=== PATIENT | male | born 1975 | race Caucasian/White ===

== ENCOUNTER 2018-07-23 12:31 | Emergency (ER) | payer BC ==
[2018-07-23] MEDS ORDERED: TRAMADOL HCL 50 MG TAB ONE (14:08)
[2018-07-23] MEDS ORDERED: ACETAMINOPHEN 500 MG TAB ONE (14:08)
[2018-07-23] MEDS ORDERED: HYDROCODONE/APAP 10/325 TAB ONE (15:00)
--- NOTE | 2018-07-23 15:05 | RAD REPORT ---
EXAM DESCRIPTION: RAD - Knee Left 3 View - 07/23/2018 2:48 pm CLINICAL HISTORY: Knee pain COMPARISON: Left knee October 2015 FINDINGS: No fracture, dislocation or periosteal reaction.Joint effusion cannot be accurately assess ed. Slight narrowing of the medial compartment noted. No marginal spurring. Patient has very pronounc ed soft tissue. This limits bone and joint assessment. No air or foreign body seen. IMPRESSION: Narrowing of the medial compartment. No acute bone finding. Joint effusion cannot be assessed due to the very pronounced surrounding soft tissue prominence. No a ir or foreign body in the soft tissues.
--- NOTE | 2018-07-23 15:15 | ER ---
Nurse's Notes [facility] Name: Serge Rich Age: 42 yrs Sex: Male : 1975 Arrival Date: 07/23/2018 Time: 12:34 Bed Treatment Private MD: Noe Tobin Diagnosis: Pain in left knee Presentation: 07/23 12:43 Presenting complaint: Patient states: Left knee pain that started 3 weeks ago and is aj constant. Transition of care: patient was not received from another setting of care. Onset of symptoms was June 30, 2018. Risk Assessment: Do you want to hurt yourself or someone else? Patient reports no desire to harm self or others. Initial Sepsis Screen: Does the patient meet any 2 criteria? No. Patient's initial sepsis screen is negative. Does the patient have a suspected source of infection? No. Patient's initial sepsis screen is negative. Care prior to arrival: None. 12:43 Method Of Arrival: Ambulatory aj 12:43 Acuity: MODESTA 4 aj Triage Assessment: 12:44 General: Appears in no apparent distress. comfortable, obese, Behavior is calm, aj cooperative, appropriate for age. Pain: Complains of pain in lateral aspect of left knee and left knee Pain currently is 10 out of 10 on a pain scale. Neuro: Level of Consciousness is awake, alert, obeys commands, Oriented to person, place, time, situation, Appropriate for age. Respiratory: Airway is patent Respiratory effort is even, unlabored, Respiratory pattern is regular, symmetrical. Derm: Skin is intact, is healthy with good turgor, Skin is pink, warm \T\ dry. normal. Musculoskeletal: Reports pain in lateral aspect of left knee and left knee. Historical: - Allergies: 12:44 Aspirin; aj 12:44 Keflex; aj 12:44 Morphine; aj 12:44 Sulfa (Sulfonamide Antibiotics); aj - Home Meds: 12:44 losartan 100 mg Oral tab 1 tab once daily [Active]; metoprolol tartrate 50 mg Oral tab aj 1 tab once daily [Active]; - PMHx: 12:44 enlarged aorta; Bundle Branch Block; Hypertension; aj - PSHx: 12:44 Left Ankle 2007; aj - Immunization history:: Adult Immunizations up to date. - Social history:: Smoking status: Patient/guardian denies using tobacco. - Ebola Screening: : Patient negative for fever greater than or equal to 101.5 degrees Fahrenheit, and additional compatible Ebola Virus Disease symptoms Patient denies exposure to infectious person Patient denies travel to an Ebola-affected area in the 21 days before illness onset No symptoms or risks identified at this time. Screenin:11 Abuse screen: Denies threats or abuse. Denies injuries from another. Nutritional iw screening: No deficits noted. Tuberculosis screening: No symptoms or risk factors identified. 14:00 Fall Risk None identified. iw Assessment: 13:09 General: Appears in no apparent distress. Behavior is calm, cooperative. Pain: iw Complains of pain in left knee and lateral aspect of left knee. Neuro: Level of Consciousness is awake, alert, obeys commands, Oriented to person, place, time, situation, Cardiovascular: Patient's skin is warm and dry. Respiratory: Airway is patent Respiratory effort is even, unlabored. Derm: Skin is intact, is healthy with good turgor. Musculoskeletal: Range of motion: limited in left knee. Vital Signs: 12:44 BP 168 / 85; Pulse 92; Resp 22; Temp 97.4; Pulse Ox 96% on R/A; Weight 262.18 kg; aj Height 5 ft. 8 in. (172.72 cm); 12:44 Body Mass Index 87.88 (262.18 kg, 172.72 cm) aj ED Course: 12:34 Patient arrived in ED. mr 12:34 Noe Tobin DO is Private Physician. mr 12:44 Triage completed. aj 12:44 Arm band placed on left wrist. Patient placed in waiting room, Patient notified of wait aj time. 12:45 Patient has correct armband on for positive identification. iw 12:50 Watson Lopez PA is PHCP. cp 12:50 Watson Bethea MD is Attending Physician. cp 13:09 Daphne Lal, GARRETT is Primary Nurse. iw 14:20 US Extremity Venous Unilateral Ltd In Process Unspecified. EDMS 14:48 XRAY Knee LEFT 3 view In Process Unspecified. EDMS 14:48 Ultrasound completed. Patient tolerated well. Note: done bedside. lc3 15:13 Dustin Blake MD is Referral Physician. cp 15:40 No provider procedures requiring assistance completed. Patient did not have IV access iw during this emergency room visit. Administered Medications: 14:06 Not Given (Patient Refused): Tylenol 1000 mg PO once iw 14:06 Drug: UltRAM 50 mg Route: PO; iw 15:00 Drug: HYDROcodone-acetaminophen 10 mg-325 mg 1 tabs Route: PO; iw Outcome: 15:15 Discharge ordered by . safia 15:40 Discharged to home via wheelchair, with family. iw 15:40 Condition: good 15:40 Condition: good 15:40 Discharge instructions given to patient, family. 15:40 Instructed on discharge instructions, follow up and referral plans. medication usage, Demonstrated understanding of instructions, follow-up care, medications, Prescriptions given X 1. 15:41 Patient left the ED. iw Signatures: Dispatcher [employer] EDMS Lizbeth Crum RN RN aj Rivera, Maria mr Williams, Irene, RN RN iw Watson Lopez PA PA cp Cunningham, Laulita lc3
--- NOTE | 2018-07-23 15:15 | EDPHYS ---
Physician Documentation [facility] Name: Serge Rich Age: 42 yrs Sex: Male : 1975 Arrival Date: 07/23/2018 Time: 12:34 Bed Treatment Private MD: Noe Tobin ED Physician Watson Bethea HPI: 07/23 13:05 This 42 yrs old Male presents to ER via Ambulatory with complaints of Knee cp Pain. 13:05 The patient presents with pain, tenderness. The complaints affect the medial aspect of cp left knee. Context: resulted from a mis-step, causing patient to almost fall. believes he may have twisted knee. Onset: The symptoms/episode began/occurred 3 week(s) ago. Associated signs and symptoms: Pertinent negatives fever, numbness, rash, warmth. Historical: - Allergies: 12:44 Aspirin; aj 12:44 Keflex; aj 12:44 Morphine; aj 12:44 Sulfa (Sulfonamide Antibiotics); aj - Home Meds: 12:44 losartan 100 mg Oral tab 1 tab once daily [Active]; metoprolol tartrate 50 mg Oral tab aj 1 tab once daily [Active]; - PMHx: 12:44 enlarged aorta; Bundle Branch Block; Hypertension; aj - PSHx: 12:44 Left Ankle 2007; aj - Immunization history:: Adult Immunizations up to date. - Social history:: Smoking status: Patient/guardian denies using tobacco. - Ebola Screening: : Patient negative for fever greater than or equal to 101.5 degrees Fahrenheit, and additional compatible Ebola Virus Disease symptoms Patient denies exposure to infectious person Patient denies travel to an Ebola-affected area in the 21 days before illness onset No symptoms or risks identified at this time. ROS: 13:10 Constitutional: Negative for body aches, chills, fever, poor PO intake. cp 13:10 Eyes: Negative for injury, pain, redness, and discharge. cp 13:10 ENT: Negative for drainage from ear(s), ear pain, sore throat, difficulty swallowing, difficulty handling secretions. 13:10 Cardiovascular: Negative for chest pain, palpitations. 13:10 Respiratory: Negative for cough, shortness of breath, wheezing. 13:10 Abdomen/GI: Negative for abdominal pain, nausea, vomiting, and diarrhea, constipation. 13:10 MS/extremity: Positive for pain, tenderness, of the medial aspect of left knee, Negative for decreased range of motion, deformity, paresthesias. 13:10 Skin: Negative for cellulitis, rash. 13:10 Neuro: Negative for altered mental status, dizziness, headache, weakness. 13:10 All other systems are negative. Exam: 13:12 Constitutional: The patient appears in no acute distress, alert, awake, cp non-diaphoretic, non-toxic, well developed, well nourished, morbidly obese 13:12 Head/Face: Normocephalic, atraumatic. cp 13:12 Eyes: Periorbital structures: appear normal, Conjunctiva: normal, no exudate, no injection, Lids and lashes: appear normal, bilaterally. 13:12 ENT: External ear(s): are unremarkable, Nose: is normal, Mouth: is normal, Posterior pharynx: Airway: no evidence of obstruction, patent. 13:12 Chest/axilla: Inspection: normal. 13:12 Cardiovascular: Rate: normal. 13:12 Respiratory: the patient does not display signs of respiratory distress, Respirations: normal, no use of accessory muscles, no retractions, no splinting, no tachypnea. 13:12 Abdomen/GI: Inspection: obese 13:12 Musculoskeletal/extremity: ROM: limited passive range of motion due to pain, in the left knee, Perfusion: the extremity is normally perfused throughout, Sensation intact. Joints: All joints are normal except the medial aspect of left knee displays painful range of motion, tenderness. 13:12 Skin: cellulitis, is not appreciated, no rash present. Vital Signs: 12:44 BP 168 / 85; Pulse 92; Resp 22; Temp 97.4; Pulse Ox 96% on R/A; Weight 262.18 kg; aj Height 5 ft. 8 in. (172.72 cm); 12:44 Body Mass Index 87.88 (262.18 kg, 172.72 cm) aj MDM: 12:51 Patient medically screened. cp 14:00 Differential diagnosis: dislocation, closed fracture, contusion, tendonitis, ligament cp injury. 15:13 Data reviewed: vital signs, nurses notes, radiologic studies, plain films, ultrasound. cp 15:13 Test interpretation: by ED physician or midlevel provider: plain radiologic studies. cp Counseling: I had a detailed discussion with the patient and/or guardian regarding: the historical points, exam findings, and any diagnostic results supporting the discharge/admit diagnosis, radiology results, the need for outpatient follow up, a orthopedic surgeon, to return to the emergency department if symptoms worsen or persist or if there are any questions or concerns that arise at home. Response to treatment: the patient's symptoms have mildly improved after treatment, and as a result, I will discharge patient. 07/23 13:02 Order name: XRAY Knee LEFT 3 view; Complete Time: 15:23 cp 07/23 13:02 Order name: US Extremity Venous Unilateral Ltd; Complete Time: 15:23 cp 07/23 15:24 Interpretation: Report reviewed. cp Administered Medications: 14:06 Not Given (Patient Refused): Tylenol 1000 mg PO once iw 14:06 Drug: UltRAM 50 mg Route: PO; iw 15:00 Drug: HYDROcodone-acetaminophen 10 mg-325 mg 1 tabs Route: PO; iw Disposition: 07/23/18 15:15 Discharged to Home. Impression: Pain in left knee. - Condition is Stable. - Discharge Instructions: Elastic Bandage and RICE, Knee Pain. - Prescriptions for Tylenol- Codeine #3 300-30 mg Oral Tablet - take 2 tablets by ORAL route every 6 hours As needed; 20 tablet. - Medication Reconciliation Form, Thank You Letter, Antibiotic Education, Prescription Opioid Use form. - Follow up: Dustin Blake MD; When: 2 - 3 days; Reason: left knee pain. - Problem is new. - Symptoms have improved. Addendum: 07/26/2018 07:29 Co-signature as Attending Physician, Watson Bethea MD I agree with the assessment and c lara plan of care. Signatures: Dispatcher [employer] Lizbeth King, Watson Saldivar RN, MD MD cha Williams, Irene, RN RN iw Page, Corey, PA PA cp Corrections: (The following items were deleted from the chart) 07/23 15:41 15:15 07/23/2018 15:15 Discharged to Home. Impression: Pain in left knee. Condition is iw Stable. Forms are Medication Reconciliation Form, Thank You Letter, Antibiotic Education, Prescription Opioid Use. Follow up: Dustin Blake; When: 2 - 3 days; Reason: left knee pain. Problem is new. Symptoms have improved. cp
--- NOTE | 2018-07-23 15:17 | RAD REPORT ---
EXAM DESCRIPTION: US - Extremity Venous Uni Ltd - 07/23/2018 3:03 pm CLINICAL HISTORY: Left leg pain COMPARISON: None. TECHNIQUE: Real-time sonographic evaluation of the left lower extremity deep venous system was perfo rmed. Grayscale and Doppler interrogation performed. FINDINGS: Normal compressibility, flow augmentation, phasic flow and spontaneous flow are identified in the left lower extremity common femoral, greater saphenous, popliteal and posterior tibial veins. No intraluminal filling defects seen. The mid and distal superficial femoral vein was not identifiab le. This is believed to be artifact of very large body habitus. IMPRESSION: The mid and distal femoral vein was not identifiable due to the large amount of soft tis yvan. Thrombus cannot be excluded from this region but is doubtful based on the findings proximal and distal to this region. The remainder the deep venous system is clear.
== END 2018-07-23 15:41 | disposition home or self-care (01) ==
LOC: ER 12:31
DX: M25.562 Pain in left knee (principal); I10 Essential (primary) hypertension; Z88.2 Allergy status to sulfonamides; Z88.5 Allergy status to narcotic agent; Z88.6 Allergy status to analgesic agent; Z88.8 Allergy status to other drugs, medicaments and biological substances
CPT/HCPCS: 93971; 99283

== ENCOUNTER 2019-10-20 09:42 | Emergency (ER) | payer SELFPAY ==
[2019-10-20] MEDS ORDERED: HYDROCODONE/APAP 10/325 TAB ONE (12:39)
[2019-10-20 13:15] LABS: Absolute Lymphocytes (CBC) 1.3 K/uL (0.7-4.9); Basophils % 0.5 % (0-1.3); Hematocrit 42.7 % (39.6-49.0); Lymphocytes % 16.5 % (15.3-44.8); MPV 7.3 fL (7.6-11.3)
[2019-10-20 13:29] LABS: Albumin 3.6 g/dL (3.4-5.0); Protein, Total 7.2 g/dL (6.4-8.2)
--- NOTE | 2019-10-20 14:44 | RAD REPORT ---
EXAM DESCRIPTION: US - Extremity Venous Uni Ltd - 10/20/2019 2:01 pm CLINICAL HISTORY: pain, swelling Leg swelling and edema. COMPARISON: Extremity Venous Uni Ltd dated 07/23/2018 FINDINGS: Left lower extremity venous system was interrogated with Doppler technique. Normal flow, c ompressibility and augmentation was noted. There is no DVT present. IMPRESSION: No evidence of left lower extremity deep venous thrombosis.
--- NOTE | 2019-10-20 15:23 | EDPHYS ---
Physician Documentation [facility] Name: Serge Rich Age: 43 yrs Sex: Male : 1975 Arrival Date: 10/20/2019 Time: 09:46 Bed 26 Private MD: ED Physician Keith Han HPI: 10/20 12:38 This 43 yrs old Male presents to ER via Ambulatory with complaints of Leg jmm Pain, Leg Swelling. 12:38 The patient presents with pain, that is acute. Onset: The symptoms/episode jmm began/occurred today. Modifying factors: The symptoms are alleviated by nothing. the symptoms are aggravated by nothing. Associated signs and symptoms: Pertinent positives: rash, swelling, Pertinent negatives fever. This is a 43 year old male with a history of obesity, htn that presents to the ED with complaints of left leg pain. Patient denies fever or chills. Denies previous symptoms in the past. . Historical: - Allergies: 09:49 Aspirin; tw2 09:49 Keflex; tw2 09:49 Morphine; tw2 09:49 Sulfa (Sulfonamide Antibiotics); tw2 - Home Meds: 09:49 losartan 100 mg Oral tab 1 tab once daily [Active]; tw2 - PMHx: 09:49 Bundle Branch Block; Right; enlarged aorta; Hypertension; Obesity; tw2 - PSHx: 09:49 Left Ankle 2007; tw2 - Immunization history:: Adult Immunizations. - Social history:: Smoking status: . - Ebola Screening: : Patient denies travel to an Ebola-affected area in the 21 days before illness onset. ROS: 12:38 Constitutional: Negative for fever, chills, and weight loss, Cardiovascular: Negative jmm for chest pain, palpitations, and edema, Respiratory: Negative for shortness of breath, cough, wheezing, and pleuritic chest pain. 12:38 MS/extremity: Positive for pain, swelling. 12:38 All other systems are negative. Exam: 12:38 Constitutional: This is a well developed, well nourished patient who is awake, alert, jmm and in no acute distress. Head/Face: atraumatic. Eyes: EOMI, no conjunctival erythema appreciated ENT: Moist Mucus Membranes Neck: Trachea midline, Supple Chest/axilla: Normal chest wall appearance and motion. Cardiovascular: Regular rate and rhythm. No edema appreciated Respiratory: Normal respirations, no respiratory distress appreciated Abdomen/GI: Non distended, soft Back: Normal ROM 12:38 Skin: vesicular/erythematous rash noted to the left medial thigh, TTP, skin is mildly indurated. 12:38 Neuro: Orientation: is normal, Mentation: is normal, Memory: is normal. 12:38 Psych: Behavior/mood is pleasant, cooperative. Vital Signs: 09:49 BP 136 / 106; Pulse 111; Resp 18; Temp 98.2(TE); Pulse Ox 96% on R/A; Weight 272.16 kg tw2 (R); Height 5 ft. 8 in. (172.72 cm); Pain 6/10; 11:56 Weight 288.48 kg (M); tw2 13:59 BP 136 / 79; Pulse 67; Resp 18; Pulse Ox 100% on R/A; mg2 16:01 BP 133 / 78; Pulse 68; Resp 18; Temp 98.5; Pulse Ox 96% on R/A; mg2 11:56 Body Mass Index 96.70 (288.48 kg, 172.72 cm) tw2 09:49 if im walking it is 9, i weight 600 plus pounds last time i weighed tw2 MDM: 12:27 Patient medically screened. [facility] 15:20 Data reviewed: vital signs, nurses notes. Counseling: I had a detailed discussion with lali the patient and/or guardian regarding: the historical points, exam findings, and any diagnostic results supporting the discharge/admit diagnosis, radiology results, the need for outpatient follow up, to return to the emergency department if symptoms worsen or persist or if there are any questions or concerns that arise at home. ED course: Patient is alert and non toxic in appearance in the ED. PE findings appear consistent with Herpes Zoster. Patient is advised to follow up with pcp and otherwise given strict return precautions. patient understood and agrees with the plan of care. . 10/20 12:33 Order name: CBC with Diff; Complete Time: 13:20 [facility] 10/20 12:33 Order name: CMP; Complete Time: 13:44 [facility] 10/20 12:33 Order name: Saline Lock; Complete Time: 13:02 [facility] 10/20 12:34 Order name: US Extremity Venous Unilateral Ltd; Complete Time: 15:05 [facility] Administered Medications: 13:02 Drug: [place] 10 mg-325 mg 1 tabs Route: PO; mg2 13:54 Follow up: Response: No adverse reaction mg2 Disposition: 16:53 Co-signature as Attending Physician, Keith Han MD I agree with the assessment and kdr plan of care. Disposition: 10/20/19 15:22 Discharged to Home. Impression: Zoster [herpes zoster]. - Condition is Stable. - Discharge Instructions: Shingles. - Prescriptions for Tylenol- Codeine #3 300-30 mg Oral Tablet - take 2 tablet by ORAL route every 6 hours As needed; 30 tablet. Valtrex 1 g Oral Tablet - take 1 tablet by ORAL route every 8 hours for 7 days; 21 tablet. Clindamycin HCl 300 mg Oral Capsule - take 1 capsule by ORAL route every 6 hours for 10 days; 40 capsule. - Medication Reconciliation Form, Thank You Letter, Antibiotic Education, Prescription Opioid Use form. - Follow up: Private Physician; When: 2 - 3 days; Reason: Recheck today's complaints, Continuance of care, Re-evaluation by your physician. Signatures: Dispatcher [employer] EDMS Keith Han MD MD [facility] Luis Rose PA PA m Sonia Baum RN RN tw2 Rome Ortiz RN RN mg2 Corrections: (The following items were deleted from the chart) 16:02 15:22 10/20/2019 15:22 Discharged to Home. Impression: Zoster [herpes zoster]. mg2 Condition is Stable. Forms are Medication Reconciliation Form, Thank You Letter, Antibiotic Education, Prescription Opioid Use. Follow up: Private Physician; When: 2 - 3 days; Reason: Recheck today's complaints, Continuance of care, Re-evaluation by your physician. feli
--- NOTE | 2019-10-20 15:23 | ER ---
Nurse's Notes [facility] Name: Serge Rich Age: 43 yrs Sex: Male : 1975 Arrival Date: 10/20/2019 Time: 09:46 Bed 26 Private MD: Diagnosis: Zoster [herpes zoster] Presentation: 10/20 09:47 Presenting complaint: Patient states: i woke up yesterday with my LEFT thigh, inner tw2 thigh, red and swelling now the pain is excruciating. to me it looks like cellulitis. Presenting complaint: Patient states: i also felt like i was running fever and got the chills. Transition of care: patient was not received from another setting of care. Onset of symptoms was October 20, 2019. Risk Assessment: Do you want to hurt yourself or someone else? Patient reports no desire to harm self or others. Initial Sepsis Screen: Does the patient meet any 2 criteria? No. Patient's initial sepsis screen is negative. Does the patient have a suspected source of infection? No. Patient's initial sepsis screen is negative. Care prior to arrival: None. 09:47 Method Of Arrival: Ambulatory tw2 09:47 Acuity: MODESTA 3 tw2 Triage Assessment: 09:50 General: Appears in no apparent distress. obese, Behavior is calm, cooperative, tw2 appropriate for age. Pain: Complains of pain in medial aspect of left thigh. Historical: - Allergies: 09:49 Aspirin; tw2 09:49 Keflex; tw2 09:49 Morphine; tw2 09:49 Sulfa (Sulfonamide Antibiotics); tw2 - Home Meds: 09:49 losartan 100 mg Oral tab 1 tab once daily [Active]; tw2 - PMHx: 09:49 Bundle Branch Block; Right; enlarged aorta; Hypertension; Obesity; tw2 - PSHx: 09:49 Left Ankle 2008; tw2 - Immunization history:: Adult Immunizations. - Social history:: Smoking status: . - Ebola Screening: : Patient denies travel to an Ebola-affected area in the 21 days before illness onset. Screenin:11 Abuse screen: Denies threats or abuse. Nutritional screening: No deficits noted. tw2 Tuberculosis screening: No symptoms or risk factors identified. Fall Risk Secondary diagnosis (15 points) impaired mobility. Assessment: 13:26 General: Appears in no apparent distress. comfortable, Behavior is calm, cooperative. mg2 Pain: Complains of pain in left leg and medial aspect of left thigh Pain does not radiate. Pain currently is 2 out of 10 on a pain scale. Quality of pain is described as aching. Neuro: Level of Consciousness is awake, alert, obeys commands, Oriented to person, place, time, situation. Cardiovascular: Capillary refill < 3 seconds Patient's skin is warm and dry. Respiratory: Airway is patent Respiratory effort is even, unlabored, Respiratory pattern is regular, symmetrical. GI: No signs and/or symptoms were reported involving the gastrointestinal system. : No signs and/or symptoms were reported regarding the genitourinary system. EENT: No signs and/or symptoms were reported regarding the EENT system. Derm: Rash noted that is red, on left leg and medial aspect of left thigh. Musculoskeletal: Circulation, motion, and sensation intact. Capillary refill < 3 seconds. 13:59 Reassessment: Patient appears in no apparent distress at this time. Patient and/or mg2 family updated on plan of care and expected duration. Pain level reassessed. Patient is alert, oriented x 3, equal unlabored respirations, skin warm/dry/pink. 16:01 Reassessment: Patient appears in no apparent distress at this time. Patient states mg2 feeling better. Vital Signs: 09:49 BP 136 / 106; Pulse 111; Resp 18; Temp 98.2(TE); Pulse Ox 96% on R/A; Weight 272.16 kg tw2 (R); Height 5 ft. 8 in. (172.72 cm); Pain 6/10; 11:56 Weight 288.48 kg (M); tw2 13:59 BP 136 / 79; Pulse 67; Resp 18; Pulse Ox 100% on R/A; mg2 16:01 BP 133 / 78; Pulse 68; Resp 18; Temp 98.5; Pulse Ox 96% on R/A; mg2 11:56 Body Mass Index 96.70 (288.48 kg, 172.72 cm) tw2 09:49 if im walking it is 9, i weight 600 plus pounds last time i weighed tw2 ED Course: 09:46 Patient arrived in ED. rg4 09:48 Triage completed. tw2 09:50 Arm band placed on. tw2 11:53 Bed in low position. Adult w/ patient. tw2 12:04 Luis Rose PA is PHCP. [facility] 12:04 Keith Han MD is Attending Physician. [facility] 12:12 Anushka Aaron, GARRETT is Primary Nurse. ss 13:15 Inserted saline lock: 22 gauge in left upper arm, using aseptic technique. Blood mg2 collected. 13:27 No provider procedures requiring assistance completed. mg2 13:33 Rome Ortiz, RN is Primary Nurse. mg2 13:38 US Extremity Venous Unilateral Ltd In Process Unspecified. EDMS 16:02 IV discontinued, intact, bleeding controlled, No redness/swelling at site. Pressure mg2 dressing applied. Administered Medications: 13:02 Drug: [place] 10 mg-325 mg 1 tabs Route: PO; mg2 13:54 Follow up: Response: No adverse reaction mg2 Outcome: 15:22 Discharge ordered by MD. jmm 16:01 Discharged to home ambulatory. mg2 16:01 Condition: stable 16:01 Discharge instructions given to patient, family, Instructed on discharge instructions. 16:02 Discharged to home via wheelchair, with family. mg2 16:02 Condition: stable 16:02 Discharge instructions given to patient, family, Instructed on discharge instructions, follow up and referral plans. medication usage, Demonstrated understanding of instructions, follow-up care, medications, Prescriptions given X 3. 16:02 Patient left the ED. mg2 Signatures: Dispatcher [employer] EDMS Luis Rose PA PA [facility] Anushka Aaron, GARRETT TUCKER ss Sonia Baum RN RN tw2 Su Michelle rg4 Rome Ortiz, RN RN mg2 Corrections: (The following items were deleted from the chart) 11:11 09:49 BP 136 / 106; Pulse 111bpm; Resp 18bpm; Pulse Ox 96% RA; Temp 98.2F Temporal; tw2 272.16 kg Reported; Height 5 ft. 8 in.; BMI: 91.2; Pain 6/10; if im walking it is 9; tw2
[2019-10-20 16:48] VITALS: BP 133/78; TEMP 98.5; O2SAT 96
== END 2019-10-20 16:02 | disposition home or self-care (01) ==
LOC: ER 09:42
DX: B02.9 Zoster without complications (principal); I10 Essential (primary) hypertension; E66.9 Obesity, unspecified; Z88.1 Allergy status to other antibiotic agents; Z88.2 Allergy status to sulfonamides; Z88.5 Allergy status to narcotic agent; Z88.6 Allergy status to analgesic agent
CPT/HCPCS: 36415; 80053; 85025; 93971; 99284

== ENCOUNTER 2019-12-27 18:31 | Emergency (ER) | payer OTHER, SELFPAY ==
--- NOTE | 2019-12-27 19:18 | EDPHYS ---
Physician Documentation [facility] Name: Serge Rich Age: 44 yrs Sex: Male : 1975 Arrival Date: 12/27/2019 Time: 18:34 Bed 19 Private MD: ED Physician Vipin Bright HPI: 12/27 19:15 This 44 yrs old Male presents to ER via Wheelchair with complaints of Knee snw Injury. 19:15 The patient presents with pain, that is acute. The complaints affect the lateral aspect snw of left knee. Context: The problem was sustained outdoors, resulted from the patient tripping. Onset: The symptoms/episode began/occurred suddenly, 2 hour(s) ago, and became persistent. Associated signs and symptoms: Pertinent positives: left lateral knee pain. Severity of symptoms: At their worst the symptoms were moderate. It is unknown whether or not the patient has had similar symptoms in the past. It is unknown whether or not the patient has recently seen a physician. Historical: - Allergies: 18:53 Aspirin; ca1 18:53 Keflex; ca1 18:53 Morphine; ca1 18:53 Sulfa (Sulfonamide Antibiotics); ca1 - Home Meds: 18:53 losartan 100 mg Oral tab 1 tab once daily [Active]; ca1 - PMHx: 18:53 Bundle Branch Block; Right; enlarged aorta; Hypertension; Obesity; ca1 - Immunization history:: Adult Immunizations up to date, Flu vaccine is not up to date. - Coronavirus screen:: The patient has NOT traveled to [place] in the past 14 days. The patient has NOT had contact with known/suspected case of Coronavirus?. - Social history:: Smoking status: Patient denies any tobacco usage or history of. - Ebola Screening: : Patient negative for fever greater than or equal to 101.5 degrees Fahrenheit, and additional compatible Ebola Virus Disease symptoms Patient denies exposure to infectious person Patient denies travel to an Ebola-affected area in the 21 days before illness onset No symptoms or risks identified at this time. ROS: 19:14 Constitutional: Negative for fever, chills, and weight loss, Eyes: Negative for injury, snw pain, redness, and discharge, ENT: Negative for injury, pain, and discharge, Neck: Negative for injury, pain, and swelling, Cardiovascular: Negative for chest pain, palpitations, and edema, Respiratory: Negative for shortness of breath, cough, wheezing, and pleuritic chest pain, Abdomen/GI: Negative for abdominal pain, nausea, vomiting, diarrhea, and constipation, Back: Negative for injury and pain, : Negative for injury, bleeding, discharge, and swelling, Skin: Negative for injury, rash, and discoloration, Neuro: Negative for headache, weakness, numbness, tingling, and seizure, Psych: Negative for depression, anxiety, suicide ideation, homicidal ideation, and hallucinations. 19:14 MS/extremity: Positive for injury or acute deformity, pain, of the lateral aspect of left knee. Exam: 19:13 Head/Face: Normocephalic, atraumatic. Eyes: Pupils equal round and reactive to light, snw extra-ocular motions intact. Lids and lashes normal. Conjunctiva and sclera are non-icteric and not injected. Cornea within normal limits. Periorbital areas with no swelling, redness, or edema. ENT: Nares patent. No nasal discharge, no septal abnormalities noted. Tympanic membranes are normal and external auditory canals are clear. Oropharynx with no redness, swelling, or masses, exudates, or evidence of obstruction, uvula midline. Mucous membranes moist. Neck: Trachea midline, no thyromegaly or masses palpated, and no cervical lymphadenopathy. Supple, full range of motion without nuchal rigidity, or vertebral point tenderness. No Meningismus. Chest/axilla: Normal chest wall appearance and motion. Nontender with no deformity. No lesions are appreciated. Cardiovascular: Regular rate and rhythm with a normal S1 and S2. No gallops, murmurs, or rubs. Normal PMI, no JVD. No pulse deficits. Respiratory: Lungs have equal breath sounds bilaterally, clear to auscultation and percussion. No rales, rhonchi or wheezes noted. No increased work of breathing, no retractions or nasal flaring. Abdomen/GI: Soft, non-tender, with normal bowel sounds. No distension or tympany. No guarding or rebound. No evidence of tenderness throughout. Back: No spinal tenderness. No costovertebral tenderness. Full range of motion. Skin: Warm, dry with normal turgor. Normal color with no rashes, no lesions, and no evidence of cellulitis. Neuro: Awake and alert, GCS 15, oriented to person, place, time, and situation. Cranial nerves II-XII grossly intact. Motor strength 5/5 in all extremities. Sensory grossly intact. Cerebellar exam normal. Normal gait. Psych: Awake, alert, with orientation to person, place and time. Behavior, mood, and affect are within normal limits. 19:13 Constitutional: The patient appears obese, unkempt. 19:13 Musculoskeletal/extremity: Extremities: grossly normal except: the tenderness to left lateral knee Sensation intact. Vital Signs: 18:53 BP 148 / 86; Pulse 77; Resp 17 S; Pulse Ox 96% on R/A; Weight 283.95 kg (R); Height 5 ca1 ft. 8 in. (172.72 cm) (R); Pain 10/10; 19:59 BP 155 / 84; Pulse 65; Resp 18; Pulse Ox 97% on R/A; wh 21:15 BP 160 / 85; Pulse 63; Resp 18; Pulse Ox 98% on R/A; wh 18:53 Body Mass Index 95.18 (283.95 kg, 172.72 cm) ca1 MDM: 18:56 Patient medically screened. snw 19:18 Data reviewed: vital signs, nurses notes. Data interpreted: Pulse oximetry: on room air snw is 96 %. Interpretation: acceptable. Counseling: I had a detailed discussion with the patient and/or guardian regarding: the historical points, exam findings, and any diagnostic results supporting the discharge/admit diagnosis, the presence of at least one elevated blood pressure reading (>120/80) during this emergency department visit, radiology results, the need for outpatient follow up, to return to the emergency department if symptoms worsen or persist or if there are any questions or concerns that arise at home. Special discussion: I have referred the patient to see his PCP for further evaluation of high blood pressure. Based on the history and exam findings, there is no indication for further emergent testing or inpatient evaluation. I discussed with the patient/guardian the need to see the orthopedic surgeon for further evaluation of the symptoms. I discussed with the patient/guardian the need to see the primary care provider for further evaluation of the symptoms. 12/27 20:36 Order name: XRAY Knee LEFT 3 view wh 12/27 19:12 Order name: Mukund wrap-joint; Complete Time: 19:40 snw 02/18 21:41 Order name: Crutches; Complete Time: 22:12 Administered Medications: 19:40 Drug: fentaNYL (PF) 50 mcg Route: IM; Site: right deltoid; 19:59 Follow up: Response: No adverse reaction; Pain is decreased; RASS: Alert and Calm (0) 21:52 Drug: [place] 10 mg-325 mg 1 tabs Route: PO; 22:12 Follow up: Response: No adverse reaction; Pain is decreased; RASS: Alert and Calm (0) 21:52 Drug: [place] 10 mg-325 mg 1 tabs Route: PO; 22:12 Follow up: Response: No adverse reaction; Pain is decreased; RASS: Alert and Calm (0) Disposition: 12/28 07:05 Co-signature as Attending Physician, Vipin Bright MD. rn Disposition: 12/27/19 19:17 Discharged to Home. Impression: Fall on same level from slipping, tripping and stumbling, Pain in left knee, Internal derangement of knee. - Condition is Stable. - Discharge Instructions: Elastic Bandage and RICE, Joint Pain, Knee Sprain, Musculoskeletal Pain, Knee Pain, Cryotherapy. - Prescriptions for Tylenol- Codeine #3 300-30 mg Oral Tablet - take 2 tablets by ORAL route every 6 hours As needed; 16 tablet. - Work release form, Medication Reconciliation Form, Thank You Letter, Antibiotic Education, Prescription Opioid Use form. - Follow up: Private Physician; When: 1 week; Reason: Recheck today's complaints, Continuance of care, Re-evaluation by your physician. Follow up: Emergency Department; When: As needed; Reason: Worsening of condition. Follow up: Marc Abreu MD; When: 5 - 6 days; Reason: Recheck today's complaints, Continuance of care. Signatures: Dispatcher [employer] EDMS Zoya Ring, DOUGH RAISER-C DOUGH RAISER-Csnw Vipin Bright MD MD rn [place], Winsy Mary Beth Ordaz RN RN ca1 Corrections: (The following items were deleted from the chart) 12/27 21:47 19:17 12/27/2019 19:17 Discharged to Home. Impression: Fall on same level from snw slipping, tripping and stumbling; Pain in left knee; Internal derangement of knee. Condition is Stable. Forms are Medication Reconciliation Form, Thank You Letter, Antibiotic Education, Prescription Opioid Use. Follow up: Private Physician; When: 1 week; Reason: Recheck today's complaints, Continuance of care, Re-evaluation by your physician. Follow up: Emergency Department; When: As needed; Reason: Worsening of condition. snw 22:14 21:47 12/27/2019 19:17 Discharged to Home. Impression: Fall on same level from wh slipping, tripping and stumbling; Pain in left knee; Internal derangement of knee. Condition is Stable. Discharge Instructions: Elastic Bandage and RICE, Joint Pain, Knee Sprain, Musculoskeletal Pain, Knee Pain, Cryotherapy. Prescriptions for Tylenol-Codeine #3 300-30 mg Oral Tablet - take 2 tablets by ORAL route every 6 hours As needed; 16 tablet. and Forms are Medication Reconciliation Form, Thank You Letter, Antibiotic Education, Prescription Opioid Use, Work release form. Follow up: Private Physician; When: 1 week; Reason: Recheck today's complaints, Continuance of care, Re-evaluation by your physician. Follow up: Emergency Department; When: As needed; Reason: Worsening of condition. Follow up: Marc Abreu; When: 5 - 6 days; Reason: Recheck today's complaints, Continuance of care. snw
--- NOTE | 2019-12-27 19:18 | ER ---
Nurse's Notes [facility] Name: Serge Rich Age: 44 yrs Sex: Male : 1975 Arrival Date: 12/27/2019 Time: 18:34 Bed 19 Private MD: Diagnosis: Fall on same level from slipping, tripping and stumbling;Pain in left knee;Internal derangement of knee Presentation: 12/27 18:41 Presenting complaint: Presenting complaint: Patient states: I slipped and kind of did a ca1 split hyper extending my L knee. C/o L knee pain. 18:41 Transition of care: patient was not received from another setting of care. ca1 18:41 Method Of Arrival: Wheelchair ca1 18:41 Onset of symptoms was December 27, 2019. Risk Assessment: Do you want to hurt yourself ca1 or someone else? Patient reports no desire to harm self or others. Initial Sepsis Screen: Does the patient meet any 2 criteria? No. Patient's initial sepsis screen is negative. Does the patient have a suspected source of infection? No. Patient's initial sepsis screen is negative. Care prior to arrival: None. 18:41 Acuity: MODESTA 4 ca1 Triage Assessment: 19:05 Injury Description: fall. wh Historical: - Allergies: 18:53 Aspirin; ca1 18:53 Keflex; ca1 18:53 Morphine; ca1 18:53 Sulfa (Sulfonamide Antibiotics); ca1 - Home Meds: 18:53 losartan 100 mg Oral tab 1 tab once daily [Active]; ca1 - PMHx: 18:53 Bundle Branch Block; Right; enlarged aorta; Hypertension; Obesity; ca1 - Immunization history:: Adult Immunizations up to date, Flu vaccine is not up to date. - Coronavirus screen:: The patient has NOT traveled to [place] in the past 14 days. The patient has NOT had contact with known/suspected case of Coronavirus?. - Social history:: Smoking status: Patient denies any tobacco usage or history of. - Ebola Screening: : Patient negative for fever greater than or equal to 101.5 degrees Fahrenheit, and additional compatible Ebola Virus Disease symptoms Patient denies exposure to infectious person Patient denies travel to an Ebola-affected area in the 21 days before illness onset No symptoms or risks identified at this time. Screenin:05 Abuse screen: Denies threats or abuse. Denies injuries from another. Nutritional screening: No deficits noted. Tuberculosis screening: No symptoms or risk factors identified. Fall Risk None identified. Assessment: 19:05 General: Appears in no apparent distress. obese, Behavior is calm, cooperative, wh appropriate for age. Pain: Complains of pain in left knee Pain does not radiate. Pain currently is 9 out of 10 on a pain scale. Quality of pain is described as aching. Neuro: Level of Consciousness is awake, alert, obeys commands, Oriented to person, place, time, situation, Appropriate for age. Cardiovascular: Capillary refill < 3 seconds. Respiratory: Airway is patent Respiratory effort is even, unlabored, Respiratory pattern is regular, symmetrical. GI: Abdomen is round non-distended. : No signs and/or symptoms were reported regarding the genitourinary system. EENT: No signs and/or symptoms were reported regarding the EENT system. Derm: Skin is intact, is healthy with good turgor. Musculoskeletal: Circulation, motion, and sensation intact. 19:50 Reassessment: Patient appears in no apparent distress at this time. No changes from previously documented assessment. Patient and/or family updated on plan of care and expected duration. Pain level reassessed. Patient is alert, oriented x 3, equal unlabored respirations, skin warm/dry/pink. Patient states feeling better. 20:00 Reassessment: Upon discussing discharge instructions, Pt became agitated and asked for prescription pain medicine, Notified Provider and asked Pt if he has taken Tramadol before, then Pt became more agitated states Tramadol doesn't work for him, then asked to speak with Attending MD, notified Provider, MD and Charge Nurse. 20:33 Reassessment: MD at bedside speaking with PT. 21:45 Reassessment: Patient appears in no apparent distress at this time. No changes from previously documented assessment. Patient and/or family updated on plan of care and expected duration. Pain level reassessed. Patient is alert, oriented x 3, equal unlabored respirations, skin warm/dry/pink. Patient states feeling better. Patient states symptoms have improved. Vital Signs: 18:53 BP 148 / 86; Pulse 77; Resp 17 S; Pulse Ox 96% on R/A; Weight 283.95 kg (R); Height 5 ca1 ft. 8 in. (172.72 cm) (R); Pain 10/10; 19:59 BP 155 / 84; Pulse 65; Resp 18; Pulse Ox 97% on R/A; wh 21:15 BP 160 / 85; Pulse 63; Resp 18; Pulse Ox 98% on R/A; wh 18:53 Body Mass Index 95.18 (283.95 kg, 172.72 cm) ca1 ED Course: 18:34 Patient arrived in ED. rg4 18:36 Zoya Ring FNP-C is PHCP. snw 18:36 Vipin Bright MD is Attending Physician. snw 18:52 Triage completed. ca1 18:53 Arm band placed on right wrist. EKG completed in triage. Results shown to MD. EKG ca1 completed in triage. Results shown to MD. 19:05 Patient has correct armband on for positive identification. Bed in low position. Call light in reach. Side rails up X 1. Pulse ox on. NIBP on. 19:14 Mavis Carpenter is Primary Nurse. 19:58 No provider procedures requiring assistance completed. Patient did not have IV access during this emergency room visit. 21:03 XRAY Knee LEFT 3 view In Process Unspecified. EDMS 21:47 Marc Abreu MD is Referral Physician. snw Administered Medications: 19:40 Drug: fentaNYL (PF) 50 mcg Route: IM; Site: right deltoid; 19:59 Follow up: Response: No adverse reaction; Pain is decreased; RASS: Alert and Calm (0) 21:52 Drug: [place] 10 mg-325 mg 1 tabs Route: PO; 22:12 Follow up: Response: No adverse reaction; Pain is decreased; RASS: Alert and Calm (0) 21:52 Drug: [place] 10 mg-325 mg 1 tabs Route: PO; 22:12 Follow up: Response: No adverse reaction; Pain is decreased; RASS: Alert and Calm (0) Outcome: 19:17 Discharge ordered by . snw 22:13 Discharged to home via wheelchair, with family. 22:13 Discharge instructions given to patient, Instructed on discharge instructions, follow up and referral plans. POC Demonstrated understanding of instructions, follow-up care, POC 22:14 Condition: stable 22:14 Patient left the ED. Signatures: Dispatcher [employer] EDMS Zoya Ring, MIS SPECIALIST-C MIS SPECIALIST-Csnw Su Michelle rg4 Mavis Carpenter Mary Beth Ordaz RN RN ca1 Corrections: (The following items were deleted from the chart) 18:52 18:41 Presenting complaint: ca1 ca1 18:54 18:53 Pulse 77bpm; Resp 17bpm; Spontaneous; Pulse Ox 96% RA; 283.95 kg Reported; Height ca1 5 ft. 8 in. Reported; BMI: 95.1; Pain 08/18; ca1 22:14 19:58 Discharged to home via wheelchair, with family, [facility] : 19:58 Condition: stable [facility] : 19:58 Discharge instructions given to patient, Instructed on discharge instructions, follow up and referral plans. POC Demonstrated understanding of instructions, follow-up care, POC
[2019-12-27] MEDS ORDERED: FENTANYL CITR 100 MCG/2 ML ONE (19:40)
[2019-12-27] MEDS ORDERED: HYDROCODONE/APAP 10/325 TAB ONE (21:53)
[2019-12-27 22:23] VITALS: BP 160/85; O2SAT 98
--- NOTE | 2019-12-27 22:26 | RAD REPORT ---
EXAM DESCRIPTION: RAD - Knee Left 3 View - 12/27/2019 9:02 pm CLINICAL HISTORY: PAIN COMPARISON: Knee Left 3 View dated 07/23/2018; Knee Left 3 view dated 10/14/2015 FINDINGS: Examination is limited by a soft tissue attenuation artifact. No acute fracture, dislocati on or joint effusion.
== END 2019-12-27 22:14 | disposition home or self-care (01) ==
LOC: ER 18:31
DX: M23.92 Unspecified internal derangement of left knee (principal); W01.0XXA Fall on same level from slipping, tripping and stumbling without subsequent striking against object, initial encounter; Y93.01 Activity, walking, marching and hiking; Y92.9 Unspecified place or not applicable; I10 Essential (primary) hypertension; E66.9 Obesity, unspecified; Z88.1 Allergy status to other antibiotic agents; Z88.2 Allergy status to sulfonamides; Z88.5 Allergy status to narcotic agent; Z88.6 Allergy status to analgesic agent
CPT/HCPCS: 73562; 96372; 99283; J3010

== ENCOUNTER 2022-10-15 09:57 | Emergency (ER) | payer OTHER ==
--- OUTSIDE RECORDS SUMMARY | 2022-10-15 10:05 | XMS REPORT | Continuity of Care Document ---
:1975 Author Organization [facility] t Address [address] [place] [address] [address]. [address] [place] [address] Care Team Providers Name Role Phone HendricksonCyrus Primary Care Physician CARLOS ZAYAS Attending Clinician Unavailable SANDY MARIN Attending Clinician Unavailable Mehran Dela Cruz Attending Clinician Lab, [facility] Attending Clinician Unavailable MEHRAN MAURICIO Attending Clinician Unavailable Doctor Unassigned, [place] Attending Clinician Unavailable [facility]ag[facility] Attending Clinician Unavailable Amrit Grace Attending Clinician AMRIT SCHULTZ Attending Clinician Unavailable SANDY MARIN Attending Clinician Unavailable Watson Estrada RN Attending Clinician Unavailable Only, Gagandeep Padron Test Attending Clinician Unavailable Krissy Barnes Attending Clinician KRISSY KING Attending Clinician Unavailable Marlene Rashid RN Attending Clinician Unavailable Samy Garcia Attending Clinician SAMY RAMSAY Attending Clinician Unavailable Abraham Veloz MD Attending Clinician Inez Saucedo MA Attending Clinician Unavailable ABRAHAM VELOZ Attending Clinician Unavailable Lizbeth Martines MD Attending Clinician LIZBETH MARTINES Attending Clinician Unavailable JEYSON MIGUEL Attending Clinician Unavailable Vijaya Bethea MA Attending Clinician Unavailable Zaina Robertson MA Attending Clinician Unavailable SANDY MARIN D.O. Attending Clinician Unavailable JEYSON RDZ Attending Clinician Unavailable Only, Adc Test Attending Clinician Unavailable Jeyson Lilly MD Attending Clinician JEYSON LILLY Attending Clinician Unavailable CARLOS ZAYAS APRN Attending Clinician Unavailable OLIVIA MONTESINOS D.O. Attending Clinician Unavailable BRADEN PUCKETT M.D. Attending Clinician Unavailable SURG, NURSE Attending Clinician Unavailable SANDY MARIN Admitting Clinician Unavailable Payers Payer Name Policy Type Policy Number Effective Date Expiration Date Nigel estrada [facility] [id number] 2020 STAR 00:00:00 Problems Condition Condition Condition Status Onset Resolution Last Treating Co mments Source Name Details Category Date Date Treatment Clinician Date Night Night Disease Active 2021-11 Univers sweats sweats 1-15 ity of 00:00: [place] 00 Medical Branch Dizziness Dizziness Disease Active 2021-11 Uni vers 1-15 ity of 00:00: [place] 00 Medical Branch Encounter Encounter Disease Active 2021-11 Uni vers to to 1-15 ity of establish establish 00:00: [facility] care 00 Medical Branch RBBB RBBB Disease Active 2021-11 Univers 1-15 ity of 00:00: [place] 00 Medical Branch Class 3 Class 3 Disease Active 2021-11 Univers severe severe 1-15 ity of obesity obesity 00:00: [place] without without 00 Medical serious serious Branch comorbidit comorbidit y with y with body mass body mass index index (BMI) of (BMI) of 40.0 to 40.0 to 44.9 in 44.9 in adult, adult, unspecifie unspecifie d obesity d obesity type type Painful Painful Disease Active UT orthopaedi orthopaedi 3-07 He alth c hardware c hardware 00:00: 00 Chronic Chronic Disease Active UT pain of pain of 3-07 Health left ankle left ankle 00:00: 00 Bilateral Bilateral Disease Active Last UT primary primary 7-21 Assessmen Healt h osteoarthr osteoarthr 00:00: t & Plan: itis of itis of 00 Formattin knee knee g of this note might be different from the original. Patient has completed the last HILL injection of the series. Patient instructe d that the injection s can be repeated in 6 months for re-evalua tion. Patient verbalize d law denson and will follow up. Left leg Left leg Disease Active UT swelling swelling 6 Health 00:00: 00 Fat Fat Disease Active UT malabsorpt malabsorpt 3-16 He alth ion ion 00:00: 00 Nausea and Nausea and Disease Active U T vomiting vomiting 16 Health 00:00: 00 S/P S/P Disease Active UT gastric gastric 2- Health bypass bypass 00:00: 00 Morbid Morbid Disease Active 2019-11 UT obesity obesity 0-22 Health with BMI with BMI 00:00: of of 00 60.0-69.9, 60.0-69.9, adult adult Morbid Morbid Disease Active 2019-11 UT obesity obesity 0-22 Health 00:00: 00 Malnutriti Malnutriti Disease Active 2019-11 U T on on 0-13 Health 00:00: 00 Vitamin D Vitamin D Disease Active 2019-11 UT deficiency deficiency 0-13 He alth 00:00: 00 Hypertensi Hypertensi Disease Active U T on on 3-13 Health 00:00: 00 History of History of Problem Resolve UT hypertensi hypertensi d Ph ysici on on ans MCL sprain MCL sprain Problem Active U T of left of left Physici knee knee ans Essential Essential Problem Active UT hypertensi hypertensi Ph ysici on on ans Low Low Problem Active UT vitamin D vitamin D Phys ici level level ans Chronic Chronic Problem Active UT pain of pain of Physici left knee left knee ans Obesity, Obesity, Problem Active UT morbid morbid Physici (more than (more than an s 100 lbs 100 lbs over ideal over ideal weight or weight or BMI > 40) BMI > 40) Encounter Encounter Problem Active UT for for Physici medication medication an s counseling counseling Exercise Exercise Problem Active UT counseling counseling Ph ysici ans Nutritiona Nutritiona Problem Active U T l l Physici counseling counseling an s Acute pain Acute pain Problem Active U T of right of right Physic i knee knee ans Chondromal Chondromal Problem Active U T acia of acia of Physici knee, left knee, left an s Chondromal Chondromal Problem Active U T acia of acia of Physici knee, knee, ans right right Vitamin D Vitamin D Problem Active UT deficiency deficiency Ph ysici ans Malnutriti Malnutriti Problem Active U T on on Physici ans Epigastric Epigastric Problem Active U T pain pain Physici ans S/P S/P Problem Active UT gastric gastric Physici bypass bypass ans Nausea Nausea Problem Active UT Physici ans Nausea and Nausea and Problem Active U T vomiting, vomiting, Phys ici intractabi intractabi an s lity of lity of vomiting vomiting not not specified, specified, unspecifie unspecifie d vomiting d vomiting type type Fat Fat Problem Active UT malabsorpt malabsorpt Ph ysici ion ion ans Marginal Marginal Problem Active UT ulcer ulcer Physici ans Allergies, Adverse Reactions, Alerts Allergy Allergy Status Severity Reaction(s) Onset Inactive Treating Comm ents Source Name Type Date Date Clinician MORPHINE DRUG Active Unknown-Cmnt 2021-11 Un gabriel INGREDI 0-05 ity of 00:00: [place] 00 Medical Branch Morphine Propensi Active Unknown - 2021-11 Uni vers ty to See comments 0-05 ity of adverse 00:00: [place] reaction 00 Medical s Branch Aspirin Allergy Active UT to 04-15 Health substanc 00:00: e 00 ASPIRIN DRUG Active Low Unknown-Cmnt Uni vers INGREDI 04-15 ity of 00:00: [place] 00 Medical Branch CEPHALEX DRUG Active Low Unknown-Cmnt Un gabriel IN INGREDI - ity of 00:00: [place] 00 Medical Branch SULFA Drug Active Low Unknown-Cmnt Univ ers (SULFONA Class 04-15 ity of MIDE 00:00: [place] ANTIBIOT 00 Medical ICS) Branch Cephalex Allergy Active UT in to 04-15 Health substanc 00:00: e 00 Aspirin Drug Active Unknown - 2020- Univer s Allergy See comments 04-15 ity of 00:00: [place] 00 Medical Branch Cephalex Drug Active Unknown - 2021-0 Unive rs in Allergy See comments 6-07 ity of 00:00: [place] 00 Medical Branch Sulfa Drug Active Unknown - Univers (Sulfona Allergy See comments 04-15 i ty of mide 00:00: [place] Antibiot 00 Medical ics) Branch Sulfa Allergy Active UT Antibiot to 04-15 Health ics substanc 00:00: e 00 sulfa Allergy Active UT to drug Physici (finding ans ) NO KNOWN Drug Active Univers ALLERGIE Class ity of [facility] Family History Family Member Diagnosis Comments Start Date Stop Date Source Unknown Family Family history of Family History [facility] Physicians Member Heart trouble Unknown Family Family history of Family History [facility] Physicians Member diabetes mellitus Unknown Family Family history of Family History [facility] Physicians Member hypertension Unknown Family Family history of Family History [facility] Physicians Member arthritis Unknown Family Family history of Family History [facility] Physicians Member malignant neoplasm Unknown Family Family history of Family History [facility] Physicians Member cerebrovascular accident (CVA) natural Family history of [facility] Phys icians daughter obesity Mother Family history of [facility] Phys icians obesity Sister Family history of [facility] Phys icians obesity Social History Social Habit Start Date Stop Date Quantity Comments Source History [facility] Health Alcohol Std Drinks History [facility] Health Alcohol Binge History of Current smoker [facility] tobacco use History [facility] Health Alcohol Comment Exposure to 2022-09-13 2022-09-23 Not sure University [facility]-CoV-2 00:00:00 14:53:00 [facility] (event) [place] Alcohol intake 2022-09-09 2022-09-09 Lifetime [facility] 00:00:00 00:00:00 non-drinker (finding) Tobacco use and 2022-06-24 2022-06-24 Smokeless tobacco [facility] exposure 00:00:00 00:00:00 non-user History SDOH 2021-05-07 2021-05-07 1 [facility] Alcohol Frequency 00:00:00 00:00:00 Cigarette 2021-04-21 2021-04-21 [facility] pack-years 00:00:00 00:00:00 Sex [birth year] At [birth year] [facility] 00:00:00 00:00:00 Smoking Status Start Date Stop Date Source Tobacco smoking consumption unknown [facility] Ex-smoker 2022-06-24 00:00:00 2022-06-24 00:00:00 [facility] Medications Ordered Filled Start Stop Current Ordering Indication Dosage Frequency Signature Comments Components Source Medication Medication Date Date Medication? Clinician (SIG) Name Name calcium 2021-11 Yes Take by Univers carbonate 1-15 mouth. ity of (CALCIUM 15:10: [place] 500 ORAL) 37 Medical [place] multivitami 2021-11 Yes 1{tbl} Take 1 Un gabriel n tablet 1-15 tablet by ity of 15:10: mouth in [place] [address] the Medical morning. Branch VITAMIN A 2021-11 Yes Take by Unive rs ORAL 1-15 mouth ity of 15:10: daily. [place] [address] Medical [place] calcium 2021-11 Yes Take by Univers carbonate 1-15 mouth. ity of (CALCIUM 15:10: [place] 500 ORAL) Medical Branch multivitami 2021-11 Yes 1{tbl} Take 1 Un gabriel n tablet 1-15 tablet by ity of 15:10: mouth in [place] [address] the Medical morning. Branch VITAMIN A 2021-11 Yes Take by Unive rs ORAL 1-15 mouth ity of 15:10: daily. [place] [address] Medical [place] calcium 2021-11 Yes Take by Univers carbonate 1-15 mouth. ity of (CALCIUM 15:10: [place] 500 ORAL) Medical [place] multivitami 2021-11 Yes 1{tbl} Take 1 Un gabriel n tablet 1-15 tablet by ity of 15:10: mouth in [place] [address] the Medical morning. Branch VITAMIN A 2021-11 Yes Take by Unive rs ORAL 1-15 mouth ity of 15:10: daily. [address] calcium 2021-11 Yes Take by Univers carbonate 1-15 mouth. ity of (CALCIUM 15:10: [place] 500 ORAL) Medical [place] multivitami 2021-11 Yes 1{tbl} Take 1 Un gabriel n tablet 1-15 tablet by ity of 15:10: mouth in [place] [address] the Medical morning. Branch VITAMIN A 2021-11 Yes Take by Unive rs ORAL 1-15 mouth ity of 15:10: daily. [address] calcium 2021-11 Yes Take by Univers carbonate 1-15 mouth. ity of (CALCIUM 15:10: [place] 500 ORAL) Medical [place] multivitami 2021-11 Yes 1{tbl} Take 1 Un gabriel n tablet 1-15 tablet by ity of 15:10: mouth in [place] [address] the Medical morning. Branch VITAMIN A 2021-11 Yes Take by Unive rs ORAL 1-15 mouth ity of 15:10: daily. [place] [address] Medical Branch calcium 2021-11 Yes Take by Univers carbonate 1-15 mouth. ity of (CALCIUM 15:10: [place] 500 ORAL) Medical Branch multivitami 2021-11 Yes 1{tbl} Take 1 Un gabriel n tablet 1-15 tablet by ity of 15:10: mouth in [place] [address] the Medical morning. Branch VITAMIN A 2021-11 Yes Take by Unive rs ORAL 1-15 mouth ity of 15:10: daily. [place] [address] Medical Branch calcium 2021-11 Yes Take by Univers carbonate 1-15 mouth. ity of (CALCIUM 15:10: [place] 500 ORAL) Medical Branch multivitami 2021-11 Yes 1{tbl} Take 1 Un gabriel n tablet 1-15 tablet by ity of 15:10: mouth in [place] [address] the Medical morning. Branch VITAMIN A 2021-11 Yes Take by Unive rs ORAL 1-15 mouth ity of 15:10: daily. [address] Branch baclofen 20 2021-11 Yes TAKE 1 Univ ers mg tablet 1-06 TABLET ity of 00:00: ADMINISTER [place] 00 WITHOUT Medical REGARDS TO Branch MEALS NEEDED ORALLY THREE TIMES A DAY 30 DAY(S) KCL 20 mEq 2021-11 Yes TAKE 1 Unive rs tablet 1-06 TABLET (20 ity of 00:00: MEQ TOTAL) [place] 00 BY MOUTH 1 Medical (ONE) TIME Branch EACH DAY. DO NOT CRUSH OR CHEW. ORAL 30 pantoprazol 2021-11 Yes TAKE 1 Univ ers e 40 mg EC 1-06 TABLET BY ity of tablet 00:00: MOUTH [place] 00 EVERY DAY Medical BEFORE Branch BREAKFAST DO NOT CRUSH CHEW OR SPLIT baclofen 20 2021-11 Yes TAKE 1 Univ ers mg tablet 1-06 TABLET ity of 00:00: ADMINISTER [place] 00 WITHOUT Medical REGARDS TO Branch MEALS NEEDED ORALLY THREE TIMES A DAY 30 DAY(S) KCL 20 mEq 2021-11 Yes TAKE 1 Unive rs tablet 1-06 TABLET (20 ity of 00:00: MEQ TOTAL) [place] 00 BY MOUTH 1 Medical (ONE) TIME Branch EACH DAY. DO NOT CRUSH OR CHEW. ORAL 30 pantoprazol 2021-11 Yes TAKE 1 Univ ers e 40 mg EC 1-06 TABLET BY ity of tablet 00:00: MOUTH [place] 00 EVERY DAY Medical BEFORE Branch BREAKFAST DO NOT CRUSH CHEW OR SPLIT baclofen 2021-11 Yes TAKE 1 Univ ers mg tablet 1-06 TABLET ity of 00:00: ADMINISTER [place] 00 WITHOUT Medical REGARDS TO Branch MEALS NEEDED ORALLY THREE TIMES A DAY 30 DAY(S) KCL 20 mEq 2021-11 Yes TAKE 1 Unive rs tablet 1-06 TABLET (20 ity of 00:00: MEQ TOTAL) [place] 00 BY MOUTH 1 Medical (ONE) TIME Branch EACH DAY. DO NOT CRUSH OR CHEW. ORAL 30 pantoprazol 2021-11 Yes TAKE 1 Univ ers e 40 mg EC 1-06 TABLET BY ity of tablet 00:00: MOUTH [place] 00 EVERY DAY Medical BEFORE Branch BREAKFAST DO NOT CRUSH CHEW OR SPLIT baclofen 2021-11 Yes TAKE 1 Univ ers mg tablet 1-06 TABLET ity of 00:00: ADMINISTER [place] 00 WITHOUT Medical REGARDS TO Branch MEALS NEEDED ORALLY THREE TIMES A DAY 30 DAY(S) KCL 20 mEq 2021-11 Yes TAKE 1 Unive rs tablet 1-06 TABLET (20 ity of 00:00: MEQ TOTAL) [place] 00 BY MOUTH 1 Medical (ONE) TIME Branch EACH DAY. DO NOT CRUSH OR CHEW. ORAL 30 pantoprazol 2021-11 Yes TAKE 1 Univ ers e 40 mg EC 1-06 TABLET BY ity of tablet 00:00: MOUTH [place] 00 EVERY DAY Medical BEFORE Branch BREAKFAST DO NOT CRUSH CHEW OR SPLIT baclofen 2021-11 Yes TAKE 1 Univ ers mg tablet 1-06 TABLET ity of 00:00: ADMINISTER [place] 00 WITHOUT Medical REGARDS TO Branch MEALS NEEDED ORALLY THREE TIMES A DAY 30 DAY(S) KCL 20 mEq 2021-11 Yes TAKE 1 Unive rs tablet 1-06 TABLET (20 ity of 00:00: MEQ TOTAL) [place] 00 BY MOUTH 1 Medical (ONE) TIME Branch EACH DAY. DO NOT CRUSH OR CHEW. ORAL 30 pantoprazol 2021-11 Yes TAKE 1 Univ ers e 40 mg EC 1-06 TABLET BY ity of tablet 00:00: MOUTH [place] 00 EVERY DAY Medical BEFORE Branch BREAKFAST DO NOT CRUSH CHEW OR SPLIT baclofen 2021-11 Yes TAKE 1 Univ ers mg tablet 1-06 TABLET ity of 00:00: ADMINISTER [place] 00 WITHOUT Medical REGARDS TO Branch MEALS NEEDED ORALLY THREE TIMES A DAY 30 DAY(S) KCL 20 mEq 2021-11 Yes TAKE 1 Unive rs tablet 1-06 TABLET (20 ity of 00:00: MEQ TOTAL) BY MOUTH 1 Medical (ONE) TIME Branch EACH DAY. DO NOT CRUSH OR CHEW. ORAL 30 pantoprazol 2021-11 Yes TAKE 1 Univ ers e 40 mg EC 1-06 TABLET BY ity of tablet 00:00: MOUTH 00 EVERY DAY Medical BEFORE Branch BREAKFAST DO NOT CRUSH CHEW OR SPLIT baclofen 20 2021-11 Yes TAKE 1 Univ ers mg tablet 1-06 TABLET ity of 00:00: ADMINISTER 00 WITHOUT Medical REGARDS TO Branch MEALS NEEDED ORALLY THREE TIMES A DAY 30 DAY(S) KCL 20 mEq 2021-11 Yes TAKE 1 Unive rs tablet 1-06 TABLET (20 ity of 00:00: MEQ TOTAL) 00 BY MOUTH 1 Medical (ONE) TIME Branch EACH DAY. DO NOT CRUSH OR CHEW. ORAL 30 pantoprazol 2021-11 Yes TAKE 1 Univ ers e 40 mg EC 1-06 TABLET BY ity of tablet 00:00: MOUTH [place] 00 EVERY DAY Medical BEFORE Branch BREAKFAST DO NOT CRUSH CHEW OR SPLIT bupivacaine 2021-11 No [id number] 4mL UT (Marcaine) 11-09 Health 0.25 % 21:00: 21:00 injection 4 00 :00 mL bupivacaine 2021-11 No 4mL UT (Marcaine) 11-09 Health 0.25 % 21:00: 21:00 injection 4 00 :00 mL triamcinolo 2021-11- No [id number] 80mg UT ne 11-09 Health acetonide 21:00: 21:00 (Kenalog-40 00 :00 ) injection 80 mg triamcinolo 2021-11- No [id number] 80mg UT ne 11-09 Health acetonide 21:00: 21:00 (Kenalog-40 00 :00 ) injection 80 mg triamcinolo 2021-11- No [id number] 80mg 80 mg, UT ne 11-09 Intra[facility] Health acetonide 21:00: 21:00 cular, (Kenalog-40 00 :00 Once PRN ) injection Procedure, 80 mg Starting on Thu09/09/22 at 1600, For 1 dose triamcinolo 2021-11- No [id number] 80mg 80 mg, UT ne 11-09 [facility] Health acetonide 21:00: 21:00 cular, (Kenalog-40 00 :00 Once PRN ) injection Procedure, 80 mg Starting on Thu09/09/22 at 1600, For 1 dose bupivacaine 2021-11- No 4mL 4 mL, UT (Marcaine) 11-09 Injection, He alth 0.25 % 21:00: 21:00 Once PRN injection 4 00 :00 Procedure, mL Starting on Thu09/09/22 at 1600, For 1 dose bupivacaine 2021-11 No 4mL 4 mL, UT (Marcaine) 11-09 Injection, He alth 0.25 % 21:00: 21:00 Once PRN injection 4 00 :00 Procedure, mL Starting on Thu09/09/22 at 1600, For 1 dose losartan 2021-11 Yes Q.5D 2 (two) UT (Cozaar) - times a Health 100 MG 16:09: day. tablet 07 Multiple 2021-11 Yes Take by ID Vitamins-Mi 1-01 mouth. Health nerals 16:09: (BARIATRIC 07 MULTIVITAMI NS/IRON PO) calcium 2021-11 Yes 950mg QD Take 950 UT citrate 1-01 mg by Health (Calcitrate 16:09: mouth 1 ) 950 (200 07 (one) time Ca) MG each day. tablet ferrous 2021-11 Yes 325mg QD Take 325 UT sulfate 325 1-01 mg by [facility] (65 Fe) MG 16:09: mouth 1 tablet 07 (one) time each day with breakfast. cyanocobala 2021-11 Yes 100ug QD Take 100 U T min 1-01 mcg by Health (Vitamin 16:09: mouth 1 B-12) 100 07 (one) time MCG tablet each day. furosemide 2021-11 Yes 20mg Take 20 mg U nivers 20 mg 0-17 by mouth ity of tablet 00:00: in the [place] morning. Medical Branch furosemide 2021-11 Yes 20mg Take 20 mg U nivers 20 mg 0-17 by mouth ity of tablet 00:00: in the [place] morning. Medical Branch furosemide 2021- Yes 20mg Take 20 mg U nivers 20 mg 0-17 by mouth ity of tablet 00:00: in the [place] morning. Medical Branch furosemide 2021- Yes 20mg Take 20 mg U nivers 20 mg 0-17 by mouth ity of tablet 00:00: in the [place] morning. Medical Branch furosemide 2021- Yes 20mg Take 20 mg U nivers 20 mg 0-17 by mouth ity of tablet 00:00: in the [place] morning. Medical Branch furosemide 2021- Yes 20mg Take 20 mg U nivers 20 mg 0-17 by mouth ity of tablet 00:00: in the [place] morning. Medical Branch furosemide 2021- Yes 20mg Take 20 mg U nivers 20 mg 0-17 by mouth ity of tablet 00:00: in the [place] morning. Medical Branch No known 2021-11 No No known Unive rs medications 0-05 medication it y of 17:10: s [place] [address] Medical Branch No known 2021-11 No No known Unive rs medications 0-05 medication it y of 17:10: s [place] [address] Medical Branch No known 2021-11 No No known Unive rs medications 0-05 medication it y of 17:10: s [place] [address] Medical Branch losartan Yes Q.5D 2 (two) UT (Cozaar) 8-16 times a Health 100 MG 09:07: day. tablet 57 Multiple Yes Take by UT Vitamins-Mi 8-16 mouth. Health nerals 09:07: (BARIATRIC 57 MULTIVITAMI NS/IRON PO) calcium Yes 950mg QD Take 950 UT citrate 8-16 mg by Health (Calcitrate 09:07: mouth 1 ) 950 (200 57 (one) time Ca) MG each day. tablet ferrous Yes 325mg QD Take 325 UT sulfate 325 8-16 mg by Health (65 Fe) MG 09:07: mouth 1 tablet 57 (one) time each day with breakfast. cyanocobala Yes 100ug QD Take 100 U T min 8-16 mcg by Health (Vitamin 09:07: mouth 1 B-12) 100 57 (one) time MCG tablet each day. losartan Yes Q.5D 2 (two) UT (Cozaar) 8-16 times a Health 100 MG 09:07: day. tablet 57 Multiple Yes Take by UT Vitamins-Mi 8-16 mouth. Health nerals 09:07: (BARIATRIC 57 MULTIVITAMI NS/IRON PO) calcium Yes 950mg QD Take 950 UT citrate 8-16 mg by [facility] (Calcitrate 09:07: mouth 1 ) 950 (200 57 (one) time Ca) MG each day. tablet ferrous Yes 325mg QD Take 325 UT sulfate 325 8-16 mg by [facility] (65 Fe) MG 09:07: mouth 1 tablet 57 (one) time each day with breakfast. cyanocobala Yes 100ug QD Take 100 U T min 8-16 mcg by [facility] (Vitamin 09:07: mouth 1 B-12) 100 57 (one) time MCG tablet each day. pantoprazol 2021- No [id number] 40mg Take 1 UT e 8-16 11-15 tablet (40 Health (Protonix) 00:00: 05:59 mg total) 40 MG EC 00 :00 by mouth 1 tablet (one) time each day before breakfast. Do not crush, chew, or split. pantoprazol 2021- No [id number] 40mg Take 1 UT e 8-16 11-15 tablet (40 Health (Protonix) 00:00: 05:59 mg total) 40 MG EC 00 :00 by mouth 1 tablet (one) time each day before breakfast. Do not crush, chew, or split. pantoprazol 2021- No [id number] 40mg Take 1 UT e 8-16 11-15 tablet (40 Health (Protonix) 00:00: 05:59 mg total) 40 MG EC 00 :00 by mouth 1 tablet (one) time each day before breakfast. Do not crush, chew, or split. pantoprazol 2- No [id number] 40mg Q.5D Take 1 UT e 7-25 08-16 tablet (40 Health (ProtoNix) 00:00: 00:00 mg total) 40 MG EC 00 :00 by mouth tablet in the morning and 1 tablet (40 mg total) before bedtime. Do not crush, chew, or split. . Sodium 2022-0 2022- No 2mL UT Hyaluronate -03-10 Health (Viscosup) 20:31: 20:31 solution 36 :00 prefilled syringe 2 mL Sodium 2022-0 2022- No 2mL UT Hyaluronate -03-10 Health (Viscosup) 20:31: 20:31 solution 36 :00 prefilled syringe 2 mL Sodium 2022-0 2022- No 2mL 2 mL, UT Hyaluronate 03-10 Injection, H ealth (Viscosup) 20:31: 20:31 Once PRN solution 36 :00 Procedure, prefilled Starting syringe 2 on Mon mL 03/10/22 at 1531, For 1 dose Sodium 2022-0 2022- No 2mL 2 mL, UT Hyaluronate -12 14- Injection, H ealth (Viscosup) 20:31: 20:31 Once PRN solution 36 :00 Procedure, prefilled Starting syringe 2 on Mon mL 03/10/22 at 1531, For 1 dose ondansetron 2021-0 Yes [id number] 8mg Take 1 UT (Zofran) 8 3-23 tablet (8 Heal th MG tablet 00:00: mg total) 00 by mouth every 8 (eight) hours if needed for nausea. traMADol 2-0 Yes [id number] 100mg Q6H Take 2 UT (Ultram) 50 3-23 tablets Healt h MG tablet 00:00: (100 mg 00 total) by mouth every 6 (six) hours if needed for severe pain. ondansetron 2-0 Yes [id number] 8mg Take 1 UT (Zofran) 8 3-23 tablet (8 Heal th MG tablet 00:00: mg total) 00 by mouth every 8 (eight) hours if needed for nausea. traMADol 2022-0 Yes [id number] 100mg Q6H Take 2 UT (Ultram) 50 3-23 tablets Healt h MG tablet 00:00: (100 mg 00 total) by mouth every 6 (six) hours if needed for severe pain. ondansetron 2022-0 Yes [id number] 8mg Take 1 UT (Zofran) 8 3-23 tablet (8 Heal th MG tablet 00:00: mg total) 00 by mouth every 8 (eight) hours if needed for nausea. traMADol 2022-0 Yes [id number] 100mg Q6H Take 2 UT (Ultram) 50 3-23 tablets Healt h MG tablet 00:00: (100 mg 00 total) by mouth every 6 (six) hours if needed for severe pain. ondansetron Yes [id number] 8mg Take 1 UT (Zofran) 8 3-23 tablet (8 Heal th MG tablet 00:00: mg total) 00 by mouth every 8 (eight) hours if needed for nausea. traMADol Yes [id number] 100mg Q6H Take 2 UT (Ultram) 50 3-23 tablets Healt h MG tablet 00:00: (100 mg 00 total) by mouth every 6 (six) hours if needed for severe pain. ondansetron Yes [id number] 8mg Take 1 UT (Zofran) 8 3-23 tablet (8 Heal th MG tablet 00:00: mg total) 00 by mouth every 8 (eight) hours if needed for nausea. traMADol Yes [id number] 100mg Q6H Take 2 UT (Ultram) 50 3-23 tablets Healt h MG tablet 00:00: (100 mg 00 total) by mouth every 6 (six) hours if needed for severe pain. Multiple 2020-11 Yes Take by UT Vitamins-Mi 0-26 mouth. Health nerals 09:44: (BARIATRIC 36 MULTIVITAMI NS/IRON PO) calcium 2020-11 Yes 950mg QD Take 950 UT citrate 0-26 mg by Health (Calcitrate 09:44: mouth 1 ) 950 (200 36 (one) time Ca) MG each day. tablet ferrous 2020-11 Yes 325mg QD Take 325 UT sulfate 325 0-26 mg by Health (65 Fe) MG 09:44: mouth 1 tablet 36 (one) time each day with breakfast. cyanocobala 2020-11 Yes 100ug QD Take 100 U T min 0-26 mcg by Health (Vitamin 09:44: mouth 1 B-12) 100 36 (one) time MCG tablet each day. Multiple 2020-11 Yes Take by UT Vitamins-Mi 0-26 mouth. Health nerals 09:44: (BARIATRIC 36 MULTIVITAMI NS/IRON PO) calcium 2020-11 Yes 950mg QD Take 950 UT citrate 0-26 mg by Health (Calcitrate 09:44: mouth 1 ) 950 (200 36 (one) time Ca) MG each day. tablet ferrous 2020-11 Yes 325mg QD Take 325 UT sulfate 325 0-26 mg by Health (65 Fe) MG 09:44: mouth 1 tablet 36 (one) time each day with breakfast. cyanocobala 2020-11 Yes 100ug QD Take 100 U T min 0-26 mcg by Health (Vitamin 09:44: mouth 1 B-12) 100 36 (one) time MCG tablet each day. losartan 2020-11 Yes Q.5D 2 (two) UT (Cozaar) 0-26 times a Health 100 MG 09:42: day. tablet 45 losartan 2020-11 Yes Q.5D 2 (two) UT (Cozaar) 0-26 times a Health 100 MG 09:42: day. tablet 45 pantoprazol Yes [id number] TAKE 1 U T e 9-30 TABLET BY Health (ProtoNix) 00:00: MOUTH 40 MG EC 00 TWICE A tablet DAY pantoprazol Yes [id number] TAKE 1 U T e 9-30 TABLET BY Health (ProtoNix) 00:00: MOUTH 40 MG EC 00 TWICE A tablet DAY furosemide Yes [id number] 20mg QD Take 1 UT (Lasix) 20 9-22 tablet (20 Hea lth MG tablet 00:00: mg total) 00 by mouth 1 (one) time each day. furosemide Yes [id number] 20mg QD Take 1 UT (Lasix) 20 9-22 tablet (20 Hea lth MG tablet 00:00: mg total) 00 by mouth 1 (one) time each day. furosemide Yes [id number] 20mg QD Take 1 UT (Lasix) 20 9-22 tablet (20 Hea lth MG tablet 00:00: mg total) 00 by mouth 1 (one) time each day. furosemide Yes [id number] 20mg QD Take 1 UT (Lasix) 20 9-22 tablet (20 Hea lth MG tablet 00:00: mg total) 00 by mouth 1 (one) time each day. No known No No known UT medications 8-31 medication He alth 10:45: s 13 losartan Yes Q.5D 2 (two) UT (Cozaar) 6-29 times a Health 100 MG 11:54: day. tablet 58 potassium 2020-0 Yes 20meq QD Take 20 UT chloride CR 6-29 mEq by Health (K-Tab) 20 00:00: mouth 1 MEQ ER 00 (one) time tablet each day. Do not crush or chew. potassium 2020-0 Yes 20meq QD Take 20 UT chloride CR 6-29 mEq by Health (K-Tab) 20 00:00: mouth 1 MEQ ER 00 (one) time tablet each day. Do not crush or chew. potassium 2020-0 Yes 20meq QD Take 20 UT chloride CR 6-29 mEq by Health (K-Tab) 20 00:00: mouth 1 MEQ ER 00 (one) time tablet each day. Do not crush or chew. potassium 2020-0 Yes 20meq QD Take 20 UT chloride CR 6-29 mEq by Health (K-Tab) 20 00:00: mouth 1 MEQ ER 00 (one) time tablet each day. Do not crush or chew. potassium 2020-0 Yes 20meq QD Take 20 UT chloride CR 6-29 mEq by Health (K-Tab) 20 00:00: mouth 1 MEQ ER 00 (one) time tablet each day. Do not crush or chew. ergocalcife 2020-0 Yes UT rol 6-26 Health (Vitamin 00:00: D2) 1.25 MG 00 (72343 UT) capsule ergocalcife 2020-0 Yes UT rol 6-26 Health (Vitamin 00:00: D2) 1.25 MG 00 (30309 UT) capsule ergocalcife 2020-0 Yes UT rol 6-26 Health (Vitamin 00:00: D2) 1.25 MG 00 (81124 UT) capsule ergocalcife 202-0 Yes UT rol 6-26 Health (Vitamin 00:00: D2) 1.25 MG 00 (94767 UT) capsule ergocalcife 2021-0 Yes UT rol 6-26 Health (Vitamin 00:00: D2) 1.25 MG 00 (68401 UT) capsule Ondansetron Ondansetron 2020-0 Yes SANDY 1 QD TAKE 1 UT HCl - 8 MG HCl - 8 MG 4-27 FELINSKI TABLET Physici Oral Tablet Oral Tablet 00:00: D.O. DAILY ans 00 Pantoprazol Pantoprazol 0 Yes SANDY 1 Q0.5D TAKE 1 UT e Sodium 40 e Sodium 40 4-09 FELINSKI TABLET Physici MG Oral MG Oral 00:00: D.O. TWICE ans Tablet Tablet 00 DAILY Delayed Delayed Release Release Levsin Levsin Yes SANDY TAKE 1 UT 0.125 MG 0.125 MG 4-08 FELINSKI TABLET P hysici Oral Tablet Oral Tablet 00:00: D.O. 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 TIMES ans Tablet Tablet 00 DAILY Promethazin Promethazin Yes SANDY Q6H TAKE 1 UT e HCl - 25 e HCl - 25 2-23 FELINSKI TABLET Physici MG Oral MG Oral 00:00: D.O. EVERY 6 ans Tablet Tablet 00 HOURS NEEDED. 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 ans Tablet Tablet Immunizations Ordered Filled Immunization Date Status Comments [facility] e Immunization Name Name SARS-COV-2 COVID-2021-11-22 Completed Unive rsity of MODERNA 12+ YRS 00:00:00 [facility] VACCINE Branch SARS-COV-2 COVID-19 2021-11-22 Completed Unive rsity of MODERNA 12+ YRS 00:00:00 [facility] VACCINE Branch SARS-COV-2 COVID-19 2021-11-22 Completed Unive rsity of MODERNA 12+ YRS 00:00:00 [place] [facility] SARS-COV-2 COVID-19 2021-11-22 Completed Unive rsity of MODERNA 12+ YRS 00:00:00 [place] [facility] VACC[facility] SARS-COV-2 COVID-19 2021-11-22 Completed Unive rsity of MODERNA 12+ YRS 00:00:00 [place] [facility] VACCINE [facility] SARS-COV-2 COVID-19 2021-11-22 Completed Unive rsity of MODERNA 12+ YRS 00:00:00 [place] [facility] VACCINE [facility] SARS-COV-2 COVID-19 2021-04-23 Completed Unive rsity of MODERNA 12+ YRS 00:00:00 [place] [facility] VACCINE [facility] SARS-COV-2 COVID-19 2021-04-23 Completed Unive rsity of MODERNA 12+ YRS 00:00:00 [place] [facility] VACCINE [facility] SARS-COV-2 COVID-19 2021-04-23 Completed Unive rsity of MODERNA 12+ YRS 00:00:00 [place] [facility] VACCINE [facility] SARS-COV-2 COVID-19 2021-04-23 Completed Unive rsity of MODERNA 12+ YRS 00:00:00 [place] [facility] VACCINE [facility] SARS-COV-2 COVID-19 2021-04-23 Completed Unive rsity of MODERNA 12+ YRS 00:00:00 [place] [facility] VACCINE [facility] SARS-COV-2 COVID-19 2021-04-23 Completed Unive rsity of MODERNA 12+ YRS 00:00:00 [place] [facility] VACCINE [facility] SARS-COV-2 COVID-19 2021-03-28 Completed Unive rsity of MODERNA 12+ YRS 00:00:00 [place] [facility] VACCINE [facility] SARS-COV-2 COVID-19 2021-03-28 Completed Unive rsity of MODERNA 12+ YRS 00:00:00 [place] [facility] VACCINE Branch SARS-COV-2 COVID-19 2021-03-28 Completed Unive rsity of MODERNA 12+ YRS 00:00:00 [place] [facility] VACCINE Branch SARS-COV-2 COVID-19 2021-03-28 Completed Unive rsity of MODERNA 12+ YRS 00:00:00 [place] [facility] VACCINE Branch SARS-COV-2 COVID-19 2021-03-28 Completed Unive rsity of MODERNA 12+ YRS 00:00:00 [facility] ical VACCINE Branch SARS-COV-2 COVID-19 2021-03-28 Completed Unive rsity of MODERNA 12+ YRS 00:00:00 [facility] Vital Signs Vital Name Observation Time Observation Value Comments Source Systolic blood 2022-09-23 132 mm[Hg] University of pressure 20:57:00 [facility] Diastolic blood 2022-09-23 81 mm[Hg] University o f pressure 20:57:00 [facility] Heart rate 2022-09-23 63 /min University of 20:57:00 [facility] Body temperature 2022-09-23 36.83 Mary University of 20:57:00 [facility] Body height 2022-09-23 172.7 cm University of 20:57:00 [facility] Body weight 2022-09-23 126.145 kg University of 20:57:00 [facility] BMI 2022-09-23 42.28 kg/m2 University of 20:57:00 [facility] Oxygen saturation 2022-09-23 100 /min [place] of in Arterial blood 20:57:00 [facility] lavern by Pulse oximetry Branch Systolic blood 2022-08-13 126 mm[Hg] University of pressure 22:06:00 [facility] Diastolic blood 2022-08-13 78 mm[Hg] University o f pressure 22:06:00 [facility] Heart rate 2022-08-13 73 /min University of 22:06:00 [facility] Body temperature 2022-08-13 36.56 Mary University of 22:06:00 [facility] Respiratory rate 2022-08-13 18 /min University of 22:06:00 [facility] Body height 2022-08-13 174 cm University of 22:06:00 [facility] Body weight 2022-08-13 132.989 kg University of 22:06:00 [facility] BMI 2022-08-13 43.93 kg/m2 University of 22:06:00 [facility] Oxygen saturation 2022-08-13 98 /min [place] of in Arterial blood 22:06:00 [place] [facility] by Pulse oximetry Branch Systolic blood 2022-08-01 115 mm[Hg] [facility] pressure 14:21:00 Diastolic blood 2022-08-01 77 mm[Hg] [facility] pressure 14:21:00 Heart rate 2022-08-01 80 /min [facility] 14:21:00 Body temperature 2022-08-01 36.72 Mary [facility] 14:21:00 Body height 2022-08-01 172.7 cm [facility] 14:21:00 Body weight 2022-08-01 130.999 kg [facility] 14:21:00 BMI 2022-08-01 43.91 kg/m2 [facility] 14:21:00 Systolic blood 2022-06-24 134 mm[Hg] [facility] pressure 14:07:00 Diastolic blood 2022-06-24 84 mm[Hg] [facility] pressure 14:07:00 Heart rate 2022-06-24 83 /min [facility] 14:07:00 Body temperature 2022-06-24 36.67 [facility] 14:07:00 Respiratory rate 2022-06-24 18 /min [facility] 14:07:00 Body height 2022-06-24 172.7 cm [facility] 14:07:00 Body weight 2022-06-24 133.63 kg [facility] 14:07:00 BMI 2022-06-24 44.79 kg/m2 [facility] 14:07:00 Body height 2021-03-26 172.7 cm [facility] 17:23:29 Body weight 2021-03-26 204.545 kg [facility] 17:23:29 BMI 2021-03-26 68.57 kg/m2 [facility] 17:23:29 Body height 2021-03-26 172.7 cm [facility] 17:23:29 Body weight 2021-03-26 204.545 kg [facility] 17:23:29 BMI 2021-03-26 68.57 kg/m2 [facility] 17:23:29 Systolic blood 2021-03-05 126 mm[Hg] Location: RLE; [facility] ns pressure 10:40:00 Position: Sitting Diastolic blood 2021-03-05 95 mm[Hg] Location: RLE; [facility] ans pressure 10:40:00 Position: Sitting Body height 2021-03-05 68 [in_us] [facility] 10:40:00 Weight 2021-03-05 472 [lb_av] [facility] 10:40:00 Body mass index 2021-03-05 71.77 kg/m2 [facility] (BMI) [Ratio] 10:40:00 Body temperature 2021-03-05 97.6 [degF] Method: [facility] 10:40:00 Temporal Heart Rate 2021-03-05 103 /min Location: R [facility] 10:40:00 Radial; Body mass index 2021-01-22 76.67 kg/m2 [facility] (BMI) [Ratio] 10:47:00 Body temperature 2021-01-22 97.2 [degF] Method: [facility] 10:47:00 Temporal Heart Rate 2021-01-22 122 /min Location: L [facility] 10:47:00 Carotid; Systolic blood 2021-01-22 153 mm[Hg] Location: LUE; ID Physicia ns pressure 10:47:00 Position: Sitting Diastolic blood 2021-01-22 96 mm[Hg] Location: LUE; ID Physici ans pressure 10:47:00 Position: Sitting Body height 2021-01-22 68 [in_us] [facility] 10:47:00 Weight 2021-01-22 504.25 [lb_av] [facility] 10:47:00 Systolic blood 2020-12-11 139 mm[Hg] [facility] pressure 10:15:00 Diastolic blood 2020-12-11 84 mm[Hg] [facility] pressure 10:15:00 Body height 2020-12-11 68 [in_us] [facility] 10:15:00 Weight 2020-12-11 541.125 [lb_av] [facility] 10:15:00 Body mass index 2020-12-11 82.28 kg/m2 [facility] (BMI) [Ratio] 10:15:00 Body temperature 2020-12-11 97.5 [degF] [facility] 10:15:00 Heart Rate 2020-12-11 109 /min [facility] 10:15:00 Systolic blood 2020-11-20 145 mm[Hg] Location: LUE; [facility] pressure 11:46:00 Position: Sitting Diastolic blood 2020-11-20 90 mm[Hg] Location: LUE; ID Physici ans pressure 11:46:00 Position: Sitting Body height 2020-11-20 68 [in_us] [facility] 11:46:00 Weight 2020-11-20 568.5 [lb_av] [facility] 11:46:00 Body mass index 2020-11-20 86.44 kg/m2 [facility] (BMI) [Ratio] 11:46:00 Body temperature 2020-11-20 96.5 [degF] Method: [facility] Phys[facility] ns 11:46:00 Temporal Heart Rate 2020-11-20 96 /min Location: L [facility] 11:46:00 Brachial Artery; Body height 2020-08-21 68 [in_us] [facility] 09:46:00 Weight 2020-08-21 569.6 [lb_av] [facility] 09:46:00 Body mass index 2020-08-21 86.61 kg/m2 [facility] (BMI) [Ratio] 09:46:00 Systolic blood 2020-01-19 141 mm[Hg] Location: LUE; ID Physicia ns pressure 16:33:00 Position: Sitting Diastolic blood 2020-01-19 92 mm[Hg] Location: LUE; ID Physici ans pressure 16:33:00 Position: Sitting Weight 2020-01-19 604 [lb_av] [facility] 16:33:00 Heart Rate 2020-01-19 85 /min [facility] 16:33:00 Body height 2020-01-19 68 [in_us] [facility] 16:33:00 Body mass index 2020-01-19 91.84 kg/m2 [facility] (BMI) [Ratio] 16:33:00 Procedures Procedure Date / Time Performing Clinician Source Performed BETA HYDROXY-BUTYRATE 2022-09-24 15:08:00 Mehran Mauricio [facility] INSULIN, LEVEL 2022-09-24 15:08:00 Mehran Mauricio [facility] THYROID STIMULATING 2022-09-24 15:08:00 Mehran Mauricio [facility] HORMONE [facility] Branch COMP. METABOLIC PANEL 2022-09-24 15:08:00 Mehran Mauricio [facility] ([id number]) [facility] TESTOSTERONE 2022-09-24 15:08:00 Mehran Mauricio [facility] GLYCOSYLATED HEMOGLOBIN 2022-09-24 15:08:00 Mehran Mauricio [facility] (A1C) Medical Branch ARTHROCENTESIS ASPIR&/INJ 2022-09-09 21:00:00 Carlos Zayas [facility] MAJOR JT/BURSA W/O US BILATERAL EXTERNAL PROVIDER RECORDS 2022-09-01 05:01:00 Doctor Sumi, [facility] CONSENT/REFUSAL FOR 2022-03-28 16:06:37 Doctor Unassigned, [facility] DIAGNOSIS AND TREATMENT [facility] ARTHROCENTESIS ASPIR&/INJ 2022-03-10 20:31:36 Chana Carlos [facility] MAJOR JT/BURSA W/O US BILATERAL REFERRAL- 2021-10-15 06:01:00 Doctor Unassigned, [facility] REQUEST/RESPONSE [facility] EXT LOWER VENOUS DOPPLER 2021-04-19 13:48:22 Sandy Marin [facility] [place] [id number] 2021-02-15 00:00:00 [facility] [Q] QUESTASSURED 25-OH 2021-01-22 00:00:00 [facility] VIT D, (D2,D3), LC/MS/MS [QL] CBC (INCLUDES 2021-01-22 00:00:00 [facility] DIFF/PLT) [QL] CMP W/EGFR 2021-01-22 00:00:00 [facility] [QL] FOLATE, SERUM 2021-01-22 00:00:00 [facility] [QL] HEMOGLOBIN A1c 2021-01-22 00:00:00 [facility] [QL] IRON AND TOTAL IRON 2021-01-22 00:00:00 [facility] BINDING CAPACITY [QL] LIPID PANEL 2021-01-22 00:00:00 [facility] [QL] PTH, INTACT (WITHOUT 2021-01-22 00:00:00 [facility] CALCIUM) [QL] TSH, 3RD GENERATION 2021-01-22 00:00:00 [facility] W/REFLEX TO FT4 [QL] VITAMIN A (RETINOL) 2021-01-22 00:00:00 [facility] [QL] VITAMIN B1, WHOLE 2021-01-22 00:00:00 [facility] BLOOD [QL] VITAMIN B12 2021-01-22 00:00:00 [facility] [QL] VITAMIN E 2021-01-22 00:00:00 [facility] (TOCOPHEROL) CONSENT/REFUSAL FOR 2020-09-03 16:00:53 Doctor Unassigned, [facility] DI[facility] ASSIGNMENT OF BENEFITS 2020-09-03 16:00:39 [facility] [Q] QUESTASSURED 25-OH 2020-08-21 00:00:00 [facility] VIT D, (D2,D3), LC/MS/MS [QL] CBC (INCLUDES 2020-08-21 00:00:00 [facility] DIFF/PLT) [QL] CMP W/EGFR 2020-08-21 00:00:00 [facility] [QL] FOLATE, SERUM 2020-08-21 00:00:00 [facility] [QL] HEMOGLOBIN A1c 2020-08-21 00:00:00 [facility] [QL] IRON AND TOTAL IRON 2020-08-21 00:00:00 [facility] BINDING CAPACITY [QL] LIPID PANEL 2020-08-21 00:00:00 [facility] [QL] PTH, INTACT (WITHOUT 2020-08-21 00:00:00 [facility] CALCIUM) [QL] TSH, 3RD GENERATION 2020-08-21 00:00:00 [facility] [QL] VITAMIN A (RETINOL) 2020-08-21 00:00:00 [facility] [QL] VITAMIN B1, WHOLE 2020-08-21 00:00:00 [facility] BLOOD [QL] VITAMIN B12 2020-08-21 00:00:00 [facility] [QL] VITAMIN E 2020-08-21 00:00:00 [facility] (TOCOPHEROL) [U] XRAY KNEE 3 VWS RIGHT 2020-03-30 00:00:00 [facility] [id number] MR Knee wo contrast [id number] 2020-03-30 00:00:00 [facility] [U] XRAY KNEE 3 VWS LEFT 2020-03-29 00:00:00 [facility] [id number] [U] XRAY KNEE 4 OR MORE 2020-01-20 00:00:00 [facility] VWS LEFT [id number] [U] XRAY KNEE 3 VWS LEFT 2020-01-17 00:00:00 [facility] [id number] MR Knee wo contrast [id number] 2020-01-03 00:00:00 [facility]le [facility]ia Repair [facility] Encounters Start End Encounter Admission Attending Care Care Encounter Source Date/Time Date/Time Type Type Clinicians Facility Department ID 2022-01-13 Outpatient [facility] [id number] UT 14:46:10 Health 2022-01-06 Outpatient [facility] [id number] UT 16:50:55 [facility] 2021-05-27 Outpatient [facility] [id number] UT 09:14:12 [facility] 2021-05-21 Outpatient SABPATA, [facility] [id number] UT 10:58:31 [facility] 2021-05-07 Outpatient TOMAS, [facility] [id number] UT 12:48:28 [facility] 2021-03-25 Outpatient TOMAS, [facility] [id number] UT 08:06:21 [facility] 2022-11-04 2022-11-04 Outpatient JEANNETTETHALIA, [facility] [id number] UT 08:45:00 08:45:00 [facility] 2022-09-29 2022-09-29 Telephone Hang [facility] [id number] Univers 00:00:00 00:00:00 Digg [id number] it y of [place] [id number] [place] as KARIN?BLEA [phone] [address] OFFICE [facility] 2022-09-24 2022-09-24 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 Lab, Ang [facility] [id number] [facility] 09:00:00 09:27:57 Visit Mehran Mauricio [facility] [id number] ity of [place] [id number] [place] as KARIN?BLEA [id number] [address] OFFICE BUILDING 2022-09-24 2022-09-24 Outpatient R HANG [facility] [id number] Univers 09:00:00 09:00:00 MEHRAN cornejo [facility] 2022-09-23 2022-09-23 Office Hang [facility] [id number] Univers 15:00:00 15:37:55 Visit Mehran [facility] [id number] it y of [place] [id number] [place] as KARIN?BLEA [phone] [address] MEDICAL OFFICE [facility] 2022-09-23 2022-09-23 Outpatient R HANG [facility] [id number] Univers 15:00:00 15:37:55 MEHRAN ity of [facility] 2022-09-23 2022-09-23 Abstract Hang [facility] 1.2.840.114 [id number] Univers 00:00:00 00:00:00 Mehran HEALTH [id number] it y of [place] [id number] [place] as KARIN?BLEA [id number] [address] OFFICE [facility] 2022-09-23 2022-09-23 Letter Hang [facility] [id number] Univers 00:00:00 00:00:00 (Out) Mehran [facility] [id number] it y of [place] [id number] [place] as KARIN?BLEA [id number] [address] OFFICE [facility] 2022-09-09 2022-09-09 Outpatient [facility] [id number] ID 16:00:00 17:13:36 Health 2022-09-09 2022-09-09 Office Chana RICHARD [facility] [id number] ID 16:00:00 16:37:38 Visit Carlos SOTELO [id number] H [facility] [id number] [address] [id number] 2022-09-01 2022-09-01 Orders Doctor TEGAN [id number] Univers 00:00:00 00:00:00 Only Unassigned, DULCE MARIA [id number] ity of [place] [facility] [id number] [place] as [phone] [address] 2022-08-13 2022-08-13 Nurse Nurse, [facility] [id number] Univers 17:15:00 17:35:00 Visit Amrit Schultz [facility] [id number] ity of [place] [id number] [place] as KARIN?BLEA [phone] [facility] [address] MEDICAL OFFICE BUILDING 2022-08-13 2022-08-13 Outpatient R ANTOINE [facility] [id number] [facility] 17:20:00 17:20:00 AMRIT torresy o f [facility] 2022-08-13 2022-08-13 Outpatient R ANTOINE [facility] [id number] [facility] 17:15:00 17:15:00 AMRIT ity o f [facility] 2022-08-01 2022-08-01 Office RICHARD Marin [facility] [id number] ID 09:15:00 10:24:25 Visit Sandy SUGAR [id number] Erick wadsworth [facility] [id number] [address] [phone] AND 4 WOMENS 2022-07-23 2022-07-23 Outpatient TOMAS, [facility] LAMAR [id number] [facility] 06:36:00 13:15:00 SANDY 2022-06-24 2022-06-24 Office RICHARD Marin [facility] [id number] ID 09:15:00 09:55:43 Visit Sandy SUGAR [id number] Erick wadsworth [facility] [id number] [address] 2 [phone] AND 4 WOMENS 2022-04-29 2022-04-29 Telephone RICHARD Marin [facility] [id number] ID 00:00:00 00:00:00 Sandy SUGAR [id number] Erick alth [facility] [id number] [address] 7 [id number] AND 4 WOMENS 2022-04-27 2022-04-27 Telephone TEGAN Estrada 1.2.840.114 [id number] [facility] 00:00:00 00:00:00 Watson DULCE MARIA [id number] it y of [facility] [id number] [place] as [phone] [address] 2022-04-26 2022-04-26 Laboratory Only, Ang Db Test [facility] 1.2.8 40.114 [id number] Univers 15:30:00 15:45:00 Only Krissy King [facility] [id number] ity of [place] [id number] [place] as KARIN?BLEA [phone] [address] MEDICAL OFFICE BUILDING 2022-04-26 2022-04-26 Outpatient R CHRISTY [facility] [id number] Univers 15:30:00 15:30:00 KRISSY ity o f [facility] 2022-03-29 2022-03-29 Letter TEGAN Rashid [id number] Univers 00:00:00 00:00:00 (Out) Marlene العراقي [id number] it y of HOSPITAL [id number] [place] as [phone] [facility] [address] [place] 2022-03-28 2022-03-28 Laboratory Only, Ang Db Test [facility] 1.2.8 40.114 [id number] Univers 11:15:00 11:30:00 Only [employer] 350.1.13.10 ity of [place] 4.2.7.2.686 [place] as KARIN?BLEA [id number] [address] MEDICAL OFFICE [facility] 2022-03-28 2022-03-28 Outpatient R DEVENDRA [facility] [id number] Univers 11:15:00 11:15:00 OSKARIA ity of [facility] 2022-03-28 2022-03-28 Orders Doctor JAVED 1.2.840.114 [id number] Univers 00:00:00 00:00:00 Only Unassigned, DULCE MARIA [id number] ity of [place] [facility] [id number] [place] as [id number] [facility] [address] 2022-03-07 2022-03-07 Procedure RICHARD Zayas [facility] 1.2.840.114 [id number] ID 11:15:00 11:38:53 Visit Carlos SOTELO [id number] H [facility] [id number] [address] 4 [id number] 7 2022-02-28 2022-02-28 Procedure Chana [facility] 1.2.840.114 [id number] [place] 11:15:00 11:44:01 Visit Carlos SOTELO 350.1.13.58 [facility] 9.2.7.2.686 PLAZA 6 [id number] 7 2022-02-14 2022-02-14 Procedure RICHARD Zayas [facility] 1.2.840.114 [id number] [place] 11:00:00 12:07:16 Visit Carlos SOTELO 350.1.13.58 [facility]ICAL 9.2.7.2.686 PLAZA 7 [id number] 7 2022-02-12 2022-02-12 Office RICHARD Zyaas [facility] 1.2.840.114 [id number] UT 10:30:00 12:03:04 Visit Carlos SOTELO 350.1.13.58 [facility]ICAL 9.2.7.2.686 PLAZA 0 [id number] 7 2022-02-12 2022-02-12 Office Roselia RICHARD H 1.2.840.114 [id number] [place] 09:15:00 11:05:01 Visit Abraham SOTELO 350.1.13.58 [facility] 9.2.7.2.686 PLAZA 4 [id number] 5 2022-02-12 2022-02-12 Telephone Inez Saucedo [facility] 1.2.840.11 [id number] [place] 00:00:00 00:00:00 Inez Saucedo DEEPAK 350.1.13.58 [facility] MEDICAL 9.2.7.2.686 PLAZA 5 [id number] 7 2022-01-30 2022-01-30 Outpatient WINDY VELOZ [facility] [address] 05:35:00 11:16:00 ABRAHAM 2022-01-13 2022-01-13 Office JovanisosamelecioRICHARD [facility] 1.2.840.114 [id number] [place] 14:30:00 15:38:19 Visit Abraham SOTELO 350.1.13.58 [facility] MEDICAL 9.2.7.2.686 PLAZA 4 [id number] 5 2022-01-09 2022-01-09 Telephone RICHARD Marin [facility] 1.2.840.114 [id number] ID 00:00:00 00:00:00 Sandy SUGAR 350.1.13.58 He [facility] 9.2.7.2.686 PLAZA 3 [id number] AND 4 WOMENS 2022-01-07 2022-01-07 Office RICHARD Zayas [facility] 1.2.840.114 [id number] ID 08:45:00 09:28:10 Visit Carlos SOTELO 350.1.13.58 H [facility] 9.2.7.2.686 PLAZA 8 [id number] 7 2022-01-01 2022-01-01 Outpatient TOMAS [facility] LAMAR [address] [facility] 06:20:00 09:25:00 SANDY 2021-12-29 2021-12-29 Letter TEGAN Rashid 1.2.840.114 [id number] [facility] 00:00:00 00:00:00 (Out) Marlene Montoya DULCE MARIA 350.1.13.10 it y of [facility] 4.2.7.2.686 Amador as [phone] [address] 2021-12-28 2021-12-28 Laboratory Only, Ang Db Test [facility] 1.2.8 40.114 [id number] Univers 14:45:00 15:00:00 [facility] [id number] ity [facility] 4.2.7.2.686 [place] as KARIN?BLEA [phone] [address] MEDICAL OFFICE BUILDING 2021-12-28 2021-12-28 Outpatient R CONRAD [facility] [id number] Univers 14:45:00 14:45:00 LIZBETH cornejo [facility] 2021-12-04 2021-12-04 Outpatient Tacos MIGUEL [facility] [id number] Univers 10:00:00 10:00:00 JEYSON cornejo [facility] 2021-12-03 2021-12-03 Office RICHARD Marin [facility] 1.2.748.050 [id number] [place] 10:15:00 10:30:00 Visit Sandy SUGAR 350.1.13.58 He alth [place] 9.2.7.2.686 [address] 6 [phone] AND 4 WOMENS 2021-10-15 2021-10-15 Orders Doctor TEGAN 1.2.840.114 [id number] Univers 00:00:00 00:00:00 Only Unassigned, DULCE MARIA 350.1.13.10 ity of [place] [facility] 4.2.7.2.686 [place] as [phone] [place] [address] [place] 2021-09-03 2021-09-03 Office Tomas [facility] 1.2.274.635 [id number] ID 09:35:52 10:24:30 Visit Sandy SUGAR 350.1.13.58 alth [place] 9.2.7.2.686 [address] 2 [id number] AND 4 WOMENS 2021-08-08 2021-08-08 Refdevon Marin [facility] 1.2.357.319 [id number] [place] 00:00:00 00:00:00 Sandy SUGAR 350.1.13.58 He alth [place] 9.2.7.2.686 PLA[place] 3 [id number] AND 4 WOMENS 2021-07-31 2021-07-31 Orders Vijaya Bethea [facility] 1.2.840.11 4 [id number] [place] 00:00:00 00:00:00 Only Vijaya Bethea 350.1.13.58 [facility] [place] 9.2.7.2.686 [address] 5 [phone] AND 4 WOMENS 2021-07-10 2021-07-10 Refdevon Marin [facility] 1.2.055.931 [id number] [place] 00:00:00 00:00:00 Sandy SUGAR 350.1.13.58 He alth [place] 9.2.7.2.686 PLAZA 7 [phone] AND 4 WOMENS 2021-07-09 2021-07-09 Procedure Chana [facility] 1.2.840.114 [id number] [place] 10:14:27 10:55:14 Visit Carlos SOTELO 350.1.13.58 H ealth MEDICAL 9.2.7.2.686 PLAZA 7 [id number] 7 2021-07-04 2021-07-04 Refill Tomas [facility] 1.2.345.131 [id number] [place] 00:00:00 00:00:00 Sandy SUGAR 350.1.13.58 He alth [place] 9.2.7.2.686 PLA[place] 2 [phone] AND 4 WOMENS 2021-07-02 2021-07-02 Procedure Chana [facility] 1.2.840.114 [id number] [place] 10:22:08 10:37:08 Visit Carlos [facility]EL[facility] 350.1.13.58 [facility] 9.2.7.2.686 PLA[place] 0 [id number] 7 2021-06-25 2021-06-25 Procedure Chana [facility] 1.2.840.114 [id number] [place] 11:45:31 12:06:30 Visit Carlos SOTELO 350.1.13.58 [facility] MED[facility] 9.2.7.2.686 PLAZA 9 [id number] 7 2021-06-14 2021-06-14 Refill Tomas [facility] 1.2.144.427 [id number] [place] 00:00:00 00:00:00 Sandy SUGAR 350.1.13.58 He alth [place] 9.2.7.2.686 [address] 8 [id number] AND 4 WOMENS 2021-06-12 2021-06-12 Telephone Zaina Robertson [facility] 1.2.840.1 14 [id number] [place] 00:00:00 00:00:00 Zaina Robertson 350.1.13.58 Health MEDICAL 9.2.7.2.686 PLAZA 5 [id number] 7 2021-06-10 2021-06-10 Telephone Zaina Robertson [facility] 1.2.840.1 14 [id number] ID 00:00:00 00:00:00 Zaina Robertson 350.1.13.58 Health MEDICAL 9.2.7.2.686 PLAZA 3 [id number] 7 2021-06-10 2021-06-10 Orders Tomas [facility] 1.2.465.287 [id number] [place] 00:00:00 00:00:00 Only Sandy SUGAR 350.1.13.58 He alth [place] 9.2.7.2.686 PLA[place] 4 [phone] AND 4 WOMENS 2021-06-03 2021-06-03 Telephone Inez Saucedo [facility] 1.2.840.11 4 [id number] [place] 00:00:00 00:00:00 Inez Saucedo BANNISTER 350.1.13.58 Health MEDICAL 9.2.7.2.686 PLAZA 8 [id number] 7 2021-05-07 2021-05-07 Office RICHARD Marin [facility] 1.2.190.781 [id number] ID 11:50:13 13:03:27 Visit Sandy SUGAR 350.1.13.58 He alth [place] 9.2.7.2.686 [place] 4 [phone] AND 4 WOMENS 2021-05-01 2021-05-01 Telephone [place] Vijaya [facility] 1.2.840. 114 [id number] [place] 00:00:00 00:00:00 Vijaya Bethea SUGAR 350.1.13.58 Health [place] 9.2.7.2.686 [place] 2 [phone] AND 4 WOMENS 2021-04-23 2021-04-23 Telephone RICHARD Marin [facility] 1.2.840.114 12 [id number] [place] 00:00:00 00:00:00 Sandy SUGAR 350.1.13.58 He alth [place] 9.2.7.2.686 PLA[place] 1 [id number] AND 4 WOMENS 2021-04-17 2021-04-17 EXT [facility] OP Tomas EXT MSP 1.2.840.114 [id number] [place] 00:00:00 00:00:00 Sandy LOCATION 350.1.13.58 H ealth 9.2.7.2.686 [id number] 0 2021-04-17 2021-04-17 EXT [facility] OP Tomas EXT MSRDP 1.2.840.114 [id number] UT 00:00:00 00:00:00 Sandy LOCATION 350.1.13.58 H ealth 9.2.7.2.686 [id number] 0 2021-04-16 2021-04-16 Office RICHARD Marin [facility] 1.2.378.398 [id number] ID 11:00:00 11:15:00 Visit Sandy SUGAR 350.1.13.58 [facility] [place] 9.2.7.2.686 [address] 1 [id number] AND 4 WOMENS 2021-04-16 2021-04-16 Orders [place] [facility] 1.2.840.11 4 [id number] [place] 00:00:00 00:00:00 Only [place] SUGAR 350.1.13.58 Health [place] 9.2.7.2.686 PLAZA 6 [id number] AND 4 WOMENS 2021-03-27 2021-03-27 Outpatient TOMAS [facility] 7506 [facility] 09:25:00 12:05:00 SANDY 2021-03-25 2021-03-25 EXT [facility] OP Tomas, EXT MSRDP 1.2.840.114 [id number] UT 00:00:00 00:00:00 Sandy LOCATION 350.1.13.58 H ealth 9.2.7.2.686 [id number] 0 2021-03-25 2021-03-25 EXT [facility] OP Tomas, EXT MSRDP 1.2.840.114 [id number] UT 00:00:00 00:00:00 Sandy LOCATION 350.1.13.58 H ealth 9.2.7.2.686 [id number] 2021-03-23 2021-03-23 Orders Vijaya Bethea [facility] 1.2.840.11 4 [id number] [place] 00:00:00 00:00:00 Only [place] SUGAR 350.1.13.58 Health [place] 9.2.7.2.686 [address] 4 [id number] AND 4 WOMENS 2021-03-05 2021-03-05 Appointmen RICHARD MARIN [facility] [id number] [place] 10:15:00 10:15:00 t; SANDY, Surgery - Phy rekha MARIN D.O. [facility] SANDY, Medical D.O. [place] 2021-02-12 2021-02-12 Skylar MARIN, [facility] General [id number] [place] 08:45:00 08:45:00 t; SANDY, Surgery - Phy Livia HopeO. [facility] SANDY, Medical D.O. [place] 2021-02-05 2021-02-05 Outpatient TOMAS [facility] [place] [id number] FB 11:13:00 16:00:00 SANDY 2021-01-29 2021-01-29 Appointradha MARIN, [facility] [id number] [place] 11:30:00 11:30:00 t; SANDY, Physi Livia TothO. [facility] SANDY D.O. 2021-01-22 2021-01-22 Skylar MARIN, [facility] General [id number] ID 10:45:00 10:45:00 t; SANDY, Surgery - Phy Livia HopeO. [facility] SANDY, Medical D.O. [place] 2020-12-31 2021-01-01 Emergency [facility] FB 22:53:00 03:55:00 2020-12-11 2020-12-11 Skylar MARIN, [facility] General [id number] [place] 10:15:00 10:15:00 t; SANDY, Surgery - Phy Livia HopeO. [facility] SANDY, Medical D.O. [place] 2020-12-05 2020-12-05 Inpatient U TOMAS, [facility] 7503 [facility] 09:29:00 14:03:00 SANDY 2020-11-20 2020-11-20 Appointradha MARIN, [facility] [id number] [place] 12:00:00 12:00:00 t; SANDY, Physi Livia TothO. ans SANDY, D.O. 2020-09-17 2020-10-16 Outpatient JARED MARIN [place] [id number] MH 15:00:00 23:59:00 SANDY [facility] 2020-09-05 2020-09-05 Outpatient JARED MARINFB [place] 7502 [facility] 09:31:00 12:30:00 SANDY 2020-09-03 2020-09-03 Laboratory Only, [facility] 1.2.840.114 [id number] 11:05:29 11:20:29 Only Test [place] 350.1.13.10 [place] 4.2.7.2.686 [place] [id number] [id number] 2020-09-03 2020-09-03 Laboratory Only, Adc Test [facility] 1.2.840. 114 [id number] Univers 11:05:29 11:20:29 Only Jeyson Lilly Bernadette 350.1.13.10 ity of [place].7.2.[place] [id number] [address] 2020-09-03 2020-09-03 Outpatient [place] VIJAYA, [facility] [id number] Univers 11:15:00 11:15:00 JEYSON cornejo [facility] 2020-09-03 2020-09-03 Orders Doctor JAVED 1.2.840.114 [id number] 00:00:00 00:00:00 Only Unassigned, DULCE MARIA 350.1.13.10 [place] [facility] 4.2.7.2.686 [id number] [id number] 2020-09-03 2020-09-03 Orders Doctor JAVED 1.2.840.114 [id number] Univers 00:00:00 00:00:00 Only Unassigned, DULCE MARIA 350.1.13.10 ity of [place] [facility] 4.2.7.2.686 Amador as [id number] [address] 2020-08-28 2020-08-28 [facility]yl[facility] 69 [id number] ID 15:45:00 15:45:00 t; [facility] ZAYAS APRN II ans RONDA GONZALEZ 2020-08-21 2020-08-21 Skylar MARIN [facility] General [id number] [place] 09:45:00 09:45:00 t; SANDY, Surgery - Bobby MARIN D.O. [place] ans Lina WHITLEY 2020-05-09 2020-05-09 Skylar ZAYAS [facility] Orthopedics 66 [id number] [place] 08:15:00 08:15:00 t; CARLOS, - [place] Phy sici CHANA, MACHINE SHOP SPECIALIST II ans CARLOS MACHINE SHOP SPECIALIST 2020-03-30 2020-03-30 Appointmen HUNGRoverto [facility] Orthopedics 66 [id number] [place] 08:30:00 08:30:00 t; CARLOS, - [place] Phy sici CHANA, MACHINE SHOP SPECIALIST II ans CARLOSRONDA 2020-01-19 2020-01-19 Appointmen JAGUAR [facility] [id number] [place] 14:00:00 14:00:00 t; OLIVIA MONTESINOS, Invasive Phy rekha BAKER D.O. [facility].OClaudia [place] ([facility]) 2020-01-03 2020-01-03 Appointmen NICOLE [facility] Orthopedics [id number] UT 11:30:00 11:30:00 t; NICOLE ARIZA, - [facility] BRADEN ARIZA, II wendy FELICIANO M.D. M.D. 2019-12-24 2019-12-24 [facility] [id number] [place] 14:00:00 14:00:00 t; OLIVIA MONTESINOS, Phys ici Lina BAKEROClaudia 2019-12-24 2019-12-24 Appointradha MARIN [facility] [id number] [place] 13:15:00 13:15:00 t; SANDY, Physi Lina Toth D.O. 2019-12-24 2019-12-24 Appointmen SURG, NURSE [facility] [id number] UT 09:30:00 09:30:00 t; SURG, Physi ci NURSE [facility] Results Test Description Test Time Test Comments Results Result Comments Source TESTOSTERONE 2022-09-24 23:56:40 Test Item Value Reference Range Interpretation Comme nts TESTOST (test code = 0007740875) 574.0 ng/dL 132.0-813.0 FLORENTIN (test code = FLORENTIN) Normal Ranges Adult Female: ?6-77 ng/dLAdult Male <50 years: ? ?132-813 ng/dLAdult Male >50 years: ? ?72-623 ng/dL Females on Control Pills may have higher results. Obese patients may have lower results. Biotin has been reported to cause a negative bias, interpret results relative to patient's use of biotin. Lab Interpretation (test code = Normal 99015-6) [facility], [id number] 23:48:37 Test Item Value Reference Range Interpretation Comments Insulin (test code = See_Comment [Autom ated message] [id number]) The system [employer] generated this result transmitted ref erence range: 1.9 - 23 .0 uIU/mL. The ref erence range was not u sed to interpret this result as normal/abnor mal. Lab Interpretation (test Normal code = 15840-9) [facility]YCOS[facility] HEMOGLOBIN (A1C)2022-09-24 22:49:36 Test Item Value Reference Range Interpretation Comments HGB A1C (test code = 4.7 % 4.0-5.7 4548-4) FLORENTIN (test code = FLORENTIN) Reference RangesNormal: <5.7%Prediabetes: 5.7 - 6.4%Diabetes: > 6.5% Lab Interpretation (test Normal code = 54076-2) [facility]ano[facility]ETA [id number] 21:17:35 Test Item Value Reference Range Interpretation Comments BOH (test code = 0.1 mmol/L 8574206317) FLORENTIN (test code = Normal Ranges: ? ? FLORENTIN) Nonfasting ? Less than 0.1 mmol/L ? ? Overnight Fast ? ? ? Less than 0.4 mmol/L ? ? Fasting (1-2 weeks) ?6-8 mmol/L Test developed and characteristics determined by [facility] Laboratory Services. [facility]ano[facility]YROID STIMULATING [id number] 20:30:06 Test Item Value Reference Range Interpretation Comments TSH (test code = See_Comment [Automated message] [id number]) The system [employer] generated this result transmitted ref erence range: 0.45 - 4 .70 mIU/L. The refe rence range was not u sed to interpret this result as normal/abnor mal. Lab Interpretation (test Normal code = 31654-4) [facility]. METABOLIC PANEL ([id number])2022-09-24 20:05:58 Test Item Value Reference Range Interpretation Comments NA (test code = 138 mmol/L 135-145 1119698007) K (test code = 3.9 mmol/L 3.5-5.0 5488280662) CL (test code = 105 mmol/L 98-108 1250368488) CO2 TOTAL (test code = 26 mmol/L 23-31 2376921945) AGAP (test code = 2-16 6963591090) BUN (test code = 16 mg/dL 7-23 2314975903) GLUCOSE (test code = 79 mg/dL 70-110 1604011971) CREATININE (test code = 0.84 mg/dL 0.60-1.25 9073259333) TOTAL BILI (test code = 1.3 mg/dL 0.1-1.1 H 7046377643) CALCIUM (test code = 8.7 mg/dL 8.6-10.6 5537509839) T PROTEIN (test code = 6.5 g/dL 6.3-8.2 0493437637) ALBUMIN (test code = 3.9 g/dL 3.5-5.0 1482276593) ALK PHOS (test code = 78 U/L 34-122 5032756487) ALTv (test code = 29 U/L 5-50 1742-6) AST(SGOT) (test code = 27 U/L 13-40 4020918243) eGFR (test code = mL/min/1.73m2 5206709889) FLORENTIN (test code = FLORENTIN) Association of Glomerular Filtration Rate (GFR) and Staging of Kidney Disease* + --+ --+ ------+| GFR (mL/min/1.73 m2) ?| With Kidney Damage ?| ?Without Kidney Damage+ --------+ --------+ +| ?>90 ?| ?Stage one ?| ? Normal ?+ ---+ ---+ -------+| ?60-89 ?| ?Stage two ?| ? Decreased GFR ? + --+ --+ ------+| ?30-59 ?| ?Stage three ?| ? Stage three ? + --+ --+ ------+| ?15-29 ?| ?Stage four ? | ? Stage four ?+ ---+ ---+ -------+| ?<15 (or dialysis) ? ?| ?Stage five ? | ? Stage five ?+ ---+ ---+ -------+ *Each stage assumes the associated GFR level has been in effect for at least three months. ?Stages 1 to 5, with or without kidney disease, indicate chronic kidney disease. Notes: Determination of stages one and two (with eGFR >59mL/min/1.73 m2) requires estimation of kidney damage for at least three months as defined by structural or functional abnormalities of the kidney, manifested by either:Pathological abnormalities or Markers of kidney damage (including abnormalities in the composition of the blood or urine or abnormalities in imaging tests). Lab Interpretation Abnormal (test code = 77099-6) [facility][] LIPID [id number] 12:09:00 Test Item Value Reference Range Interpretation Comments CHOLESTEROL, TOTAL; 142 mg/dl <200 N Normal (test code = 2093-3) HDL CHOLESTEROL; 27 mg/dl See_Comment [Automated message] Below Low Threshold The syst em which (test code = 5-9) generat ed this result transmit larissa reference range : > OR = 40. The reference range was not used to interpret this result as normal/abnormal . TRIGLYCERIDES; 143 mg/dl <150 N Normal (test code = 2571-8) LDL-CHOLESTEROL; 91 {MG/DL LAVERN} N Reference range: Normal (test code = <100 Bunny irable range 61749-4) <100 mg/dL for primary prevent ion; <70 mg/dL for patients with C HD or diabetic patien ts with > or = 2 C HD risk factors. L DL-C is now calculat ed using the Jessica calculation, wh ich is a validated novel method providin g better accuracy than the Friedewald equation in the estimation of L DL-C. Andreas ANGELES et al . DARIO. 2013;310( 19): 9917-2834 (http://educati on.[employer]. com/f aq/QWT837) CHOL/HDLC RATIO 5.3 {CALC} <5.0 (test code = CHOL/HDLC RATIO) NON HDL CHOLESTEROL 115 {MG/DL <130 N For sierra ents with (test code = NON HDL LAVERN} diabete s plus 1 CHOLESTEROL) major ASCVD ris k factor, treatin g to a non-HDL-C goa l of <100 mg/dL (LDL -C of <70 mg/dL) is considered a therapeutic opt ion. [facility][QL] IRON AND TOTAL IRON BINDING [id number] 12:09:00 Test Item Value Reference Range Interpretation Comments IRON, TOTAL (test code = 92 {mcg/dl} 50-180 N IRON, TOTAL) IRON BINDING CAPACITY (test 307 {mcg/dL ca} 250-425 N code = IRON BINDING CAPACITY) % SATURATION (test code = % 30 {% CALC} 20-48 N SATURATION) [facility][QL] CMP [id number] 12:09:00 Test Item Value Reference Range Interpretation Comments GLUCOSE; Above 120 mg/dl 65-99 Fasting refer ence High Threshold interval For someone (test code = without known 1547-9) diabetes, a glu cose valuebetween 10 0 and 125 mg/dL is consistent withprediabetes and should be confi rmed with afollow-up test. UREA NITROGEN 7 mg/dl 7-25 N (BUN) (test code = UREA NITROGEN (BUN)) CREATININE (test 0.94 mg/dl 0.60-1.35 N code = CREATININE) eGFR NON-AFR. 98 {ML/MIN/1.7} See_Comment N [Automated message] MALAYSIAN (test The system ich code = eGFR generated this result NON-AFR. MALAYSIAN) transmitt ed reference range: > OR = 6 0. The reference range was not used to int erpret this result as normal/abnormal . eGFR 113 {ML/MIN/1.7} See_Comment N [Automated message] MALAYSIAN (test The system ich code = eGFR generated this result ) transmitte d reference range: > OR = 6 0. The reference range was not used to int erpret this result as normal/abnormal . BUN/CREATININE NOT APPLICABLE 6-22 RATIO (test code = BUN/CREATININE RATIO) SODIUM (test code 142 mmol/L 135-146 N = SODIUM) POTASSIUM (test 3.0 mmol/L 3.5-5.3 code = POTASSIUM) CHLORIDE (test 106 mmol/L 98-110 N code = CHLORIDE) CARBON DIOXIDE 22 mmol/L 20-32 N (test code = CARBON DIOXIDE) CALCIUM (test code 8.9 mg/dl 8.6-10.3 N = CALCIUM) PROTEIN, TOTAL 6.4 g/dl 6.1-8.1 N (test code = PROTEIN, TOTAL) ALBUMIN (test code 3.7 g/dl 3.6-5.1 N = ALBUMIN) GLOBULIN (test 2.7 {G/DL CALC} 1.9-3.7 N code = GLOBULIN) ALBUMIN/GLOBULIN 1.4 {CALC} 1.0-2.5 N RATIO (test code = ALBUMIN/GLOBULIN RATIO) BILIRUBIN, TOTAL; 1.7 mg/dl 0.2-1.2 Above High Threshold (test code = 06160-1) ALKALINE 63 u/l 36-130 N PHOSPHATASE (test code = ALKALINE PHOSPHATASE) AST; Above High 43 u/l 10-40 Threshold (test code = 1916-6) ALT; Normal (test 45 u/l 9-46 N code = 1742-6) [facility][QL] CBC (INCLUDES DIFF/PLT)2021-01-22 12:09:00 Test Item Value Reference Range Interpretation Comments WHITE BLOOD CELL COUNT 6.7 {Thousand/u} 3.8-10.8 N (test code = WHITE BLOOD CELL COUNT) RED BLOOD CELL COUNT (test 5.24 {Million/uL} 4.20-5.80 N code = RED BLOOD CELL COUNT) HEMOGLOBIN; Normal (test 15.7 g/dl 13.2-17.1 N code = 97960-8) HEMATOCRIT; Normal (test 45.8 % 38.5-50.0 N code = 4544-3) MCV; Normal (test code = 87.4 fL 80.0-100.0 N 787-2) MCHC; Normal (test code = 34.3 g/dl 32.0-36.0 N 03216-9) RDW; Normal (test code = 13.8 % 11.0-15.0 N 788-0) PLATELET COUNT; Normal 178 {Thousand/u} 140-400 N (test code = 777-3) MPV; Normal (test code = 10.3 fL 7.5-12.5 N 99892-9) ABSOLUTE NEUTROPHILS (test 4288 {cells/uL} 7515-1298 N code = ABSOLUTE NEUTROPHILS) ABSOLUTE LYMPHOCYTES (test 1481 {cells/uL} 850-3900 N code = ABSOLUTE LYMPHOCYTES) ABSOLUTE MONOCYTES (test 797 {cells/uL} 200-950 N code = ABSOLUTE MONOCYTES) ABSOLUTE EOSINOPHILS (test 87 {cells/uL} 15-500 N code = ABSOLUTE EOSINOPHILS) ABSOLUTE BASOPHILS (test 47 {cells/uL} 0-200 N code = ABSOLUTE BASOPHILS) NEUTROPHILS (test code = 64 % N NEUTROPHILS) LYMPHOCYTES (test code = 22.1 % N LYMPHOCYTES) MONOCYTES; Normal (test 11.9 % N code = 90993-1) EOSINOPHILS; Normal (test 1.3 % N code = 21449-5) BASOPHILS; Normal (test 0.7 % N code = 19929-1) [facility][QL] PTH, INTACT (WITHOUT CALCIUM)2021-01-22 12:09:00 Test Item Value Reference Range Interpretation Comments PARATHYROID 52 pg/ml 14-64 N Interpretive Gu sara Intact PTH HORMONE, INTACT Calcium----- (test code = ---- ---Normal PARATHYROID Parathyroid Nor mal HORMONE, INTACT) NormalHypop arathyroidism Low or Low Normal LowHyperparathy roidism Primary Normal or High High Secondary High Normal or Low Tertiary High HighNon-Parathy roid Hypercalcemia L ow or Low Normal High [facility][QL] FOLATE, [id number] 12:09:00 Test Item Value Reference Range Interpretation Comments FOLATE, SERUM (test 7.7 ng/ml N Referenc e Range Low: code = FOLATE, <3.4 Borderli ne: 3.4-5.4 SERUM) Normal: >5.4 [facility][QL] VITAMIN [id number] 12:09:00 Test Item Value Reference Range Interpretation Comments VITAMIN B12 (test code = VITAMIN 609 pg/ml 200-1100 N B12) [facility][QL] TSH, 3RD GENERATION W/REFLEX TO [id number] 12:09:00 Test Item Value Reference Range Interpretation Comments TSH, 3RD GENERATION W/REFLEX TO 1.55 {MIU/L} 0.40-4.50 N FT4 (test code = TSH, 3RD GENERATION W/REFLEX TO FT4) [facility][QL] HEMOGLOBIN [id number] 12:09:00 Test Item Value Reference Range Interpretation Comments HEMOGLOBIN A1c; 4.9 {% of <5.7 N For the purp ose of Normal (test code total} screening for the = 4548-4) presence ofdiab etes: <5.7% Consisten t with the absence of diabetes5.7-6.4 % Consistent with increased risk for diabetes (predi abetes)> or =6.5% Consis tent with diabetes T his assay result is consistent with a decreased risko f diabetes. Curre ntly, no consensus exist s regarding use ofhemoglobin A1 c for diagnosis of di abetes in children. Ac cording to [place] bet[employer] Association (ADA)guidelines , hemoglobin A1c <7.0% represents optimalcontrol in non- di abetic patients. Differentmetric s may apply to specif ic patient populat ions. Standards of Me dical Care in Diabete s(ADA). [facility][QL] VITAMIN E (TOCOPHEROL)2021-01-22 12:09:00 Test Item Value Reference Range Interpretation Comments ALPHA-TOCOPHEROL 7.9 mg/L Reference R cornelio 5.7-19.9 (test code = mg/L Levels of ALPHA-TOCOPHEROL) alpha-toco pherol <5 mg/L are consistent with Vitamin E deficiency in a dults.Vitamin supplementation within 24 hours prior to blood draw may affect the accuracy of results. This t est was developed and i ts analytical performance tl racteristics have been deter mined by [employer]. It has not been cleare d or approved by theFDA. This assay has been validated pursuant to the CLIA regula tions and is used for clinic al purposes. WICN-TAMOH-BOAFWM 1.2 mg/L <4.4 This test was developed and SERGIO (test code = its analyt ical performance [id number] characteri stics have been SERGIO) determined by [employer]. It has not been cleared or appr maciel by theFDA. This as say has been validated pursu ant to the CLIA regulation s and is used for clinical pu rposes. Reference Range 5.7-19.9 mg/L Levels of alpha-tocopherol <5 mg/L are consistent with Vitamin E deficiency in adults.Vitamin supplementation within 24 hours prior to blood draw may affect the accuracy of results. This test was developed and its analytical performance characteristics have been determined by [employer]. It has not been cleared or approved by theFDA. This assay has been validated pursuant to the CLIA regulations and is used for clinical purposes.[facility][QL] VITAMIN B1, WHOLE [id number] 12:09:00 Test Item Value Reference Range Interpretation Comments VITAMIN B1, WHOLE 108 nmol/L 78-185 Vitamin lundberg pplementation BLOOD (test code = within 24 hours prior VITAMIN B1, WHOLE toblood dr palm may affect BLOOD) the accuracy of results. This test was d eveloped and its analyti lavern performance characteristics have been determined by [employer]. It has not been cleared or approved by theFDA. This assay has been validated pursuant to the CLIA reg ulations and is used for clinical purposes. [facility][QL] VITAMIN A (RETINOL)2021-01-22 12:09:00 Test Item Value Reference Range Interpretation Comments VITAMIN A (test 33 {mcg/dl} 38-98 Clin Chem Vol. 34.No.8. code = VITAMIN A) [id number] 8. 1998Vitamin supplementation within 24 hours prior to blood draw may affect the accuracy of results. Thi s test was developed and i ts analytical perf ormance characteristics have been determined by [employer]. It has not been cleared or approved by theFDA. This assay has been validated pursuant to the CLIA reg ulations and is used for clinical purposes. [facility][Q] QUESTASSURED 25-OH VIT D, (D2,D3), LC/MS/[id number] 12:09:00 Test Item Value Reference Range Interpretation Comments VITAMIN D, 15 ng/ml 30-100 (Note)Reference range: Not 25-OH, D2 established Thi s test was (test code = developed and i ts analytical VITAMIN D, performancechar acteristics have 25-OH, D2) been determined by [employer]. It has not beencle ared or approved by the [place] Food and Drug Administration. Thisassay has been validated pursuant to the CLIA regulation and is usedfor Clinical purpos es.MDFmed [id number] [place] [address],[address] [facility] [phone] 00MicSachin Hoffman Note 1 No te 1 For additional info rmation, please refer to http://educatio n.Sr.PagoDiagnHiLo Tickets/faq/FAQ19 9 (This link is being provided for informational/e ducational purposes only.) VITAMIN D, 5 ng/ml Reference range : Not established 25-OH, D3 (test code = VITAMIN D, 25-OH, D3) Reference range: Not established[facility][QL] LIPID [id number] 11:00:00 Test Item Value Reference Range Interpretation Comments CHOLESTEROL, TOTAL; 178 mg/dl <200 N Normal (test code = 2093-3) HDL CHOLESTEROL; 42 mg/dl > OR = 40 N Normal (test code = 2085-9) TRIGLYCERIDES; 113 mg/dl <150 N Normal (test code = 2571-8) LDL-CHOLESTEROL; 114 {MG/DL Reference r cornelio: Above High Threshold LAVERN} <100 De sirable range (test code = <100 mg/[place] [address]-7) primary prevent ion; <70 mg/dL for patients with C HD or diabetic patien ts with > or = 2 C HD risk factors. L DL-C is now calculat ed using the Andreas-Kortney calculation, wh ich is a validated novel method providin g better accuracy than the Friedewald equation in the estimation of L DL-C. Andreas SS et al . DARIO. 2013;310( 19): 5439-6527 (http://educati on.[employer]. com/f aq/LPJ186) CHOL/HDLC RATIO 4.2 {CALC} <5.0 N (test code = CHOL/HDLC RATIO) NON HDL CHOLESTEROL 136 {MG/DL <130 For sierra ents with (test code = NON HDL LAVERN} diabete s plus 1 CHOLESTEROL) major ASCVD ris k factor, treatin g to a non-HDL-C goa l of <100 mg/dL (LDL -C of <70 mg/dL) is considered a therapeutic opt ion. [facility][QL] IRON AND TOTAL IRON BINDING [id number] 11:00:00 Test Item Value Reference Range Interpretation Comments IRON, TOTAL (test code = 81 {mcg/dl} 50-180 N IRON, TOTAL) IRON BINDING CAPACITY (test 422 {mcg/dL ca} 250-425 N code = IRON BINDING CAPACITY) % SATURATION (test code = % 19 {% CALC} 20-48 SATURATION) [facility][QL] CMP [id number] 11:00:00 Test Item Value Reference Range Interpretation Comments GLUCOSE; Above 109 mg/dl 65-99 Fasting refer ence High Threshold interval For someone (test code = without known 1547-9) diabetes, a glu cose valuebetween 10 0 and 125 mg/dL is consistent withprediabetes and should be confi rmed with afollow-up test. UREA NITROGEN 15 mg/dl 7-25 N (BUN) (test code = UREA NITROGEN (BUN)) CREATININE (test 1.01 mg/dl 0.60-1.35 N code = CREATININE) eGFR NON-AFR. 90 {ML/MIN/1.7} > OR = 60 N MALAYSIAN (test code = eGFR NON-AFR. MALAYSIAN) eGFR 104 {ML/MIN/1.7} > OR = 60 N MALAYSIAN (test code = eGFR ) BUN/CREATININE NOT APPLICABLE 6-22 RATIO (test code = BUN/CREATININE RATIO) SODIUM (test code 138 mmol/L 135-146 N = SODIUM) POTASSIUM (test 4.1 mmol/L 3.5-5.3 N code = POTASSIUM) CHLORIDE (test 103 mmol/L 98-110 N code = CHLORIDE) CARBON DIOXIDE 24 mmol/L 20-32 N (test code = CARBON DIOXIDE) CALCIUM (test code 9.4 mg/dl 8.6-10.3 N = CALCIUM) PROTEIN, TOTAL 7.4 g/dl 6.1-8.1 N (test code = PROTEIN, TOTAL) ALBUMIN (test code 4.4 g/dl 3.6-5.1 N = ALBUMIN) GLOBULIN (test 3.0 {G/DL CALC} 1.9-3.7 N code = GLOBULIN) ALBUMIN/GLOBULIN 1.5 {CALC} 1.0-2.5 N RATIO (test code = ALBUMIN/GLOBULIN RATIO) BILIRUBIN, TOTAL; 1.1 mg/dl 0.2-1.2 N Normal (test code = 67099-8) ALKALINE 54 u/l 36-130 N PHOSPHATASE (test code = ALKALINE PHOSPHATASE) AST; Normal (test 21 u/l 10-40 N code = 1916-6) ALT; Normal (test 23 u/l 9-46 N code = 1742-6) [facility][QL] CBC (INCLUDES DIFF/PLT)2020-08-21 11:00:00 Test Item Value Reference Range Interpretation Comments WHITE BLOOD CELL COUNT 8.0 {Thousand/u} 3.8-10.8 N (test code = WHITE BLOOD CELL COUNT) RED BLOOD CELL COUNT (test 5.42 {Million/uL} 4.20-5.80 N code = RED BLOOD CELL COUNT) HEMOGLOBIN; Normal (test 16.8 g/dl 13.2-17.1 N code = 16050-6) HEMATOCRIT; Normal (test 49.3 % 38.5-50.0 N code = 4544-3) MCV; Normal (test code = 91.0 fL 80.0-100.0 N 787-2) MCHC; Normal (test code = 34.1 g/dl 32.0-36.0 N 74885-2) RDW; Normal (test code = 12.9 % 11.0-15.0 N 788-0) PLATELET COUNT; Normal 195 {Thousand/u} 140-400 N (test code = 777-3) MPV; Normal (test code = 9.1 fL 7.5-12.5 N 51423-9) ABSOLUTE NEUTROPHILS (test 5304 {cells/uL} 2054-3588 N code = ABSOLUTE NEUTROPHILS) ABSOLUTE LYMPHOCYTES (test 1800 {cells/uL} 850-3900 N code = ABSOLUTE LYMPHOCYTES) ABSOLUTE MONOCYTES (test 792 {cells/uL} 200-950 N code = ABSOLUTE MONOCYTES) ABSOLUTE EOSINOPHILS (test 64 {cells/uL} 15-500 N code = ABSOLUTE EOSINOPHILS) ABSOLUTE BASOPHILS (test 40 {cells/uL} 0-200 N code = ABSOLUTE BASOPHILS) NEUTROPHILS (test code = 66.3 % N NEUTROPHILS) LYMPHOCYTES (test code = 22.5 % N LYMPHOCYTES) MONOCYTES; Normal (test 9.9 % N code = 84435-8) EOSINOPHILS; Normal (test 0.8 % N code = 31576-1) BASOPHILS; Normal (test 0.5 % N code = 54287-5) [facility][QL] PTH, INTACT (WITHOUT CALCIUM)2020-08-21 11:00:00 Test Item Value Reference Range Interpretation Comments PARATHYROID 42 pg/ml 14-64 N Interpretive Gu sara Intact PTH HORMONE, INTACT Calcium----- (test code = ---- ---Normal PARATHYROID Parathyroid Nor mal HORMONE, INTACT) NormalHypop arathyroidism Low or Low Normal LowHyperparathy roidism Primary Normal or High High Secondary High Normal or Low Tertiary High HighNon-Parathy roid Hypercalcemia L ow or Low Normal High [facility][QL] FOLATE, [id number] 11:00:00 Test Item Value Reference Range Interpretation Comments FOLATE, SERUM (test 11.2 ng/ml N Referenc e Range Low: code = FOLATE, <3.4 Borderli ne: SERUM) 3.4-5.4 Normal: >5.4 [facility][QL] TSH, 3RD [id number] 11:00:00 Test Item Value Reference Range Interpretation Comments TSH; Normal (test code = 1.73 {MIU/L} 0.40-4.50 N 34727-6) [facility][QL] VITAMIN [id number] 11:00:00 Test Item Value Reference Range Interpretation Comments VITAMIN B12 366 pg/ml 200-1100 N Please Note: Al though the (test code = reference range for [id number] VITAMIN B12) is 200-1100 pg/ mL, it has been reported that b etween5 and 10% of patients wit h values between 200 and 400pg/mL may experience neur opsychiatric and hematologic abnormalities due to occult B 12 deficiency; less than 1%of patients with values above 40 0 pg/mL will have symptoms. [facility][QL] HEMOGLOBIN [id number] 11:00:00 Test Item Value Reference Range Interpretation Comments HEMOGLOBIN A1c; 5.0 {% of <5.7 N For the purp ose of Normal (test code total} screening for the = 4548-4) presence ofdiab etes: <5.7% Consisten t with the absence of diabetes5.7-6.4 % Consistent with increased risk for diabetes (predi abetes)> or =6.5% Consis tent with diabetes T his assay result is consistent with a decreased risko f diabetes. Curre ntly, no consensus exist s regarding use ofhemoglobin A1 c for diagnosis of di abetes in children. Ac cording to [place] Fab[place] betes Association (ADA)guidelines , hemoglobin A1c <7.0% represents optimalcontrol in non- di abetic patients. Differentmetric s may apply to specif ic patient populat ions. Standards of Me dical Care in Diabete s(ADA). [facility][Q] QUESTASSURED 25-OH VIT D, (D2,D3), [id number]/MS/[id number] 11:00:00 Test Item Value Reference Range Interpretation Comments VITAMIN D, 15 ng/ml 30-100 (Note) Vitamin D, 25-Hydroxy 25-OH, TOTAL reports concent rations of two (test code = common forms, 2 5-OHD2 and VITAMIN D, 25-OHD3. 25-OHD 3 indicates both 25-OH, TOTAL) endogenous pro duction and supplementation . 25-OHD2 is an indicator of ex ogenous sources such as diet or supplementation. Therapy is base d on measurement of Total 25-OHD , with levels <20 ng/mL indicativ e of Vitamin D deficiency, whi le levels between 20 ng/m L and 30 ng/mL suggest insuffi ciency. Optimal levels are > or = 30 ng/mL. Vitamin D is fa t-soluble and therefore inadv ertent or intentional ing estion of excessively hig h amounts could be toxic. Studi es in children and adults sugg est blood levels would need to e xceed 150 ng/mL before there is any concern. Adiel MF, Janeth trinh NC, Aniyah i HILL, et al. Evaluation, lily atment and prevention of v itamin D deficiency: an Endocrine Society clinical practi ce guideline. J Clin Endocrinol Metab. 2011;96(7):1911 -30. For additional info rmation, please refer to http://educatio n.Sr.PagoDiagnostic Lob.com/faq/FAQ15 9 VITAMIN D, 7 ng/ml Reference range : Not established 25-OH, D3 (test code = VITAMIN D, 25-OH, D3) VITAMIN D, 8 ng/ml (Note)Reference range: Not 25-OH, D2 established Thi s test was (test code = developed and i ts analytical VITAMIN D, performancechar acteristics have 25-OH, D2) been determined by [facility]. It has not beencle ared or approved by the US Food and Drug Administration. Thisassay has been validated pursuant to the CLIA regulation and is usedfor Clinical purpos es.[facility] [id number] [place] [address],[address] [facility] [phone] 00BeDalia Iverson e Note 1 Note 1 For additional information, please refer to http://educatio n.SoundSenasation/faq/FAQ10 9 (This link is being provided for informational/e ducational purposes only.) [facility][QL] VITAMIN E (TOCOPHEROL)2020-08-21 11:00:00 Test Item Value Reference Range Interpretation Comments ALPHA-TOCOPHEROL 8.4 mg/L Reference R cornelio 5.7-19.9 (test code = mg/L Levels of ALPHA-TOCOPHEROL) alpha-toco pherol <5 mg/L are consistent with Vitamin E deficiency in a dultreva.Vitamin supplementation within 24 hours prior to blood draw may affect the accuracy of results. This t est was developed and i ts analytical performance tl racteristics have been deter mined by [employer]. It has not been cleare d or approved by theFDA. This assay has been validated pursuant to the CLIA regula tions and is used for clinic al purposes. [id number]-[id number] 2.2 mg/L <4.4 This test was developed and SERGIO (test code = its analyt ical performance [id number] characteri stics have been SERGIO) determined by [employer]. It has not been cleared or appr maciel by theFDA. This as say has been validated pursu ant to the CLIA regulation s and is used for clinical pu rposes. [facility][QL] VITAMIN A (RETINOL)2020-08-21 11:00:00 Test Item Value Reference Range Interpretation Comments VITAMIN A (test 46 {mcg/dl} 38-98 Clin Chem Vol. 34.No.8. code = VITAMIN A) [id number] 8. 1997Vitamin supplementation within 24 hours prior to blood draw may affect the accuracy of results. Thi s test was developed and i ts analytical perf ormance characteristics have been determined by [employer]. It has not been cleared or approved by theFDA. This assay has been validated pursuant to the CLIA reg ulations and is used for clinical purposes. [facility][QL] VITAMIN B1, WHOLE [id number] 11:00:00 Test Item Value Reference Range Interpretation Comments VITAMIN B1, WHOLE 142 nmol/L 78-185 Vitamin lundberg pplementation BLOOD (test code = within 24 hours prior VITAMIN B1, WHOLE toblood dr palm may affect BLOOD) the accuracy of results. This test was d minid and its analyti lavern performance characteristics have been determined by [employer]. It has not been cleared or approved by theA. This assay has been validated pursuant to the CLIA reg ulations and is used for clinical purposes. [facility][U] XRAY KNEE 3 VWS RIGHT [id number] 08:42:00Images acquired, not reported on this accession number.[facility][U] XRAY KNEE 3 VWS LEFT [id number] 08:24:00Images acquired, not reported on this accession number. ID PhysiciansMR Knee wo contrast [id number] 14:00:00 Test Item Value Reference Range Interpretation Comments Knee wo contrast MR Cancel Reason: Other (test code = Knee wo (see comments) contrast MR) [facility][QL] CBC (INCLUDES DIFF/PLT)2019-12-24 10:00:01 Test Item Value Reference Range Interpretation Comments WBC (test code = 6690-2) 6.4 {K/CMM} 3.7-10.4 RBC (test code = 789-8) 5.33 {M/CMM} 4.70-6.10 Hgb (test code = 718-7) 15.7 g/dl 14.0-18.0 Hct (test code = 46499-5) 48.2 % 42.0-54.0 MCV (test code = 787-2) 90.4 fL 80.0-94.0 MCH (test code = 785-6) 29.5 pg 27.0-31.0 MCHC (test code = 786-4) 32.7 g/dl 32.0-36.0 RDW (test code = 788-0) 13.3 % 11.5-14.5 Platelet (test code = 53346-6) 176 {K/CMM} 133-450 Mean Platelet Volume (test code 7.6 fL 7.4-10.4 = 96303-9) [facility][QL] [id number] 10:00:01 Test Item Value Reference Range Interpretation Comments Segmented Neutrophils (test code 61.1 % 45.0-75.0 = 67166-1) Monocytes (test code = 61939-4) 7.9 % 2.0-12.0 Lymphocytes (test code = 67611-7) 28.3 % 20.0-40.0 Eosinophils (test code = 61467-1) 2.0 % 0.0-4.0 Basophils (test code = 706-2) 0.7 % 0.0-1.0 Segs-Bands # (test code = 3.9 {K/CMM} 1.5-8.1 31568-0) Lymphocytes # (test code = 1.8 {K/CMM} 1.0-5.5 64760-5) Monocytes # (test code = 96429-8) 0.5 {K/CMM} 0.0-0.8 Eosinophils # (test code = 0.1 {K/CMM} 0.0-0.5 67083-7) [facility]] CMP [id number] 10:00:01 Test Item Value Reference Range Interpretation Comments Sodium Level 138 {mEq/l} 135-145 (test code = 2951-2) Potassium Level 4.1 {mEq/l} 3.5-5.1 (test code = 2823-3) Chloride Level 104 {mEq/l} 95-109 (test code = 5-0) Carbon Dioxide 28 {mEq/l} 24-32 (test code = 8-9) AGAP (test code = 10.1 {mEq/l} 10.0-20.0 52904-0) Glucose Lvl (test 96 mg/dl 70-99 Adult refe rence range code = 2345-7) values reflec t the clinical guidel inesof the [place] Diabet es Association. Creatinine Lvl 1.00 mg/dl 0.50-1.40 (test code = 2160-0) Blood Urea 10 mg/dl 7-22 Nitrogen (test code = 3094-0) BUN/Creatinine 10 6-25 Ratio (test code = 3097-3) Total Protein 7.7 g/dl 6.4-8.4 (test code = 2885-2) Albumin Lvl (test 3.9 g/dl 3.5-5.0 code = 1751-7) Globulin (test 3.8 g/dl 2.7-4.2 code = 61372-9) A/G Ratio (test 1.0 0.7-1.6 code = 1759-0) Calcium Level 8.7 mg/dl 8.5-10.5 Total (test code = 45967-1) ALT (test code = 45 u/l 0-65 1743-4) AST (test code = 35 u/l 0-37 54312-3) Bili Total (test 0.9 mg/dl 0.2-1.3 code = 1975-2) Alk Phos (test 66 u/l 39-136 The pediatric reference code = 1783-0) ranges for th is test represent a CLSI-basedtrans ference of the CALIPER jovani abase of pediatric refer ence intervals to eSiemens Nogal analyzer (Clinical Biochemistry 46 (2013): 1682-8682). [facility] [employer] [facility] has not internally validated these reference ranges and therefore they should be used only in th e context of a thoroughcl inical assessment. eGFR (test code = 91 The eGFR i s calculated 62766-3) {ML/MIN/1.7} using the CKD-E PI formula. In mos t young, healthyindividu als the eGFR will be >9 0 mL/min/1.73m2. The eGFR declines with a ge. AneGFR of 60-89 may be normal in some population s, particularly th e elderly, forwhom the CKD -EPI formula has not been extensively dewey idated. Use of the eGFR isnot recommended in the following populations:Ind ividuals with unstable c reatinine concentrations, including patient s and those with seri ous co-morbid conditions.Sierra ents with extremes in mus elena mass or diet.The jovani a above are obtained fr om the National Kidney Disease Education Progr am(NKDEP) which jocelyn valdovinos recommends that when the eGFR is used in patientswith ex tremes of body mass index for purposes of shantel g dosing, the eGFR should be multiplied by t he estimated BMI. [facility][QL] FOLATE, [id number] 10:00:01 Test Item Value Reference Range Interpretation Comments Folate Level (test code = 2284-8) 7.0 ng/ml >=3.0 [facility][QLH] IRON AND TOTAL IRON BINDING [id number] 10:00:01 Test Item Value Reference Range Interpretation Comments Iron (test code = 2498-4) 89 ug/dL 45-160 % Satur Fe (test code = 2502-3) 22 % 12-57 TIBC (test code = 2500-7) 412 ug/dL 228-428 UIBC (test code = UIBC) 323 ug/dL 110-370 [facility]] LIPID [id number] 10:00:01 Test Item Value Reference Range Interpretation Comments Chol (test code = 2093-3) 176 mg/dl <=199 Trig (test code = 2571-8) 104 mg/dl <=149 HDL Cholesterol; Below Low 43 mg/dl >=61 Threshold (test code = 2085-9) CHD Risk (test code = 29496-5) 4.09 4.00-7.30 LDL; Above High Threshold (test 112 mg/dl <=99 code = 36874-4) VLDL (test code = VLDL) 21 [facility]] VITAMIN [id number] 10:00:01 Test Item Value Reference Range Interpretation Comments Vitamin B12 Level (test code = 320 pg/ml 254-1320 2132-9) [facility]] TSH, 3RD GENERATION W/REFLEX TO [id number] 10:00:01 Test Item Value Reference Range Interpretation Comments TSH (test code = 92057-0) 1.850 {uIU/ml} 0.360-3.740 [facility]] HEMOGLOBIN [id number] 10:00:01 Test Item Value Reference Range Interpretation Comments Hemoglobin A1c (test code = 4548-4) 5.5 % <=5.6 [facility]] PTH, INTACT (WITHOUT CALCIUM)2019-12-24 10:00:01 Test Item Value Reference Range Interpretation Comments Parathyroid Hormone Intact (test 75.3 pg/ml 18.4-80.1 code = 2731-8) [facility]] VITAMIN D, 25-HYDROXY, [id number] 10:00:01 Test Item Value Reference Range Interpretation Comments Vitamin D, 25-OH, 8.1 ng/ml 30.0-100.0 Reference range is based Total (test code = on recomm endations in the Vitamin D, 25-OH, EndocrineS ociety Clinical Total) Practice Guidel ine (J Clin Endocrinol Zsxux1735;96:19 11-1930) [facility][H] Vit [id number] 10:00:01 Test Item Value Reference Range Interpretation Comments Vitamin A 24.3 ug/dL 20.1-62.0 Reference inter vals for vitamin Level (test A determined fr om code = LabCorpinternal studies. Vitamin A Individuals wit h vitamin A less Level) than 20ug/dL ar e considered vitamin A defic ient and those withserum anatoly ntrations less than 10 ug/dL a re consideredsever joe deficient.This test was developed and i ts performance characteristics determined by [facility]. It has not been cleared orappro angie by the Food and Drug Administration. Performed At: [facility] [id number] ra Lindsey PACK Ph:[phone] [facility][H] Vitamin E [id number] 10:00:01 Test Item Value Reference Range Interpretation Comments Alpha-Tocoph 6.4 mg/L 7.0-25.1 This test was d eveloped and its sergio (test performance code = characteristics determined by [facility]oc[facility]. It has not been cleared sergio) orapproved by [facility] Food and Drug Administration. Gamma-Tocoph 2.7 mg/L 0.5-5.5 This test was d eveloped and its sergio (test performance code = characteristics determined by Gamma-Tocoph [facility]. It has not been cleared sergio) orapproved by t Food and Drug Administration. Reference intervals for a lpha and gamma-tocophero ldetermined from National Health and Nutrition ExaminationSurv , 1494-2383. Individuals wit h alpha-tocopherol levelsless than 5.0 mg/L are considered elliott min E deficient.Perfo rmed At: [facility] [id number] Portillo MD Ph:[phone] [facility]] VITAMIN B1, WHOLE [id number] 10:00:01 Test Item Value Reference Range Interpretation Comments Vitamin B1 117.0 66.5-200.0 This test was d eveloped and its Level (test nmol/L performance code = characteristics determined by Vitamin B1 [facility]. It has not been Level) cleared orappro angie by the Food and Drug Administration. Performed At: [facility] [address] [place], [place] [id number] ra Lidnsey PACK Ph:[phone] [facility]"
[2022-10-15 10:40] LABS: Absolute Lymphocytes (CBC) 1.4 K/uL (0.7-4.9); Hematocrit 42.9 % (39.6-49.0); Lymphocytes % 26.6 % (15.3-44.8); MCV 90.5 fL (80-100); MPV 6.8 fL (7.6-11.3); RBC Red Blood Cell Count 4.74 M/uL (4.33-5.43)
[2022-10-15 11:03] LABS: Albumin 3.3 g/dL (3.4-5.0); Bilirubin Direct 0.4 mg/dL (0-0.2); Bilirubin Total 1.2 mg/dL (0.2-1.0); Magnesium 2.2 mg/dL (1.8-2.4); Potassium 3.8 mmol/L (3.5-5.1); Protein, Total 6.5 g/dL (6.4-8.2); Troponin High Sensitivity 6.4 pg/mL (<58.9)
--- NOTE | 2022-10-15 11:12 | RAD REPORT ---
EXAM DESCRIPTION: Sisi Single View10/15/2022 10:52 am CLINICAL HISTORY: Palpitations COMPARISON: 2013 FINDINGS: The lungs appear clear of acute infiltrate. The heart is normal size IMPRESSION: No acute abnormalities displayed
--- NOTE | 2022-10-15 12:31 | ER ---
Nurse's Notes [facility] Name: Serge Rich Age: 46 yrs Sex: Male : 1975 Arrival Date: 10/15/2022 Time: 10:01 Bed 20 Private MD: Diagnosis: Dizziness and giddiness;Palpitations Presentation: 10/15 10:02 Chief complaint: Patient states: was standing getting ready for work and had a sudden vg1 onset of dizziness and palpitations, sat down for a minute or two and symptoms subsided, went to work and while driving became dizzy again and pulled over until it subsided. Coronavirus screen: Vaccine status: Patient reports receiving the 2nd dose of the covid vaccine. Client denies travel out of the [place] in the last 14 days. Ebola Screen: Patient negative for fever greater than or equal to 101.5 degrees Fahrenheit, and additional compatible Ebola Virus Disease symptoms. Initial Sepsis Screen: Does the patient meet any 2 criteria? No. Patient's initial sepsis screen is negative. Does the patient have a suspected source of infection? No. Patient's initial sepsis screen is negative. Risk Assessment: Do you want to hurt yourself or someone else? Patient reports no desire to harm self or others. Onset of symptoms was October 15, 2022. 10:02 Method Of Arrival: Ambulatory vg1 10:02 Acuity: MODESTA 3 vg1 Triage Assessment: 10:07 General: Appears uncomfortable, Behavior is calm, cooperative. Pain: Complains of pain vg1 in head Pain currently is 4 out of 10 on a pain scale. Pain began 1 hour ago. 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 Gait is steady, Speech is normal, Facial symmetry appears normal, Reports dizziness, headache Denies weakness blurred vision photophobia. Respiratory: Airway is patent Respiratory effort is even, unlabored. Historical: - Allergies: 10:07 Aspirin; vg1 10:07 Keflex; vg1 10:07 Morphine; vg1 10:07 Sulfa (Sulfonamide Antibiotics); vg1 10:07 Ketamine; vg1 - Home Meds: 10:07 Daily Vitamin [Active]; vg1 - PMHx: 10:07 Bundle Branch Block; Right; enlarged aorta; Hypertension; Obesity; vg1 - PSHx: 10:07 Cholecystectomy; vg1 - Immunization history:: Client reports receiving the 2nd dose of the Covid vaccine. - Social history:: Smoking status: Patient denies any tobacco usage or history of. - Family history:: not pertinent. - Hospitalizations: : No recent hospitalization is reported. Screenin:04 Abuse screen: Denies threats or abuse. Nutritional screening: No deficits noted. ll1 Tuberculosis screening: No symptoms or risk factors identified. Fall Risk IV access (20 points). Total Goodman Fall Scale indicates No Risk (0-24 pts). Assessment: 10:25 Reassessment: No changes from previously documented assessment. Patient and/or family ll1 updated on plan of care and expected duration. Pain level reassessed. Patient is alert, oriented x 3, equal unlabored respirations, skin warm/dry/pink. 12:04 Reassessment: No changes from previously documented assessment. Dr. Bright at bedside. ll1 12:48 Reassessment: No changes from previously documented assessment. Patient and/or family ll1 updated on plan of care and expected duration. Pain level reassessed. Patient is alert, oriented x 3, equal unlabored respirations, skin warm/dry/pink. Vital Signs: 10:02 BP 140 / 90; Pulse 79; Resp 16; Temp 97.5(O); Pulse Ox 100% on R/A; Weight 120.2 kg; vg1 Height 5 ft. 8 in. (172.72 cm); Pain 4/10; 11:56 Pulse 62; Resp 15; Pulse Ox 100% on R/A; ll1 12:47 BP 114 / 67; Pulse 54; Resp 16; Pulse Ox 100% ; Pain 0/10; ll1 10:02 Body Mass Index 40.29 (120.20 kg, 172.72 cm) vg1 ED Course: 10:01 Patient arrived in ED. rg4 10:02 Vipin Bright MD is Attending Physician. rn 10:07 Triage completed. vg1 10:07 Arm band placed on. vg1 10:19 Marbella Roberts RN is Primary Nurse. ll1 10:19 EKG done, by ED staff, reviewed by Vipin Bright MD. ll1 10:20 Inserted saline lock: 22 gauge in right antecubital area, using aseptic technique. ll1 Blood collected. 10:54 XRAY Chest (1 view) In Process Unspecified. EDMS 12:04 Patient has correct armband on for positive identification. Bed in low position. Call ll1 light in reach. Side rails up X2. Client placed on continuous cardiac and pulse oximetry monitoring. NIBP monitoring applied. legal librarian on. 12:30 Federico Shah MD is Referral Physician. rn 12:48 No provider procedures requiring assistance completed. IV discontinued, intact, ll1 bleeding controlled, No redness/swelling at site. Pressure dressing applied. Administered Medications: No medications were administered Medication: 12:04 VIS not applicable for this client. ll1 Outcome: 12:30 Discharge ordered by . rn 12:48 Discharged to home ambulatory. ll1 12:48 Condition: stable 12:48 Discharge instructions given to patient, family, Instructed on discharge instructions, follow up and referral plans. Demonstrated understanding of instructions, follow-up care. 12:48 Patient left the ED. ll1 Signatures: Dispatcher [employer] EDDE Vipin Bright MD MD rn Garcia, Rubi rg4 Nelida Michelle RN RN vg1 Marbella Roberts RN RN ll1 Corrections: (The following items were deleted from the chart) 10:09 10:07 Home Meds: losartan 100 mg Oral tab 1 tab once daily; vg1 vg1
--- NOTE | 2022-10-15 12:32 | EDPHYS ---
Physician Documentation [facility] Name: Serge Rich Age: 46 yrs Sex: Male : 1975 Arrival Date: 10/15/2022 Time: 10:01 Bed 20 Private MD: ED Physician Vipin Bright HPI: 10/15 12:08 This 46 yrs old Male presents to ER via Ambulatory with complaints of Dizziness. rn 12:08 The patient presents with dizziness, feeling faint, lightheadedness. Onset: The rn symptoms/episode began/occurred this morning. Modifying factors: The symptoms are alleviated by resting and sitting, the symptoms are aggravated by nothing. Associated signs and symptoms: Pertinent positives: heart racing, Pertinent negatives: abdominal pain, ataxia, chest pain, confusion, focal weakness, seizure, shortness of breath, syncope, vomiting. Severity of symptoms: At their worst the symptoms were moderate in the emergency department the symptoms have improved. The patient has experienced similar episodes in the past. The patient has not recently seen a physician. Pt reports getting ready to go to work, felt lightheaded/dizzy, lasted a few minutes, no syncope, no focal weakness, felt heart racing but denies feeling irregular rhythm. Has happened before and has had 2 neg heart monitors. 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 No famhx of arrhythmia. No illness. No chest pain/sob/abd pain. Feels much better now. . Historical: - Allergies: 10:07 Aspirin; vg1 10:07 Keflex; vg1 10:07 Morphine; vg1 10:07 Sulfa (Sulfonamide Antibiotics); vg1 10:07 Ketamine; vg1 - Home Meds: 10:07 Daily Vitamin [Active]; vg1 - PMHx: 10:07 Bundle Branch Block; Right; enlarged aorta; Hypertension; Obesity; vg1 - PSHx: 10:07 Cholecystectomy; vg1 - Immunization history:: Client reports receiving the 2nd dose of the Covid vaccine. - Social history:: Smoking status: Patient denies any tobacco usage or history of. - Family history:: not pertinent. - Hospitalizations: : No recent hospitalization is reported. ROS: 12:08 Constitutional: Negative for fever, chills, and weight loss, Eyes: Negative for injury, rn pain, redness, and discharge, Neck: Negative for injury, pain, and swelling, Cardiovascular: Negative for chest pain, and edema, Respiratory: Negative for shortness of breath, cough, wheezing, and pleuritic chest pain, Abdomen/GI: Negative for abdominal pain, nausea, vomiting, diarrhea, and constipation, Back: Negative for injury and pain, MS/Extremity: Negative for injury and deformity, Skin: Negative for injury, rash, and discoloration, Neuro: Negative for headache, weakness, numbness, tingling, and seizure. Exam: 12:08 Constitutional: This is a well developed, well nourished patient who is awake, alert, rn and in no acute distress. Head/Face: Normocephalic, atraumatic. Cardiovascular: Regular rate and rhythm . No pulse deficits. Respiratory: No increased work of breathing, no retractions or nasal flaring. Abdomen/GI: Soft, non-tender Skin: Warm, dry MS/ Extremity: Pulses equal, no cyanosis. Neuro: Awake and alert, GCS 15 12:08 ECG was reviewed by the Attending Physician. rn Vital Signs: 10:02 BP 140 / 90; Pulse 79; Resp 16; Temp 97.5(O); Pulse Ox 100% on R/A; Weight 120.2 kg; vg1 Height 5 ft. 8 in. (172.72 cm); Pain 4/10; 11:56 Pulse 62; Resp 15; Pulse Ox 100% on R/A; ll1 12:47 BP 114 / 67; Pulse 54; Resp 16; Pulse Ox 100% ; Pain 0/10; ll1 10:02 Body Mass Index 40.29 (120.20 kg, 172.72 cm) vg1 MDM: 10:02 Patient medically screened. rn 12:29 Differential diagnosis: cardiac arrhythmia, generalized weakness, hypovolemia, rn idiopathic dizziness, vertigo. Data reviewed: vital signs, nurses notes, lab test result(s), EKG, radiologic studies, plain films, and as a result, I will discharge patient. Counseling: I had a detailed discussion with the patient and/or guardian regarding: the historical points, exam findings, and any diagnostic results supporting the discharge/admit diagnosis, lab results, radiology results, the need for outpatient follow up, to return to the emergency department if symptoms worsen or persist or if there are any questions or concerns that arise at home. Special discussion: I discussed with the patient/guardian in detail that at this point there is no indication for admission to the hospital. It is understood, however, that if the symptoms persist or worsen the patient needs to return immediately for re-evaluation. Further emergent ED testing is not indicated at this point in time. I discussed with the patient/guardian in detail the need to arrange with the PCP or specialist further outpatient testing, heart monitor. Based on the history and exam findings, there is no indication for further emergent testing or inpatient evaluation. I discussed with the patient/guardian the need to see the automotive drivability technician for further evaluation of the symptoms. I discussed with the patient/guardian the need to see the primary care provider for further evaluation of the symptoms. ED course: No further episodes, no acute findings on blood or ecg. CXR normal. Will dc home with pcp and cardiology f/u. Return precautions given and understood.. 10/15 10:27 Order name: Basic Metabolic Panel; Complete Time: 11: rn 10/15 10:27 Order name: CBC with Diff; Complete Time: : rn 10/15 10:27 Order name: LFT's; Complete Time: : rn 10/15 10:27 Order name: Magnesium; Complete Time: : rn 10/15 10:27 Order name: NT PRO-BNP; Complete Time: : rn 10/15 10:27 Order name: Troponin HS; Complete Time: 11: rn 10/15 10:27 Order name: XRAY Chest (1 view); Complete Time: 11: rn 10/15 10:27 Order name: EKG; Complete Time: 10: rn 10/15 10:27 Order name: Cardiac monitoring; Complete Time: : rn 10/15 10:27 Order name: EKG - Nurse/Tech; Complete Time: : rn 10/15 10:27 Order name: IV Saline Lock; Complete Time: : rn 10/15 10:27 Order name: Labs collected and sent; Complete Time: : rn 10/15 10:27 Order name: O2 Per Protocol; Complete Time: : rn 10/15 10:27 Order name: O2 Sat Monitoring; Complete Time: 10:43 rn EC:08 Rate is 73 beats/min. Rhythm is regular. Left axis deviation noted. QRS is positive in rn lead I and negative in lead aVF. [place] interval is normal. QRS interval is prolonged at 144 msec. QT interval is normal. No Q waves. T waves are Normal. No ST changes noted. Clinical impression: NSR w/ Non-specific ST/T Changes and RBBB, no change from previous. Interpreted by me. Reviewed by me. 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 - Work release form ll1 - Prescription Opioid Use rn 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: 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 [employer] EDVipin Scott MD MD rn Garcia, Victoria, RN RN vg1 Corrections: (The following items were deleted from the chart) 10:09 10:07 Home Meds: losartan 100 mg Oral tab 1 tab once daily; vg1 vg1 12:12 12:08 Constitutional: Negative for fever, chills, and weight loss, Eyes: Negative for rn injury, pain, redness, and discharge, Neck: Negative for injury, pain, and swelling, Cardiovascular: Negative for chest pain, palpitations, and edema, Respiratory: Negative for shortness of breath, cough, wheezing, and pleuritic chest pain, Abdomen/GI: Negative for abdominal pain, nausea, vomiting, diarrhea, and constipation, Back: Negative for injury and pain, MS/Extremity: Negative for injury and deformity, Skin: Negative for injury, rash, and discoloration, Neuro: Negative for headache, weakness, numbness, tingling, and seizure, rn
[2022-10-15 16:18] VITALS: TEMP 97.5; O2SAT 100
[2022-10-15 16:23] VITALS: BP 114/67
--- NOTE | 2022-10-16 16:03 | EKG ---
Test Date: 2022-10-15 Test Time: 10:17:27 [employer] Vegetable: REENA MEASUREMENT RESULTS: Intervals: Rate: 73 [place]: 192 QRSD: 144 QT: 410 QTc: 451 [place]: P: 56 [place]: 192 QRS: -74 T: 42 INTERPRETIVE STATEMENTS: Normal sinus rhythm Right bundle branch block Left anterior fascicular block Bifascicular block Abnormal ECG Compared to ECG 03/21/2016 19:28:16 No significant changes Electronically Signed On 10-16-22 16:00:34 CASE MANAGEMENT SPECIALIST by Adrián Rowan
== END 2022-10-15 12:48 | disposition home or self-care (01) ==
LOC: ER 09:57
DX: R42 Dizziness and giddiness (principal); R00.2 Palpitations; I10 Essential (primary) hypertension; Z88.1 Allergy status to other antibiotic agents; Z88.2 Allergy status to sulfonamides; Z88.5 Allergy status to narcotic agent; Z88.6 Allergy status to analgesic agent; Z88.8 Allergy status to other drugs, medicaments and biological substances
CPT/HCPCS: 36415; 71045; 80048; 80076; 83735; 83880; 84484; 85025; 93005; 99284

== ENCOUNTER 2022-12-18 16:08 | Emergency (ER) | payer OTHER ==
--- OUTSIDE RECORDS SUMMARY | 2022-12-18 16:14 | XMS REPORT | Continuity of Care Document ---
:1975 Author Organization [facility] t Address [address] [place] [address] Care Team Providers Name Role Phone Cyrus Hendrickson Dannie Primary Care Physician CARLOS ZAYAS Attending Clinician Unavailable SANDY MARIN Attending Clinician Unavailable Doctor Unassigned, Lares Attending Clinician Unavailable Mehran Dela Cruz Attending Clinician Lab, Gagandeep Padron Attending Clinician Unavailable MEHRAN MAURICIO Attending Clinician Unavailable Gagandeep [facility] Attending Clinician Unavailable Amrit Grace [...] Number Effective Date Expiration Date Nigel estrada [facility] [id number] 2020 STAR 00:00:00 Problems Condition Condition Condition Status Onset Resolution Last Treating Co mments Source Name Details Category Date Date Treatment Clinician Date Night Night Disease Active 2021-11 Univers sweats sweats 1-15 ity of 00:00: [place] 00 Medical Branch Dizziness Dizziness Disease Active 2021-11 Uni vers 1-15 ity of 00:00: [place] 00 Medical Branch Encounter Encounter Disease Active 2021-11 Uni vers to to 1-15 ity of establish establish 00:00: [facility] care 00 Medical Branch RBBB RBBB Disease [...] Left leg Disease Active UT swelling swelling 6-13 Health 00:00: 00 Fat Fat Disease Active [...] 00:00: [place] reaction 00 Medical s Branch ASPIRIN DRUG Active Low Unknown-Cmnt 2020-0 Uni vers INGREDI 04-15 ity of 00:00: [place] 00 Medical Branch CEPHALEX DRUG Active Low Unknown-Cmnt 2020-0 Un gabriel IN INGREDI - ity of 00:00: [place] 00 Medical Branch SULFA Drug Active Low Unknown-Cmnt 2020-0 Univ ers (SULFONA Class 04-15 ity of MIDE 00:00: [place] ANTIBIOT 00 Medical ICS) Branch Aspirin Drug Active Unknown - 2020-0 Univer s Allergy See comments 04-15 ity of 00:00: [place] 00 Medical Branch Cephalex Drug Active Unknown - 2020-0 Unive rs in Allergy See comments 04-15 ity of 00:00: [place] 00 Medical Branch Sulfa Drug Active Unknown - 2020-0 Univers (Sulfona Allergy See comments 04-15 i ty of mide 00:00: [place] Antibiot 00 Medical ics) Branch Aspirin Allergy Active UT to 04-15 Health substanc 00:00: e 00 Cephalex Allergy Active UT in to 04-15 Health substanc 00:00: e 00 Sulfa Allergy Active UT Antibiot to 04-15 Health ics substanc 00:00: e 00 NO KNOWN Drug Active Univers ALLERGIE Class ity of [facility] sulfa Allergy Active [facility] to drug Physici (finding ans ) Family History Family Member Diagnosis Comments Start [...] Date Stop Date Quantity Comments Source History SDAZ [facility] Alcohol Std Drinks History [facility] Health Alcohol Binge History of tobacco Current smoker [facility] use History [facility] Health Alcohol Comment Exposure to 2022-12-02 2022-12-12 Not sure [facility] SARS-CoV-2 (event) 00:00:00 07:52:00 Alcohol intake 2022-12-07 2022-12-07 Lifetime [facility] 00:00:00 00:00:00 non-drinker (finding) Tobacco use and 2022-06-24 2022-06-24 Smokeless tobacco [facility] exposure 00:00:00 00:00:00 non-user History SDOH 2021-05-07 2021-05-07 1 [facility] Alcohol Frequency 00:00:00 00:00:00 Cigarette 2021-04-21 2021-04-21 [facility] pack-years 00:00:00 00:00:00 Sex Ass[birth year] At [birth year] [facility] 00:00:00 00:00:00 Smoking Status Start Date Stop Date Source Tobacco smoking consumption unknown [facility] Ex-smoker 2022-06-24 00:00:00 2022-06-24 00:00:00 [facility] Medications Ordered Filled Start Stop Current Ordering Indication Dosage Frequency Signature Comments Components Source Medication Medication Date Date Medication? Clinician (SIG) Name Name Sodium 2022-0 2022- No [id number] 20mg UT Hyaluronate 12-12 Health solution 14:00: 14:00 prefilled 00 :00 syringe 20 mg Sodium 2022-0 2022- No [id number] 20mg [facility] Hyaluronate 12-12 Health solution 14:00: 14:00 prefilled 00 :00 syringe 20 mg Sodium 2022-0 2022- No [id number] 20mg 20 mg, [facility] Hyaluronate 12-12 [facility] solution 14:00: 14:00 cular, prefilled 00 :00 Once PRN syringe 20 Procedure, mg Starting on Thu12/12/22 at 0800, For 1 dose Sodium 2022-0 2022- No [id number] 20mg 20 mg, [facility] Hyaluronate 12-12 [facility] solution 14:00: 14:00 cular, prefilled 00 :00 Once PRN syringe 20 Procedure, mg Starting on Thu12/12/22 at 0800, For 1 dose ferrous 2022-2022- No 325mg QD Take 325 UT sulfate 325 12-07 mg by Health (65 Fe) MG 13:54: 00:00 mouth 1 tablet 21 :00 (one) time each day with breakfast. losartan 2022-2022- No Q.5D 2 (two) UT (Cozaar) 12-07-29 times a Health 100 MG 13:54: 00:00 day. tablet 12 :00 Sodium 2022-0 2022- No [id number] 20mg UT Hyaluronate 12-05 Health solution 14:00: 14:00 prefilled 00 :00 syringe 20 mg Sodium 2022-0 2022- No [id number] 20mg UT Hyaluronate 12-05 Health solution 14:00: 14:00 prefilled 00 :00 syringe 20 mg Sodium 2022-0 2022- No [id number] 20mg 20 mg, [facility] Hyaluronate 12-05 [facility] e[facility] solution 14:00: 14:00 cular, prefilled 00 :00 Once PRN syringe 20 Procedure, mg Starting on Thu12/05/22 at 0800, For 1 dose Sodium 0 2022- No [id number] 20mg 20 mg, UT Hyaluronate 1-27 12-05 [facility] ealth solution 14:00: 14:00 cular, prefilled 00 :00 Once PRN syringe 20 Procedure, mg Starting on Thu12/05/22 at 0800, For 1 dose Multiple 2022-0 Yes Take by UT Vitamins-Mi 1-27 mouth. Health nerals 09:12: (BARIATRIC 17 MULTIVITAMI NS/IRON PO) calcium 0 Yes 950mg QD Take 950 UT citrate 1-27 mg by [facility] (Calcitrate 09:12: mouth 1 ) 950 (200 17 (one) time Ca) MG each day. tablet cyanocobala Yes 100ug QD Take 100 U T min 1-27 mcg by [facility] (Vitamin 09:12: mouth 1 B-12) 100 17 (one) time MCG tablet each day. Multiple Yes Take by UT Vitamins-Mi -27 mouth. Health nerals 09:12: (BARIATRIC 17 MULTIVITAMI NS/IRON PO) calcium Yes 950mg QD Take 950 UT citrate 1-27 mg by [facility] (Calcitrate 09:12: mouth 1 ) 950 (200 17 (one) time Ca) MG each day. tablet cyanocobala 0 Yes 100ug QD Take 100 U T min 1-27 mcg by [facility] (Vitamin 09:12: mouth 1 B-12) 100 17 (one) time MCG tablet each day. Multiple Yes Take by UT Vitamins-Mi -27 mouth. Health nerals 09:12: (BARIATRIC 17 MULTIVITAMI NS/IRON PO) calcium 0 Yes 950mg QD Take 950 UT citrate 1-27 mg by [facility] (Calcitrate 09:12: mouth 1 ) 950 (200 17 (one) time Ca) MG each day. tablet cyanocobala 0 Yes 100ug QD Take 100 U T min 1-27 mcg by [facility] (Vitamin 09:12: mouth 1 B-12) 100 17 (one) time MCG tablet each day. pantoprazol 2022-0 202- Yes [id number] 40mg Take 1 UT e 1-16 03-18 tablet (40 Health (Protonix) 00:00: 04:59 mg total) 40 MG EC 00 :00 by mouth 1 tablet (one) time each day before breakfast. Do not crush, chew, or split. pantoprazol 2022- Yes [id number] 40mg Take 1 UT e 11-24-18 tablet (40 Health (Protonix) 00:00: 04:59 mg total) 40 MG EC 00 :00 by mouth 1 tablet (one) time each day before breakfast. Do not crush, chew, or split. pantoprazol 2022- Yes [id number] 40mg Take 1 UT e 11-2418 tablet (40 Health (Protonix) 00:00: 04:59 mg total) 40 MG EC 00 :00 by mouth 1 tablet (one) time each day before breakfast. Do not crush, chew, or split. Sodium 2022-0 2022- No [id number] 20mg UT Hyaluronate 11-21 Health solution 14:00: 14:00 prefilled 00 :00 syringe 20 mg Sodium 2022-0 2022- No [id number] 20mg UT Hyaluronate 11-21 Health solution 14:00: 14:00 prefilled 00 :00 syringe 20 mg Sodium 2022-0 2022- No [id number] 20mg 20 mg, [facility] Hyaluronate 11-21 [facility]ki [facility] e[facility] solution 14:00: 14:00 cular, prefilled 00 :00 Once PRN syringe 20 Procedure, mg Starting on Thu11/21/22 at 0800, For 1 dose Sodium 2022-0 2022- No [id number] 20mg 20 mg, UT Hyaluronate 11-21 Intra-ki [facility] ealth solution 14:00: 14:00 cular, prefilled 00 :00 Once PRN syringe 20 Procedure, mg Starting on Thu11/21/22 at 0800, For 1 dose calcium 2021-11 Yes Take by Univers carbonate 1-15 mouth. ity of (CALCIUM 15:10: [place] 500 ORAL) [address] [place] [address] multivitami 2021-11 Yes 1{tbl} Take 1 Un gabriel n tablet 1-15 tablet by ity of 15:10: mouth in [place] [address] the Medical [facility]. Branch VITAMIN A 2021-11 Yes Take by Unive rs ORAL 1-15 mouth ity of 15:10: daily. [address] calcium 2021-11 Yes Take by Univers carbonate 1-15 mouth. ity of (CALCIUM 15:10: [place] 500 ORAL) 37 Medical Branch multivitami 2021-11 Yes 1{tbl} Take 1 Un gabriel n tablet 1-15 tablet by ity of 15:10: mouth in [place] [address] the Medical morning. Branch VITAMIN A 2021-11 Yes Take by Unive rs ORAL 1-15 mouth ity of 15:10: daily. [place] [address] Medical Branch calcium 2021-11 Yes Take by Univers carbonate 1-15 mouth. ity of (CALCIUM 15:10: [place] 500 ORAL) Medical Branch multivitami 2021-11 Yes 1{tbl} Take 1 Un gabriel n tablet 1-15 tablet by ity of 15:10: mouth in [place] [address] the Medical morning. Branch VITAMIN A 2021-11 Yes Take by Unive rs ORAL 1-15 mouth ity of 15:10: daily. [place] [address] Medical Branch calcium 2021-11 Yes Take by Univers carbonate 1-15 mouth. ity of (CALCIUM 15:10: [place] 500 ORAL) Medical Branch multivitami 2021-11 Yes 1{tbl} Take 1 Un gabriel n tablet 1-15 tablet by ity of 15:10: mouth in [place] [address] the Medical morning. Branch VITAMIN A 2021-11 Yes Take by Unive rs ORAL 1-15 mouth ity of 15:10: daily. [place] [address] Medical Branch calcium 2021-11 Yes Take by Univers carbonate 1-15 mouth. ity of (CALCIUM 15:10: [place] 500 ORAL) Medical Branch multivitami 2021-11 Yes 1{tbl} Take 1 Un gabriel n tablet 1-15 tablet by ity of 15:10: mouth in [place] [address] the Medical morning. Branch VITAMIN A 2021-11 Yes Take by Unive rs ORAL 1-15 mouth ity of 15:10: daily. [place] [address] Medical Branch calcium 2021-11 Yes Take by Univers carbonate 1-15 mouth. ity of (CALCIUM 15:10: [place] 500 ORAL) Medical Branch multivitami 2021-11 Yes 1{tbl} Take 1 Un gabriel n tablet 1-15 tablet by ity of 15:10: mouth in [place] [address] the Medical morning. Branch VITAMIN A 2021-11 Yes Take by Unive rs ORAL 1-15 mouth ity of 15:10: daily. [place] [address] Medical Branch calcium 2021-11 Yes Take by Univers carbonate 1-15 mouth. ity of (CALCIUM 15:10: [place] 500 ORAL) Medical Branch multivitami 2021-11 Yes 1{tbl} Take 1 Un gabriel n tablet 1-15 tablet by ity of 15:10: mouth in [place] [address] the Medical morning. Branch VITAMIN A 2021-11 Yes Take by Unive rs ORAL 1-15 mouth ity of 15:10: daily. [place] [address] Medical Branch calcium 2021-11 Yes Take by Univers carbonate 1-15 mouth. ity of (CALCIUM 15:10: [place] 500 ORAL) Medical Branch multivitami 2021-11 Yes 1{tbl} Take 1 Un gabriel n tablet 1-15 tablet by ity of 15:10: mouth in [place] [address] the Medical morning. Branch VITAMIN A 2021-11 Yes Take by Unive rs ORAL 1-15 mouth ity of 15:10: daily. [address] Branch baclofen 20 2021-11 Yes TAKE [...] CRUSH CHEW OR SPLIT bupivacaine 2021-11 No [id number] 4mL UT (Marcaine) 11-09 Health 0.25 % 21:00: 21:00 injection 4 00 :00 mL bupivacaine 2021-11- No [id number] 4mL UT (Marcaine) 11-09 Health 0.25 % 21:00: 21:00 injection 4 00 :00 mL triamcinolo 2021-11- No [id number] 80mg UT ne 11-09 Health acetonide 21:00: 21:00 (Kenalog-40 00 :00 ) injection 80 mg triamcinolo 2021-11- No [id number] 80mg UT ne 11-09 Health acetonide 21:00: 21:00 (Kenalog-40 00 :00 ) injection 80 mg triamcinolo 2021-11- No [id number] 80mg 80 mg, UT ne 11-09 Intra-ki Health acetonide 21:00: 21:00 cular, (Kenalog-40 00 :00 Once PRN ) injection Procedure, 80 mg Starting on Thu09/09/22 at 1600, For 1 dose triamcinolo 2021-11 No [id number] 80mg 80 mg, UT ne 11-09 Intra-ki Health acetonide 21:00: 21:00 cular, (Kenalog-40 00 :00 Once PRN ) injection Procedure, 80 mg Starting on Thu09/09/22 at 1600, For 1 dose bupivacaine 2021-11 No [id number] 4mL 4 mL, UT (Marcaine) 11-09 Injection, He alth 0.25 % 21:00: 21:00 Once PRN injection 4 00 :00 Procedure, mL Starting on Thu09/09/22 at 1600, For 1 dose bupivacaine 2021-11 No [id number] 4mL 4 mL, UT (Marcaine) 11-09 Injection, He alth 0.25 % 21:00: 21:00 Once PRN injection 4 00 :00 Procedure, mL Starting on Thu09/09/22 at 1600, For 1 dose losartan 2021-11 Yes Q.5D 2 (two) UT (Cozaar) - times a Health 100 MG 16:09: day. tablet 07 Multiple 2021-11 Yes Take by UT Vitamins-Mi - mouth. Health nerals 16:09: (BARIATRIC 07 MULTIVITAMI NS/IRON PO) calcium 2021-11 Yes 950mg QD Take 950 UT citrate 1-01 mg by Health (Calcitrate 16:09: mouth 1 ) 950 (200 07 (one) time Ca) MG each day. tablet ferrous 2021-11 Yes 325mg QD Take 325 UT sulfate 325 1-01 mg by Health (65 Fe) MG 16:09: mouth 1 tablet 07 (one) time each day with breakfast. cyanocobala 2021-11 Yes 100ug QD Take 100 U T min 1-01 mcg by Health (Vitamin 16:09: mouth 1 B-12) 100 07 (one) time MCG tablet each day. losartan 2021-11 Yes Q.5D 2 (two) UT (Cozaar) 1-01 times a Health 100 MG 16:09: day. tablet 07 Multiple 2021-11 Yes Take by UT Vitamins-Mi 1-01 mouth. Health nerals 16:09: (BARIATRIC 07 MULTIVITAMI NS/IRON PO) calcium 2021-11 Yes 950mg QD Take 950 UT citrate 1-01 mg by Health (Calcitrate 16:09: mouth 1 ) 950 (200 07 (one) time Ca) MG each day. tablet ferrous 2021-11 Yes 325mg QD Take 325 UT sulfate 325 1-01 mg by [facility] (65 Fe) MG 16:09: mouth 1 tablet 07 (one) time each day with breakfast. cyanocobala 2021-11 Yes 100ug QD Take 100 U T min 1-01 mcg by [facility] (Vitamin 16:09: mouth 1 B-12) 100 07 (one) time MCG tablet each day. furosemide 2021-11 Yes 20mg Take 20 mg U nivers 20 mg 0-17 by mouth ity of tablet 00:00: in the [place] [address] morning. Medical Branch furosemide 2021-11 Yes 20mg Take 20 mg U nivers 20 mg 0-17 by mouth ity of tablet 00:00: in the [place] [address] morning. Medical Branch furosemide 2021-11 Yes 20mg Take 20 mg U nivers 20 mg 0-17 by mouth ity of tablet 00:00: in the [place] morning. Medical Branch furosemide 2021-11 Yes 20mg Take 20 mg U nivers 20 mg 0-17 by mouth ity of tablet 00:00: in the [place] morning. Medical Branch furosemide 2021-11 Yes 20mg Take 20 mg U nivers 20 mg 0-17 by mouth ity of tablet 00:00: in the [place] [address] morning. Medical Branch furosemide 2021-11 Yes 20mg Take 20 mg U nivers 20 mg 0-17 by mouth ity of tablet 00:00: in the [place] 00 morning. Medical Branch furosemide 2021-11 Yes 20mg Take 20 mg U nivers 20 mg 0-17 by mouth ity of tablet 00:00: in the [place] morning. Medical Branch furosemide 2021- Yes 20mg Take 20 mg U nivers 20 mg 0-17 by mouth ity of tablet 00:00: in the [place] morning. Medical Branch No known 2021- No No known Unive rs medications 0-05 medication it y of 17:10: s [place] [address] Medical Branch No known 2021- No No known Unive rs medications 0-05 medication it y of 17:10: s [place] [address] Medical Branch No known 2021- No No known Unive rs medications 0-05 medication it y of 17:10: s [place] [address] Medical Branch losartan 2021-0 Yes Q.5D 2 (two) UT (Cozaar) 8-16 times a Health 100 MG 09:07: day. tablet 57 Multiple 2021-0 Yes Take by UT Vitamins-Mi 8-16 mouth. Health nerals 09:07: (BARIATRIC 57 MULTIVITAMI NS/IRON PO) calcium 2021-0 Yes 950mg QD Take 950 UT citrate 8-16 mg by Health (Calcitrate 09:07: mouth 1 ) 950 (200 57 (one) time Ca) MG each day. tablet ferrous 2021-0 Yes 325mg QD Take 325 UT sulfate 325 8-16 mg by Health (65 Fe) MG 09:07: mouth 1 tablet 57 (one) time each day with breakfast. cyanocobala 2021-0 Yes 100ug QD Take 100 U T min 8-16 mcg by Health (Vitamin 09:07: mouth 1 B-12) 100 57 (one) time MCG tablet each day. losartan 2021-0 Yes Q.5D 2 (two) UT (Cozaar) 8-16 times a Health 100 MG 09:07: day. tablet 57 Multiple 2021-0 Yes Take by UT Vitamins-Mi 8-16 mouth. Health nerals 09:07: (BARIATRIC 57 MULTIVITAMI NS/IRON PO) calcium 2-0 Yes 950mg QD Take 950 UT citrate 8-16 mg by Health (Calcitrate 09:07: mouth 1 ) 950 (200 57 (one) time Ca) MG each day. tablet ferrous 2022-0 Yes 325mg QD Take 325 UT sulfate 325 8-16 mg by Health (65 Fe) MG 09:07: mouth 1 tablet 57 (one) time each day with breakfast. cyanocobala Yes 100ug QD Take 100 U T min 8-16 mcg by Health (Vitamin 09:07: mouth 1 B-12) 100 57 (one) time MCG tablet each day. pantoprazol 2021-2021- No [id number] 40mg Take 1 UT e 8-16 11-15 tablet (40 Health (Protonix) 00:00: 05:59 mg total) 40 MG EC 00 :00 by mouth 1 tablet (one) time each day before breakfast. Do not crush, chew, or split. pantoprazol 2021-2021- No [id number] 40mg Take 1 UT e 8-16 11-15 tablet (40 Health (Protonix) 00:00: 05:59 mg total) 40 MG EC 00 :00 by mouth 1 tablet (one) time each day before breakfast. Do not crush, chew, or split. pantoprazol 2021-0 2021- No [id number] 40mg Take 1 UT e 8-16 11-15 tablet (40 Health (Protonix) 00:00: 05:59 mg total) 40 MG EC 00 :00 by mouth 1 tablet (one) time each day before breakfast. Do not crush, chew, or split. pantoprazol 2021-2021- No [id number] 40mg Q.5D Take 1 UT e 7-25 08-16 tablet (40 Health (ProtoNix) 00:00: 00:00 mg total) 40 MG EC 00 :00 by mouth tablet in the morning and 1 tablet (40 mg total) before bedtime. Do not crush, chew, or split. . Sodium 2021-2021- No 2mL UT Hyaluronate 03-10 Health (Viscosup) 20:31: 20:31 solution 36 :00 prefilled syringe 2 mL Sodium 2021-0 2021- No 2mL UT Hyaluronate 03-10 Health (Viscosup) 20:31: 20:31 solution 36 :00 prefilled syringe 2 mL Sodium 2021-0 2021- No 2mL 2 mL, UT Hyaluronate 03-10 Injection, H ealth (Viscosup) 20:31: 20:31 Once PRN solution 36 :00 Procedure, prefilled Starting syringe 2 on Mon mL 03/10/22 at 1531, For 1 dose Sodium 2021-0 2021- No 2mL 2 mL, UT Hyaluronate 03-1002 Injection, H ealth (Viscosup) 20:31: 20:31 Once PRN solution 36 :00 Procedure, prefilled Starting syringe 2 on Mon mL 03/10/22 at 1531, For 1 dose ondansetron 2021-0 Yes [id number] 8mg Take 1 UT (Zofran) 8 3-23 tablet (8 Heal th MG tablet 00:00: mg total) 00 by mouth every 8 (eight) hours if needed for nausea. traMADol 2021-0 Yes [id number] 100mg Q6H Take 2 UT (Ultram) 50 3-23 tablets Healt h MG tablet 00:00: (100 mg 00 total) by mouth every 6 (six) hours if needed for severe pain. ondansetron 2021-0 Yes [id number] 8mg Take 1 UT (Zofran) 8 3-23 tablet (8 Heal th MG tablet 00:00: mg total) 00 by mouth every 8 (eight) hours if needed for nausea. traMADol 2021-0 Yes [id number] 100mg Q6H Take 2 UT (Ultram) 50 3-23 tablets Healt h MG tablet 00:00: (100 mg 00 total) by mouth every 6 (six) hours if needed for severe pain. ondansetron 2021-0 Yes [id number] 8mg Take 1 UT (Zofran) 8 3-23 tablet (8 Heal th MG tablet 00:00: mg total) 00 by mouth every 8 (eight) hours if needed for nausea. traMADol 2021-0 Yes [id number] 100mg Q6H Take 2 UT (Ultram) 50 3-23 tablets Healt h MG tablet 00:00: (100 mg 00 total) by mouth every 6 (six) hours if needed for severe pain. ondansetron 2021-0 Yes [id number] 8mg Take 1 UT (Zofran) 8 3-23 tablet (8 Heal th MG tablet 00:00: mg total) 00 by mouth every 8 (eight) hours if needed for nausea. traMADol 2021-0 Yes [id number] 100mg Q6H Take 2 UT (Ultram) 50 3-23 tablets Healt h MG tablet 00:00: (100 mg 00 total) by mouth every 6 (six) hours if needed for severe pain. ondansetron Yes [id number] 8mg Take 1 UT (Zofran) 8 3-23 tablet (8 Heal th MG tablet 00:00: mg total) 00 by mouth every 8 (eight) hours if needed for nausea. traMADol Yes [id number] 100mg Q6H Take 2 UT (Ultram) 50 3-23 tablets Healt h MG tablet 00:00: (100 mg 00 total) by mouth every 6 (six) hours if needed for severe pain. ondansetron Yes [id number] 8mg Take 1 UT (Zofran) 8 3-23 tablet (8 Heal th MG tablet 00:00: mg total) 00 by mouth every 8 (eight) hours if needed for nausea. traMADol Yes [id number] 100mg Q6H Take 2 UT (Ultram) 50 3-23 tablets Healt h MG tablet 00:00: (100 mg 00 total) by mouth every 6 (six) hours if needed for severe pain. ondansetron 2022- No [id number] 8mg Take 1 UT (Zofran) 8 3-23 01-29 tablet (8 Hea lth MG tablet 00:00: 00:00 mg total) 00 :00 by mouth every 8 (eight) hours if needed for nausea. traMADol 0 2022- No [id number] 100mg Q6H Take 2 U T (Ultram) 50 3-23 01-29 tablets Heal th MG tablet 00:00: 00:00 (100 mg 00 :00 total) by mouth every 6 (six) hours [...] MG 09:42: day. tablet 45 pantoprazol Yes [id number] TAKE 1 U T e 9-30 TABLET BY Health (ProtoNix) 00:00: MOUTH 40 MG EC 00 TWICE A tablet DAY pantoprazol Yes [id number] TAKE 1 U T e 9-30 TABLET BY Health (ProtoNix) 00:00: MOUTH 40 MG EC 00 TWICE A tablet DAY furosemide Yes [id number] 20mg QD Take 1 UT (Lasix) 20 9-22 tablet (20 Hea lth MG tablet 00:00: mg total) 00 by mouth 1 (one) time each day. furosemide Yes [id number] 20mg QD Take 1 UT (Lasix) 20 9-22 tablet (20 Hea lth MG tablet 00:00: mg total) 00 by mouth 1 (one) time each day. furosemide Yes [id number] 20mg QD Take 1 UT (Lasix) 20 9-22 tablet (20 Hea lth MG tablet 00:00: mg total) 00 by mouth 1 (one) time each day. furosemide 2020-0 Yes [id number] 20mg QD Take 1 UT (Lasix) 20 9-22 tablet (20 Hea lth MG tablet 00:00: mg total) 00 by mouth 1 (one) time each day. furosemide 2020-0 Yes [id number] 20mg QD Take 1 UT (Lasix) 20 9-22 tablet (20 Hea lth MG tablet 00:00: mg total) 00 by mouth 1 (one) time each day. No known 2020-0 No No known UT medications 8-31 medication He alth 10:45: s 13 losartan 2020-0 Yes Q.5D 2 (two) UT (Cozaar) 6-29 [...] day. Do not crush or chew. potassium 1-0 Yes 20meq QD Take 20 UT chloride CR 6-29 mEq by Health (K-Tab) 20 00:00: mouth 1 MEQ ER 00 (one) time tablet each day. Do not crush or chew. potassium 2021-0 Yes 20meq QD Take 20 UT chloride CR 6-29 mEq by Health (K-Tab) 20 00:00: mouth 1 MEQ ER 00 (one) time tablet each day. Do not crush or chew. ergocalcife 2021-0 Yes UT rol 6-26 Health (Vitamin 00:00: D2) 1.25 MG 00 (69195 UT) capsule ergocalcife 2021-0 Yes UT rol 6-26 Health (Vitamin 00:00: D2) 1.25 MG 00 (31626 UT) capsule ergocalcife 2021-0 Yes UT rol 6-26 Health (Vitamin 00:00: D2) 1.25 MG 00 (87140 UT) capsule ergocalcife 2021-0 Yes UT rol 6-26 Health (Vitamin 00:00: D2) 1.25 MG 00 (71605 UT) capsule ergocalcife 2021-0 Yes UT rol 6-26 Health (Vitamin 00:00: D2) 1.25 MG 00 (06709 UT) capsule ergocalcife 2021-0 Yes UT rol 6-26 Health (Vitamin 00:00: D2) 1.25 MG 00 (49260 UT) capsule ergocalcife 2021-0 2023- No UT rol 6-26 -29 Health (Vitamin 00:00: 00:00 D2) 1.25 MG 00 :00 (98613 UT) capsule Ondansetron Ondansetron 2020-0 Yes SANDY 1 QD TAKE 1 UT HCl - 8 MG HCl - 8 MG 4-27 FELINSKI TABLET Physici Oral Tablet Oral Tablet 00:00: D.O. DAILY ans 00 Pantoprazol Pantoprazol 2020-0 Yes SANDY 1 Q0.5D TAKE 1 UT [...] Take 1 UT (Ergocalcif (Ergocalcif 3-30 LEROY JOB DEVELOPER capsule Physici sergio) 1.25 sergio) 1.25 00:00: two times ans MG (17194 MG (75662 00 per week UT) Oral UT) Oral [...] Tablet Tablet 00 HOURS NEEDED. Diclofenac Diclofenac Yes CARLOS APPLY 2-4 UT Sodium 1 % Sodium 1 % 5-22 SABBARA GRAMS TO Physici GEL GEL 00:00: JOB DEVELOPER AFFECTED ans 00 AREA FOUR TIMES A DAY Ergocalcife Ergocalcife 0 Yes SIOBHAN Take 1 UT rol 1.25 MG rol 1.25 MG 3-12 COMER capsule Physici (28593 UT) (50698 UT) 00:00: twice a ans Oral Oral 00 week Capsule Capsule Losartan Losartan Yes 1 QD TAKE 1 UT Potassium Potassium TABLET Phy sici 100 MG Oral 100 MG Oral DAILY. ans Tablet Tablet Immunizations Ordered Filled Immunization Date Status Comments [facility] e Immunization Name Name SARS-COV-2 COVID-19 2021-11-22 Completed Unive rsity of MODERNA 12+ YRS 00:00:00 [facility] VACCINE Branch SARS-COV-2 COVID-19 2021-11-22 Completed Unive rsity of MODERNA 12+ YRS 00:00:00 [facility]ACCINE Branch SARS-COV-2 COVID-19 2021-11-22 Completed Unive rsity of MODERNA 12+ YRS 00:00:00 [facility] VACCINE Branch SARS-COV-2 COVID-19 2021-11-22 Completed Unive [...] Unive rsity of MODERNA 12+ YRS 00:00:00 [place] [facility] VACCINE Branch SARS-COV-2 COVID-19 2021-03-28 Completed Unive rsity of MODERNA 12+ YRS 00:00:00 [place] [facility] VACCINE Branch SARS-COV-2 COVID-19 2021-03-28 Completed Unive rsity of MODERNA 12+ YRS 00:00:00 [facility] ical VACCINE Branch SARS-COV-2 COVID-19 2021-03-28 Completed Unive rsity of MODERNA 12+ YRS 00:00:00 [facility] ical VACCINE Branch Vital Signs Vital Name Observation Time Observation Value Comments Source Systolic blood 2022-12-05 136 mm[Hg] [facility] pressure 15:09:00 Diastolic blood 2022-12-05 79 mm[Hg] [facility] pressure 15:09:00 Heart rate 2022-12-05 62 /min [facility] 15:09:00 Body temperature 2022-12-05 36.56 Mary [facility] 15:09:00 Body height 2022-12-05 172.7 cm [facility] 15:09:00 Body weight 2022-12-05 121.791 kg [facility] 15:09:00 BMI 2022-12-05 40.83 kg/m2 [facility] 15:09:00 Systolic blood 2022-09-23 132 mm[Hg] [facility] pressure 20:57:00 [facility] Diastolic blood 2022-09-23 81 mm[Hg] [facility] pressure 20:57:00 [facility] Heart rate 2022-09-23 63 /min [facility] 20:57:00 [facility] Body temperature 2022-09-23 36.83 Mary [facility] 20:57:00 [facility] Body height 2022-09-23 172.7 cm University of 20:57:00 [facility] Body weight 2022-09-23 126.145 kg University of 20:57:00 [facility] BMI 2022-09-23 42.28 kg/m2 University of 20:57:00 [facility] Oxygen saturation 2022-09-23 100 /min [facility] Arterial blood 20:57:00 [facility] Pulse oximetry Branch Systolic blood 2022-08-13 126 mm[Hg] [facility] pressure 22:06:00 [facility] Diastolic blood 2022-08-13 78 mm[Hg] [facility] f pressure 22:06:00 [facility] Heart rate 2022-08-13 73 /min University 22:06:00 [facility] Body temperature 2022-08-13 36.56 Mary [facility] 22:06:00 [facility] Respiratory rate 2022-08-13 18 /min [facility] 22:06:00 [facility] Body height 2022-08-13 174 cm University 22:06:00 [facility] Body weight 2022-08-13 132.989 kg University of 22:06:00 [facility] BMI 2022-08-13 43.93 kg/m2 [facility] 22:06:00 [facility] Oxygen saturation 2022-08-13 98 /min [facility] in Arterial blood 22:06:00 [facility] by Pulse oximetry [place] Systolic blood 2022-08-01 115 mm[Hg] [facility] pressure 14:21:00 Diastolic blood 2022-08-01 77 mm[Hg] [facility] pressure 14:21:00 Heart rate 2022-08-01 80 /min [facility] 14:21:00 Body temperature 2022-08-01 36.72 Mary [facility] 14:21:00 Body height 2022-08-01 172.7 cm [facility] 14:21:00 Body weight 2022-08-01 130.999 kg [facility] 14:21:00 BMI 2022-08-01 43.91 kg/m2 [facility] 14:21:00 Systolic blood 2022-06-24 134 mm[Hg] [facility] pressure 14:07:00 Diastolic blood 2022-06-24 84 mm[Hg] [facility] pressure 14:07:00 Heart rate 2022-06-24 83 /min [facility] 14:07:00 Body temperature 2022-06-24 36.67 Mary [facility] 14:07:00 Respiratory rate 2022-06-24 18 /min [facility] 14:07:00 Body height 2022-06-24 172.7 cm [facility] 14:07:00 Body weight 2022-06-24 133.63 kg [facility] 14:07:00 BMI 2022-06-24 44.79 kg/m2 [facility] 14:07:00 Body height 2021-03-26 172.7 cm [facility] 17:23:29 Body weight 2021-03-26 204.545 kg [facility] 17:23:29 BMI 2021-03-26 68.57 kg/m2 [facility] 17:23:29 Body height 2021-03-26 172.7 cm [facility] 17:23:29 Body weight 2021-03-26 204.545 kg [facility] 17:23:29 BMI 2021-03-26 68.57 kg/m2 [facility] 17:23:29 Systolic blood 2021-03-05 126 mm[Hg] [facility] 10:40:00 Position: Sitting Diastolic blood 2021-03-05 95 mm[Hg] [facility] 10:40:00 Position: Sitting Body [...] Systolic blood 2021-01-22 153 mm[Hg] [facility]: L[facility]; [facility] 10:47:00 Position: Sitting Diastolic blood 2021-01-22 96 mm[Hg] [facility]: [facility] 10:47:00 Position: Sitting Body [...] 10:15:00 Systolic blood 2020-11-20 145 mm[Hg] Location: [place] 11:46:00 Position: Sitting Diastolic blood 2020-11-20 90 mm[Hg] Location: [place] 11:46:00 Position: Sitting Body height 2020-11-20 68 [in_us] [facility] 11:46:00 Weight 2020-11-20 568.5 [lb_av] [facility] 11:46:00 Body mass index 2020-11-20 86.44 kg/m2 [facility] (BMI) [Ratio] 11:46:00 Body temperature 2020-11-20 96.5 [degF] Method: [facility] 11:46:00 Temporal Heart Rate 2020-11-20 96 /min Location: L [facility] 11:46:00 Brachial Artery; Body height 2020-08-21 68 [in_us] [facility] 09:46:00 Weight 2020-08-21 569.6 [lb_av] [facility] 09:46:00 Body mass index 2020-08-21 86.61 kg/m2 [facility] (BMI) [Ratio] 09:46:00 Systolic blood 2020-01-19 141 mm[Hg] Location: [place]; [facility] 16:33:00 Position: Sitting Diastolic blood 2020-01-19 92 mm[Hg] Location: [place] 16:33:00 Position: Sitting Weight 2020-01-19 604 [lb_av] [facility] 16:33:00 Heart Rate 2020-01-19 85 /min [facility] 16:33:00 Body height 2020-01-19 68 [in_us] [facility] 16:33:00 Body mass index 2020-01-19 91.84 kg/m2 [facility] (BMI) [Ratio] 16:33:00 Procedures Procedure Date / Time Performing Clinician Source Performed ARTHROCENTESIS ASPIR&/INJ 2022-12-12 14:00:00 Carlos Zayas [facility] JT/BURSA W/O US BILATERAL ARTHROCENTESIS ASPIR&/INJ 2022-12-05 14:00:00 Carlos Zayas [facility] JT/BURSA W/O US BILATERAL ARTHROCENTESIS ASPIR&/INJ 2022-11-21 14:00:00 Carlos Zayas [facility] JT/BURSA W/O US BILATERAL REFERRAL- 2022-10-20 06:01:00 Doctor Sumi, [facility] REQUEST/RESPONSE [facility] [place] BETA HYDROXY-BUTYRATE 2022-09-24 15:08:00 Hang Mehran [facility] INSULIN, LEVEL 2022-09-24 15:08:[address] [facility] THYROID STIMULATING 2022-09-24 15:08:00 Mehran Mauricio [facility] HORMONE [facility] COMP. METABOLIC PANEL 2022-09-24 15:08:00 Mehran Mauricio [facility] ([id number]) Medical Branch TESTOSTERONE 2022-09-24 15:08:[address] [facility] GLYCOSYLATED HEMOGLOBIN 2022-09-24 15:08:00 Hang Mehran [facility] (A1C) Medical Branch ARTHROCENTESIS ASPIR&/INJ 2022-09-09 21:00:00 Carlos Zayas [facility] JT/BURSA W/O BILATERAL EXTERNAL PROVIDER RECORDS 2022-09-01 05:01:00 Doctor Sumi, [facility] Lares [facility] CONSENT/REFUSAL FOR 2022-03-28 16:06:37 Doctor Sumi, [facility] DIAGNOSIS AND TREATMENT [facility] ARTHROCENTESIS ASPIR&/INJ 2022-03-10 20:31:36 Carlos Zayas [facility] JT/BURSA W/O US BILATERAL REFERRAL- 2021-10-15 06:01:00 Doctor Sumi, [facility] REQUEST/RESPONSE [facility] EXT LOWER VENOUS DOPPLER 2021-04-19 13:48:22 Sandy Marin [facility] UNIL US US Abdomen [id number] [id number] 2021-02-15 00:00:00 [facility] [Q] QUESTASSURED [...] CONSENT/REFUSAL FOR 2020-09-03 16:00:53 Doctor Unassigned, Unive [facility] DIAGNOSIS AND TREATMENT [facility] ASSIGNMENT OF BENEFITS 2020-09-03 16:00:39 [facility] [Q] QUESTASSURED 25-OH 2020-08-21 00:00:00 [facility] VIT D, (D2,D3), LC/MS/MS [QL] CBC (INCLUDES 2020-08-21 00:00:00 [facility] DIFF/PLT) [QL] CMP W/EGFR 2020-08-21 00:00:00 [facility] [QL] FOLATE, SERUM 2020-08-21 00:00:00 [facility] [QL] HEMOGLOBIN A1c 2020-08-21 00:00:00 [facility] [QL] IRON AND TOTAL IRON 2020-08-21 00:00:00 [facility] BINDING CAPACITY [QL] LIPID PANEL 2020-08-21 00:00:00 [facility] [QL] PTH, INTACT (WITHOUT 2020-08-21 00:00:00 [facility] CALCIUM) [QL] TSH, 3RD GENERATION 2020-08-21 00:00:00 [facility] [QL] VITAMIN A (RETINOL) 2020-08-21 00:00:00 [facility] [QL] VITAMIN B1, WHOLE 2020-08-21 00:00:00 [facility] BLOOD [QL] VITAMIN B12 2020-08-21 00:00:00 [facility] [QL] VITAMIN E 2020-08-21 00:00:00 [facility] (TOCOPHEROL) [U] XRAY KNEE 3 VWS RIGHT 2020-03-30 00:00:00 [facility] [id number] MR Knee wo contrast [id number] 2020-03-30 00:00:00 [facility] [U] XRAY KNEE 3 VWS LEFT 2020-03-29 00:00:00 [facility] [id number] [U] XRAY KNEE 4 OR MORE 2020-01-20 00:00:00 [facility] VWS LEFT [id number] [U] XRAY KNEE 3 VWS LEFT 2020-01-17 00:00:00 [facility] [id number] MR Knee wo contrast [id number] 2020-01-03 00:00:00 [facility] of [facility]le [facility] of Hernia Repair [facility] Encounters Start End Encounter Admission Attending Care Care Encounter Source Date/Time Date/Time Type Type Clinicians Facility Department ID 2022-11-13 Outpatient [facility] [id number] [place] 09:27:58 [id number] [facility] 2022-01-13 Outpatient [facility] [id number] [place] 14:46:10 Health 2022-01-06 Outpatient [facility] [id number] [place] 16:50:55 [facility] 2021-05-27 Outpatient [facility] [id number] [place] 09:14:12 Health 2021-05-21 Outpatient CHANA, [facility] [id number] [place] 10:58:31 [facility] 2021-05-07 Outpatient TOMAS, [facility] [id number] [place] 12:48:28 [facility] 2021-03-25 Outpatient TOMAS, [facility] [id number] [place] 08:06:21 [facility] 2023-08-06 2023-08-06 Outpatient [facility] [id number] [place] 11:20:00 11:20:00 [facility] 2023-06-05 2023-06-05 Outpatient TOMAS, [facility] [id number] [place] 09:15:00 09:15:00 [facility] 2022-12-12 2022-12-12 Procedure Chana [facility] 1.2.840.114 [id number] [place] 08:00:00 08:22:44 Visit Carlos [facility]EL[id number] [facility] MED[facility] 9.2.7.2.686 PLAZA 3 [id number] 7 2022-12-05 2022-12-05 Office Tomas [facility] [id number] [place] 09:15:00 09:46:49 Visit Sandy [facility] [id number] [facility] 9.2.7.2.686 PLAZA 0 [id number] AND 4 WOMENS 2022-12-05 2022-12-05 Procedure Chana [facility] 1.2.840.114 [id number] [place] 08:00:00 08:15:51 Visit Carlos SOTELO [id number] [facility] MEDICAL 9.2.7.2.686 PLAZA 2 [id number] 2022-11-26 2022-11-26 Outpatient CHANA [facility] [id number] [place] 08:00:00 08:00:00 [facility] 2022-11-21 2022-11-21 Procedure Chana [facility] 1.2.840.114 [id number] [place] 08:00:00 08:20:17 Visit Carlos SOTELO [id number] [facility] MEDICAL 9.2.7.2.686 PLAZA 7 [id number] 7 2022-11-14 2022-11-14 Outpatient CHANA [facility] [id number] [place] 08:00:00 08:00:00 [facility] 2022-11-04 2022-11-04 Outpatient TOMAS [facility] [id number] [place] 08:45:00 08:45:00 [facility] 2022-10-20 2022-10-20 Orders Doctor TEGAN 1.2.840.114 [id number] Univers 00:00:00 00:00:00 Only Unassigned, DULCE MARIA [id number] ity of [place] [facility] 4.2.7.2.686 Amador as [phone] [address] 2022-09-29 2022-09-29 Telephone Hang [facility] [id number] [id number] Univers 00:00:00 00:00:00 Mehran HEALTH 350.1.13.10 it y of [place] 4.2.7.2.686 Amador as KARIN?BLEA [id number] [address] MEDICAL OFFICE [facility] 2022-09-24 2022-09-24 Licensing Director Lab, Ang - Db [facility] 1.2.840.1 14 [id number] Univers 09:00:00 09:27:57 Visit HangMehran 350.1.13.10 ity of [facility] 4.2.7.2.686 [place] as KARIN?BLEA [phone] [address] MEDICAL OFFICE [facility] 2022-09-24 2022-09-24 Outpatient R HANG [facility] [id number] Univers 09:00:00 09:00:00 MEHRAN cornejo [facility] 2022-09-23 2022-09-23 [facility] 1.2.840.114 [id number] Univers 15:00:00 15:37:55 Visit Mehran [facility] [id number] it y of [facility] 4.2.7.2.686 [place] as KARIN?BLEA [phone] [address] OFFICE [facility] 2022-09-23 2022-09-23 Outpatient R HANG [facility] [id number] Univers 15:00:00 15:37:55 MEHRAN cornejo [facility] 2022-09-23 2022-09-23 Abstract Hang [facility] 1.2.840.114 [id number] Univers 00:00:00 00:00:00 Mehran HEALTH 350.1.13.10 it y of [place] 4.2.7.2.686 Amador as KARIN?BLEA [phone] [facility] [address] [place] MEDICAL OFFICE [facility] 2022-09-23 2022-09-23 Letter Hang [facility] 1.2.840.114 [id number] Univers 00:00:00 00:00:00 (Out) Mehran HEALTH 350.1.13.10 it y of [place] 4.2.7.2.686 [place] as KARIN?BLEA [phone] [address] MEDICAL OFFICE [facility] 2022-09-09 2022-09-09 Outpatient [facility] [id number] [place] 16:00:00 17:13:36 Health 2022-09-09 2022-09-09 Office Chana RICHARD [facility] 1.2.840.114 [id number] [place] 16:00:00 16:37:38 Visit Carlos SOTELO 350.1.13.58 H [facility] 9.2.7.2.686 PLAZA 3 [id number] 7 2022-09-01 2022-09-01 Orders Doctor TEGAN 1.2.840.114 [id number] Univers 00:00:00 00:00:00 Only Unassigned, DULCE MARIA [id number] ity of [place] [facility] 4.2.7.2.686 [place] as [phone] [address] 2022-08-13 2022-08-13 Nurse Nurse, [facility] 1.2.840.114 [id number] Univers 17:15:00 17:35:00 Visit Amrit Schultz [facility] 350.1.13.10 ity of [place] 4.2.7.2.686 [place] as KARIN?BLEA [phone] [facility] [address] [place] MEDICAL OFFICE [facility] 2022-08-13 2022-08-13 Outpatient Tacos [facility] [id number] Univers 17:20:00 17:20:00 AMRIT cornejo o ely [facility] 2022-08-13 2022-08-13 Outpatient [facility] [id number] Univers 17:15:00 17:15:00 AMRIT brianevelyn graves [facility] 2022-08-01 2022-08-01 Office Tomas [facility] 1.2.244.002 [id number] [place] 09:15:00 10:24:25 Visit Sandy SUGAR 350.1.13.58 Erick alth [facility] 9.2.7.2.686 PLAZA 5 [phone] AND 4 WOMENS 2022-07-23 2022-07-23 Outpatient TOMAS, [facility] LAMAR [id number] [facility] 06:36:00 13:15:00 SANDY 2022-07-23 2022-07-23 Outpatient TOMAS, [facility] [id number] [place] 08:45:00 08:45:00 SANYD Health 2022-06-24 2022-06-24 Office Tomas [facility] 1.2.025.749 [id number] [place] 09:15:00 09:55:43 Visit Sandy SUGAR 350.1.13.58 Erick alth [facility] 9.2.7.2.686 PLAZA 5 [id number] AND 4 WOMENS 2022-04-29 2022-04-29 Telephone RICHARD Marin [facility] 1.2.840.114 [id number] [place] 00:00:00 00:00:00 Sandy SUGAR 350.1.13.58 Erick alth [facility] 9.2.7.2.686 PLAZA 7 [id number] AND 4 WOMENS 2022-04-27 2022-04-27 Telephone TEGAN Estrada 1.2.840.[id number] [facility] 00:00:00 00:00:00 Watson DULCE MARIA 350.1.13.10 it y of [facility] 4.2.7.2.686 [place] as [phone] [address] 2022-04-26 2022-04-26 Laboratory Only, Ang Db Test [place] 1.2.[address] 40[id number] [facility] 15:30:00 15:45:00 Only Krissy King [facility] 350.1.13.10 ity of [place] 4.2.7.2.686 [place]ador as KARIN?BLEA [phone] [address] MEDICAL OFFICE BUILDING 2022-04-26 2022-04-26 Outpatient R CHRISTY, [facility] [id number] Univers 15:30:00 15:30:00 KRISSY ity o f [facility] 2022-03-29 2022-03-29 Letter TEGAN Rashid 1.2.840.114 [id number] Univers 00:00:00 00:00:00 (Out) Marlenebill العراقي 350.1.13.10 it y of [facility] 4.2.7.2.686 [place] as [phone] [address] 2022-03-28 2022-03-28 Laboratory Only, Ang Db Test [facility] 1.2.8 40.114 [id number] Univers 11:15:00 11:30:00 Only [facility] 350.1.13.10 ity of [place] 4.2.7.2.686 [place] as KARIN?BLEA [phone] [address] MEDICAL OFFICE [facility] 2022-03-28 2022-03-28 Outpatient R NASIR [facility] [id number] Univers 11:15:00 11:15:00 SAMY ity of [facility] 2022-03-28 2022-03-28 Orders Doctor JAVED 1.2.840.114 [id number] Univers 00:00:00 00:00:00 Only Unassigned, DULCE MARIA 350.1.13.10 ity of [place] [facility] 4.2.7.2.686 Amador as [phone] [facility] [address] [place] 2022-03-07 2022-03-07 Procedure RICHARD Zayas [facility] 1.2.840.114 [id number] [place] 11:15:00 11:38:53 Visit Carlos SOTELO 350.1.13.58 [facility] MEDICAL 9.2.7.2.686 PLAZA 9 [id number] 7 2022-02-28 2022-02-28 Procedure RICHARD Zayas [facility] 1.2.840.114 [id number] [place] 11:15:00 11:44:01 Visit Carlos SOTELO 350.1.13.58 [facility] MEDICAL 9.2.7.2.686 PLAZA 3 [id number] 7 2022-02-14 2022-02-14 Procedure Chana [facility] 1.2.840.114 [id number] [place] 11:00:00 12:07:16 Visit Carlos SOTELO 350.1.13.58 [facility] MEDICAL 9.2.7.2.686 PLAZA 5 [id number] 7 2022-02-12 2022-02-12 Office Chana [facility] 1.2.840.114 [id number] [place] 10:30:00 12:03:04 Visit Carlos SOTELO 350.1.13.58 [facility] MEDICAL 9.2.7.2.686 PLAZA 1 [id number] 7 2022-02-12 2022-02-12 Office Roselia [facility] 1.2.840.114 [id number] [place] 09:15:00 11:05:01 Visit Abraham SOTELO 350.1.13.58 [facility] MEDICAL 9.2.7.2.686 PLAZA 0 [id number] 5 2022-02-12 2022-02-12 Telephone Inez Saucedo [facility] 1.2.840.11 4 [id number] [place] 00:00:00 00:00:00 Inez Saucedo 350.1.13.58 [facility] MEDICAL 9.2.7.2.686 PLAZA 5 [id number] 7 2022-01-30 2022-01-[id number] [facility] 05:35:00 11:16:00 ABARHAM 2022-01-13 2022-01-13 Office Jovanisosamelecio [facility] 1.2.840.114 [id number] [place] 14:30:00 15:38:19 Visit Abraham SOTELO 350.1.13.58 [facility] MEDICAL 9.2.7.2.686 PLAZA 0 [id number] 2022-01-09 2022-01-09 Telephone Tomas [facility] 1.2.840.114 [id number] [place] 00:00:00 00:00:00 Sandy SUGAR 350.1.13.58 He alth [facility] 9.2.7.2.686 PLAZA 6 [id number] AND 4 WOMENS 2022-01-07 2022-01-07 Office RICHARD Zayas [facility] 1.2.840.114 [id number] [place] 08:45:00 09:28:10 Visit Carlos SOTELO 350.1.13.58 [facility] MEDICAL 9.2.7.2.686 PLAZA 0 [id number] 7 2022-01-01 2022-01-01 Outpatient JENNA MARIN LAMAR [id number] [facility] 06:20:00 09:25:00 SANDY 2021-12-29 2021-12-29 Letter TEGAN Rashid 1.2.840.114 [id number] Univers 00:00:00 00:00:00 (Out) Marlene Montoya DULCE MARIA 350.1.13.[address] [facility] 4.2.7.2.686 [place] as [phone] [address] 2021-12-28 2021-12-28 Laboratory Only, Ang Db Test [facility] 1.2.8 40.114 [id number] Univers 14:45:00 15:00:00 [facility] 350.1.13.[address] [facility] 4.2.7.2.686 [place]ador as KARIN?BLEA [id number] [address] MEDICAL OFFICE [facility] 2021-12-28 2021-12-28 Outpatient Tacos MARTINES [facility] [id number] Univers 14:45:00 14:45:00 [facility] 2021-12-04 2021-12-04 Outpatient Tacos MIGUEL [facility] [id number] Univers 10:00:00 10:00:00 JEYSON cornejo [facility] 2021-12-03 2021-12-03 Office RICHARD Marin [facility] 1.2.002.912 [id number] [place] 10:15:00 10:30:00 Visit Sandy JOHNS 350.1.13.58 Erick alth [facility] 9.2.7.2.686 PLAZA 1 [id number] AND 4 WOMENS 2021-10-15 2021-10-15 Orders Doctor JAVED 1.2.840.114 [id number] Univers 00:00:00 00:00:00 Only Unassigned, DULCE MARIA 350.1.13.10 ity of [place] [facility] 4.2.7.2.686 [place]ador as [phone] [address] 2021-09-03 2021-09-03 Office RICHARD Marin [facility] 1.2.319.311 [id number] [place] 09:35:52 10:24:30 Visit Sandy SUGAR 350.1.13.58 alth [facility] 9.2.7.2.686 PLAZA 4 [id number] AND 4 WOMENS 2021-08-08 2021-08-08 Refill Tomas [facility] 1.2.249.264 [id number] [place] 00:00:00 00:00:00 Sandy SUGAR 350.1.13.58 [facility] MED 9.2.7.2.686 PLAZA 3 [id number] AND 4 WOMENS 2021-07-31 2021-07-31 Orders Vijaya Bethea [facility] 1.2.840.11 [id number] [place] 00:00:00 00:00:00 Only Vijaya Bethea 350.1.13.58 [facility] MED 9.2.7.2.686 PLAZA 7 [id number] AND 4 WOMENS 2021-07-10 2021-07-10 Refdevon Marin [facility] 1.2.079.844 [id number] [place] 00:00:00 00:00:00 Sandy SUGAR 350.1.13.58 Erick alth [facility] MED 9.2.7.2.686 PLAZA 4 [id number] AND 4 WOMENS 2021-07-09 2021-07-09 Procedure Chana [facility] 1.2.840.114 [id number] [place] 10:14:27 10:55:14 Visit Carlos SOTELO 350.1.13.58 [facility] MEDICAL 9.2.7.2.686 PLAZA 4 [id number] 7 2021-07-04 2021-07-04 Refdevon Marin [facility] 1.2.553.881 [id number] [place] 00:00:00 00:00:00 Sandy SUGAR 350.1.13.58 He alth [facility] 9.2.7.2.686 PLAZA 4 [id number] AND 4 WOMENS 2021-07-02 2021-07-02 Procedure Chana [facility] 1.2.840.114 [id number] [place] 10:22:08 10:37:08 Visit Carlos SOTELO 350.1.13.58 H ealt MEDICAL 9.2.7.2.686 PLAZA 1 [id number] 7 2021-06-25 2021-06-25 Procedure Chana [facility] 1.2.840.114 [id number] [place] 11:45:31 12:06:30 Visit Carlos SOTELO 350.1.13.58 H ealt MEDICAL 9.2.7.2.686 PLAZA 5 [id number] 2021-06-14 2021-06-14 Refdevon Marin [facility] 1.2.777.231 [id number] [place] 00:00:00 00:00:00 Sandy SUGAR 350.1.13.58 He alth [facility] 9.2.7.2.686 PLAZA 3 [id number] AND 4 WOMENS 2021-06-12 2021-06-12 Telephone Zaina Robertson [facility] 1.2.840.1 14 [id number] [place] 00:00:00 00:00:00 Zaina Robertson 350.1.13.58 Health MEDICAL 9.2.7.2.686 PLAZA 2 [id number] 7 2021-06-10 2021-06-10 Telephone Zaina Robertson [facility] 1.2.840.1 14 [id number] [place] 00:00:00 00:00:00 Robertson, Ruth DEEPAK 350.1.13.58 Health MEDICAL 9.2.7.2.686 PLAZA 1 [id number] 7 2021-06-10 2021-06-10 Alice Marin [facility] 1.2.609.226 [id number] [place] 00:00:00 00:00:00 Only Sandy SUGAR 350.1.13.58 He alth L[place] MED 9.2.7.2.686 PLAZA 8 [phone] AND 4 WOMENS 2021-06-03 2021-06-03 Telephone Inez Saucedo [facility] 1.2.840.11 4 [id number] [place] 00:00:00 00:00:00 Inez Saucedo 350.1.13.58 Health MEDICAL 9.2.7.2.686 PLAZA 0 [id number] 7 2021-05-07 2021-05-07 Office Tomas [facility] 1.2.803.771 [id number] [place] 11:50:13 13:03:27 Visit Sandy SUGAR 350.1.13.58 He alth L[place] MED 9.2.7.2.686 PLAZA 5 [id number] AND 4 WOMENS 2021-05-01 2021-05-01 Telephone [place] Vijaya [facility] 1.2.840. 114 [id number] [place] 00:00:00 00:00:00 Vijaya Bethea SUGAR 350.1.13.58 Health L[place] MED 9.2.7.2.686 PLAZA 9 [id number] AND 4 WOMENS 2021-04-23 2021-04-23 Telephone Tomas [facility] 1.2.840.114 12 [id number] [place] 00:00:00 00:00:00 Sandy SUGAR 350.1.13.58 He alth L[place] MED 9.2.7.2.686 PLAZA 0 [id number] AND 4 WOMENS 2021-04-17 2021-04-17 EXT [facility] OP [facility] 1.2.840.114 [id number] [place] 00:00:00 00:00:00 Sandy LOCATION 350.1.13.58 H ealth 9.2.7.2.686 [id number] 0 2021-04-17 2021-04-17 EXT [facility] OP Tomas, EXT [facility] 1.2.840.114 [id number] [place] 00:00:00 00:00:00 Sandy LOCATION 350.1.13.58 H ealth 9.2.7.2.686 [id number] 0 2021-04-16 2021-04-16 Office Tomas [facility] 1.2.982.242 [id number] [place] 11:00:00 11:15:00 Visit Sandy SUGAR 350.1.13.58 He alth [place] MED 9.2.7.2.686 PLAZA 5 [id number] AND 4 WOMENS 2021-04-16 2021-04-16 Orders Vijaya Bethea [facility] 1.2.840.11 4 [id number] [place] 00:00:00 00:00:00 Only Vijaya Bethea SUGAR 350.1.13.58 Health L[place] MED 9.2.7.2.686 PLAZA 0 [id number] AND 4 WOMENS 2021-03-27 2021-03-27 Outpatient TOMAS, KOBY LAMAR [address] [facility] 09:25:00 12:05:00 SANDY 2021-03-25 2021-03-25 EXT [facility] OP Tomas, EXT [facility] 1.2.840.114 [id number] [place] 00:00:00 00:00:00 Sandy LOCATION 350.1.13.58 H ealth 9.2.7.2.686 [id number] 0 2021-03-25 2021-03-25 EXT [facility] OP Tomas, EXT [facility] 1.2.840.114 [id number] [place] 00:00:00 00:00:00 Sandy LOCATION 350.1.13.58 H ealth 9.2.7.2.686 [id number] 0 2021-03-23 2021-03-23 Orders Cristobal Betheaa [facility] 1.2.840.11 4 [id number] [place] 00:00:00 00:00:00 Only Vijaya Bethea SUGAR 350.1.13.58 Health [place] MED 9.2.7.2.686 PLAZA 2 [id number] AND 4 WOMENS 2021-03-05 2021-03-05 Appointradha MARIN [facility] General [id number] [place] 10:15:00 10:15:00 t; SANDY, Surgery - Bobby MARIN D.O. [facility] SANDY, Medical D.O. [place] 2021-02-12 2021-02-12 Appointradha MARIN [facility] General [id number] [place] 08:45:00 08:45:00 t; SANDY, Surgery - Phy rekha MARIN D.O. [facility] SANDY, Medical D.O. Center 2021-02-05 2021-02-05 Outpatient TOMAS [facility] [id number] [facility] 11:13:00 16:00:00 SANDY 2021-01-29 2021-01-29 Appointradha MARIN, [facility] [id number] [place] 11:30:00 11:30:00 t; SANDY, Physi Nadja Toth.O. ans SANDY, D.O. 2021-01-22 2021-01-22 Appointradha MARIN, [facility] General [id number] [place] 10:45:00 10:45:00 t; SANDY, Surgery - Phy rekha MARIN D.O. [facility] SANDY, Medical D.O. [place] 2020-12-31 2021-01-01 [facility] 22:53:00 03:55:00 2020-12-11 2020-12-11 Skylar MARIN, [facility] [id number] [place] 10:15:00 10:15:00 t; SANDY, Surgery - Phy rekha MARIN D.O. [facility] SANDY, Medical D.O. [place] 2020-12-05 2020-12-05 Inpatient U TOMAS, [facility] [id number] [facility] 09:29:00 14:03:00 SANDY 2020-11-20 2020-11-20 Appointradha MARIN, [facility] [id number] [place] 12:00:00 12:00:00 t; SANDY, Physi ci Nadja MARIN.O. ans SANDY D.O. 2020-09-17 2020-10-16 Outpatient TOMAS [facility] [id number] [place] 15:00:00 23:59:[address] [facility] 2020-09-05 2020-09-05 Outpatient TOMAS, FB L[facility]AR [id number] MH 09:31:00 12:30:00 SANDY 2020-09-03 2020-09-03 Laboratory Only, Adc Test [facility] 1.2.840. [id number] [facility] 11:05:29 11:20:29 Only Jeyson Lilly Britt 350.1.13.10 [place]y [place] 4.2.7.2.686 [facility] s Thompson [id number] [facility] [address] [place] 2020-09-03 2020-09-03 Laboratory Only, [facility] 1.2.840.114 [id number] 11:05:29 11:20:29 Only Test Bernadette 350.1.13.10 [place] 4.2.7.2.686 [place] [id number] 353 2020-09-03 2020-09-03 Outpatient Tacos LILLY, [facility] [id number] [facility] 11:15:00 11:15:00 JEYSON ity of [facility] 2020-09-03 2020-09-03 Orders Doctor JAVED 1.2.840.114 [id number] Univers 00:00:00 00:00:00 Only Unassigned, DULCE MARIA 350.1.13.10 [facility] [place] [facility] 4.2.7.2.686 [place] [id number] [address] 2020-09-03 2020-09-03 Orders Doctor JAVED 1.2.840.114 [id number] 00:00:00 00:00:00 Only Unassigned, DULCE MARIA 350.1.13.10 [facility] 4.2.7.2.686 [id number] 2020-08-28 2020-08-28 Skylar ZAYAS [facility] Orthopedics 69 [id number] [place] 15:45:00 15:45:00 t; Tien GONZALEZ APRN II wendy GONZALEZ APRN 2020-08-21 2020-08-21 [facility] [id number] [place] 09:45:00 09:45:00 t; SANDY, Surgery - Bobby MARIN D.O. [place] ans Lina WHITLEY 2020-05-09 2020-05-09 Skylar ZAYAS [facility] Orthopedics [id number] [place] 08:15:00 08:15:00 t; Tien GONZALEZ APRN II wendy GONZALEZ APRN 2020-03-30 2020-03-30 Skylar ZAYAS [facility] Orthopedics 66 [id number] [place] 08:30:00 08:30:00 t; CARLOS - [place] Phy rekha ZAYAS, RONDA II ans CARLOS, JOB DEVELOPER 2020-01-19 2020-01-19 Appointmen RICHARD MONTESINOS Minimally [id number] [place] 14:00:00 14:00:00 t; OLIVIA MONTESINOS, Invasive Phy kami Lina BAKER [facility] D.O. [place] ([place]) 2020-01-03 2020-01-03 Appointmen NICOLE RAMOS Orthopedics [id number] [place] 11:30:00 11:30:00 t; NICOLE ARIZA, - [place] Physici BRADEN ARIZA, II wendy FELICIANO M.D. M.D. 2019-12-24 2019-12-24 Appointmen RICHARD MONTESINOS UTP [id number] [place] 14:00:00 14:00:00 t; OLIVIA MONTESINOS, Phys ici Lina BAKER D.O. 2019-12-24 2019-12-24 Appointmen RICHARD MARIN UTP [id number] [place] 13:15:00 13:15:00 t; SANDY, Physi ci Lina MARIN D.O. 2019-12-24 2019-12-24 Appointmen SURG, NURSE [facility] UTP [id number] [place] 09:30:00 09:30:00 t; SURG, Physi ci NURSE [facility] Results Test Description Test Time Test Comments Results Result Comments Source TESTOSTERONE 2022-09-24 23:56:40 Test Item Value Reference Range Interpretation Comme nts TESTOST (test code = 5666674666) 574.0 ng/dL 132.0-813.0 FLORENTIN (test code = FLORENTIN) Normal Ranges Adult Female: ?6-77 ng/dLAdult Male <50 years: ? ?132-813 ng/dLAdult Male >50 years: ? ?72-623 ng/dL Females on Control Pills may have higher results. Obese patients may have lower results. Biotin has been reported to cause a negative bias, interpret results relative to patient's use of biotin. Lab Interpretation (test code = Normal 39029-6) [facility] [id number] 23:48:37 Test Item Value Reference Range Interpretation Comments Insulin (test code = See_Comment [Autom ated message] [id number]) The system Thumbplay generated this result transmitted ref erence range: 1.9 - 23 .0 uIU/mL. The ref erence range was not u sed to interpret this result as normal/abnor mal. Lab Interpretation (test Normal code = 88538-4) [facility] CenterGLY[facility]OSYL[facility] HEMOGLOBIN (A1C)2022-09-24 22:49:36 Test Item Value Reference Range Interpretation Comments HGB A1C (test code = 4.7 % 4.0-5.7 4548-4) FLORENTIN (test code = FLORENTIN) Reference RangesNormal: <5.7%Prediabetes: 5.7 - 6.4%Diabetes: > 6.5% Lab Interpretation (test Normal code = 12718-8) [facility] CenterBETA [id number] 21:17:35 Test Item Value Reference Range Interpretation Comments BOH (test code = 0.1 mmol/L 0039812153) FLORENTIN (test code = Normal Ranges: ? ? FLORENTIN) Nonfasting ? Less than 0.1 mmol/L ? ? Overnight Fast ? ? ? Less than 0.4 mmol/L ? ? Fasting (1-2 weeks) ?6-8 mmol/L Test developed and characteristics determined by [facility] Laboratory Services. [facility] CenterTHYROID STIMULATING [id number] 20:30:06 Test Item Value Reference Range Interpretation Comments TSH (test code = See_Comment [Automated message] [id number]) The system Thumbplay generated this result transmitted ref erence range: 0.45 - 4 .70 mIU/L. The refe rence range was not u sed to interpret this result as normal/abnor mal. Lab Interpretation (test Normal code = 96292-8) [facility] Center[facility]. MET[facility]OLIC PANEL ([id number])2022-09-24 20:05:58 Test Item Value Reference Range Interpretation Comments NA (test code = 138 mmol/L 135-145 9992115347) K (test code = 3.9 mmol/L 3.5-5.0 4300710967) CL (test code = 105 mmol/L 98-108 5724289314) CO2 TOTAL (test code = 26 mmol/L 23-31 8138122768) AGAP (test code = 2-16 8828622573) BUN (test code = 16 mg/dL 7-23 1345112029) GLUCOSE (test code = 79 mg/dL 70-110 2682330946) CREATININE (test code = 0.84 mg/dL 0.60-1.25 2362894748) TOTAL BILI (test code = 1.3 mg/dL 0.1-1.1 H 3244987208) CALCIUM (test code = 8.7 mg/dL 8.6-10.6 2358911863) T PROTEIN (test code = 6.5 g/dL 6.3-8.2 0445343150) ALBUMIN (test code = 3.9 g/dL 3.5-5.0 0588081738) ALK PHOS (test code = 78 U/L 34-122 0933697427) ALTv (test code = 29 U/L 5-50 1742-6) AST(SGOT) (test code = 27 U/L 13-40 8915431498) eGFR (test code = mL/min/1.73m2 9888327666) FLORENTIN (test code = FLORENTIN) Association of [...] tests). Lab Interpretation Abnormal (test code = 45676-1) [facility][QL] LIPID [id number] 12:09:00 Test Item Value Reference Range Interpretation Comments CHOLESTEROL, TOTAL; 142 mg/dl <200 N Normal (test code = 3-3) HDL CHOLESTEROL; 27 mg/dl See_Comment [Automated message] Below Low Threshold The syst em which (test code = 2084-) generat ed this result transmit larissa reference range : > OR = 40. The reference range was not used to interpret this result as normal/abnormal . TRIGLYCERIDES; 143 mg/dl <150 N Normal (test code = 2571-8) LDL-CHOLESTEROL; 91 {MG/DL LAVERN} N Reference range: Normal (test code = <100 Bunny irable range 62060-4) <100 mg/dL for primary prevent ion; <70 [...] SS et al . DARIO. 2013;310( 19): 2083-7492 (http://educati on.[employer]. com/f aq/WAP175) CHOL/HDLC RATIO 5.3 {CALC} <5.0 (test code = CHOL/HDLC RATIO) NON HDL CHOLESTEROL 115 {MG/DL <130 N For sierra ents with (test code = NON HDL LAVERN} diabete s plus 1 CHOLESTEROL) major ASCVD ris k factor, treatin g to a non-HDL-C goa l of <100 mg/dL (LDL -C of <70 mg/dL) is considered a therapeutic opt ion. [facility][QL] IRON AND TOTAL IRON BINDING [id number] 12:09:00 Test Item Value Reference Range Interpretation Comments IRON, TOTAL (test code = 92 {mcg/dl} 50-180 N IRON, TOTAL) IRON BINDING CAPACITY (test 307 {mcg/dL ca} 250-425 N code = IRON BINDING CAPACITY) % SATURATION (test code = % 30 {% CALC} 20-48 N SATURATION) [facility][QL] CMP [id number] 12:09:00 Test Item Value Reference Range Interpretation [...] NON-AFR. 98 {ML/MIN/1.7} See_Comment N [Automated message] VENEZUELAN (test The system ich code = eGFR generated this result NON-AFR. VENEZUELAN) transmitt ed reference range: > OR = 6 0. The reference range was not used to int erpret this result as normal/abnormal . eGFR 113 {ML/MIN/1.7} See_Comment N [Automated message] VENEZUELAN (test The system ich code = eGFR [...] 0.2-1.2 Above High Threshold (test code = 35645-7) ALKALINE 63 u/l 36-130 N PHOSPHATASE (test code = ALKALINE PHOSPHATASE) AST; Above High 43 u/l 10-40 Threshold (test code = 1916-6) ALT; Normal (test 45 u/l 9-46 N code = 1742-6) [facility][QL] CBC (INCLUDES DIFF/PLT)2021-01-22 12:09:00 Test Item Value Reference Range Interpretation Comments WHITE BLOOD CELL COUNT 6.7 {Thousand/u} 3.8-10.8 N (test code = WHITE BLOOD CELL COUNT) RED BLOOD CELL COUNT (test 5.24 {Million/uL} 4.20-5.80 N code = RED BLOOD CELL COUNT) HEMOGLOBIN; Normal (test 15.7 g/dl 13.2-17.1 N code = 72117-8) HEMATOCRIT; Normal (test 45.8 % 38.5-50.0 N code = 4544-3) MCV; Normal (test code = 87.4 fL 80.0-100.0 N 787-2) MCHC; Normal (test code = 34.3 g/dl 32.0-36.0 N 38447-0) RDW; Normal (test code = 13.8 % 11.0-15.0 N 788-0) PLATELET COUNT; Normal 178 {Thousand/u} 140-400 N (test code = 777-3) MPV; Normal (test code = 10.3 fL 7.5-12.5 N 31839-8) ABSOLUTE NEUTROPHILS (test 4288 {cells/uL} 4384-9169 N code = ABSOLUTE NEUTROPHILS) ABSOLUTE LYMPHOCYTES [...] Normal (test 11.9 % N code = 39943-2) EOSINOPHILS; Normal (test 1.3 % N code = 98816-0) BASOPHILS; Normal (test 0.7 % N code = 23787-6) [facility][QL] PTH, INTACT (WITHOUT CALCIUM)2021-01-22 12:09:00 Test [...] Hypercalcemia L ow or Low Normal High [facility][QL] FOLATE, [id number] 12:09:00 Test Item Value Reference Range Interpretation Comments FOLATE, SERUM (test 7.7 ng/ml N Referenc e Range Low: code = FOLATE, <3.4 Borderli ne: 3.4-5.4 SERUM) Normal: >5.4 [facility][QL] VITAMIN [id number] 12:09:00 Test Item Value Reference Range Interpretation Comments VITAMIN B12 (test code = VITAMIN 609 pg/ml 200-1100 N B12) [facility][QL] TSH, 3RD GENERATION W/REFLEX TO [id number] 12:09:00 Test Item Value Reference Range Interpretation Comments TSH, 3RD GENERATION W/REFLEX TO 1.55 {MIU/L} 0.40-4.50 N FT4 (test code = TSH, 3RD GENERATION W/REFLEX TO FT4) [facility][QL] HEMOGLOBIN [id number] 12:09:00 Test Item Value Reference Range Interpretation [...] di abetes in children. Ac cording to [place] Faby betes Association (ADA)guidelines , hemoglobin A1c [...] tl racteristics have been deter mined by [employer]. It has not been cleare d or approved by theFDA. This assay has been validated pursuant to the CLIA regula tions and is used for clinic al purposes. [id number] 1.2 mg/L <4.4 This test was developed and SERGIO (test code = its analyt ical performance GFIF-MGBTQ-ZDONBS characteri stics have been SERGIO) determined by [employer]. It has not been cleared or appr [...] analytical performance characteristics have been determined by [employer]. It has not been cleared or approved by theFDA. This assay has been validated pursuant to the CLIA regulations and is used for clinical purposes.[facility][QL] VITAMIN B1, WHOLE [id number] 12:09:00 Test Item Value Reference Range Interpretation Comments VITAMIN B1, WHOLE 108 nmol/L 78-185 Vitamin lundberg pplementation BLOOD (test code = within 24 hours prior VITAMIN B1, WHOLE toblodeniz palm may affect BLOOD) the accuracy of results. This test was d eveloped and its analyti lavern performance characteristics have been determined by [employer]. It has not been cleared or approved by theFDA. This assay has been validated pursuant to the CLIA reg ulations and is used for clinical purposes. [facility][QL] VITAMIN A (RETINOL)2021-01-22 12:09:00 Test Item Value Reference Range Interpretation Comments VITAMIN A (test 33 {mcg/dl} 38-98 Clin Chem Vol. 34.No.8. code = VITAMIN A) [id number] 8. 1998Vitamin supplementation within 24 hours prior to blood draw may affect the accuracy of results. Thi s test was developed and i ts analytical perf ormance characteristics have been determined by [employer]. It has not been cleared or approved by theFDA. This assay has been validated pursuant to the CLIA reg ulations and is used for clinical purposes. [facility][Q] QUESTASSURED 25-OH VIT D, (D2,D3), [id number] 12:09:00 Test Item Value Reference Range Interpretation Comments VITAMIN D, 15 ng/ml 30-100 (Note)Reference range: Not 25-OH, D2 established Thi s test was (test code = developed and i ts analytical VITAMIN D, performancechar acteristics have 25-OH, D2) been determined by [employer]. It has not beencle ared or approved by the US Food and Drug Administration. Thisassay has been validated pursuant to the CLIA regulation and is usedfor Clinical purpos es.MDed [id number] [place] [address],[address] [facility] [id number] 00MicSachin Hoffman Note 1 No te 1 For additional info rmation, please refer to http://educatio n.[employer].com/faq/FAQ19 9 (This link is being provided for informational/e ducational purposes only.) VITAMIN D, 5 ng/ml Reference range : Not established 25-OH, D3 (test code = VITAMIN D, 25-OH, D3) Reference range: Not established[facility][QL] LIPID [id number] 11:00:00 Test Item Value Reference Range Interpretation Comments CHOLESTEROL, TOTAL; 178 mg/dl <200 N Normal (test code = 2092-3) HDL CHOLESTEROL; 42 mg/dl > OR = 40 N Normal (test code = 2084-) TRIGLYCERIDES; 113 mg/dl <150 N Normal (test code = 2571-8) LDL-CHOLESTEROL; 114 {MG/DL Reference r cornelio: Above High Threshold LAVERN} <100 De sirable range (test code = <100 mg/[place] [address]-9) primary prevent ion; <70 mg/dL for patients with C HD or diabetic patien ts with > or = 2 C HD risk factors. L DL-C is now calculat ed using the Jessica calculation, wh ich is a validated novel method providin g better accuracy than the Friedewald equation in the estimation of L DL-C. Andreas SS et al . DARIO. 2013;310( 19): 2427-4989 (http://educati on.[employer]. com/f aq/ROY688) CHOL/HDLC RATIO 4.2 {CALC} <5.0 N (test [...] [facility][QL] IRON AND TOTAL IRON BINDING [id number] 11:00:00 Test Item Value Reference Range Interpretation Comments IRON, TOTAL (test code = 81 {mcg/dl} 50-180 N IRON, TOTAL) IRON BINDING CAPACITY (test 422 {mcg/dL ca} 250-425 N code = IRON BINDING CAPACITY) % SATURATION (test code = % 19 {% CALC} 20-48 SATURATION) [facility][QL] CMP [id number] 11:00:00 Test Item Value Reference Range Interpretation [...] 90 {ML/MIN/1.7} > OR = 60 N VENEZUELAN (test code = eGFR NON-AFR. VENEZUELAN) eGFR 104 {ML/MIN/1.7} > OR = 60 N VENEZUELAN (test code = eGFR ) BUN/CREATININE NOT [...] mg/dl 0.2-1.2 N Normal (test code = 24094-6) ALKALINE 54 u/l 36-130 N PHOSPHATASE (test code = ALKALINE PHOSPHATASE) AST; Normal (test 21 u/l 10-40 N code = 1916-6) ALT; Normal (test 23 u/l 9-46 N code = 1742-6) [facility][QL] CBC (INCLUDES DIFF/PLT)2020-08-21 11:00:00 Test Item Value Reference Range Interpretation Comments WHITE BLOOD CELL COUNT 8.0 {Thousand/u} 3.8-10.8 N (test code = WHITE BLOOD CELL COUNT) RED BLOOD CELL COUNT (test 5.42 {Million/uL} 4.20-5.80 N code = RED BLOOD CELL COUNT) HEMOGLOBIN; Normal (test 16.8 g/dl 13.2-17.1 N code = 21178-2) HEMATOCRIT; Normal (test 49.3 % 38.5-50.0 N code = 4544-3) MCV; Normal (test code = 91.0 fL 80.0-100.0 N 787-2) MCHC; Normal (test code = 34.1 g/dl 32.0-36.0 N 97495-0) RDW; Normal (test code = 12.9 % 11.0-15.0 N 788-0) PLATELET COUNT; Normal 195 {Thousand/u} 140-400 N (test code = 777-3) MPV; Normal (test code = 9.1 fL 7.5-12.5 N 06741-5) ABSOLUTE NEUTROPHILS (test 5304 {cells/uL} 4009-5716 N code = ABSOLUTE NEUTROPHILS) ABSOLUTE LYMPHOCYTES [...] Normal (test 9.9 % N code = 06916-4) EOSINOPHILS; Normal (test 0.8 % N code = 65252-4) BASOPHILS; Normal (test 0.5 % N code = 74433-3) [facility][QL] PTH, INTACT (WITHOUT CALCIUM)2020-08-21 11:00:00 Test [...] or Low Normal High [facility][QL] FOLATE, [id number] 11:00:00 Test Item Value Reference Range Interpretation Comments FOLATE, SERUM (test 11.2 ng/ml N Referenc e Range Low: code = FOLATE, <3.4 Borderli ne: SERUM) 3.4-5.4 Normal: >5.4 [facility][QL] TSH, 3RD [id number] 11:00:00 Test Item Value Reference Range Interpretation Comments TSH; Normal (test code = 1.73 {MIU/L} 0.40-4.50 N 62478-5) [facility][QL] VITAMIN [id number] 11:00:00 Test Item Value Reference Range Interpretation Comments VITAMIN B12 366 pg/ml 200-1100 N Please Note: Al though the (test code = reference range for qekvhljL45 VITAMIN B12) is 200-1100 pg/ mL, it has been reported that b etween5 and 10% of patients wit h values between 200 and 400pg/mL may experience neur opsychiatric and hematologic abnormalities due to occult B 12 deficiency; less than 1%of patients with values above 40 0 pg/mL will have symptoms. [facility][QL] HEMOGLOBIN [id number] 11:00:00 Test Item Value Reference Range Interpretation [...] di abetes in children. Ac cording to [place] Faby betes Association (ADA)guidelines , hemoglobin A1c <7.0% represents optimalcontrol in non- di abetic patients. Differentmetric s may apply to specif ic patient populat ions. Standards of Me dical Care in Diabete s(ADA). [facility][Q] QUESTASSURED 25-OH VIT D, (D2,D3), [id number] 11:00:00 Test Item Value Reference Range Interpretation Comments VITAMIN D, 15 ng/ml 30-100 (Note) Vitamin D, 25-Hydroxy 25-OH, TOTAL reports concent rations of two (test code = common forms, 2 5-OHD2 and VITAMIN D, 25-OHD3. 25-OHD 3 indicates both 25-OH, TOTAL) endogenous pro duction and supplementation . 25-OHD2 is an indicator of ex ogenous sources such as diet o r supplementation . Therapy is based on measur ement of Total 25-OHD, with le vels <20 ng/mL indicative of V itamin D deficiency, whi le levels between 20 ng/mL and 30 ng/mL suggest insufficiency. Optimal levels are > or = 30 n g/mL. Vitamin D is fat-soluble and therefore inadvertent or intentional ingestion of ex cessively high amounts could b e toxic. Studies in children and adults suggest blood levels wo uld need to exceed 150 ng/m L before there is any concern. Ho jerry MF, Brandon MARTINEZ, David HILL, et al. Evaluation, lily atment and prevention of v itamin D deficiency: an Endocrine Society clinical practi ce guideline. J Clin Endocrinol Metab. 2011;96(7):1911 -30. For additional info rmation, please refer to http://[employer]/faq/FAQ19 9 VITAMIN D, 7 ng/ml Reference range [...] regulation and is usedfor Clinical purpos es.MDFmed [id number] [facility] [address] [facility] [id number] 00Dalia Espinoza Note 1 Note 1 For additional information, please refer to http://[employer]/faq/FAQ19 9 (This link is being provided for informational/e ducational purposes only.) [facility][QL] VITAMIN E (TOCOPHEROL)2020-08-21 11:00:00 Test Item [...] tl racteristics have been deter mined by [employer]. It has not been cleare d or approved by theFDA. This assay has been validated pursuant to the CLIA regula tions and is used for clinic al purposes. QWHJ-ALUMV-WWZHIG 2.2 mg/L <4.4 This test was developed and SERGIO (test code = its analyt ical performance QLXZ-LARDH-NEXYKR characteri stics have been SERGIO) determined by [employer]. It has not been cleared or appr maciel by theFDA. This as say has been validated pursu ant to the CLIA regulation s and is used for clinical pu rposes. [facility][QL] VITAMIN A (RETINOL)2020-08-21 11:00:00 Test Item Value Reference Range Interpretation Comments VITAMIN A (test 46 {mcg/dl} 38-98 Clin Chem Vol. 34.No.8. code = VITAMIN A) fi6637-113 1997Vitamin supplementation within 24 hours prior to blood draw may affect the accuracy of results. Thi s test was developed and i ts analytical perf ormance characteristics have been determined by [employer]. It has not been cleared or approved by theFDA. This assay has been validated pursuant to the CLIA reg ulations and is used for clinical purposes. [facility][QL] VITAMIN B1, WHOLE [id number] 11:00:00 Test Item Value Reference Range Interpretation Comments VITAMIN B1, WHOLE 142 nmol/L 78-185 Vitamin lundberg pplementation BLOOD (test code = within 24 hours prior VITAMIN B1, WHOLE toblood dr palm may affect BLOOD) the accuracy of results. This test was d eveloped and its analyti lavern performance characteristics have been determined by [employer]. It has not been cleared or approved by theFDA. This assay has been validated pursuant to the CLIA reg ulations and is used for clinical purposes. [facility][U] XRAY KNEE 3 VWS RIGHT [id number] 08:42:00Images acquired, not reported on this accession number.[facility][U] XRAY KNEE 3 VWS LEFT [id number] 08:24:00Images acquired, not reported on this accession number. [facility] Knee wo contrast [id number] 14:00:00 Test Item Value Reference Range Interpretation Comments Knee wo contrast MR Cancel Reason: Other (test code = Knee wo (see comments) contrast MR) [facility]] CBC (INCLUDES DIFF/PLT)2019-12-24 10:00:01 Test Item Value Reference Range Interpretation Comments WBC (test code = 6690-2) 6.4 {K/CMM} 3.7-10.4 RBC (test code = 789-8) 5.33 {M/CMM} 4.70-6.10 Hgb (test code = 718-7) 15.7 g/dl 14.0-18.0 Hct (test code = 31467-7) 48.2 % 42.0-54.0 MCV (test code = 787-2) 90.4 fL 80.0-94.0 MCH (test code = 785-6) 29.5 pg 27.0-31.0 MCHC (test code = 786-4) 32.7 g/dl 32.0-36.0 RDW (test code = 788-0) 13.3 % 11.5-14.5 Platelet (test code = 76133-2) 176 {K/CMM} 133-450 Mean Platelet Volume (test code 7.6 fL 7.4-10.4 = 33298-7) [facility][QL] [id number] 10:00:01 Test Item Value Reference Range Interpretation Comments Segmented Neutrophils (test code 61.1 % 45.0-75.0 = 26602-2) Monocytes (test code = 44254-2) 7.9 % 2.0-12.0 Lymphocytes (test code = 29082-6) 28.3 % 20.0-40.0 Eosinophils (test code = 78648-2) 2.0 % 0.0-4.0 Basophils (test code = 706-2) 0.7 % 0.0-1.0 Segs-Bands # (test code = 3.9 {K/CMM} 1.5-8.1 71136-6) Lymphocytes # (test code = 1.8 {K/CMM} 1.0-5.5 50902-1) Monocytes # (test code = 33121-2) 0.5 {K/CMM} 0.0-0.8 Eosinophils # (test code = 0.1 {K/CMM} 0.0-0.5 87400-4) [facility]] CMP [id number] 10:00:01 Test Item Value Reference Range Interpretation Comments Sodium Level 138 {mEq/l} 135-145 (test code = 2951-2) Potassium Level 4.1 {mEq/l} 3.5-5.1 (test code = 2823-3) Chloride Level 104 {mEq/l} 95-109 (test code = 2075-0) Carbon Dioxide 28 {mEq/l} 24-32 (test code = 2027-9) AGAP (test code = 10.1 {mEq/l} 10.0-20.0 64822-5) Glucose Lvl (test 96 mg/dl 70-99 Adult refe rence range code = 2345-7) values reflec t the clinical guidel inesof the [place] [employer] es [employer]. Creatinine Lvl 1.00 mg/dl 0.50-1.40 (test code = 2160-0) Blood Urea 10 mg/dl 7-22 Nitrogen (test code = 3094-0) BUN/Creatinine 10 6-25 Ratio (test code = 3097-3) Total Protein 7.7 g/dl 6.4-8.4 (test code = 2885-2) Albumin Lvl (test 3.9 g/dl 3.5-5.0 code = 1751-7) Globulin (test 3.8 g/dl 2.7-4.2 code = 75347-7) A/G Ratio (test 1.0 0.7-1.6 code = 1759-0) Calcium Level 8.7 mg/dl 8.5-10.5 Total (test code = 41810-0) ALT (test code = 45 u/l 0-65 1743-4) AST (test code = 35 u/l 0-37 46946-3) Bili Total (test 0.9 mg/dl 0.2-1.3 code = 1975-2) Alk Phos (test 66 u/l 39-136 The pediatric reference code = 1783-0) ranges for th is test represent a CLSI-basedtrans ference of the CALIPER jovani abase of pediatric refer ence intervals to e[employer] [place] analyzer (Clinical Biochemistry 46 (2013): 8061-0053). [facility] has not internally validated these reference ranges and therefore they should be used only in th e context of a thoroughcl inical assessment. eGFR (test code = 91 The eGFR i s calculated 52772-3) {ML/MIN/1.7} using the CKD-E PI formula. In [...] National Kidney Disease Education Progr am(NKDEP) which additiona lly recommends that when the eGFR is used in patientswith ex tremes of body mass index for purposes of shantel g dosing, the eGFR should be multiplied by t he estimated BMI. [facility][QL] FOLATE, [id number] 10:00:01 Test Item Value Reference Range Interpretation Comments Folate Level (test code = 2284-8) 7.0 ng/ml >=3.0 [facility][QL] IRON AND TOTAL IRON BINDING [id number] 10:00:01 Test Item Value Reference Range Interpretation Comments Iron (test code = 2498-4) 89 ug/dL 45-160 % S[place] Fe (test code = 2502-3) 22 % 12-57 TIBC (test code = 2500-7) 412 ug/dL 228-428 UIBC (test code = UIBC) 323 ug/dL 110-370 [facility][QL] LIPID [id number] 10:00:01 Test Item Value Reference Range Interpretation Comments Chol (test code = 2093-3) 176 mg/dl <=199 Trig (test code = 2571-8) 104 mg/dl <=149 HDL Cholesterol; Below Low 43 mg/dl >=61 Threshold (test code = 2085-9) CHD Risk (test code = 82963-1) 4.09 4.00-7.30 LDL; Above High Threshold (test 112 mg/dl <=99 code = 45962-8) VLDL (test code = VLDL) 21 [facility][QL] VITAMIN [id number] 10:00:01 Test Item Value Reference Range Interpretation Comments Vitamin B12 Level (test code = 320 pg/ml 254-1320 2-9) [facility][QL] TSH, 3RD GENERATION W/REFLEX TO [id number] 10:00:01 Test Item Value Reference Range Interpretation Comments TSH (test code = 33477-3) 1.850 {uIU/ml} 0.360-3.740 [facility][QL] HEMOGLOBIN [id number] 10:00:01 Test Item Value Reference Range Interpretation Comments Hemoglobin A1c (test code = 4548-4) 5.5 % <=5.6 [facility][QL] PTH, INTACT (WITHOUT CALCIUM)[id number] 10:00:01 Test Item Value Reference Range Interpretation Comments Parathyroid Hormone Intact (test 75.3 pg/ml 18.4-80.1 code = 2731-8) [facility][QL] VITAMIN D, 25-HYDROXY, LC/MS/[id number] 10:00:01 Test Item Value Reference Range Interpretation Comments Vitamin D, 25-OH, 8.1 ng/ml 30.0-100.0 Reference range is based Total (test code = on recomm endations in the Vitamin D, 25-OH, EndocrineS ociety Clinical Total) Practice Guidel ine (J Clin Endocrinol Zqozg3663;96:19 11-1930) [facility][H] Vit [id number] 10:00:01 Test Item Value Reference Range Interpretation [...] the Food and Drug Administration. Performed At: [facility] [id number] ra Lindsey PACK Ph:[phone] [facility][H] Vitamin E [id number] 10:00:01 Test Item Value Reference Range Interpretation Comments Alpha-Tocoph 6.4 mg/L 7.0-25.1 This test was d eveloped and its sergio (test performance code = characteristics determined by [facility]. It has not been cleared sergio) orapproved by t Food and Drug Administration. Gamma-Tocoph 2.7 mg/L 0.5-5.5 This test was d eveloped and its sergio (test performance code = characteristics determined by [facility]Toc[facility]. It has not been cleared sergio) orapproved by t Food and Drug Administration. Reference intervals for a lpha and gamma-tocophero ldetermined from National Health and Nutrition ExaminationSurv , 6182-2416. Individuals wit h alpha-tocopherol levelsless than 5.0 mg/L are considered elliott min E deficient.Perfo rmed At: [facility] [id number] Sanjai MD Ph:[phone] [facility][QLH] VITAMIN B1, WHOLE [id number] 10:00:01 Test Item Value Reference Range Interpretation Comments Vitamin B1 117.0 66.5-200.0 This test was d eveloped and its Level (test nmol/L performance code = characteristics determined by Vitamin B1 [facility]. It has not been Level) cleared orappro angie by the Food and Drug Administration. Performed At: [facility] [id number] Portillo MD Ph:[phone] [facility]"
[2022-12-18 17:38] LABS: Absolute Lymphocytes (CBC) 1.1 K/uL (0.7-4.9); Hematocrit 44.3 % (39.6-49.0); Lymphocytes % 15.2 % (15.3-44.8); MCV 90.2 fL (80-100); MPV 7.1 fL (7.6-11.3); RBC Red Blood Cell Count 4.91 M/uL (4.33-5.43)
[2022-12-18 18:19] LABS: Albumin 3.5 g/dL (3.4-5.0); Bilirubin Direct 0.3 mg/dL (0-0.2); Bilirubin Total 0.9 mg/dL (0.2-1.0); Magnesium 2.1 mg/dL (1.6-2.4); Protein, Total 6.8 g/dL (6.4-8.2); Thyroid Stimulating Hormone 0.779 uIU/mL (0.358-3.740)
[2022-12-18 18:32] LABS: T3 Free 2.48 pg/mL (2.18-3.98)
--- NOTE | 2022-12-18 19:16 | ER ---
Nurse's Notes [facility] Name: Serge Rich Age: 46 yrs Sex: Male : 1975 Arrival Date: 12/18/2022 Time: 16:18 Bed 13 Private MD: Diagnosis: Hypoglycemia, unspecified Presentation: 12/18 16:21 Chief complaint: Patient states: "My blood sugar went down to 44 at work. I ate mb9 crackers and jerky and it went back up to 98. Then it went back down to 70. I just feel like crap". Coronavirus screen: Vaccine status: Patient reports receiving the 2nd dose of the covid vaccine. Ebola Screen: No symptoms or risks identified at this time. Initial Sepsis Screen: Does the patient meet any 2 criteria? No. Patient's initial sepsis screen is negative. Does the patient have a suspected source of infection? No. Patient's initial sepsis screen is negative. Risk Assessment: Do you want to hurt yourself or someone else? Patient reports no desire to harm self or others. Onset of symptoms was December 18, 2022. 16:21 Method Of Arrival: Ambulatory mb9 16:21 Acuity: MODESTA 3 mb9 Triage Assessment: 16:35 General: Appears distressed, Behavior is cooperative, appropriate for age, anxious. bp Pain: Denies pain. EENT: No deficits noted. Neuro: No deficits noted. Cardiovascular: No deficits noted. Respiratory: No deficits noted. GI: No signs and/or symptoms were reported involving the gastrointestinal system. : No signs and/or symptoms were reported regarding the genitourinary system. Derm: No deficits noted. Musculoskeletal: No deficits noted. Historical: - Allergies: 16:27 Aspirin; mb9 16:27 Keflex; mb9 16:27 KETAMINE; mb9 16:27 Morphine; mb9 16:27 Sulfa (Sulfonamide Antibiotics); mb9 - Home Meds: 16:27 pantoprazole oral [Active]; mb9 - PMHx: 16:27 Hypertension; Obesity; enlarged aorta; Bundle Branch Block; Right; mb9 - PSHx: 16:27 Cholecystectomy; Gastric Bypass; mb9 - Immunization history:: Adult Immunizations up to date. - Social history:: Smoking status: Patient denies any tobacco usage or history of. Screenin:36 [facility] ED Fall Risk Assessment (Adult) History of falling in the last 3 months, bp including since admission No falls in past 3 months (0 pts). Abuse screen: Denies threats or abuse. Denies injuries from another. Nutritional screening: No deficits noted. Tuberculosis screening: No symptoms or risk factors identified. Assessment: 16:36 General: SEE TRIAGE NOTE. bp 17:37 Reassessment: No changes from previously documented assessment. Patient and/or family bp updated on plan of care and expected duration. Pain level reassessed. 18:47 Reassessment: Patient appears in no apparent distress at this time. bp 19:36 Reassessment: Patient appears in no apparent distress at this time. No changes from lg3 previously documented assessment. Patient and/or family updated on plan of care and expected duration. Pain level reassessed. Patient is alert, oriented x 3, equal unlabored respirations, skin warm/dry/pink. Patient denies pain at this time. Patient states feeling better. Patient states symptoms have improved. Vital Signs: 16:21 BP 104 / 71; Pulse 82; Resp 16; Temp 98.2; Pulse Ox 100% on R/A; Weight 118.39 kg; mb9 Height 5 ft. 9 in. (175.26 cm); Pain 0/10; 17:37 BP 100 / 68; Pulse 58; Resp 16; Pulse Ox 100% ; bp 18:46 BP 121 / 76; Pulse 61; Resp 16; Pulse Ox 100% ; bp 16:21 Body Mass Index 38.54 (118.39 kg, 175.26 cm) mb9 ED Course: 16:18 Patient arrived in ED. am2 16:23 Watson Lopez PA is PHCP. cp 16:23 Alex Tyson MD is Attending Physician. cp 16:27 Triage completed. mb9 16:27 Arm band placed on. mb9 16:31 Gutierrez Grimm, GARRETT is Primary Nurse. bp 16:36 Patient has correct armband on for positive identification. Bed in low position. Call bp light in reach. Side rails up X2. 17:29 Basic Metabolic Panel Sent. bc6 17:29 CBC with Diff Sent. bc6 17:29 LFT's Sent. bc6 17:29 Magnesium Sent. bc6 17:29 Inserted saline lock: 20 gauge in left antecubital area, using aseptic technique. bc6 19:37 No provider procedures requiring assistance completed. IV discontinued, intact, lg3 bleeding controlled, No redness/swelling at site. Pressure dressing applied. Administered Medications: No medications were administered Medication: 19:37 VIS not applicable for this client. lg3 Outcome: 19:15 Discharge ordered by . cp 19:36 Patient left the ED. lg3 19:37 Discharged to home ambulatory. lg3 19:37 Condition: stable 19:37 Discharge instructions given to patient, Instructed on discharge instructions, follow up and referral plans. Demonstrated understanding of instructions. Signatures: Daphne Lal, RN RN iw Watson Lopez PA PA cp Lizbeth Arce am2 Gutierrez Grimm RN RN bp Mary Galindo RN RN lg3 Abigail Parsons RN RN mb9 Masha Nava bc6 Corrections: (The following items were deleted from the chart) 16:28 16:27 PSHx: Gastric sleeve; mb9 mb9 17:19 16:21 Acuity: MODESTA 4 mb9 mb9 17:19 17:18 Acuity: MODESTA 3 iw mb9
--- NOTE | 2022-12-18 19:16 | EDPHYS ---
Physician Documentation [facility] Name: Serge Rich Age: 46 yrs Sex: Male : 1975 Arrival Date: 12/18/2022 Time: 16:18 Bed 13 Private MD: ED Physician Alex Tyson HPI: 12/18 17:15 This 46 yrs old Male presents to ER via Ambulatory with complaints of Low Blood Sugar. cp 17:15 The patient or guardian reports hypoglycemia, that was potentially precipitated by no cp particular event. Onset: The symptoms/episode began/occurred today. 17:15 Associated signs and symptoms: Pertinent negatives: nausea, vomiting, diarrhea. cp 17:15 Patient reports history of gastric bypass surgery and since surgery has had episodes of cp hypoglycemia. Patient reports feeling lightheaded at work today so he checked his blood glucose and it was 44. Patient reports this was after eating lunch today. 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 Historical: - Allergies: 16:27 Aspirin; mb9 16:27 Keflex; mb9 16:27 KETAMINE; mb9 16:27 Morphine; mb9 16:27 Sulfa (Sulfonamide Antibiotics); mb9 - Home Meds: 16:27 pantoprazole oral [Active]; mb9 - PMHx: 16:27 Hypertension; Obesity; enlarged aorta; Bundle Branch Block; Right; mb9 - PSHx: 16:27 Cholecystectomy; Gastric Bypass; mb9 - Immunization history:: Adult Immunizations up to date. - Social history:: Smoking status: Patient denies any tobacco usage or history of. ROS: 17:20 Constitutional: Negative for body aches, chills, fever, poor PO intake. cp 17:20 Eyes: Negative for injury, pain, redness, and discharge. cp 17:20 ENT: Negative for drainage from ear(s), ear pain, sore throat, difficulty swallowing, difficulty handling secretions. 17:20 Cardiovascular: Negative for chest pain, edema, palpitations. 17:20 Respiratory: Negative for cough, shortness of breath, wheezing. 17:20 Abdomen/GI: Negative for abdominal pain, vomiting, diarrhea, constipation. 17:20 Neuro: Negative for altered mental status, headache, syncope, weakness. 17:20 All other systems are negative. Exam: 17:25 Constitutional: The patient appears in no acute distress, alert, awake, comfortable, cp non-diaphoretic, non-toxic, well developed, well nourished. 17:25 Head/Face: Normocephalic, atraumatic. cp 17:25 Eyes: Periorbital structures: appear normal, Conjunctiva: normal, no exudate, no injection, Sclera: no appreciated abnormality, Lids and lashes: appear normal, bilaterally. 17:25 ENT: External ear(s): are unremarkable, Nose: is normal, Mouth: Lips: moist, Oral mucosa: moist, Posterior pharynx: is normal, airway is patent, no erythema, no exudate. 17:25 Neck: ROM/movement: is normal, is supple, without pain, no range of motions limitations. 17:25 Chest/axilla: Inspection: normal. 17:25 Cardiovascular: Rate: normal, Rhythm: regular. 17:25 Respiratory: the patient does not display signs of respiratory distress, Respirations: normal, no use of accessory muscles, no retractions, labored breathing, is not present, Breath sounds: are clear throughout, no decreased breath sounds, no stridor, no wheezing. 17:25 Abdomen/GI: Inspection: abdomen appears normal, Palpation: abdomen is soft and non-tender, in all quadrants. 17:25 Back: pain, is absent, ROM is normal. 17:25 Neuro: Orientation: to person, place \T\ time. Mentation: is normal, Cerebellar function: is grossly normal, Motor: moves all fours, strength is normal, Sensation: is normal. 17:40 ECG was reviewed by the Attending Physician. cp Vital Signs: 16:21 BP 104 / 71; Pulse 82; Resp 16; Temp 98.2; Pulse Ox 100% on R/A; Weight 118.39 kg; mb9 Height 5 ft. 9 in. (175.26 cm); Pain 0/10; 17:37 BP 100 / 68; Pulse 58; Resp 16; Pulse Ox 100% ; bp 18:46 BP 121 / 76; Pulse 61; Resp 16; Pulse Ox 100% ; bp 16:21 Body Mass Index 38.54 (118.39 kg, 175.26 cm) mb9 MDM: 16:33 Patient medically screened. cp 19:15 Data reviewed: vital signs, nurses notes, lab test result(s), EKG. cp 19:15 Consideration of Admission/Observation Escalation of care including cp admission/observation considered. Counseling: I had a detailed discussion with the patient and/or guardian regarding: the historical points, exam findings, and any diagnostic results supporting the discharge/admit diagnosis, lab results, the need for outpatient follow up, analytical data miner, to return to the emergency department if symptoms worsen or persist or if there are any questions or concerns that arise at home. 12/18 16:39 Order name: Glucose, Ancillary Testing; Complete Time: 17:15 EDMS 12/18 17:16 Order name: TSH; Complete Time: 18:44 cp 12/18 17:16 Order name: T3 Free; Complete Time: 18:44 cp 12/18 17:16 Order name: Basic Metabolic Panel; Complete Time: 18:44 cp 12/18 18:44 Interpretation: Normal except: GLUC 115. cp 12/18 17:16 Order name: CBC with Diff; Complete Time: 18:44 cp 12/18 18:44 Interpretation: Normal except: MPV 7.1; HUBERT% 75.5; LYM% 15.2. cp 12/18 17:16 Order name: LFT's; Complete Time: 18:44 cp 12/18 18:44 Interpretation: Normal except: BILID 0.3. cp 12/18 17:16 Order name: Magnesium; Complete Time: 18:44 cp 12/18 17:16 Order name: EKG; Complete Time: 17:18 cp 12/18 17:16 Order name: Cardiac monitoring; Complete Time: 17:27 cp 12/18 17:16 Order name: EKG - Nurse/Tech; Complete Time: 17:36 cp 12/18 17:16 Order name: IV Saline Lock; Complete Time: 17:29 cp 12/18 17:16 Order name: Labs collected and sent; Complete Time: 17:29 cp 12/18 17:16 Order name: O2 Per Protocol; Complete Time: 17:27 cp 12/18 17:16 Order name: O2 Sat Monitoring; Complete Time: 17:27 cp EC:40 Rate is 58 beats/min. Rhythm is regular. MS interval is normal. QRS interval is cp prolonged at 152 msec. QT interval is normal. T waves are Inverted in leads V2, V3, V4. Interpreted by me. Reviewed by me. Administered Medications: No medications were administered Disposition: 12/19 07:45 Co-signature as Attending Physician, Alex Tyson MD I reviewed the patient's care rt provided by the Advanced Practice Provider and agree with the diagnosis and treatment plan. Disposition Summary: 12/18/22 19:15 Discharge Ordered Location: Home cp Problem: new cp Symptoms: have improved cp Condition: Stable cp Diagnosis - Hypoglycemia, unspecified cp Followup: cp - With: Private Physician - When: 2 - 3 days - Reason: Recheck today's complaints Discharge Instructions: - Discharge Summary Sheet cp - Hypoglycemia cp - Blood Glucose Monitoring, Adult cp - Preventing Hypoglycemia cp Forms: - Medication Reconciliation Form cp - Thank You Letter cp - Antibiotic Education cp - Prescription Opioid Use cp - Work release form lg3 Signatures: Dispatcher [employer] EDMS Watson Lopez PA PA cp Breneman, Mary Beth, RN RN mb9 Alex Tyson MD MD rt Corrections: (The following items were deleted from the chart) 12/18 16:28 16:27 PSHx: Gastric sleeve; mb9 mb9 12/19 18:50 12/18 17:15 Patient reports history of gastric bypass surgery and since surgery has had cp episodes of hypoglycemia. 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 cp
[2022-12-18 19:51] VITALS: TEMP 98.2; O2SAT 100
[2022-12-18 20:15] VITALS: BP 100/68
== END 2022-12-18 19:36 | disposition home or self-care (01) ==
LOC: ER 16:08
DX: E16.2 Hypoglycemia, unspecified (principal); I10 Essential (primary) hypertension; Z88.1 Allergy status to other antibiotic agents; Z88.2 Allergy status to sulfonamides; Z88.5 Allergy status to narcotic agent; Z88.6 Allergy status to analgesic agent; Z88.8 Allergy status to other drugs, medicaments and biological substances
CPT/HCPCS: 36415; 80048; 80076; 82947; 83735; 84443; 84481; 85025; 93005; 99283

== ENCOUNTER 2023-04-23 20:50 | Emergency (ER) | payer OTHER ==
--- OUTSIDE RECORDS SUMMARY | 2023-04-23 20:56 | XMS REPORT | Continuity of Care Document ---
:1975 Author Organization [facility] t Address [address] [place] [address] Care Team Providers Name Role Phone Cyrus Hendrickson Dannie Primary Care Physician CARLOS ZAYAS Attending Clinician Unavailable SANDY MARIN Attending Clinician Unavailable HOSSEIN SARABIA Attending Clinician Unavailable Dandre Mukherjee Md Attending Clinician Doctor Unassigned, [place] Attending Clinician Unavailable Mehran Dela Cruz Attending Clinician Lab, [facility] Attending Clinician Unavailable MEHRAN MAURICIO Attending Clinician Unavailable [facility] Attending [...] Type Policy Number Effective Date Expiration Date [facility] [id number] 2020 STAR 00:00:00 Problems Condition Condition Condition Status Onset Resolution Last Treating Co mments Source Name Details Category Date Date Treatment Clinician Date Hypoglycem Hypoglycem Disease Active U T ia ia 2-28 Health 00:00: 00 Night Night Disease Active 2021-11 Univers sweats sweats 1-15 ity of 00:00: [place] 00 Medical Branch Dizziness Dizziness Disease Active 2021-11 Uni vers 1-15 ity of 00:00: [place] 00 Medical Branch Encounter Encounter Disease Active 2021-11 Uni vers to to 1-15 ity of establish establish 00:00: [facility] Medical Branch RBBB RBBB Disease Active 2021-11 Univers 1-15 ity of 00:00: [place] 00 Medical Branch Class 3 Class 3 [...] Painful Painful Disease Active UT orthopaedi orthopaedi 3 He alth c hardware c hardware 00:00: 00 Chronic Chronic Disease Active UT pain of pain of 01-13 Health left ankle left ankle 00:00: 00 Bilateral Bilateral Disease Active Last [facility] primary primary 721 [facility]ess[facility]alt [facility] osteoarthr osteoarthr 00:00: t [...] Fat Fat Disease Active UT malabsorpt malabsorpt 01-22 He alth ion ion 00:00: 00 Nausea and Nausea and Disease Active U T vomiting vomiting 01-22 Health 00:00: 00 S/P S/P Disease Active UT gastric gastric 2-02 Health bypass bypass 00:00: 00 Morbid Morbid Disease Active 2019-11 UT obesity obesity 0-22 Health 00:00: 00 Morbid Morbid Disease Active 2019-11 UT obesity obesity 0-22 Health with BMI with BMI 00:00: of of 00 60.0-69.9, 60.0-69.9, adult adult Malnutriti Malnutriti Disease Active 2019-11 U T on on 0 Health 00:00: 00 Vitamin D Vitamin D [...] s Branch ASPIRIN DRUG Active Low Unknown-Cmnt Uni vers INGREDI 6- ity of 00:00: [place] 00 Medical Branch CEPHALEX DRUG Active Low Unknown-Cmnt Un gabriel IN INGREDI 6 ity of 00:00: [place] 00 Medical Branch SULFA Drug Active Low Unknown-Cmnt Univ ers (SULFONA Class 04-15 ity of MIDE 00:00: [place] ANTIBIOT 00 Medical ICS) Branch Aspirin Drug Active Unknown - Univer s Allergy See comments 04-15 ity of 00:00: [place] 00 Medical Branch Cephalex Drug Active Unknown - Unive rs in Allergy See comments 04-15 ity of 00:00: [place] 00 Medical Branch Sulfa Drug Active Unknown - Univers (Sulfona Allergy See comments 04-15 i ty of mide 00:00: [place] Antibiot 00 Medical ics) Branch Aspirin Allergy Active UT to 04-15 Health substanc 00:00: e 00 Cephalex Allergy Active UT in to 04-15 Health substanc 00:00: e 00 Sulfa Allergy Active UT Antibiot to 04-15 Health ics substanc 00:00: e 00 sulfa Allergy Active UT to drug Physici (finding ans ) NO KNOWN Drug Active Univers ALLERGIE Class ity of S [facility] Family History Family Member Diagnosis Comments [...] Date Stop Date Quantity Comments Source History [facility] Health Alcohol Std Drinks History [facility] Health Alcohol Binge History of tobacco Current smoker [facility] use History [facility] Health Alcohol Comment Alcohol intake 2023-01-05 2023-01-05 Lifetime [facility] 00:00:[facility] 00:00:00 non-drinker (finding) Exposure to 2022-12-02 2022-12-12 Not sure [facility] SARS-CoV-2 (event) 00:00:00 07:52:00 Tobacco use and 2022-06-24 2022-06-24 Smokeless tobacco [facility] exposure 00:00:00 00:00:00 non-user History SDOH 2021-05-07 2021-05-07 1 [facility] Alcohol Frequency 00:00:00 00:00:00 Cigarette 2021-04-21 2021-04-21 [facility] pack-years 00:00:00 00:00:00 Sex Ass[birth year] At [birth year] [facility] 00:00:00 00:00:00 Smoking Status Start Date Stop Date Source Tobacco smoking consumption unknown [facility] Ex-smoker 2022-06-24 00:00:00 2022-06-24 00:00:00 [facility] Medications Ordered Filled Start Stop Current Ordering Indication Dosage Frequency Signature Comments Components Source Medication Medication Date Date Medication? Clinician (SIG) Name Name Continuous Yes [id number] Use to UT Blood Gluc 3-08 check Health Sensor 00:00: blood (FreeStyle 00 glucose Adrianne 2 levels Sensor) daily as misc directed Change sensor every 14 days Dx Code E16.2 Hypoglycem ia Continuous Yes [id number] Use to UT Blood Gluc 3-08 check Health Sensor 00:00: blood (FreeStyle 00 glucose Adrianne 2 levels Sensor) daily as misc directed Change sensor every 14 days Dx Code E16.2 Hypoglycem ia Dasiglucago 2022- No [id number] .6mg Inject 0.6 UT n HCl 2-28 08-28 mg under Health ([place]) 00:00: 04:59 the skin 0.6 00 :00 if needed MG/0.6ML (Hypoglyce solution lawrence). auto-inject or Dasiglucago 2022- No [id number] .6mg Inject 0.6 UT n HCl 2-28 08-28 mg under Health ([place]) 00:00: 04:59 the skin 0.6 00 :00 if needed MG/0.6ML (Hypoglyce solution lawrence). auto-inject or VITAMIN A 0 Yes Take by UT PO 2-24 mouth. Health 09:20: 50 VITAMIN E 2022-0 Yes Take by UT PO 2-24 mouth. Health 09:20: 50 VITAMIN A 2022-0 Yes Take by UT PO 2-24 mouth. Health 09:20: 50 VITAMIN E 2022-0 Yes Take by UT PO 2-24 mouth. Health 09:20: 50 VITAMIN A 2022-0 Yes Take by UT PO 2-24 mouth. Health 09:20: 50 VITAMIN E 2022-0 Yes Take by UT PO 2-24 mouth. Health 09:20: 50 VITAMIN A 2022-0 Yes Take by UT PO 2-24 mouth. Health 09:20: 50 VITAMIN E 2022-0 Yes Take by UT PO 2-24 mouth. Health 09:20: 50 VITAMIN A 2022-0 Yes Take by UT PO 2-24 mouth. Health 09:20: 50 VITAMIN E 2022-0 Yes Take by UT PO 2-24 mouth. Health 09:20: 50 Multiple 2022-0 Yes Take by UT Vitamins-Mi 2-24 mouth. Health nerals 09:20: (BARIATRIC 13 MULTIVITAMI NS/IRON PO) calcium 2022-0 Yes 950mg QD Take 950 UT citrate 2-24 mg by Health (Calcitrate 09:20: mouth 1 ) 950 (200 13 (one) time Ca) MG each day. tablet cyanocobala 2022-0 Yes 100ug QD Take 100 U T min 2-24 mcg by Health (Vitamin 09:20: mouth 1 B-12) 100 13 (one) time MCG tablet each day. Multiple 2022-0 Yes Take by UT Vitamins-Mi 2-24 mouth. Health nerals 09:20: (BARIATRIC 13 MULTIVITAMI NS/IRON PO) calcium 2022-0 Yes 950mg QD Take 950 UT citrate 2-24 mg by Health (Calcitrate 09:20: mouth 1 ) 950 (200 13 (one) time Ca) MG each day. tablet cyanocobala 2022-0 Yes 100ug QD Take 100 U T min 2-24 mcg by Health (Vitamin 09:20: mouth 1 B-12) 100 13 (one) time MCG tablet each day. Multiple 2022-0 Yes Take by UT Vitamins-Mi 2-24 mouth. Health nerals 09:20: (BARIATRIC 13 MULTIVITAMI NS/IRON PO) calcium 2022-0 Yes 950mg QD Take 950 UT citrate 2-24 mg by Health (Calcitrate 09:20: mouth 1 ) 950 (200 13 (one) time Ca) MG each day. tablet cyanocobala 3-0 Yes 100ug QD Take 100 U T min 2-24 mcg by Health (Vitamin 09:20: mouth 1 B-12) 100 13 (one) time MCG tablet each day. Multiple 2022-0 Yes Take by UT Vitamins-Mi 2-24 mouth. Health nerals 09:20: (BARIATRIC 13 MULTIVITAMI NS/IRON PO) calcium 3-0 Yes 950mg QD Take 950 UT citrate 2-24 mg by Health (Calcitrate 09:20: mouth 1 ) 950 (200 13 (one) time Ca) MG each day. tablet cyanocobala Yes 100ug QD Take 100 U T min 2-24 mcg by Health (Vitamin 09:20: mouth 1 B-12) 100 13 (one) time MCG tablet each day. Multiple Yes Take by UT Vitamins-Mi 2-24 mouth. Health nerals 09:20: (BARIATRIC 13 MULTIVITAMI NS/IRON PO) calcium Yes 950mg QD Take 950 UT citrate 2-24 mg by Health (Calcitrate 09:20: mouth 1 ) 950 (200 13 (one) time Ca) MG each day. tablet cyanocobala Yes 100ug QD Take 100 U T min 2-24 mcg by Health (Vitamin 09:20: mouth 1 B-12) 100 13 (one) time MCG tablet each day. Continuous Yes [id number] Use daily UT Blood Gluc 2-24 as Health Bulb Inspector 00:00: directed (FreeStyle 00 Adrianne 2 Firth) device Continuous Yes [id number] Use daily UT Blood Gluc 2-24 as Health Bulb Inspector 00:00: directed (FreeStyle 00 Adrianne 2 Firth) device Continuous Yes [id number] Use daily UT Blood Gluc 2-24 as Health Bulb Inspector 00:00: directed (FreeStyle 00 Adrianne 2 Firth) device Continuous Yes [id number] Use daily UT Blood Gluc 2-24 as Health Bulb Inspector 00:00: directed (FreeStyle 00 Adrianne 2 Firth) device Continuous Yes [id number] Use daily UT Blood Gluc 2-24 as Health Bulb Inspector 00:00: directed (FreeStyle 00 Adrianne 2 Firth) device Dasiglucago 2022- No [id number] .6mg Inject 0.6 UT n HCl 2-24 08-24 mg under Health ([place]) 00:00: 04:59 the skin 0.6 00 :00 if needed MG/0.6ML (Hypoglyce solution lawrence). auto-inject or Glucagon 2022- No [id number] 1mg Inject 1 UT (Gvoke 2-24 08-24 mg under Health HypoPen 00:00: 04:59 the skin 1-Pack) 1 00 :00 if needed MG/0.2ML (Hypoglyce solution lawrence). auto-inject or Dasiglucago 2022-0 2022- No [id number] .6mg Inject 0.6 UT n HCl 2-24 08-24 mg under Health ([place]) 00:00: 04:59 the skin 0.6 00 :00 if needed MG/0.6ML (Hypoglyce solution lawrence). auto-inject or Glucagon 2022-0 2022- No [id number] 1mg Inject 1 UT (Gvoke 2-24 08-24 mg under Health HypoPen 00:00: 04:59 the skin 1-Pack) 1 00 :00 if needed MG/0.2ML (Hypoglyce solution lawrence). auto-inject or Dasiglucago 2022-0 2022- No [id number] .6mg Inject 0.6 UT n HCl 2-24 08-24 mg under Health ([place]) 00:00: 04:59 the skin 0.6 00 :00 if needed MG/0.6ML (Hypoglyce solution lawrence). auto-inject or Glucagon 2022-0 2022- No [id number] 1mg Inject 1 UT (Gvoke 2-24 08-24 mg under Health HypoPen 00:00: 04:59 the skin 1-Pack) 1 00 :00 if needed MG/0.2ML (Hypoglyce solution lawrence). auto-inject or Glucagon 2022-0 2022- No [id number] 1mg Inject 1 UT (Gvoke 2-24 08-24 mg under Health HypoPen 00:00: 04:59 the skin 1-Pack) 1 00 :00 if needed MG/0.2ML (Hypoglyce solution lawrence). auto-inject or Glucagon 2022-0 2022- No [id number] 1mg Inject 1 UT (Gvoke 2-24 08-24 mg under Health HypoPen 00:00: 04:59 the skin 1-Pack) 1 00 :00 if needed MG/0.2ML (Hypoglyce solution lawrence). auto-inject or ergocalcife 0 4- No [id number] Take 1 UT rol 2-16 02-17 capsule Health (Vitamin 00:00: 05:59 (50,000 D-2) 1.25 00 :00 Units MG (28138 total) by UT) capsule mouth 1 (one) time per week. ergocalcife 2023-0 4- No [id number] Take 1 UT rol 12-25 capsule Health (Vitamin 00:00: 05:59 (50,000 D-2) 1.25 00 :00 Units MG (68657 total) by UT) capsule mouth 1 (one) time per week. ergocalcife 2023-0 2024- No [id number] Take 1 UT rol 12-25 capsule Health (Vitamin 00:00: 05:59 (50,000 D-2) 1.25 00 :00 Units MG (68127 total) by UT) capsule mouth 1 (one) time per week. ergocalcife 2023-0 2024- No [id number] Take 1 UT rol 12-25 capsule Health (Vitamin 00:00: 05:59 (50,000 D-2) 1.25 00 :00 Units MG (98221 total) by UT) capsule mouth 1 (one) time per week. ergocalcife 2023-0 4- No [id number] Take 1 UT rol 12-25 capsule Health (Vitamin 00:00: 05:59 (50,000 D-2) 1.25 00 :00 Units MG (10355 total) by UT) capsule mouth 1 (one) time per week. Sodium 3-0 3- No [id number] 20mg UT Hyaluronate 12-12 Health solution 14:00: 14:00 prefilled 00 :00 syringe 20 mg Sodium 3-0 3- No [id number] 20mg UT Hyaluronate 12-12 Health solution 14:00: 14:00 prefilled 00 :00 syringe 20 mg Sodium 2023-0 3- No [id number] 20mg 20 mg, UT Hyaluronate 12-12 Intra-ki H ealth solution 14:00: 14:00 cular, prefilled 00 :00 Once PRN syringe 20 Procedure, mg Starting on Thu12/12/22 at 0800, For 1 dose Sodium 2023-0 3- No [id number] 20mg 20 mg, UT Hyaluronate 12-12 Intra-ki H ealth solution 14:00: 14:00 cular, prefilled 00 :00 Once PRN syringe 20 Procedure, mg Starting on Thu12/12/22 at 0800, For 1 dose potassium 2023-0 Yes TAKE 1 UT chloride CR 1-30 TABLET (20 He alth (Klor-Con 00:00: MEQ TOTAL) M20) 20 MEQ 00 BY MOUTH 1 ER tablet (ONE) TIME EACH DAY. DO NOT CRUSH OR CHEW. ORAL 30 potassium 2023-0 Yes TAKE 1 UT chloride CR 1-30 TABLET (20 He alth (Klor-Con 00:00: MEQ TOTAL) M20) 20 MEQ 00 BY MOUTH 1 ER tablet (ONE) TIME EACH DAY. DO NOT CRUSH OR CHEW. ORAL 30 potassium 2023-0 Yes TAKE 1 UT chloride CR 1-30 TABLET (20 He alth (Klor-Con 00:00: MEQ TOTAL) M20) 20 MEQ 00 BY MOUTH 1 ER tablet (ONE) TIME EACH DAY. DO NOT CRUSH OR CHEW. ORAL 30 potassium 2023-0 Yes TAKE 1 UT chloride CR 1-30 TABLET (20 He alth (Klor-Con 00:00: MEQ TOTAL) M20) 20 MEQ 00 BY MOUTH 1 ER tablet (ONE) TIME EACH DAY. DO NOT CRUSH OR CHEW. ORAL 30 potassium 2023-0 Yes TAKE 1 UT chloride CR 1-30 TABLET (20 He alth (Klor-Con 00:00: MEQ TOTAL) M20) 20 MEQ 00 BY MOUTH 1 ER tablet (ONE) TIME EACH DAY. DO NOT CRUSH OR CHEW. ORAL 30 ferrous 3-0 3- No 325mg QD Take 325 UT sulfate 325 12-07- mg by Health (65 Fe) MG 13:54: 00:00 mouth 1 tablet 21 :00 (one) time each day with breakfast. losartan 2022-0 2022- No Q.5D 2 (two) UT (Cozaar) 12-07- times a Health 100 MG 13:54: 00:00 day. tablet 12 :00 Sodium 3-0 3- No 20mg UT Hyaluronate 12-05 Health solution 14:00: 14:00 prefilled 00 :00 syringe 20 mg Sodium 2023-0 3- No 20mg UT Hyaluronate 12-05 Health solution 14:00: 14:00 prefilled 00 :00 syringe 20 mg Sodium 2023-0 2023- No 20mg 20 mg, UT Hyaluronate 12-05 Intra-ki H ealth solution 14:00: 14:00 cular, prefilled 00 :00 Once PRN syringe 20 Procedure, mg Starting on Thu12/05/22 at 0800, For 1 dose Sodium 2022-0 3- No [id number] 20mg 20 mg, UT Hyaluronate 12-05 Intra-ki H ealth solution 14:00: 14:00 cular, prefilled 00 :00 Once PRN syringe 20 Procedure, mg Starting on Thu12/05/22 at 0800, For 1 dose Multiple 2022-0 Yes Take by UT Vitamins-Mi 1-27 mouth. Health nerals 09:12: (BARIATRIC 17 MULTIVITAMI NS/IRON PO) calcium 2022-0 Yes 950mg QD Take 950 UT citrate 1-27 mg by Health (Calcitrate 09:12: mouth 1 ) 950 (200 17 (one) time Ca) MG each day. tablet cyanocobala 0 Yes 100ug QD Take 100 U T min 1-27 mcg by Health (Vitamin 09:12: mouth 1 B-12) 100 17 (one) time MCG tablet each day. Multiple 0 Yes Take by UT Vitamins-Mi 1-27 mouth. Health nerals 09:12: (BARIATRIC 17 MULTIVITAMI NS/IRON PO) calcium 2022-0 Yes 950mg QD Take 950 UT citrate 1-27 mg by Health (Calcitrate 09:12: mouth 1 ) 950 (200 17 (one) time Ca) MG each day. tablet cyanocobala 2022-0 Yes 100ug QD Take 100 U T min 1-27 mcg by Health (Vitamin 09:12: mouth 1 B-12) 100 17 (one) time MCG tablet each day. Multiple 2022-0 Yes Take by UT Vitamins-Mi 1-27 mouth. Health nerals 09:12: (BARIATRIC 17 MULTIVITAMI NS/IRON PO) calcium 2022-0 Yes 950mg QD Take 950 UT citrate 1-27 mg by Health (Calcitrate 09:12: mouth 1 ) 950 (200 17 (one) time Ca) MG each day. tablet cyanocobala 2022-0 Yes 100ug QD Take 100 U T min 1-27 mcg by Health (Vitamin 09:12: mouth 1 B-12) 100 17 (one) time MCG tablet each day. pantoprazol 2022-0 3- No [id number] 40mg Take 1 UT e 1-16 -18 tablet (40 Health (Protonix) 00:00: 04:59 mg total) 40 MG EC 00 :00 by mouth 1 tablet (one) time each day before breakfast. Do not crush, chew, or split. pantoprazol 3-0 3- No [id number] 40mg Take 1 UT e 1-16 -18 tablet (40 Health (Protonix) 00:00: 04:59 mg total) 40 MG EC 00 :00 by mouth 1 tablet (one) time each day before breakfast. Do not crush, chew, or split. pantoprazol 3-0 3- No [id number] 40mg Take 1 UT e -16 -18 tablet (40 Health (Protonix) 00:00: 04:59 mg total) 40 MG EC 00 :00 by mouth 1 tablet (one) time each day before breakfast. Do not crush, chew, or split. pantoprazol 2022-0 3- No [id number] 40mg Take 1 UT e -16 -18 tablet (40 Health (Protonix) 00:00: 04:59 mg total) 40 MG EC 00 :00 by mouth 1 tablet (one) time each day before breakfast. Do not crush, chew, or split. pantoprazol 3-0 3- No [id number] 40mg Take 1 UT e -16 -18 tablet (40 Health (Protonix) 00:00: 04:59 mg total) 40 MG EC 00 :00 by mouth 1 tablet (one) time each day before breakfast. Do not crush, chew, or split. pantoprazol 3-0 3- No [id number] 40mg Take 1 UT e 1-16 -18 tablet (40 Health (Protonix) 00:00: 04:59 mg total) 40 MG EC 00 :00 by mouth 1 tablet (one) time each day before breakfast. Do not crush, chew, or split. pantoprazol 3-0 3- No [id number] 40mg Take 1 UT e 1-16 -18 tablet (40 Health (Protonix) 00:00: 04:59 mg total) 40 MG EC 00 :00 by mouth 1 tablet (one) time each day before breakfast. Do not crush, chew, or split. Sodium 2023-0 3- No [id number] 20mg UT Hyaluronate 11-21 Health solution 14:00: 14:00 prefilled 00 :00 syringe 20 mg Sodium 2023-0 3- No [id number] 20mg UT Hyaluronate 11-21 Health solution 14:00: 14:00 prefilled 00 :00 syringe 20 mg Sodium 2023-0 2022- No [id number] 20mg 20 mg, UT Hyaluronate 11-21 Intra-ki H ealth solution 14:00: 14:00 cular, prefilled 00 :00 Once PRN syringe 20 Procedure, mg Starting on Thu11/21/22 at 0800, For 1 dose Sodium 2023-0 2022- No [id number] 20mg 20 mg, UT Hyaluronate 11-21 Intra-ki H ealth solution 14:00: 14:00 cular, prefilled 00 :00 Once PRN syringe 20 Procedure, mg Starting on Thu11/21/22 at 0800, For 1 dose calcium 2021-11 Yes Take by Univers carbonate 1-15 mouth. ity of (CALCIUM 15:10: [place] 500 ORAL) [address] [place] [address] [facility]-11 Yes 1{tbl} Take 1 Un gabriel n tablet 1-15 tablet by ity of 15:10: mouth in [place] [address] the Medical morning. Branch VITAMIN A 2021-11 Yes Take by Unive rs ORAL 1-15 mouth ity of 15:10: daily. [address] calcium 2021-11 Yes Take by Univers carbonate 1-15 mouth. ity of (CALCIUM 15:10: [place] 500 ORAL) [address] [place] [address] multivitami 2021-11 Yes 1{tbl} Take 1 Un gabriel n tablet 1-15 tablet by ity of 15:10: mouth in [place] [address] the Medical morning. Branch VITAMIN A 2021-11 Yes Take by Unive rs ORAL 1-15 mouth ity of 15:10: daily. [address] calcium 2021-11 Yes Take by Univers carbonate 1-15 mouth. ity of (CALCIUM 15:10: [place] 500 ORAL) [address] [place] [address] multivitami 2021-11 Yes 1{tbl} Take 1 Un gabriel n tablet 1-15 tablet by ity of 15:10: mouth in [place] [address] the Medical morning. Branch VITAMIN A 2021-11 Yes Take by Unive rs ORAL 1-15 mouth ity of 15:10: daily. [place] [address] Medical Branch calcium 2021-11 Yes Take by Univers carbonate 1-15 mouth. ity of (CALCIUM 15:10: [place] 500 ORAL) Medical Branch multivitami 2021-11 Yes 1{tbl} Take 1 Un gabriel n tablet 1-15 tablet by ity of 15:10: mouth in [place] [address] the Medical morning. Branch VITAMIN A 2021-11 Yes Take by Unive rs ORAL 1-15 mouth ity of 15:10: daily. [place] [address] Medical Branch calcium 2021-11 Yes Take by Univers carbonate 1-15 mouth. ity of (CALCIUM 15:10: [place] 500 ORAL) Medical Branch multivitami 2021-11 Yes 1{tbl} Take 1 Un gabriel n tablet 1-15 tablet by ity of 15:10: mouth in [place] [address] the Medical morning. Branch VITAMIN A 2021-11 Yes Take by Unive rs ORAL 1-15 mouth ity of 15:10: daily. [place] [address] Medical Branch calcium 2021-11 Yes Take by Univers carbonate 1-15 mouth. ity of (CALCIUM 15:10: [place] 500 ORAL) Medical Branch multivitami 2021-11 Yes 1{tbl} Take 1 Un gabriel n tablet 1-15 tablet by ity of 15:10: mouth in [place] [address] the Medical morning. Branch VITAMIN A 2021-11 Yes Take by Unive rs ORAL 1-15 mouth ity of 15:10: daily. [place] [address] Medical Branch calcium 2021-11 Yes Take by Univers carbonate 1-15 mouth. ity of (CALCIUM 15:10: [place] 500 ORAL) Medical Branch multivitami 2021-11 Yes 1{tbl} Take 1 Un gabriel n tablet 1-15 tablet by ity of 15:10: mouth in [place] [address] the Medical morning. Branch VITAMIN A 2021-11 Yes Take by Unive rs ORAL 1-15 mouth ity of 15:10: daily. [place] [address] Medical Branch calcium 2021-11 Yes Take by Univers carbonate 1-15 mouth. ity of (CALCIUM 15:10: [place] 500 ORAL) Medical Branch multivitami 2021-11 Yes 1{tbl} Take 1 Un gabriel n tablet 1-15 tablet by ity of 15:10: mouth in [place] [address] the Medical morning. Branch VITAMIN A 2021-11 Yes Take by Unive rs ORAL 1-15 mouth ity of 15:10: daily. [place] [address] Medical Branch baclofen 20 2021-11 Yes TAKE 1 [...] TABLET BY ity of tablet 00:00: MOUTH EVERY DAY Medical BEFORE Branch BREAKFAST DO NOT CRUSH CHEW OR SPLIT bupivacaine 2021-11 No [id number] 4mL UT (Marcaine) 11-09 Health 0.25 % 21:00: 21:00 injection 4 00 :00 mL bupivacaine 2021-11 No 4mL UT (Marcaine) 11-09 Health 0.25 % 21:00: 21:00 injection 4 00 :00 mL triamcinolo 2021-11- No [id number] 80mg UT ne 11-09 Health acetonide 21:00: 21:00 (Kenalog-40 00 :00 ) injection 80 mg triamcinolo 2021-11 No [id number] 80mg UT ne 11-09 Health acetonide 21:00: 21:00 (Kenalog-40 00 :00 ) injection 80 mg triamcinolo 2021-11 No [id number] 80mg 80 mg, UT ne 11-09 Intra-ki Health acetonide 21:00: 21:00 cular, (Kenalog-40 00 :00 Once PRN ) injection Procedure, 80 mg Starting on Thu09/09/22 at 1600, For 1 dose triamcinolo 2021-11- No [id number] 80mg 80 mg, UT ne 11-09 Intra-ki [...] 1600, For 1 dose bupivacaine 2021-11- No [id number] 4mL 4 mL, UT (Marcaine) 11-09 Injection, He alth 0.25 % 21:00: 21:00 Once PRN injection 4 00 :00 Procedure, mL Starting on Thu09/09/22 at 1600, For 1 dose losartan 2021-11 Yes Q.5D 2 (two) UT (Cozaar) 11-09 times a Health 100 MG 16:09: day. [...] Take 950 UT citrate 1-01 mg by [facility] (Calcitrate 16:09: mouth 1 ) 950 (200 07 (one) time Ca) MG each day. tablet ferrous 2021-11 Yes 325mg QD Take 325 UT sulfate 325 1-01 mg by [facility] (65 Fe) MG 16:09: mouth 1 tablet 07 (one) time each day with breakfast. cyanocobala 2021-11 Yes 100ug QD Take 100 U T min 1-01 mcg by [facility] (Vitamin 16:09: mouth 1 B-12) 100 07 (one) time MCG tablet each day. furosemide 2021-11 Yes 20mg Take 20 mg U nivers 20 mg 0-17 by mouth ity of tablet 00:00: in the [place] morning. Medical Branch furosemide 2021-11 Yes 20mg Take 20 mg U nivers 20 mg 0-17 by mouth ity of tablet 00:00: in the [place] morning. Medical Branch furosemide 2021-11 Yes 20mg Take 20 mg U nivers 20 mg 0-17 by mouth ity of tablet 00:00: in the [place] morning. Medical Branch furosemide 2021-11 Yes 20mg Take 20 mg U nivers 20 mg 0-17 by mouth ity of tablet 00:00: in the [place] morning. Medical Branch furosemide 2021-11 Yes 20mg Take 20 mg U nivers 20 mg 0-17 by mouth ity of tablet 00:00: in the [place] morning. Medical Branch furosemide 2021-11 Yes 20mg Take 20 mg U nivers 20 mg 0-17 by mouth ity of tablet 00:00: in the [place] morning. Medical Branch furosemide 2021-11 Yes 20mg Take 20 mg U nivers 20 mg 0-17 by mouth ity of tablet 00:00: in the [place] morning. Medical Branch furosemide 2021-11 Yes 20mg Take 20 mg U nivers 20 mg 0-17 by mouth ity of tablet 00:00: in the [place] 00 morning. Medical Branch No known 2021-11 No No known Unive rs medications 0-05 medication it y of 17:10: s Medical Branch No known 2021-11 No No known Unive rs medications 0-05 medication it y of 17:10: s [place] [address] Medical Branch No known 2021-11 No No known Unive rs medications 0-05 medication it y of 17:10: s [address] losartan 2021-0 Yes Q.5D 2 (two) UT (Cozaar) 8-16 times a Health 100 MG 09:07: day. tablet 57 Multiple 2021-0 Yes Take by UT Vitamins-Mi 8-16 mouth. Health nerals 09:07: (BARIATRIC 57 MULTIVITAMI NS/IRON PO) calcium 2022-0 Yes 950mg QD Take 950 UT citrate [...] (one) time MCG tablet each day. pantoprazol 2021-0 2021- No [id number] 40mg Take 1 UT e 8-16 11-15 tablet (40 Health (Protonix) 00:00: 05:59 mg total) 40 MG EC 00 :00 by mouth 1 tablet (one) time each day before breakfast. Do not crush, chew, or split. pantoprazol 2021-0 2021- No [id number] 40mg Take 1 UT e 8-16 11-15 tablet (40 Health (Protonix) 00:00: 05:59 mg total) 40 MG EC 00 :00 by mouth 1 tablet (one) time each day before breakfast. Do not crush, chew, or split. pantoprazol 2021- No [id number] 40mg Take 1 UT e 8-16 11-15 tablet (40 Health (Protonix) 00:00: 05:59 mg total) 40 MG EC 00 :00 by mouth 1 tablet (one) time each day before breakfast. Do not crush, chew, or split. pantoprazol 2021- No [id number] 40mg Q.5D Take 1 UT e 7 08-16 tablet (40 Health (ProtoNix) 00:00: 00:00 mg total) 40 MG EC 00 :00 by mouth tablet in the morning and 1 tablet (40 mg total) before bedtime. Do not crush, chew, or split. . Sodium 2021-0 2021- No 2mL UT Hyaluronate 03-10 Health ([place]) 20:31: 20:31 solution 36 :00 prefilled syringe 2 mL Sodium 2021- No 2mL UT Hyaluronate -03-10 Health ([place]) 20:31: 20:31 solution 36 :00 prefilled syringe 2 mL Sodium 2021-0 2021- No 2mL 2 mL, UT Hyaluronate -03-10 Injection, H ealth ([place]) 20:31: 20:31 Once PRN solution 36 :00 Procedure, prefilled Starting syringe 2 on Mon mL 03/10/22 at 1531, For 1 dose Sodium 2021-0 2021- No 2mL 2 mL, UT Hyaluronate 5-12 14- Injection, H ealth ([place]) 20:31: 20:31 Once PRN solution 36 :00 Procedure, prefilled Starting syringe 2 on Mon mL 03/10/22 at 1531, For 1 dose ondansetron Yes [id number] 8mg Take 1 UT (Zofran) 8 3-23 tablet (8 Heal th MG tablet 00:00: mg total) 00 by mouth every 8 (eight) hours if needed for nausea. traMADol 2022-0 Yes [id number] 100mg Q6H Take 2 UT (Ultram) 50 3-23 tablets Healt h MG tablet 00:00: (100 mg 00 total) by mouth every 6 (six) hours if needed for severe pain. ondansetron 2-0 Yes [id number] 8mg Take 1 UT (Zofran) 8 3-23 tablet (8 Heal th MG tablet 00:00: mg total) 00 by mouth every 8 (eight) hours if needed for nausea. traMADol 2021-0 Yes [id number] 100mg Q6H Take 2 UT (Ultram) 50 3-23 tablets Healt h MG tablet 00:00: (100 mg 00 total) by mouth every 6 (six) hours if needed for severe pain. ondansetron 2021-0 Yes [id number] 8mg Take 1 UT (Zofran) 8 3-23 tablet (8 Heal th MG tablet 00:00: mg total) 00 by mouth every 8 (eight) hours if needed for nausea. traMADol 2021-0 Yes [id number] 100mg Q6H Take 2 UT (Ultram) 50 3-23 tablets Healt h MG tablet 00:00: (100 mg 00 total) by mouth every 6 (six) hours if needed for severe pain. ondansetron 2021-0 Yes [id number] 8mg Take 1 UT (Zofran) 8 3-23 tablet (8 Heal th MG tablet 00:00: mg total) 00 by mouth every 8 (eight) hours if needed for nausea. traMADol 2021-0 Yes [id number] 100mg Q6H Take 2 UT (Ultram) 50 3-23 tablets Healt h MG tablet 00:00: (100 mg 00 total) by mouth every 6 (six) hours if needed for severe pain. ondansetron 2021-0 Yes [id number] 8mg Take 1 UT (Zofran) 8 3-23 tablet (8 Heal th MG tablet 00:00: mg total) 00 by mouth every 8 (eight) hours if needed for nausea. traMADol 2-0 Yes [id number] 100mg Q6H Take 2 UT (Ultram) 50 3-23 tablets Healt h MG tablet 00:00: (100 mg 00 total) by mouth every 6 (six) hours if needed for severe pain. ondansetron 2021-0 Yes [id number] 8mg Take 1 UT (Zofran) 8 3-23 tablet (8 Heal th MG tablet 00:00: mg total) 00 by mouth every 8 (eight) hours if needed for nausea. traMADol Yes [id number] 100mg Q6H Take 2 UT (Ultram) 50 3-23 tablets Healt h MG tablet 00:00: (100 mg 00 total) by mouth every 6 (six) hours if needed for severe pain. ondansetron 2022- No [id number] 8mg Take 1 UT (Zofran) 8 3-23 -29 tablet (8 Hea lth MG tablet 00:00: 00:00 mg total) 00 :00 by mouth every 8 (eight) hours if needed for nausea. traMADol 2022- No [id number] 100mg Q6H Take 2 U T (Ultram) 50 3-23 -29 tablets Heal th MG tablet 00:00: 00:00 [...] 100 U T min 0-26 mcg by [facility] (Vitamin 09:44: mouth 1 B-12) 100 36 (one) time MCG tablet each day. losartan 2020-11 Yes Q.5D 2 (two) UT (Cozaar) 0-26 times a Health 100 MG 09:42: day. tablet 45 losartan 2020-11 Yes Q.5D 2 (two) UT (Cozaar) 0-26 times a Health 100 MG 09:42: day. tablet 45 pantoprazol Yes [id number] TAKE 1 U T e 9-30 TABLET BY [facility] (ProtoNix) 00:00: MOUTH 40 MG EC 00 TWICE A tablet DAY pantoprazol Yes [id number] TAKE 1 U T e 9-30 TABLET BY [facility] (ProtoNix) 00:00: MOUTH 40 MG EC 00 TWICE A tablet DAY furosemide Yes [id number] 20mg QD Take 1 UT (Lasix) 20 9-22 tablet (20 Hea lth MG tablet 00:00: mg total) 00 by mouth 1 (one) time each day. furosemide Yes [id number] 20mg QD Take 1 UT (Lasix) 20 9-22 tablet (20 Hea lth MG tablet 00:00: mg total) 00 by mouth 1 (one) time each day. furosemide Yes [id number] 20mg QD Take 1 UT (Lasix) 20 9-22 tablet (20 Hea lth MG tablet 00:00: mg total) 00 by mouth 1 (one) time each day. furosemide Yes [id number] 20mg QD Take 1 UT (Lasix) 20 9-22 tablet (20 Hea lth MG tablet 00:00: mg total) 00 by mouth 1 (one) time each day. furosemide Yes [id number] 20mg QD Take 1 UT (Lasix) 20 9-22 tablet (20 Hea lth MG tablet 00:00: mg total) 00 by mouth 1 (one) time each day. furosemide Yes [id number] 20mg QD Take 1 UT (Lasix) 20 9-22 tablet (20 Hea lth MG tablet 00:00: mg total) 00 by mouth 1 (one) time each day. furosemide 0 Yes [id number] 20mg QD Take 1 UT (Lasix) 20 9-22 tablet (20 Hea lth MG tablet 00:00: mg total) 00 by mouth 1 (one) time each day. furosemide 2020-0 Yes [id number] 20mg QD Take 1 UT (Lasix) 20 9-22 tablet (20 Hea lth MG tablet 00:00: mg total) 00 by mouth 1 (one) time each day. furosemide 0 Yes [id number] 20mg QD Take 1 UT (Lasix) 20 9-22 tablet (20 Hea lth MG tablet 00:00: mg total) 00 by mouth 1 (one) time each day. furosemide 0 Yes [id number] 20mg QD Take 1 UT (Lasix) 20 9-22 tablet (20 Hea lth MG tablet 00:00: mg total) 00 by mouth 1 (one) time each day. No known No No known UT medications 8-31 medication He alth 10:45: s 13 losartan 0 Yes Q.5D 2 (two) UT (Cozaar) 6-29 [...] Health (Vitamin 00:00: D2) 1.25 MG 00 (34741 UT) capsule ergocalcife 202-0 Yes UT rol 6-26 Health (Vitamin 00:00: D2) 1.25 MG 00 (48155 UT) capsule ergocalcife 202-0 Yes UT rol 6-26 Health (Vitamin 00:00: D2) 1.25 MG 00 (21796 UT) capsule ergocalcife 202-0 Yes UT rol 6-26 Health (Vitamin 00:00: D2) 1.25 MG 00 (23253 UT) capsule ergocalcife 202-0 Yes UT rol 6-26 Health (Vitamin 00:00: D2) 1.25 MG 00 (48058 UT) capsule ergocalcife 202-0 Yes UT rol 6-26 Health (Vitamin 00:00: D2) 1.25 MG 00 (56215 UT) capsule ergocalcife 2020-0 2023- No UT rol 6-26 -29 Health (Vitamin 00:00: 00:00 D2) 1.25 MG 00 :00 (53385 UT) capsule Ondansetron Ondansetron 0 Yes SANDY 1 QD TAKE 1 UT [...] ans 00 meals Vitamin D Vitamin D 0 Yes SHANI Take 1 UT (Ergocalcif (Ergocalcif 3-30 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 ans Tablet Tablet Immunizations Ordered Filled Immunization Date Status Comments [facility] e Immunization Name Name COVID-19 Moderna 2021-11-22 Completed [facility] He alth & Over Vaccination 00:00:00 (DULSER) COVID-19 Moderna 2021-11-22 Completed [facility] alth & Over Vaccination 00:00:00 (DULSER) COVID-19 Moderna 2021-11-22 Completed UT [facility] alth & Over Vaccination 00:00:00 (DULSER) COVID-19 Moderna 2021-11-22 Completed [facility] alth & Over Vaccination 00:00:00 (DULSER) COVID-19 Moderna 2021-11-22 Completed [facility] alth & Over Vaccination 00:00:00 (DULSER) COVID-19 Moderna 2021-11-22 Completed [facility] alth & Over Vaccination 00:00:00 (DULSER) COVID-19 Moderna 2021-11-22 Completed UT [facility] alth & Over Vaccination 00:00:00 (DULSER) COVID-19 Moderna 2021-11-22 Completed [facility] alth & Over Vaccination 00:00:00 (DULSER) COVID-19 Moderna 2021-11-22 Completed UT He alth & Over Vaccination 00:00:00 (DULSER) COVID-19 Moderna 2021-11-22 Completed UT He alth & Over Vaccination 00:00:00 (DULSER) SARS-COV-2 COVID-19 2021-11-22 Completed Unive rsity of [...] YRS 00:00:00 [place] [facility] COVID-19 Moderna 12 2021-04-23 Completed [facility] He alth & Over Vaccination 00:00:00 (DULSER) COVID-19 Moderna 12 2021-04-23 Completed [facility] alth & Over Vaccination 00:00:00 (DULSER) COVID-19 Moderna 12 2021-04-23 Completed UT [facility] alth & Over Vaccination 00:00:00 (DULSER) COVID-19 Moderna 12 2021-04-23 Completed [facility] alth & Over Vaccination 00:00:00 (DULSER) COVID-19 Moderna 12 2021-04-23 Completed [facility] alth & Over Vaccination 00:00:00 (DULSER) COVID-19 Moderna 12 2021-04-23 Completed [facility] alth & Over Vaccination 00:00:00 (DULSER) COVID-19 Moderna 12 2021-04-23 Completed [facility] alth & Over Vaccination 00:00:00 (DULSER) COVID-19 Moderna 12 2021-04-23 Completed [facility] alth & Over Vaccination 00:00:00 (DULSER) COVID-19 Moderna 12 2021-04-23 Completed [facility] He alth & Over Vaccination 00:00:00 (DULSER) COVID-19 Moderna 12 2021-04-23 Completed UT He alth & Over Vaccination 00:00:00 (DULSER) SARS-COV-2 COVID-19 2021-04-23 Completed Unive rsity of [...] YRS 00:00:00 [place] [facility] COVID-19 Moderna 12 2021-03-28 Completed [facility] alth & Over Vaccination 00:00:00 (DULSER) COVID-19 Moderna 12 2021-03-28 Completed [facility] alth & Over Vaccination 00:00:00 (DULSER) COVID-19 Moderna 12 2021-03-28 Completed [facility] alth & Over Vaccination 00:00:00 (DULSER) COVID-19 Moderna 12 2021-03-28 Completed [facility] alth & Over Vaccination 00:00:00 (DULSER) COVID-19 Moderna 12 2021-03-28 Completed [facility] He alth & Over Vaccination 00:00:00 (DULSER) COVID-19 Moderna 12 2021-03-28 Completed [facility] alth & Over Vaccination 00:00:00 (DULSER) COVID-19 Moderna 12 2021-03-28 Completed [facility] alth & Over Vaccination 00:00:00 (DULSER) COVID-19 Moderna 12 2021-03-28 Completed [facility] alth & Over Vaccination 00:00:00 (DULSER) COVID-19 Moderna 12 2021-03-28 Completed [facility] He alth & Over Vaccination 00:00:00 (DULSER) COVID-19 Moderna 12 2021-03-28 Completed UT He alth & Over Vaccination 00:00:00 (DULSER) SARS-COV-2 COVID-19 2021-03-28 Completed Unive rsity of [...] YRS 00:00:00 [place] [facility] Vital Signs Vital Name Observation Time Observation Value Comments Source Systolic blood 2023-01-02 129 mm[Hg] [facility] pressure 15:20:00 Diastolic blood 2023-01-02 80 mm[Hg] [facility] pressure 15:20:00 Heart rate 2023-01-02 64 /min [facility] 15:20:00 Body temperature 2023-01-02 36.5 Mary [facility] 15:20:00 Body weight 2023-01-02 124.921 kg [facility] 15:20:00 BMI 2023-01-02 41.87 kg/m2 [facility] 15:20:00 Systolic blood 2022-12-05 136 mm[Hg] [facility] pressure 15:09:00 Diastolic blood 2022-12-05 79 mm[Hg] [facility] pressure 15:09:00 Heart rate 2022-12-05 62 /min [facility] 15:09:00 Body temperature 2022-12-05 36.56 Mary [facility] 15:09:00 Body height 2022-12-05 172.7 cm [facility] 15:09:00 Body weight 2022-12-05 121.791 kg [facility] 15:09:00 BMI 2022-12-05 40.83 kg/m2 [facility] 15:09:00 Systolic blood 2022-09-23 132 mm[Hg] [facility] pressure 20:57:00 [facility] Diastolic blood 2022-09-23 81 mm[Hg] University o f pressure 20:57:00 [facility] Heart rate 2022-09-23 63 /min University of 20:57:00 [facility] Body temperature 2022-09-23 36.83 Mary [facility] of 20:57:00 [facility] Body height 2022-09-23 172.7 cm University of 20:57:00 [facility] Body weight 2022-09-23 126.145 kg University of 20:57:00 [facility] BMI 2022-09-23 42.28 kg/m2 University of 20:57:00 [facility] Oxygen saturation 2022-09-23 100 /min [facility] in Arterial blood 20:57:00 [facility] Pulse oximetry Branch Systolic blood 2022-08-13 126 mm[Hg] University of pressure 22:06:00 [facility] Diastolic blood 2022-08-13 78 mm[Hg] University o f pressure 22:06:00 [facility] Heart rate 2022-08-13 73 /min University of 22:06:00 [facility] Body temperature 2022-08-13 36.56 Mary [facility] 22:06:00 [facility] Respiratory rate 2022-08-13 18 /min University of 22:06:00 [facility] Body height 2022-08-13 174 cm University of 22:06:00 [facility] Body weight 2022-08-13 132.989 kg University of 22:06:00 [facility] BMI 2022-08-13 43.93 kg/m2 University of 22:06:00 [facility] Oxygen saturation 2022-08-13 98 /min [facility] Arterial blood 22:06:00 [facility] by Pulse oximetry Branch Systolic blood 2022-08-01 115 mm[Hg] [facility] pressure 14:21:00 Diastolic blood 2022-08-01 77 mm[Hg] [facility] pressure 14:21:00 Heart rate 2022-08-01 80 /min [facility] 14:21:00 Body temperature 2022-08-01 36.72 Mary [facility] 14:21:00 Body height 2022-08-01 172.7 cm [facility] 14:21:00 Body weight 2022-08-01 130.999 kg [facility] 14:21:00 BMI 2022-08-01 43.91 kg/m2 [facility] 14:21:00 Systolic blood 2022-06-24 134 mm[Hg] [...] [facility] 17:23:29 BMI 2021-03-26 68.57 kg/m2 [facility] 17:23:29 Body height 2021-03-26 172.7 cm [facility] 17:23:29 Body weight 2021-03-26 204.545 kg [facility] 17:23:29 BMI 2021-03-26 68.57 kg/m2 [facility] 17:23:29 Systolic blood 2021-03-05 126 mm[Hg] Location: RLE; [facility] ns pressure 10:40:00 Position: Sitting Diastolic blood 2021-03-05 95 mm[Hg] Location: RLE; [facility] ans pressure 10:40:00 Position: Sitting Body [...] Systolic blood 2021-01-22 153 mm[Hg] Location: LUE; [facility] Physicia ns pressure 10:47:00 Position: Sitting Diastolic blood 2021-01-22 96 mm[Hg] Location: LUE; [facility]ici ans pressure 10:47:00 Position: Sitting Body [...] Systolic blood 2020-11-20 145 mm[Hg] Location: LUE; [facility] Physicia ns pressure 11:46:00 Position: Sitting Diastolic blood 2020-11-20 90 mm[Hg] Location: LUE; [facility] ans pressure 11:46:00 Position: Sitting Body height 2020-11-20 68 [in_us] [facility] 11:46:00 Weight 2020-11-20 568.5 [lb_av] [facility] 11:46:00 Body mass index 2020-11-20 86.44 kg/m2 [facility] (BMI) [Ratio] 11:46:00 Body temperature 2020-11-20 96.5 [degF] Method: [facility] 11:46:00 Temporal Heart Rate 2020-11-20 96 /min Location: L [facility] 11:46:00 Brachial Artery; Body height 2020-08-21 68 [in_us] [facility] 09:46:00 Weight 2020-08-21 569.6 [lb_av] [facility] 09:46:00 Body mass index 2020-08-21 86.61 kg/m2 [facility] (BMI) [Ratio] 09:46:00 Systolic blood 2020-01-19 141 mm[Hg] Location: LUE; [facility] Physicia ns pressure 16:33:00 Position: Sitting Diastolic blood 2020-01-19 92 mm[Hg] Location: LUE; [facility] Physici ans pressure 16:33:00 Position: Sitting Weight 2020-01-19 604 [lb_av] [facility] 16:33:00 Heart Rate 2020-01-19 85 /min [facility] 16:33:00 Body height 2020-01-19 68 [in_us] [facility] 16:33:00 Body mass index 2020-01-19 91.84 kg/m2 [facility] (BMI) [Ratio] 16:33:00 Procedures Procedure Date / Time Performing Clinician Source Performed POCT GLUCOSE 2023-01-02 15:56:00 Dandre Mukherjee Md [facility] POCT GLYCOSYLATED 2023-01-02 15:56:00 Dandre Mukherjee Md [facility] HEMOGLOBIN (HGB A1C) ARTHROCENTESIS ASPIR&/INJ 2022-12-12 14:00:00 Carlos Zayas [facility] MAJOR JT/BURSA W/O US BILATERAL ARTHROCENTESIS ASPIR&/INJ 2022-12-05 14:00:00 [facility]as [facility] MA[facility]OR JT/BURSA W/O US BILATERAL ARTHROCENTESIS ASPIR&/INJ 2022-11-21 14:00:00 Carlos Zayas [facility] JT/BURSA W/O US BILATERAL REFERRAL- 2022-10-20 06:01:00 Doctor Unarudy, [facility] REQUEST/RESPONSE [place] [facility] BETA HYDROXY-BUTYRATE 2022-09-24 15:08:00 Hang Mehran [facility] INSULIN, LEVEL 2022-09-24 15:08:00 Hang Mehran [facility] THYROID STIMULATING 2022-09-24 15:08:00 Mehran Mauricio [facility] HORMONE [facility] COMP. METABOLIC PANEL 2022-09-24 15:08:00 Hang Mehran [facility] ([id number]) Medical Branch TESTOSTERONE 2022-09-24 15:08:00 Hang [facility] GLYCOSYLATED HEMOGLOBIN 2022-09-24 15:08:00 Hang [facility] (A1C) [facility] ARTHROCENTESIS ASPIR&/INJ 2022-09-09 21:00:00 Carlos Zayas [facility] JT/BURSA W/O BILATERAL EXTERNAL PROVIDER RECORDS 2022-09-01 05:01:00 [facility] [place] [facility] CONSENT/REFUSAL FOR 2022-03-28 16:06:37 Doctor Sumi, [facility] DIAGNOSIS AND TREATMENT [place] [facility] ARTHROCENTESIS ASPIR&/INJ 2022-03-10 20:31:36 Carlos Zayas [facility] JT/BURSA W/O US BILATERAL REFERRAL- 2021-10-15 06:01:00 Doctor Sumi, [facility] REQUEST/RESPONSE [place] [facility] [place] EXT LOWER VENOUS DOPPLER 2021-04-19 13:48:22 Sandy Marin [facility] UNILAT US Abdomen RUQ [id number] 2021-02-15 00:00:00 [facility] [Q] QUESTASSURED [...] CONSENT/REFUSAL FOR 2020-09-03 16:00:53 Doctor Unassigned, Unive [facility] DIAGNOSIS AND TREATMENT [facility] [facility] ASSIGNMENT OF BENEFITS 2020-09-03 16:00:39 Doctor Unassigned, Un [facility] [place] [facility] [Q] QUESTASSURED 25-OH 2020-08-21 00:00:00 [...] 3 VWS RIGHT 2020-03-30 00:00:00 [facility] [id number] MR Knee wo contrast [id number] 2020-03-30 00:00:00 [facility] [U] XRAY KNEE 3 VWS LEFT 2020-03-29 00:00:00 [facility] [id number] [U] XRAY KNEE 4 OR MORE 2020-01-20 00:00:00 [facility] VWS LEFT [id number] [U] XRAY KNEE 3 VWS LEFT 2020-01-17 00:00:00 [facility] [id number] MR Knee wo contrast [id number] 2020-01-03 00:00:00 [facility]le [facility] of Hernia Repair [facility] Encounters Start End Encounter Admission Attending Care Care Encounter Source Date/Time Date/Time Type Type Clinicians Facility Department ID 2023-01-02 Outpatient [facility] [id number] UT 09:57:53 [id number] [facility] 2022-11-13 Outpatient [facility] [id number] UT 09:27:58 [id number] [facility] 2022-01-13 Outpatient [facility] [id number] UT 14:46:10 [facility] 2022-01-06 Outpatient [facility] [id number] UT 16:50:55 [facility] 2021-05-27 Outpatient [facility] [id number] UT 09:14:12 [facility] 2021-05-21 Outpatient SABBARA, [facility] [id number] UT 10:58:31 [facility] 2021-05-07 Outpatient TOMAS, [facility] [id number] UT 12:48:28 [facility] 2021-03-25 Outpatient TOMAS, [facility] [id number] UT 08:06:21 [facility] 2023-08-06 2023-08-06 Outpatient [facility] [id number] UT 11:20:00 11:20:00 [facility] 2023-06-05 2023-06-05 Outpatient FELINSKI, [facility] [id number] UT 09:15:00 09:15:00 SANDY [facility] 2023-04-03 2023-04-03 Outpatient [facility] [id number] UT 11:40:00 11:40:00 Health 2023-02-02 2023-02-02 Outpatient VJ, [facility] [id number] UT 14:00:00 14:00:00 [facility] 2023-02-02 2023-02-02 Outpatient VJ, [facility] [id number] UT 09:00:00 09:00:00 [facility] 2023-01-26 2023-01-26 Education Dandre Mukherjee UTP [id number] ND 00:00:00 00:00:00 Md [place] [id number] [place] [id number] MULTI [id number] SPECIALTY 2 2023-01-20 2023-01-20 Clinical Vj UTP [id number] ND 00:00:00 00:00:00 Support Hossein [place] [id number] [place] [id number] MULTI [id number] SPECIALTY 2 2023-01-02 2023-01-02 Office Dandre Mukherjee UTP 1.2.840.114 [id number] UT 09:20:00 09:20:00 Visit Md [place] [id number] [place] [id number] MULTI [id number] SPECIALTY 2 2023-01-02 2023-01-02 Clinical Vj UTP 1.2.840.114 [id number] UT 00:00:00 00:00:00 Support Hossein [place] [id number] [place] [id number] MULTI [id number] SPECIALTY 2 2022-12-12 2022-12-12 Procedure RICHARD Zayas [facility] [id number] [id number] UT 08:00:00 08:22:44 Visit Carlos SOTELO [id number] H [facility] [id number] PLAZA 0 [id number] 2022-12-05 2022-12-05 Office Tomas [facility] [id number] UT 09:15:00 09:46:49 Visit Sandy JOHNS [id number] He [facility] [id number] PLAZA 9 [id number] AND 4 WOMENS 2022-12-05 2022-12-05 Procedure Chana [facility] [id number] [id number] UT 08:00:00 08:15:51 Visit Carlos SOTELO [id number] H [facility] [id number] PLAZA 3 [id number] 2022-11-26 2022-11-26 Outpatient CHANA [facility] [id number] UT 08:00:00 08:00:00 [facility] 2022-11-21 2022-11-21 Procedure Chana [facility] [id number] [id number] UT 08:00:00 08:20:17 Visit Carlos SOTELO [id number] H [facility] [id number] PLAZA 2 [id number] 2022-11-14 2022-11-14 Outpatient CHANA [facility] [id number] UT 08:00:00 08:00:00 CARLOS [facility] 2022-11-04 2022-11-04 [facility] [id number] UT 08:45:00 08:45:00 SANDY Zhao 2022-10-20 2022-10-20 Orders Doctor TGEAN 1.2.840.114 [id number] Univers 00:00:00 00:00:00 Only Unassigned, DULCE MARIA [id number] ity of [place] [facility] [id number] [place] [id number] [place] [address] Branch 2022-09-29 2022-09-29 Telephone MICAH Mauricio [id number] [facility] 00:00:00 00:00:00 [facility] [id number] it y of [place] [id number] [place] as KARIN?BLEA [id number] Nj hesham [address]ONG [address] [place] MEDICAL OFFICE [facility] 2022-09-24 2022-09-24 [employer] [facility], Ang - Db [facility] 1.2.840.1 [id number] Univers 09:00:00 09:27:57 Visit Hang Mehran [facility] [id number] ity of [place] [id number] [place] as KARIN?BLEA [id number] Nj hesham [address] [place] MEDICAL OFFICE [facility] 2022-09-24 2022-09-24 Outpatient R HANG [facility] [id number] Univers 09:00:00 09:00:00 MEHRAN cornejo [facility] 2022-09-23 2022-09-23 [facility] 1.2.840.114 [id number] Univers 15:00:00 15:37:55 Visit [facility] [id number] it [facility] [address] [facility] [id number] [place] KARIN?BLEA [id number] Nj hesham WONG [address] [place] [address] OFFICE [facility] 2022-09-23 2022-09-23 Outpatient R HANG [facility] [id number] Univers 15:00:00 15:37:55 MEHRAN cornejo [facility] 2022-09-23 2022-09-23 [facility] 1.2.840.114 [id number] Univers 00:00:00 00:00:00 Mehran HEALTH [id number] it y of [place] [id number] [place] as KARIN?BLEA [id number] Nj hesham WONG [address] [place] [address] MEDICAL OFFICE [facility] 2022-09-23 2022-09-23 Letter [facility] 1.2.840.114 [id number] Univers 00:00:00 00:00:00 (Out) Mehran HEALTH 350.1.13.10 it y of [place] 4.2.7.2.686 Amador as KARIN?BLEA [phone] Nj hesham WONG [address] [place] [address] MEDICAL OFFICE [facility] 2022-09-09 2022-09-09 Outpatient [facility] [id number] [place] 16:00:00 17:13:36 Health 2022-09-09 2022-09-09 Office RICHARD Zayas [facility] 1.2.840.114 [id number] [place] 16:00:00 16:37:38 Visit Carlos SOTELO 350.1.13.58 H [facility] MEDICAL 9.2.7.2.686 [address] 3 [phone] 2022-09-01 2022-09-01 Orders Doctor TEGAN 1.2.840.114 [id number] Univers 00:00:00 00:00:00 Only Unassigned, DULCE MARIA 350.1.13.10 ity of [place] [facility] 4.2.7.2.686 Amador as [phone] [address] 2022-08-13 2022-08-13 Nurse Nurse, [facility] 1.2.840.114 [id number] [facility] 17:15:00 17:35:00 Visit ArgenisAmrit acuña [facility] 350.1.13.10 ity of [place] 4.2.7.2.686 Amador as KARIN?BLEA [phone] [address] MEDICAL OFFICE [facility] 2022-08-13 2022-08-13 Outpatient [place] [facility] [id number] Univers 17:20:00 17:20:00 [facility] 2022-08-13 2022-08-13 Outpatient MONTEFIORE NYACK [facility] [id number] Univers 17:15:00 17:15:00 AMRIT [facility] 2022-08-01 2022-08-01 Office RICHARD Marin [facility] 1.2.951.027 [id number] [place] 09:15:00 10:24:25 Visit Sandy JOHNS 350.1.13.58 [facility] 9.2.7.2.686 PLAZA 4 [id number] AND 4 WOMENS 2022-07-23 2022-07-23 Outpatient TOMAS [facility] LAMAR 7509 [facility] 06:36:00 13:15:00 SANDY 2022-07-23 2022-07-23 Outpatient T[facility]AS [facility] [id number] [place] 08:45:00 08:45:00 SANDY Health 2022-06-24 2022-06-24 Office Shirazsonali RICHARD [facility] 1.2.711.928 [id number] [place] 09:15:00 09:55:43 Visit Sandy SUGAR 350.1.13.58 Erick alth [facility] 9.2.7.2.686 PLAZA 0 [phone] AND 4 WOMENS 2022-04-29 2022-04-29 Telephone Shirazsonali RICHARD [facility] 1.2.840.114 [id number] [place] 00:00:00 00:00:00 Sandy SUGAR 350.1.13.58 Erick alth [facility] 9.2.7.2.686 PLAZA 5 [id number] AND 4 WOMENS 2022-04-27 2022-04-27 Telephone TEGAN Estrada 1.2.840.114 [id number] [facility] 00:00:00 00:00:00 Watson العراقي 350.1.13.10 it y of [facility] 4.2.7.2.686 Amador as [phone] [address] 2022-04-26 2022-04-26 Laboratory Only, Ang Db Test [facility] 1.2.8 40.114 [id number] Univers 15:30:00 15:45:00 Only Krissy King [facility] 350.1.13.10 ity [facility] 4.2.7.2.686 [place]ador as KARIN?BLEA [phone] [address] MEDICAL OFFICE BUILDING 2022-04-26 2022-04-26 Outpatient R CHRISTY [facility] [id number] Univers 15:30:00 15:30:00 KRISSY cornejo o f [facility] 2022-03-29 2022-03-29 Letter TEGAN Rashid 1.2.840.114 [id number] Univers 00:00:00 00:00:00 (Out) Marlene العراقي 350.1.13.10 it y [facility] 4.2.7.2.686 Amador as [phone] [address] 2022-03-28 2022-03-28 Laboratory Only, Ang Db Test [facility] 1.2.8 40.114 [id number] Univers 11:15:00 11:30:00 Only Ebamish, Samy [facility] 350.1.13.10 ity of [place] 4.2.7.2.686 Amador as KARIN?BLEA [phone] [address] MEDICAL OFFICE BUILDING 2022-03-28 2022-03-28 Outpatient R DEVENDRA, [facility] [id number] [facility] 11:15:00 11:15:00 RANIA ity [facility] 2022-03-28 2022-03-28 Orders Doctor TEGAN 1.2.840.114 [id number] Univers 00:00:00 00:00:00 Only Unassigned, DULCE MARIA 350.1.13.10 ity of [facility] 4.2.7.2.686 Amador as [phone] [address] 2022-03-07 2022-03-07 Procedure RICHARD Zayas [facility] 1.2.840.114 [id number] [place] 11:15:00 11:38:53 Visit Carlos SOTELO 350.1.13.58 [facility] MEDICAL 9.2.7.2.686 PLAZA 6 [id number] 7 2022-02-28 2022-02-28 Procedure RICHARD Zayas [facility] 1.2.840.114 136 [id number] [place] 11:15:00 11:44:01 Visit Carlos [facility]ELO 350.1.13.58 [facility] 9.2.7.2.686 PLAZA 9 [id number] 7 2022-02-14 2022-02-14 Procedure RICHARD aZyas [facility] 1.2.840.114 136 [id number] [place] 11:00:00 12:07:16 Visit Carlos SOTELO 350.1.13.58 [facility] 9.2.7.2.686 PLAZA 7 [id number] 7 2022-02-12 2022-02-12 Office RICHARD Zayas [facility] 1.2.840.114 [id number] [place] 10:30:00 12:03:04 Visit Carlos SOTELO 350.1.13.58 [facility] 9.2.7.2.686 PLAZA 9 [id number] 7 2022-02-12 2022-02-12 Office Roselia [facility] 1.2.840.114 [id number] [place] 09:15:00 11:05:01 Visit Abraham SOTELO 350.1.13.58 [facility] 9.2.7.2.686 PLAZA 9 [id number] 5 2022-02-12 2022-02-12 Telephone Inez Saucedo [facility] 1.2.840.11 4 [id number] [place] 00:00:00 00:00:00 Inez Saucedo 350.1.13.58 [facility] MEDICAL 9.2.7.2.686 PLAZA 4 [id number] 7 2022-01-30 2022-01-30 Outpatient WINDY VELOZ [facility] 7508 ROBYN 05:35:00 11:16:00 [facility] 2022-01-13 2022-01-13 Office Roselia [facility] 1.2.840.114 [id number] [place] 14:30:00 15:38:19 Visit Abraham SOTELO 350.1.13.58 [facility] MEDICAL 9.2.7.2.686 PLAZA 9 [id number] 5 2022-01-09 2022-01-09 Telephone RICHARD Marin [facility] 1.2.840.114 13 [id number] [place] 00:00:00 00:00:00 Sandy SUGAR 350.1.13.58 [facility] 9.2.7.2.686 PLAZA 7 [id number] AND 4 WOMENS 2022-01-07 2022-01-07 Office Chana [facility] 1.2.840.114 [id number] [place] 08:45:00 09:28:10 Visit Carlos SOTELO 350.1.13.58 [facility] MED[facility] 9.2.7.2.686 PLAZA 5 [id number] 7 2022-01-01 2022-01-01 Outpatient JENNA MARIN LAMAR 7507 [facility] 06:20:00 09:25:00 SANDY 2021-12-29 2021-12-29 Letter TEGAN Rashid 1.2.840.114 [id number] Univers 00:00:00 00:00:00 (Out) Marlene Montoya DULCE MARIA 350.1.13.10 it y of [facility] 4.2.7.2.686 Amador as [phone] [facility] 019 [place] 2021-12-28 2021-12-28 Laboratory Only, Ang Db Test [facility] 1.2.8 40.114 [id number] Univers 14:45:00 15:00:00 Only ConradCelienLizbeth [facility] 350.1.13.10 ity of [place] 4.2.7.2.686 Amador as KARIN?BLEA [phone] [address] MEDICAL OFFICE BUILDING 2021-12-28 2021-12-28 Outpatient R CONRAD [facility] [id number] Univers 14:45:00 14:45:00 LIZBETH [facility] 2021-12-04 2021-12-04 Outpatient R LAMONT [facility] [id number] Univers 10:00:00 10:00:00 JEYSON [facility] 2021-12-03 2021-12-03 Office RICHARD aMrin [facility] 1.2.544.288 [id number] [place] 10:15:00 10:30:00 Visit Sandy SUGAR 350.1.13.58 Erick alth [facility] 9.2.7.2.686 PLAZA 9 [phone] AND 4 WOMENS 2021-10-15 2021-10-15 Orders Doctor JAVED 1.2.840.114 [id number] Univers 00:00:00 00:00:00 Only Unassigned, DULCE MARIA 350.1.13.10 ity of [place] [facility] 4.2.7.2.686 Amador as [phone] [facility] 009 [place] 2021-09-03 2021-09-03 Office RICHARD Marin [facility] 1.2.877.764 [id number] [id number] [place] 09:35:52 10:24:30 Visit Sandy SUGAR 350.1.13.58 Erick wadsworth [facility] 9.2.7.2.686 PLAZA 3 [phone] AND 4 WOMENS 2021-08-08 2021-08-08 Refill RICHARD Marin [facility] 1.2.262.320 [id number] [place] 00:00:00 00:00:00 Sandy SUGAR 350.1.13.58 He alth [facility] 9.2.7.2.686 PLAZA 7 [id number] AND 4 WOMENS 2021-07-31 2021-07-31 Orders Vijaya Bethea [facility] 1.2.840.11 4 [id number] [place] 00:00:00 00:00:00 Only Vijaya Bethea SUGAR 350.1.13.58 [facility] 9.2.7.2.686 PLAZA 7 [id number] AND 4 WOMENS 2021-07-10 2021-07-10 Refdevon Marin [facility] 1.2.466.226 [id number] 40602 [place] 00:00:00 00:00:00 Sandy SUGAR 350.1.13.58 He alth [facility] 9.2.7.2.686 PLAZA 5 [id number] AND 4 WOMENS 2021-07-09 2021-07-09 Procedure Chana [facility] 1.2.840.114 [id number] ND 10:14:27 10:55:14 Visit Carlos DEEPAK 350.1.13.58 [facility] MEDICAL 9.2.7.2.686 PLAZA 3 [id number] 7 2021-07-04 2021-07-04 Martina Marin [facility] 1.2.561.555 [id number] [id number] [place] 00:00:00 00:00:00 Sandy SUGAR 350.1.13.58 [facility] MED 9.2.7.2.686 PLAZA 9 [id number] AND 4 WOMENS 2021-07-02 2021-07-02 Procedure Mallorybill [facility] 1.2.840.114 126 [id number] UT 10:22:08 10:37:08 Visit Carlos DEEPAK 350.1.13.58 [facility] MEDICAL 9.2.7.2.686 PLAZA 1 [id number] 7 2021-06-25 2021-06-25 Procedure Mallorybill [facility] 1.2.840.114 125 [id number] UT 11:45:31 12:06:30 Visit Carlos DEEPAK 350.1.13.58 [facility] MEDICAL 9.2.7.2.686 PLAZA 3 [id number] 7 2021-06-14 2021-06-14 Refill RICHARD Marin [facility] 1.2.409.773 [id number] [place] 00:00:00 00:00:00 Sandy SUGAR 350.1.13.58 He alth [facility] 9.2.7.2.686 PLAZA 9 [id number] AND 4 WOMENS 2021-06-12 2021-06-12 Telephone Zaina Robertson [facility] 1.2.840.1 14 [id number] [place] 00:00:00 00:00:00 Zaina Robertson 350.1.13.58 Health MEDICAL 9.2.7.2.686 PLAZA 4 [id number] 7 2021-06-10 2021-06-10 Telephone Zaina Robertson [facility] 1.2.840.1 14 [id number] UT 00:00:00 00:00:00 Zaina Robertson 350.1.13.58 Health MEDICAL 9.2.7.2.686 PLAZA 3 [id number] 7 2021-06-10 2021-06-10 Orders RICHARD Marin [facility] 1.2.209.521 [id number] [place] 00:00:00 00:00:00 Only Sandy SUGAR 350.1.13.58 He alth [facility] 9.2.7.2.686 PLAZA 1 [id number] AND 4 WOMENS 2021-06-03 2021-06-03 Telephone Inez Saucedo [facility] 1.2.840.11 4 [id number] UT 00:00:00 00:00:00 Inez Saucedo 350.1.13.58 Health MEDICAL 9.2.7.2.686 PLAZA 1 [id number] 7 2021-05-07 2021-05-07 Office RICHARD Marin [facility] 1.2.925.401 [id number] [id number] UT 11:50:13 13:03:27 Visit Sandy SUGAR 350.1.13.58 He alth [facility] 9.2.7.2.686 PLAZA 1 [id number] AND 4 WOMENS 2021-05-01 2021-05-01 Telephone Vijaya Bethea [facility] 1.2.840. 114 [id number] [place] 00:00:00 00:00:00 Vijaya Bethea SUGAR 350.1.13.58 [facility] 9.2.7.2.686 PLAZA 5 [id number] AND 4 WOMENS 2021-04-23 2021-04-23 Telephone RICHARD Marin [facility] 1.2.840.114 12 [id number] UT 00:00:00 00:00:00 Sandy SUGAR 350.1.13.58 He alth [facility] 9.2.7.2.686 PLAZA 4 [id number] AND 4 WOMENS 2021-04-17 2021-04-17 EXT [facility] OP Tomas, EXT [facility] 1.2.840.114 [id number] [place] 00:00:00 00:00:00 Sandy LOCATION 350.1.13.58 H ealth 9.2.7.2.686 [id number] 0 2021-04-17 2021-04-17 EXT [facility] OP Tomas, [facility] 1.2.840.114 [id number] UT 00:00:00 00:00:00 Sandy LOCATION 350.1.13.58 H ealth 9.2.7.2.686 [id number] 0 2021-04-16 2021-04-16 Office RICHARD Marin [facility] 1.2.644.524 [id number] [place] 11:00:00 11:15:00 Visit Sandy SUGAR 350.1.13.58 He alth [facility] 9.2.7.2.686 PLAZA 9 [id number] AND 4 WOMENS 2021-04-16 2021-04-16 Orders Vijaya Bethea [facility] 1.2.840.11 4 [id number] [place] 00:00:00 00:00:00 Only Vijaya Bethea SUGAR 350.1.13.58 Health [place] [facility] 9.2.7.2.686 PLAZA 8 [id number] AND 4 WOMENS 2021-03-27 2021-03-27 Outpatient TOMAS KOBY LAMAR 7506 [facility] 09:25:00 12:05:00 SANDY 2021-03-25 2021-03-25 EXT MH OP Tomas, EXT [facility] 1.2.840.114 [id number] [place] 00:00:00 00:00:00 Sandy LOCATION 350.1.13.58 H ealth 9.2.7.2.686 [id number] 0 2021-03-25 2021-03-25 EXT MHH OP Felsonali, EXT MSRDP 1.2.840.114 [id number] [place] 00:00:00 00:00:00 Sandy LOCATION 350.1.13.58 H ealth 9.2.7.2.686 [id number] 0 2021-03-23 2021-03-23 Orders Vijaya Bethea UTP [facility] 1.2.840.11 4 [id number] [place] 00:00:00 00:00:00 Only [place] SUGAR 350.1.13.58 [facility] 9.2.7.2.686 PLAZA 0 [id number] AND 4 WOMENS 2021-03-05 2021-03-05 Skylar MARIN, [facility] General [id number] [place] 10:15:00 10:15:00 t; SANDY, Surgery - [facility] D.O. [place] 2021-02-12 2021-02-12 Skylar MARIN [facility] General [id number] [place] 08:45:00 08:45:00 t; SANDY, Surgery - Livia [facility]O. [facility] Medical D.O. [place] 2021-02-05 2021-02-05 Outpatient JENNA MARIN LAMAR 7505 [facility] 11:13:00 16:00:00 SANDY 2021-01-29 2021-01-29 RICHARD Lewis [facility] [id number] [place] 11:30:00 11:30:00 t; SANDY, Physi ci Livia MARINO. [facility] SANDY, D.O. 2021-01-22 2021-01-22 RICHARD Lewis General [id number] UT 10:45:00 10:45:00 t; SANDY, Surgery - Phy rekha MARIN D.O. [facility] SANDY, Medical D.O. Center 2020-12-31 2021-01-01 Emergency E JEYSON RDZ [facility] MHFB [id number] [facility]FB 22:53:00 03:55:00 2020-12-11 2020-12-11 Appointradha MARIN, [facility] [id number] [place] 10:15:00 10:15:00 t; SANDY, Surgery - Phy rekha MARIN D.O. [facility] SANDY, Medical D.O. [place] 2020-12-05 2020-12-05 Inpatient U TOMAS, [facility] LAMAR [id number] [facility] 09:29:00 14:03:00 SANDY 2020-11-20 2020-11-20 Appointradha MARIN, [facility] [id number] [place] 12:00:00 12:00:00 t; SANDY, Physi ci Lina MARIN [facility] Lina WHITLEY 2020-09-17 2020-10-16 Outpatient TOMAS [facility] LAMAR [id number] MH 15:00:00 23:59:00 SANDY [facility] 2020-09-05 2020-09-05 Outpatient TOMAS FB LAMAR 7502 [facility] 09:31:00 12:30:00 SANDY 2020-09-03 2020-09-03 Laboratory Only, [facility] 1.2.840.114 [id number] 11:05:29 11:20:29 Only Test Bernadette 350.1.13.[address] [place] [address] [id number] [facility] 2020-09-03 2020-09-03 Laboratory Only, [facility] Test [facility] 1.2.840. 114 [id number] [facility] 11:05:29 11:20:29 Only Jeyson Lilly 350.1.13.10 chantal [facility] 4.2.7.2.[address] [place] [id number] 2020-09-03 2020-09-03 Outpatient Tacos LILLY [facility] [id number] [facility] 11:15:00 11:15:00 JEYSON cornejo [facility] 2020-09-03 2020-09-03 Orders Doctor TEGAN 1.2.840.114 [id number] 00:00:00 00:00:00 Only Unassigned, DULCE MARIA 350.1.13.10 [facility] 4.2.7.2.686 [id number] 2020-09-03 2020-09-03 Orders Doctor TEGAN 1.2.840.114 [id number] Univers 00:00:00 00:00:00 Only Unassigned, DULCE MARIA 350.1.13.10 ity of [place] [facility] 4.2.7.2.686 Amador as [phone] [place] [address] [place] 2020-08-28 2020-08-28 Appointmen [facility] Orthoped[facility] 69 [id number] [place] 15:45:00 15:45:00 t; [facility] ENGINEER PROCESS II [facility] RONDA GONZALEZ 2020-08-21 2020-08-21 Appointmen TOMAS [facility] General [id number] [place] 09:45:00 09:45:00 t; SANDY, Surgery - Bobby MARIN D.O. [facility] Lina WHITLEY 2020-05-09 2020-05-09 [facility]ointmen [facility] Orthoped[facility] 66 [id number] [place] 08:15:00 08:15:00 t; [facility]OS [facility] ZAYAS, ENGINEER PROCESS II wendy GONZALEZ APRN 2020-03-30 2020-03-30 Appointmen CHANA [facility] Orthopedics 66 [id number] [place] 08:30:00 08:30:00 t; [facility] ZAYAS ENGINEER PROCESS II wendy GONZALEZ APRN 2020-01-19 2020-01-19 Appointmen JAGUAR [facility] Minimally [id number] [place] 14:00:00 14:00:00 t; OLIVIA MONTESINOS Invasive Phy sici DEBORAH, D.O. [facility] Nadja.OClaudia [place] ([facility]) 2020-01-03 2020-01-03 Appointmen NICOLE [facility] Orthopedics [id number] [place] 11:30:00 11:30:00 t; NICOLE ARIZA - [place] BRADEN Londono, II [facility] Meme FELICIANO M.D. 2019-12-24 2019-12-24 Appointmen JAGUAR, [facility] UTP [id number] UT 14:00:00 14:00:00 t; OLIVIA MONTESINOS, Phys ici Lina BAKER.OClaudia 2019-12-24 2019-12-24 Appointmen TOMAS, [facility] UTP [id number] [place] 13:15:00 13:15:00 t; SANDY, Physi ci Lina MARIN ans Lina WHITLEY 2019-12-24 2019-12-24 Appointmen SURG, NURSE [facility] UTP [id number] UT 09:30:00 09:30:00 t; SURG, Physi ci NURSE ans Results Test Description Test Time Test Comments Results Result Comments Source POCT glucose manually resulted 2023-01-02 15:56:00 Test Item Value Reference Range Interpretation Comme [facility] Glucose Blood, POC (test code = 2129526) 100 mg/dL 70-180 Lab Interpretation (test code = 28436-6) Abnormal [facility] glycosylated hemoglobin (Hb A1C)2023-01-02 15:56:00 Test Item Value Reference Range Interpretation Comments Hemoglobin A1C (test code = 4548-4) 4.5 % 4.0-6.0 Lab Interpretation (test code = Normal 10206-3) [facility] glucose manually [id number] 15:56:00 Test Item Value Reference Range Interpretation Comments Glucose Blood, POC (test code = 100 mg/dL 70-286 7555906) Lab Interpretation (test code = Abnormal 98415-5) [facility] glycosylated hemoglobin (Hb A1C)2023-01-02 15:56:00 Test Item Value Reference Range Interpretation Comments Hemoglobin A1C (test code = 4548-4) 4.5 % 4.0-6.0 Lab Interpretation (test code = Normal 12197-8) ND [id number] 23:56:40 Test Item Value Reference Range Interpretation Comments TESTOST (test code = 574.0 ng/dL 132.0-813.0 5711591472) FLORENTIN (test code = FLORENTIN) Normal Ranges Adult Female: ?6-77 ng/dLAdult Male <50 years: ? ?132-813 ng/dLAdult Male >50 years: ? ?72-623 ng/dL Females on Control Pills may have higher results. Obese patients may have lower results. Biotin has been reported to cause a negative bias, interpret results relative to patient's use of biotin. Lab Interpretation (test Normal code = 19153-9) [facility], [id number] 23:48:37 Test Item Value Reference Range Interpretation Comments Insulin (test code = See_Comment [Autom ated message] [id number]) The system eSKY.pl generated this result transmitted ref erence range: 1.9 - 23 .0 uIU/mL. The ref erence range was not u sed to interpret this result as normal/abnor mal. Lab Interpretation (test Normal code = 25661-2) [facility] HospitalGLYCOSYLATED HEMOGLOBIN (A1C)2022-09-24 22:49:36 Test Item Value Reference Range Interpretation Comments HGB A1C (test code = 4.7 % 4.0-5.7 4548-4) FLORENTIN (test code = FLORENTIN) Reference RangesNormal: <5.7%Prediabetes: 5.7 - 6.4%Diabetes: > 6.5% Lab Interpretation (test Normal code = 57329-2) [facility] HospitalBETA [id number] 21:17:35 Test Item Value Reference Range Interpretation Comments BOH (test code = 0.1 mmol/L 1497550389) FLORENTIN (test code = Normal Ranges: ? ? FLORENTIN) Nonfasting ? Less than 0.1 mmol/L ? ? Overnight Fast ? ? ? Less than 0.4 mmol/L ? ? Fasting (1-2 weeks) ?6-8 mmol/L Test developed and characteristics determined by [facility] Laboratory Services. [facility] HospitalTHYROID STIMULATING [id number] 20:30:06 Test Item Value Reference Range Interpretation Comments TSH (test code = See_Comment [Automated message] [id number]) The system eSKY.pl generated this result transmitted ref erence range: 0.45 - 4 .70 mIU/L. The refe rence range was not u sed to interpret this result as normal/abnor mal. Lab Interpretation (test Normal code = 18614-0) [facility] HospitalCOMP. METABOLIC PANEL ([id number])2022-09-24 20:05:58 Test Item Value Reference Range Interpretation Comments NA (test code = 138 mmol/L 135-145 5435246389) K (test code = 3.9 mmol/L 3.5-5.0 6086521812) CL (test code = 105 mmol/L 98-108 0601394536) CO2 TOTAL (test code = 26 mmol/L 23-31 0952430054) AGAP (test code = 2-16 9756675764) BUN (test code = 16 mg/dL 7-23 6532797100) GLUCOSE (test code = 79 mg/dL 70-110 7996825029) CREATININE (test code = 0.84 mg/dL 0.60-1.25 9446437112) TOTAL BILI (test code = 1.3 mg/dL 0.1-1.1 H 5287623437) CALCIUM (test code = 8.7 mg/dL 8.6-10.6 3457864567) T PROTEIN (test code = 6.5 g/dL 6.3-8.2 9787104967) ALBUMIN (test code = 3.9 g/dL 3.5-5.0 3928444564) ALK PHOS (test code = 78 U/L 34-122 7042815626) ALTv (test code = 29 U/L 5-50 1742-6) AST(SGOT) (test code = 27 U/L 13-40 6071044691) eGFR (test code = mL/min/1.73m2 4577135007) FLORENTIN (test code = FLORENTIN) Association of [...] tests). Lab Interpretation Abnormal (test code = 07052-3) [facility][] LIPID [id number] 12:09:00 Test Item Value Reference Range Interpretation Comments CHOLESTEROL, TOTAL; 142 mg/dl <200 N Normal (test code = 2093-3) HDL CHOLESTEROL; 27 mg/dl See_Comment [Automated message] Below Low Threshold The syst em which (test code = 2084-9) generat ed this result transmit larissa reference range : > OR = 40. The reference range was not used to interpret this result as normal/abnormal . TRIGLYCERIDES; 143 mg/dl <150 N Normal (test code = 2571-8) LDL-CHOLESTEROL; 91 {MG/DL LAVERN} N Reference range: Normal (test code = <100 Bunny irable range 10386-0) <100 mg/dL for primary prevent ion; <70 [...] ANGELES et al . DARIO. 2013;310( 19): 9488-2139 (http://educati on.Compellon. com/f aq/AHQ496) CHOL/HDLC RATIO 5.3 {CALC} <5.0 (test code = CHOL/HDLC RATIO) NON HDL CHOLESTEROL 115 {MG/DL <130 N For sierra ents with (test code = NON HDL LAVERN} diabete s plus 1 CHOLESTEROL) major ASCVD ris k factor, treatin g to a non-HDL-C goa l of <100 mg/dL (LDL -C of <70 mg/dL) is considered a therapeutic opt ion. [facility][QL] IRON AND TOTAL IRON BINDING [id number] 12:09:00 Test Item Value Reference Range Interpretation Comments IRON, TOTAL (test code = 92 {mcg/dl} 50-180 N IRON, TOTAL) IRON BINDING CAPACITY (test 307 {mcg/dL ca} 250-425 N code = IRON BINDING CAPACITY) % SATURATION (test code = % 30 {% CALC} 20-48 N SATURATION) [facility][QL] CMP [id number] 12:09:00 Test Item Value Reference Range Interpretation [...] NON-AFR. 98 {ML/MIN/1.7} See_Comment N [Automated message] [place] (test The system ich code = eGFR generated this result NON-AFR. [place] RICAN) transmitt ed reference range: > OR = 6 0. The reference range was not used to int erpret this result as normal/abnormal . eGFR 113 {ML/MIN/1.7} See_Comment N [Automated message] [place] (test The system ich code = eGFR [...] 0.2-1.2 Above High Threshold (test code = 88658-2) ALKALINE 63 u/l 36-130 N PHOSPHATASE (test code = ALKALINE PHOSPHATASE) AST; Above High 43 u/l 10-40 Threshold (test code = 1916-6) ALT; Normal (test 45 u/l 9-46 N code = 1742-6) [facility][QL] CBC (INCLUDES DIFF/PLT)2021-01-22 12:09:00 Test Item Value Reference Range Interpretation Comments WHITE BLOOD CELL COUNT 6.7 {Thousand/u} 3.8-10.8 N (test code = WHITE BLOOD CELL COUNT) RED BLOOD CELL COUNT (test 5.24 {Million/uL} 4.20-5.80 N code = RED BLOOD CELL COUNT) HEMOGLOBIN; Normal (test 15.7 g/dl 13.2-17.1 N code = 36436-0) HEMATOCRIT; Normal (test 45.8 % 38.5-50.0 N code = 4544-3) MCV; Normal (test code = 87.4 fL 80.0-100.0 N 787-2) MCHC; Normal (test code = 34.3 g/dl 32.0-36.0 N 68202-6) RDW; Normal (test code = 13.8 % 11.0-15.0 N 788-0) PLATELET COUNT; Normal 178 {Thousand/u} 140-400 N (test code = 777-3) MPV; Normal (test code = 10.3 fL 7.5-12.5 N 57464-2) ABSOLUTE NEUTROPHILS (test 4288 {cells/uL} 9393-4004 N code = ABSOLUTE NEUTROPHILS) ABSOLUTE LYMPHOCYTES [...] Normal (test 11.9 % N code = 24157-5) EOSINOPHILS; Normal (test 1.3 % N code = 51792-9) BASOPHILS; Normal (test 0.7 % N code = 66660-3) [facility][QL] PTH, INTACT (WITHOUT CALCIUM)2021-01-22 12:09:00 Test [...] or Low Normal High [facility][QL] FOLATE, [id number] 12:09:00 Test Item Value Reference Range Interpretation Comments FOLATE, SERUM (test 7.7 ng/ml N Referenc e Range Low: code = FOLATE, <3.4 Borderli ne: 3.4-5.4 SERUM) Normal: >5.4 [facility][QL] VITAMIN [id number] 12:09:00 Test Item Value Reference Range Interpretation Comments VITAMIN B12 (test code = VITAMIN 609 pg/ml 200-1100 N B12) [facility][QL] TSH, 3RD GENERATION W/REFLEX TO [id number] 12:09:00 Test Item Value Reference Range Interpretation Comments TSH, 3RD GENERATION W/REFLEX TO 1.55 {MIU/L} 0.40-4.50 N FT4 (test code = TSH, 3RD GENERATION W/REFLEX TO FT4) [facility][QL] HEMOGLOBIN [id number] 12:09:00 Test Item Value Reference Range Interpretation [...] di abetes in children. Ac cording to [employer] [employer] (ADA)guidelines , hemoglobin A1c [...] tl racteristics have been deter mined by [facility]. It has not been cleare d or approved by theFDA. This assay has been validated pursuant to the CLIA regula tions and is used for clinic al purposes. [id number] 1.2 mg/L <4.4 This test was developed and SERGIO (test code = its analyt ical performance [id number] characteri stics have been SERGIO) determined by [employer]. It has not been cleared or appr [...] analytical performance characteristics have been determined by [employer]. It has not been cleared or approved by theFDA. This assay has been validated pursuant to the CLIA regulations and is used for clinical purposes.[facility][QL] VITAMIN B1, WHOLE [id number] 12:09:00 Test Item Value Reference Range Interpretation Comments VITAMIN B1, WHOLE 108 nmol/L 78-185 Vitamin lundberg pplementation BLOOD (test code = within 24 hours prior VITAMIN B1, WHOLE toblood dr palm may affect BLOOD) the accuracy of results. This test was d eveloped and its analyti lavern performance characteristics have been determined by [employer]. It has not been cleared or approved by theFDA. This assay has been validated pursuant to the CLIA reg ulations and is used for clinical purposes. [facility][QL] VITAMIN A (RETINOL)2021-01-22 12:09:00 Test Item Value Reference Range Interpretation Comments VITAMIN A (test 33 {mcg/dl} 38-98 Clin Chem Vol. 34.No.8. code = VITAMIN A) [id number] 8. 1998Vitamin supplementation within 24 hours prior to blood draw may affect the accuracy of results. Thi s test was developed and i ts analytical perf ormance characteristics have been determined by [employer]. It has not been cleared or approved by theFDA. This assay has been validated pursuant to the CLIA reg ulations and is used for clinical purposes. [facility][Q] QUESTASSURED 25-OH VIT D, (D2,D3), LC/MS/[id number] 12:09:00 Test Item Value Reference Range Interpretation Comments VITAMIN D, 15 ng/ml 30-100 (Note)Reference range: Not 25-OH, D2 established Thi s test was (test code = developed and i ts analytical VITAMIN D, performancechar acteristics have 25-OH, D2) been determined by [facility]. It has not beencle ared or approved by the [place] Food and Drug Administration. Thisassay has been validated pursuant to the CLIA regulation and is usedfor Clinical purpos es.MDFmed [id number] [address],[address] [facility] [phone] 00MicSachin Hoffman Note 1 No te 1 For additional info rmation, please refer to http://educatio n.Firework.Comfort Line/faq/FAQ19 9 (This link is being provided for informational/e ducational purposes only.) VITAMIN D, 5 ng/ml Reference range : Not established 25-OH, D3 (test code = VITAMIN D, 25-OH, D3) Reference range: Not established[facility][QL] LIPID [id number] 11:00:00 Test Item Value Reference Range Interpretation Comments CHOLESTEROL, TOTAL; 178 mg/dl <200 N Normal (test code = 2093-3) HDL CHOLESTEROL; 42 mg/dl > OR = 40 N Normal (test code = 2085-9) TRIGLYCERIDES; 113 mg/dl <150 N Normal (test code = 2571-8) LDL-CHOLESTEROL; 114 {MG/DL Reference r cornelio: Above High Threshold LAVERN} <100 De sirable range (test code = <100 mg/[place] [address]-9) primary prevent ion; <70 mg/dL for patients with C HD or diabetic patien ts with > or = 2 C HD risk factors. L DL-C is now calculat ed using the Andreas-Kortney calculation, wh ich is a validated novel method providin g better accuracy than the Friedewald equation in the estimation of L DL-C. Andreas SS et al . DARIO. 2013;310( 19): 7230-8845 (http://educati on.Compellon. com/f aq/LED416) CHOL/HDLC RATIO 4.2 {CALC} <5.0 N (test code = CHOL/HDLC RATIO) NON HDL CHOLESTEROL 136 {MG/DL <130 For sirera ents with (test code = NON HDL LAVERN} diabete s plus 1 CHOLESTEROL) major ASCVD ris k factor, treatin g to a non-HDL-C goa l of <100 mg/dL (LDL -C of <70 mg/dL) is considered a therapeutic opt ion. [facility][QL] IRON AND TOTAL IRON BINDING [id number] 11:00:00 Test Item Value Reference Range Interpretation Comments IRON, TOTAL (test code = 81 {mcg/dl} 50-180 N IRON, TOTAL) IRON BINDING CAPACITY (test 422 {mcg/dL ca} 250-425 N code = IRON BINDING CAPACITY) % SATURATION (test code = % 19 {% CALC} 20-48 SATURATION) [facility][QL] CMP [id number] 11:00:00 Test Item Value Reference Range Interpretation [...] 90 {ML/MIN/1.7} > OR = 60 N [place] (test code = eGFR NON-AFR. [place]) eGFR 104 {ML/MIN/1.7} > OR = 60 N [place] (test code = eGFR ) BUN/CREATININE NOT [...] mg/dl 0.2-1.2 N Normal (test code = 95615-3) ALKALINE 54 u/l 36-130 N PHOSPHATASE (test code = ALKALINE PHOSPHATASE) AST; Normal (test 21 u/l 10-40 N code = 1916-6) ALT; Normal (test 23 u/l 9-46 N code = 1742-6) [facility][QL] CBC (INCLUDES DIFF/PLT)2020-08-21 11:00:00 Test Item Value Reference Range Interpretation Comments WHITE BLOOD CELL COUNT 8.0 {Thousand/u} 3.8-10.8 N (test code = WHITE BLOOD CELL COUNT) RED BLOOD CELL COUNT (test 5.42 {Million/uL} 4.20-5.80 N code = RED BLOOD CELL COUNT) HEMOGLOBIN; Normal (test 16.8 g/dl 13.2-17.1 N code = 65623-2) HEMATOCRIT; Normal (test 49.3 % 38.5-50.0 N code = 4544-3) MCV; Normal (test code = 91.0 fL 80.0-100.0 N 787-2) MCHC; Normal (test code = 34.1 g/dl 32.0-36.0 N 64546-3) RDW; Normal (test code = 12.9 % 11.0-15.0 N 788-0) PLATELET COUNT; Normal 195 {Thousand/u} 140-400 N (test code = 777-3) MPV; Normal (test code = 9.1 fL 7.5-12.5 N 42855-2) ABSOLUTE NEUTROPHILS (test 5304 {cells/uL} 3960-2451 N code = ABSOLUTE NEUTROPHILS) ABSOLUTE LYMPHOCYTES [...] Normal (test 9.9 % N code = 00488-8) EOSINOPHILS; Normal (test 0.8 % N code = 63690-2) BASOPHILS; Normal (test 0.5 % N code = 43423-5) [facility][QL] PTH, INTACT (WITHOUT CALCIUM)2020-08-21 11:00:00 Test [...] or Low Normal High [facility][QL] FOLATE, [id number] 11:00:00 Test Item Value Reference Range Interpretation Comments FOLATE, SERUM (test 11.2 ng/ml N Referenc e Range Low: code = FOLATE, <3.4 Borderli ne: SERUM) 3.4-5.4 Normal: >5.4 [facility][QL] TSH, 3RD [id number] 11:00:00 Test Item Value Reference Range Interpretation Comments TSH; Normal (test code = 1.73 {MIU/L} 0.40-4.50 N 17405-5) [facility][QL] VITAMIN [id number] 11:00:00 Test Item Value Reference Range Interpretation Comments VITAMIN B12 366 pg/ml 200-1100 N Please Note: Al though the (test code = reference range for itsrmbzB52 VITAMIN B12) is 200-1100 pg/ mL, it has been reported that b etween5 and 10% of patients wit h values between 200 and 400pg/mL may experience neur opsychiatric and hematologic abnormalities due to occult B 12 deficiency; less than 1%of patients with values above 40 0 pg/mL will have symptoms. [facility][QL] HEMOGLOBIN [id number] 11:00:00 Test Item Value Reference Range Interpretation [...] di abetes in children. Ac cording to [place] Fab[place] bet[employer] Association (ADA)guidelines , hemoglobin A1c <7.0% represents optimalcontrol in non- di abetic patients. Differentmetric s may apply to specif ic patient populat ions. Standards of Me dical Care in Diabete s(ADA). [facility][Q] QUESTASSURED 25-OH VIT D, (D2,D3), LC/MS/[id number] 11:00:00 Test Item Value Reference Range Interpretation [...] is any concern. Ho jerry MF, Brandon NC, David good HILL, et al. Evaluation, lily atment and prevention of v itamin D deficiency: an Endocrine Society clinical practi ce guideline. J Clin Endocrinol Metab. 2011;96(7):1911 -30. For additional info rmation, please refer to http://educatio nMarkadoDiagneGood.Comfort Line/faq/FAQ14 9 VITAMIN D, 7 ng/ml Reference range [...] regulation and is usedfor Clinical purpos es.MDed [id number] [address],[address] [facility] [phone] 00Dalia Espinoza e Note 1 Note 1 For additional information, please refer to http://educatio n.Firework.Comfort Line/faq/FAS43 9 (This link is being provided for informational/e ducational purposes only.) [facility][QL] VITAMIN E (TOCOPHEROL)2020-08-21 11:00:00 Test Item [...] tl racteristics have been deter mined by [facility]. It has not been cleare d or approved by theFDA. This assay has been validated pursuant to the CLIA regula tions and is used for clinic al purposes. BUMH-[id number]-[id number] 2.2 mg/L <4.4 This test was developed and SERGIO (test code = its analyt ical performance [id number] characteri stics have been SERGIO) determined by [employer]. It has not been cleared or appr maciel by theFDA. This as say has been validated pursu ant to the CLIA regulation s and is used for clinical pu rposes. [facility][QL] VITAMIN A (RETINOL)2020-08-21 11:00:00 Test Item Value Reference Range Interpretation Comments VITAMIN A (test 46 {mcg/dl} 38-98 Clin Chem Vol. 34.No.8. code = VITAMIN A) [id number] 8. 1997Vitamin supplementation within 24 hours prior to blood draw may affect the accuracy of results. Thi s test was developed and i ts analytical perf ormance characteristics have been determined by [employer]. It has not been cleared or approved by theFDA. This assay has been validated pursuant to the CLIA reg ulations and is used for clinical purposes. [facility][QL] VITAMIN B1, WHOLE [id number] 11:00:00 Test Item Value Reference Range Interpretation Comments VITAMIN B1, WHOLE 142 nmol/L 78-185 Vitamin lundberg pplementation BLOOD (test code = within 24 hours prior VITAMIN B1, WHOLE toblood dr palm may affect BLOOD) the accuracy of results. This test was d toño and its analyti lavern performance characteristics have been determined by [employer]. It has not been cleared or approved by theA. This assay has been validated pursuant to the CLIA reg ulations and is used for clinical purposes. [facility][U] XRAY KNEE 3 VWS RIGHT [id number] 08:42:00Images acquired, not reported on this accession number.[facility][U] XRAY KNEE 3 VWS LEFT [id number] 08:24:00Images acquired, not reported on this accession number. [facility]icians[facility] Knee wo contrast [id number] 14:00:00 Test Item Value Reference Range Interpretation Comments Knee wo contrast MR Cancel Reason: Other (test code = Knee wo (see comments) contrast MR) [facility][QL] CBC (INCLUDES DIFF/PLT)2019-12-24 10:00:01 Test Item Value Reference Range Interpretation Comments WBC (test code = 6690-2) 6.4 {K/CMM} 3.7-10.4 RBC (test code = 789-8) 5.33 {M/CMM} 4.70-6.10 Hgb (test code = 718-7) 15.7 g/dl 14.0-18.0 Hct (test code = 69226-7) 48.2 % 42.0-54.0 MCV (test code = 787-2) 90.4 fL 80.0-94.0 MCH (test code = 785-6) 29.5 pg 27.0-31.0 MCHC (test code = 786-4) 32.7 g/dl 32.0-36.0 RDW (test code = 788-0) 13.3 % 11.5-14.5 Platelet (test code = 74414-2) 176 {K/CMM} 133-450 Mean Platelet Volume (test code 7.6 fL 7.4-10.4 = 74645-2) [facility][QL] [id number] 10:00:01 Test Item Value Reference Range Interpretation Comments Segmented Neutrophils (test code 61.1 % 45.0-75.0 = 85770-6) Monocytes (test code = 53383-6) 7.9 % 2.0-12.0 Lymphocytes (test code = 95200-2) 28.3 % 20.0-40.0 Eosinophils (test code = 76540-9) 2.0 % 0.0-4.0 Basophils (test code = 706-2) 0.7 % 0.0-1.0 Segs-Bands # (test code = 3.9 {K/CMM} 1.5-8.1 64789-4) Lymphocytes # (test code = 1.8 {K/CMM} 1.0-5.5 20612-3) Monocytes # (test code = 75610-8) 0.5 {K/CMM} 0.0-0.8 Eosinophils # (test code = 0.1 {K/CMM} 0.0-0.5 41746-7) [facility]] CMP [id number] 10:00:01 Test Item Value Reference Range Interpretation Comments Sodium Level 138 {mEq/l} 135-145 (test code = 2951-2) Potassium Level 4.1 {mEq/l} 3.5-5.1 (test code = 2823-3) Chloride Level 104 {mEq/l} 95-109 (test code = 5-0) Carbon Dioxide 28 {mEq/l} 24-32 (test code = 8-9) AGAP (test code = 10.1 {mEq/l} 10.0-20.0 49125-2) Glucose Lvl (test 96 mg/dl 70-99 Adult refe rence range code = 2345-7) values reflec t the clinical guidel inesof the [place] Diabet es Association. Creatinine Lvl 1.00 mg/dl 0.50-1.40 (test code = 2160-0) Blood Urea 10 mg/dl 7-22 Nitrogen (test code = 3094-0) BUN/Creatinine 10 6-25 Ratio (test code = 3097-3) Total Protein 7.7 g/dl 6.4-8.4 (test code = 2885-2) Albumin Lvl (test 3.9 g/dl 3.5-5.0 code = 1751-7) Globulin (test 3.8 g/dl 2.7-4.2 code = 86733-0) A/G Ratio (test 1.0 0.7-1.6 code = 1759-0) Calcium Level 8.7 mg/dl 8.5-10.5 Total (test code = 23349-7) ALT (test code = 45 u/l 0-65 1743-4) AST (test code = 35 u/l 0-37 63062-9) Bili Total (test 0.9 mg/dl 0.2-1.3 code = 1975-2) Alk Phos (test 66 u/l 39-136 The pediatric reference code = 1783-0) ranges for th is test represent a CLSI-basedtrans ference of the CALIPER jovani abase of pediatric refer ence intervals to eSiemens Henry analyzer (Clinical Biochemistry 46 (2013): 1073-0187). [facility] [employer] [facility] has not internally validated these reference ranges and therefore they should be used only in th e context of a thoroughcl inical assessment. eGFR (test code = 91 The eGFR i s calculated 03315-3) {ML/MIN/1.7} using the CKD-E PI formula. In [...] t he estimated BMI. [facility][QL] FOLATE, [id number] 10:00:01 Test Item Value Reference Range Interpretation Comments Folate Level (test code = 2284-8) 7.0 ng/ml >=3.0 [facility][QLH] IRON AND TOTAL IRON BINDING [id number] 10:00:01 Test Item Value Reference Range Interpretation Comments Iron (test code = 2498-4) 89 ug/dL 45-160 % Satur Fe (test code = 2502-3) 22 % 12-57 TIBC (test code = 2500-7) 412 ug/dL 228-428 UIBC (test code = UIBC) 323 ug/dL 110-370 [facility][QL] LIPID [id number] 10:00:01 Test Item Value Reference Range Interpretation Comments Chol (test code = 2093-3) 176 mg/dl <=199 Trig (test code = 2571-8) 104 mg/dl <=149 HDL Cholesterol; Below Low 43 mg/dl >=61 Threshold (test code = 2085-9) CHD Risk (test code = 69434-1) 4.09 4.00-7.30 LDL; Above High Threshold (test 112 mg/dl <=99 code = 55262-3) VLDL (test code = VLDL) 21 [facility][QL] VITAMIN [id number] 10:00:01 Test Item Value Reference Range Interpretation Comments Vitamin B12 Level (test code = 320 pg/ml 254-1320 2132-9) [facility]] TSH, 3RD GENERATION W/REFLEX TO [id number] 10:00:01 Test Item Value Reference Range Interpretation Comments TSH (test code = 48201-0) 1.850 {uIU/ml} 0.360-3.740 [facility][QL] HEMOGLOBIN [id number] 10:00:01 Test Item Value Reference Range Interpretation Comments Hemoglobin A1c (test code = 4548-4) 5.5 % <=5.6 [facility][QL] PTH, INTACT (WITHOUT CALCIUM)2019-12-24 10:00:01 Test Item Value Reference Range Interpretation Comments Parathyroid Hormone Intact (test 75.3 pg/ml 18.4-80.1 code = 2731-8) [facility][QL] VITAMIN D, 25-HYDROXY, LC/MS/[id number] 10:00:01 Test Item Value Reference Range Interpretation Comments Vitamin D, 25-OH, 8.1 ng/ml 30.0-100.0 Reference range is based Total (test code = on recomm endations in the Vitamin D, 25-OH, EndocrineS ociety Clinical Total) Practice Guidel ine (J Clin Endocrinol Ldzqm8932;96:19 11-1930) [facility][H] Vit [id number] 10:00:01 Test Item Value Reference Range Interpretation [...] the Food and Drug Administration. Performed At: [address] [id number] Portillo MD Ph:[phone] [facility][H] Vitamin E [id number] 10:00:01 Test Item Value Reference Range Interpretation Comments Alpha-Tocoph 6.4 mg/L 7.0-25.1 This test was d eveloped and its sergio (test performance code = characteristics determined by Alpha-Tocoph [facility]. It has not been cleared sergio) orapproved by [facility] Food and Drug Administration. Gamma-Tocoph 2.7 mg/L 0.5-5.5 This test was d eveloped and its sergio (test performance code = characteristics determined by Gamma-Tocoph [facility]. It has not been cleared sergio) orapproved by t Food and Drug Administration. Reference intervals for a lpha and gamma-tocophero ldetermined from National Health and Nutrition ExaminationSurv , 0452-3277. Individuals wit h alpha-tocopherol levelsless than 5.0 mg/L are considered elliott min E deficient.Perfo rmed At: [facility] [id number] Portillo MD Ph:[phone] [facility][QLH] VITAMIN B1, WHOLE [id number] 10:00:01 Test Item Value Reference Range Interpretation Comments Vitamin B1 117.0 66.5-200.0 This test was d eveloped and its Level (test nmol/L performance code = characteristics determined by Vitamin B1 [facility]. It has not been Level) cleared orappro angie by the Food and Drug Administration. Performed At: [facility] [id number] [place], [place] [id number] ra Lindsey PACK Ph:[phone] [facility]"
[2023-04-23 21:24] LABS: Absolute Lymphocytes (CBC) 2.3 K/uL (0.7-4.9); Hematocrit 46.9 % (39.6-49.0); Lymphocytes % 36.3 % (15.3-44.8); MCV 90.4 fL (80-100); MPV 7.2 fL (7.6-11.3); RBC Red Blood Cell Count 5.18 M/uL (4.33-5.43)
[2023-04-23] MEDS ORDERED: METOPROLOL TAR 25 MG TAB ONE (21:26)
[2023-04-23] MEDS ORDERED: METOPROLOL TAR 50 MG TAB ONE (21:27)
[2023-04-23 21:39] LABS: Protime INR 1.15
--- NOTE | 2023-04-23 21:42 | RAD REPORT ---
EXAM DESCRIPTION: RAD - Chest Single View - 04/23/2023 9:36 pm CLINICAL HISTORY: CHEST PAIN Chest pain. COMPARISON: Chest Single View dated 10/15/2022; CHEST SINGLE VIEW dated 07/23/2014 FINDINGS: Portable technique limits examination quality. The lungs are grossly clear. The heart is normal in size. No displaced fractures. IMPRESSION: No acute intrathoracic process suspected.
[2023-04-23 21:52] LABS: Albumin 3.9 g/dL (3.4-5.0); Bilirubin Direct 0.3 mg/dL (0-0.2); Bilirubin Indirect, Calculated 0.6 mg/dL (0.2-0.8); Bilirubin Total 0.9 mg/dL (0.2-1.0); Magnesium 2.1 mg/dL (1.6-2.4); Potassium 3.6 mEq/L (3.5-5.1); Protein, Total 7.3 g/dL (6.4-8.2)
[2023-04-23 22:07] LABS: Barbiturates NEGATIVE (NEGATIVE); Benzodiazepines NEGATIVE (NEGATIVE); Cocaine NEGATIVE (NEGATIVE); METHAMPHETAM NEGATIVE (NEGATIVE); Methadone NEGATIVE (NEGATIVE); Opiates NEGATIVE (NEGATIVE); Phencyclidine NEGATIVE (NEGATIVE); THC Cannibis NEGATIVE (NEGATIVE)
[2023-04-23 22:09] LABS: T3 Free 2.57 pg/mL (2.18-3.98); Thyroid Stimulating Hormone 1.66 uIU/mL (0.358-3.740)
[2023-04-23] MEDS ORDERED: METOPROLOL TARTRATE 5 MG/5 ML INJ IV ONE (22:26)
[2023-04-23] MEDS ORDERED: NA CHLORIDE 0.9% 500 ML ONE (22:26)
[2023-04-23] MEDS ORDERED: Nicardipine/NS 25 MG/250 ML KIT IV ONE (22:47)
--- NOTE | 2023-04-23 23:05 | ER ---
Nurse's Notes [facility] Name: Serge Rich Age: 47 yrs Sex: Male : 1975 Arrival Date: 04/23/2023 Time: 20:50 Bed 7 Private MD: Diagnosis: Chest pain, unspecified;Unspecified atrial fibrillation Presentation: 04/23 21:03 Chief complaint: Patient states: "I was sitting at work and I started having vc1 palpitations. I tried laying back and relaxing put it didn't help. I started to feel a little bit of chest pain once I got here but it is already gone. Coronavirus screen: Vaccine status: Patient reports receiving the 2nd dose of the covid vaccine. Plus booster; Moderna Client denies travel out of the [place] in the last 14 days. At this time, the client does not indicate any symptoms associated with coronavirus-19. Ebola Screen: Patient negative for fever greater than or equal to 101.5 degrees Fahrenheit, and additional compatible Ebola Virus Disease symptoms Patient denies exposure to infectious person. Patient denies travel to an Ebola-affected area in the 21 days before illness onset. No symptoms or risks identified at this time. Initial Sepsis Screen: Does the patient meet any 2 criteria? HR > 90 bpm. No. Patient's initial sepsis screen is negative. Does the patient have a suspected source of infection? No. Patient's initial sepsis screen is negative. Risk Assessment: Do you want to hurt yourself or someone else? Patient reports no desire to harm self or others. Onset of symptoms was April 23, 2023 at 19:30. 21:03 Method Of Arrival: Ambulatory vc1 21:03 Acuity: MODESTA 3 vc1 Triage Assessment: 21:06 General: Appears in no apparent distress. uncomfortable, Behavior is cooperative, vc1 anxious. Pain: Denies pain. EENT: No deficits noted. No signs and/or symptoms were reported regarding the EENT system. Neuro: Level of Consciousness is awake, alert, obeys commands, Oriented to person, place, time, situation, Appropriate for age. Cardiovascular: Reports palpitations, Denies chest pain, shortness of breath. Respiratory: Airway is patent Respiratory effort is even, unlabored, Respiratory pattern is regular, symmetrical. GI: No deficits noted. No signs and/or symptoms were reported involving the gastrointestinal system. : No deficits noted. No signs and/or symptoms were reported regarding the genitourinary system. Derm: No deficits noted. No signs and/or symptoms reported regarding the dermatologic system. Musculoskeletal: No deficits noted. No signs and/or symptoms reported regarding the musculoskeletal system. Historical: - Allergies: 21:06 Aspirin; vc1 21:06 Keflex; vc1 21:06 KETAMINE; vc1 21:06 Morphine; vc1 21:06 Sulfa (Sulfonamide Antibiotics); vc1 - Home Meds: 21:06 pantoprazole Oral [Active]; vc1 - PMHx: 21:06 Bundle Branch Block; Right; enlarged aorta; Hypertension; Obesity; vc1 - PSHx: 21:06 Cholecystectomy; Gastric Bypass; ankle fixation; vc1 - Immunization history:: Client reports receiving the 2nd dose of the Covid vaccine. - Social history:: Smoking status: Patient denies any tobacco usage or history of. Screenin:08 Abuse screen: Denies threats or abuse. Nutritional screening: No deficits noted. vc1 Tuberculosis screening: No symptoms or risk factors identified. 04/24 02:57 [facility] ED Fall Risk Assessment (Adult) Score/Fall Risk Level 0 - 2 = Low Risk. as6 Vital Signs: 04/23 21:03 BP 146 / 103; Pulse 126; Resp 14; Temp 97.8; Pulse Ox 100% ; Pain 3/10; vc1 21:11 Weight 120.66 kg; Height 5 ft. 8 in. ; vc1 21:48 BP 135 / 100; Pulse 123; Resp 16 S; Pulse Ox 100% on R/A; as6 22:22 BP 124 / 95; Pulse 120; Resp 18; Pulse Ox 100% ; rv 22:35 BP 106 / 89; Pulse 124; Resp 19 S; Pulse Ox 100% on R/A; as6 23:03 BP 110 / 86; Pulse 90; Resp 23 S; Pulse Ox 100% on R/A; as6 23:51 BP 107 / 91; Pulse 125; Resp 18 S; Pulse Ox 100% on R/A; as6 04/24 02:37 BP 100 / 65; Pulse 90; Resp 18 S; Pulse Ox 100% on R/A; as6 04/23 21:11 Body Mass Index 40.44 (120.66 kg, 172.72 cm) vc1 04/23 21:03 Pain Scale: Adult vc1 ED Course: 04/23 20:52 Patient arrived in ED. es 20:55 Watson Lopez PA is PHCP. cp 20:55 Mohamud Cartagena MD is Attending Physician. cp 21:01 Rob Vásquez, GARRETT is Primary Nurse. rv 21:06 Triage completed. vc1 21:09 Patient has correct armband on for positive identification. Bed in low position. Call vc1 light in reach. Client placed on continuous cardiac and pulse oximetry monitoring. NIBP monitoring applied. 21:18 Basic Metabolic Panel Sent. kl 21:18 CBC with Diff Sent. kl 21:18 D-Dimer Sent. kl 21:18 LFT's Sent. kl 21:18 Magnesium Sent. kl 21:18 NT PRO-BNP Sent. kl 21:18 PT-INR Sent. kl 21:18 Troponin HS Sent. kl 21:19 Inserted saline lock: 20 gauge 24 gauge antecubital area, using aseptic technique. kl Blood collected. 21:38 XRAY Chest (1 view) In Process Unspecified. EDMS 23:[address] [facility]. Spoke to GARRETT Brown. [facility] 04/24 00:[address] [facility] for update on transfer. Spoke to Winter and she stated that they [facility] are waiting on a bed for the pt. 01:08 Doc to Doc. [facility] 01:58 Physician approval from [facility], by Dr. Chadwick Antony. 1 02:06 Hospital approval from [facility] ICU bed 206, by Stephanie Galindo RN TCC. 1 02:16 Tried to contacted [facility], no answer. 1 02:17 Contacted [facility]. ETA 20-30 minutes. 1 02:26 Faxed over face sheet to [phone]. 1 02:57 No provider procedures requiring assistance completed. Patient transferred, IV remains as6 in place. 02:58 Arm band placed on. as6 Administered Medications: 04/23 23:30 Discontinued: niCARdipine IV 5 mg/hr IV at calculated rate See Administration cp Instructions; (Standard concentration 25 mg / 250 mL NS); Recommended max rate 15 mg/hr; Titrate 2.5 mg/hr as often as every 15 minutes to achieve goal (see titration policy); Goal parameter SBP less than 160 mmHg 21:19 Not Given (Physician Discretion): Metoprolol PO 25 mg PO once cp 21:26 Drug: Metoprolol IVP 5 mg Route: IVP; Site: right antecubital; 04/24 02:53 Follow up: Response: No adverse reaction 04/23 21:26 Drug: Metoprolol PO 50 mg Route: PO; 04/24 02:53 Follow up: Response: No adverse reaction 04/23 21:48 Drug: Metoprolol IVP 5 mg Route: IVP; Site: right antecubital; 04/24 02:53 Follow up: Response: No adverse reaction 04/23 22:22 Drug: NS 0.9% IV 500 ml Route: IV; Rate: bolus; Site: right antecubital; 04/24 02:53 Follow up: Response: No adverse reaction; IV Status: Completed infusion; IV Intake: as6 500ml 04/23 22:22 Drug: Metoprolol IVP 5 mg Route: IVP; Site: right antecubital; 04/24 02:54 Follow up: Response: No adverse reaction 04/23 22:45 Drug: niCARdipine IV 5 mg/hr Route: IV; Rate: calculated rate; Site: right antecubital; 04/24 02:56 Follow up: Response: No adverse reaction; IV Status: Completed infusion; IV Intake: [id number] 23:18 Not Given (Other Intervention Used): Clopidogrel PO 300 mg PO once 23:18 Drug: Enoxaparin Sub-Q 1 mg/kg Route: Sub-Q; Site: right lower abdomen; 04/24 02:54 Follow up: Response: No adverse reaction 04/23 23:49 Drug: Diltiazem IV 5 mg/hr Route: IV; Rate: calculated rate; Site: right antecubital; 04/24 02:56 Follow up: Response: No adverse reaction; IV Status: Order to discontinue infusion; IV as6 Intake: 20ml 00:55 Drug: amiodarone IVPB 150 mg Volume: 100 ml; Route: IVPB; Infused Over: 10 mins; Site: as6 right antecubital; 02:56 Follow up: Response: No adverse reaction; IV Status: Completed infusion; IV Intake: as6 100ml 01:06 Drug: amiodarone IVPB 900 mg, D5W IV 500 ml Route: IVPB; Rate: 1 mg/min; Site: right as6 antecubital; 02:57 Follow up: Response: No adverse reaction; IV Status: Infusion continued upon transfer; as6 IV Intake: 40ml 02:19 Drug: NS 0.9% IV 500 ml Route: IV; Rate: bolus; Site: right antecubital; as6 02:57 Follow up: Response: No adverse reaction; IV Status: Completed infusion; IV Intake: as6 500ml Medication: 02:57 VIS not applicable for this client. as6 Intake: 02:53 IV: 500ml; Total: 500ml. as6 02:56 IV: 20ml; Total: 520ml. as6 02:56 IV: 20ml; Total: 540ml. as6 02:56 IV: 100ml; Total: 640ml. as6 02:57 IV: 500ml; Total: 1140ml. as6 02:57 IV: 40ml; Total: 1180ml. as6 Outcome: 04/23 23:04 ER care complete, transfer ordered by . safia 16 02:58 Transferred by ground EMS to [facility], Transfer form completed. as6 X-rays sent w/ patient. Condition: stable Instructed on the need for transfer. 02:58 Patient left the ED. as6 Signatures: Dispatcher [employer] Krissy Dan RN Tressa Givens Corey, PA PA cp Vicente, Ronaldo, RN RN rv Slawson, Ashby, RN RN as6 Ligia Lopez RN RN [facility] Garth britany [facility]
--- NOTE | 2023-04-23 23:05 | EDPHYS ---
Physician Documentation [facility] Name: Serge Rich Age: 47 yrs Sex: Male : 1975 Arrival Date: 04/23/2023 Time: 20:50 Bed 7 Private MD: ED Physician Mohamud Cartagena HPI: 04/23 21:00 This 47 yrs old Male presents to ER via Ambulatory with complaints of Chest Pain, cp Palpitations. 21:00 The patient presents with a history of irregular heart beat, heart racing. Context: The cp symptoms occur at rest. Onset: The symptoms/episode began/occurred this evening about 1900. Duration: The patient or guardian reports a single episode, that is still ongoing, and unchanged. Associated signs and symptoms: Pertinent positives: chest pain, Pertinent negatives: cough, fever, lightheadedness, SOB, syncope, unusual stressors. Severity of symptoms: in the emergency department the symptoms are unchanged despite home interventions. Historical: - Allergies: 21:06 Aspirin; vc1 21:06 Keflex; vc1 21:06 KETAMINE; vc1 21:06 Morphine; vc1 21:06 Sulfa (Sulfonamide Antibiotics); vc1 - Home Meds: 21:06 pantoprazole Oral [Active]; vc1 - PMHx: 21:06 Bundle Branch Block; Right; enlarged aorta; Hypertension; Obesity; vc1 - PSHx: 21:06 Cholecystectomy; Gastric Bypass; ankle fixation; vc1 - Immunization history:: Client reports receiving the 2nd dose of the Covid vaccine. - Social history:: Smoking status: Patient denies any tobacco usage or history of. ROS: 21:05 Constitutional: Negative for body aches, chills, fever, poor PO intake. cp 21:05 Eyes: Negative for injury, pain, redness, and discharge. cp 21:05 ENT: Negative for drainage from ear(s), ear pain, sore throat, difficulty swallowing, difficulty handling secretions. 21:05 Cardiovascular: Positive for chest pain, palpitations, Negative for edema. 21:05 Respiratory: Negative for cough, shortness of breath, wheezing. 21:05 Abdomen/GI: Negative for abdominal pain, nausea, vomiting, and diarrhea. 21:05 Back: Negative for pain at rest, pain with movement. 21:05 Skin: Negative for cellulitis, rash. 21:05 Neuro: Negative for altered mental status, dizziness, headache, numbness, syncope, weakness. 21:05 All other systems are negative. Exam: 21:05 ECG was reviewed by the Attending Physician. cp 21:10 Head/Face: Normocephalic, atraumatic. cp 21:10 Constitutional: The patient appears in no acute distress, alert, awake, non-diaphoretic, non-toxic, well developed, well nourished, obese. 21:10 Eyes: Periorbital structures: appear normal, Conjunctiva: normal, no exudate, no injection, Sclera: no appreciated abnormality, Lids and lashes: appear normal, bilaterally. 21:10 ENT: External ear(s): are unremarkable, Nose: is normal, Mouth: is normal, Posterior pharynx: is normal, airway is patent, no erythema, no exudate, Voice: is normal. 21:10 Neck: ROM/movement: is normal, is supple, without pain, no range of motions limitations. 21:10 Chest/axilla: Inspection: normal. 21:10 Cardiovascular: Rate: tachycardic, Rhythm: irregular, Edema: is not appreciated, JVD: is not appreciated. 21:10 Respiratory: the patient does not display signs of respiratory distress, Respirations: normal, no use of accessory muscles, no retractions, labored breathing, is not present, Breath sounds: are clear throughout, no decreased breath sounds, no stridor, no wheezing. 21:10 Abdomen/GI: Inspection: obese Bowel sounds: active, all quadrants, Palpation: abdomen is soft and non-tender, in all quadrants. 21:10 Back: pain, is absent, ROM is normal. 21:10 Skin: cellulitis, is not appreciated, no rash present. 21:10 Neuro: Orientation: to person, place \T\ time. Mentation: is normal, Cerebellar function: is grossly normal, Motor: moves all fours, strength is normal, Sensation: is normal. 22:27 ECG was reviewed by the Attending Physician. cp Vital Signs: 21:03 BP 146 / 103; Pulse 126; Resp 14; Temp 97.8; Pulse Ox 100% ; Pain 3/10; vc1 21:11 Weight 120.66 kg; Height 5 ft. 8 in. ; vc1 21:48 BP 135 / 100; Pulse 123; Resp 16 S; Pulse Ox 100% on R/A; as6 22:22 BP 124 / 95; Pulse 120; Resp 18; Pulse Ox 100% ; rv 22:35 BP 106 / 89; Pulse 124; Resp 19 S; Pulse Ox 100% on R/A; as6 23:03 BP 110 / 86; Pulse 90; Resp 23 S; Pulse Ox 100% on R/A; as6 23:51 BP 107 / 91; Pulse 125; Resp 18 S; Pulse Ox 100% on R/A; as6 04/24 02:37 BP 100 / 65; Pulse 90; Resp 18 S; Pulse Ox 100% on R/A; as6 04/23 21:11 Body Mass Index 40.44 (120.66 kg, 172.72 cm) vc1 04/23 21:03 Pain Scale: Adult vc1 MDM: 04/23 20:56 Patient medically screened. cp 22:00 Differential diagnosis: dehydration, cardiac arrythmia, palpitations, acute WA, cp pulmonary embolism, hyperthyroidism. 23:05 Data reviewed: vital signs, nurses notes, lab test result(s), EKG, radiologic studies, cp plain films. 04/23 21:12 Order name: Basic Metabolic Panel; Complete Time: 21:54 cp 04/23 23:45 Interpretation: Reviewed. cp 04/23 21:12 Order name: CBC with Diff; Complete Time: 21:54 cp 04/23 22:56 Interpretation: Normal except: MPV 7.2. cp 04/23 21:12 Order name: D-Dimer; Complete Time: 21:54 cp 04/23 23:46 Interpretation: Reviewed. 04/23 21:12 Order name: LFT's; Complete Time: 21:54 cp 04/23 22:56 Interpretation: Normal except: BILID 0.3. cp 04/23 21:12 Order name: Magnesium; Complete Time: 21:54 cp 04/23 21:12 Order name: NT PRO-BNP; Complete Time: 21:54 cp 04/23 22:56 Interpretation: Reviewed. 04/23 21:12 Order name: PT-INR; Complete Time: 21:54 cp 04/23 23:45 Interpretation: Reviewed. 04/23 21:12 Order name: Troponin HS; Complete Time: 21:54 cp 04/23 21:20 Order name: TSH; Complete Time: 22:11 cp 04/23 21:20 Order name: T3 Free; Complete Time: 22:11 cp 04/23 21:20 Order name: T4 Free; Complete Time: 22:11 cp 04/23 21:20 Order name: UDS; Complete Time: 22:11 cp 16 01:12 Order name: Troponin HS; Complete Time: 01:54 cp 04/23 21:12 Order name: XRAY Chest (1 view); Complete Time: 21:54 cp 04/23 20:56 Order name: EKG; Complete Time: 21:05 cp 04/23 20:56 Order name: EKG - Nurse/Tech; Complete Time: 21:09 cp 04/23 21:12 Order name: Cardiac monitoring; Complete Time: :16 cp 04/23 21:12 Order name: IV Saline Lock; Complete Time: 21:16 cp 04/23 21:12 Order name: Labs collected and sent; Complete Time: 21:16 cp 04/23 21:12 Order name: O2 Per Protocol; Complete Time: :16 cp 04/23 21:12 Order name: O2 Sat Monitoring; Complete Time: 21:16 cp EC:05 Rate is 121 beats/min. Rhythm is irregular. LA interval is normal. QRS interval is cp prolonged at 118 msec. QT interval is normal. T waves are Inverted in lead aVR. Interpreted by me. Reviewed by me. 22:27 Rate is 120 beats/min. Rhythm is regular. LA interval is normal. QRS interval is cp prolonged at 144 msec. QT interval is normal. T waves are Inverted in lead aVR. Interpreted by me. Reviewed by me. Administered Medications: 23:30 Discontinued: niCARdipine IV 5 mg/hr IV at calculated rate See Administration cp Instructions; (Standard concentration 25 mg / 250 mL NS); Recommended max rate 15 mg/hr; Titrate 2.5 mg/hr as often as every 15 minutes to achieve goal (see titration policy); Goal parameter SBP less than 160 mmHg 21:19 Not Given (Physician Discretion): Metoprolol PO 25 mg PO once cp 21:26 Drug: Metoprolol IVP 5 mg Route: IVP; Site: right antecubital; 04/24 02:53 Follow up: Response: No adverse reaction 04/23 21:26 Drug: Metoprolol PO 50 mg Route: PO; 04/24 02:53 Follow up: Response: No adverse reaction 04/23 21:48 Drug: Metoprolol IVP 5 mg Route: IVP; Site: right antecubital; 04/24 02:53 Follow up: Response: No adverse reaction 04/23 22:22 Drug: NS 0.9% IV 500 ml Route: IV; Rate: bolus; Site: right antecubital; 04/24 02:53 Follow up: Response: No adverse reaction; IV Status: Completed infusion; IV Intake: as6 500ml 04/23 22:22 Drug: Metoprolol IVP 5 mg Route: IVP; Site: right antecubital; 04/24 02:54 Follow up: Response: No adverse reaction 04/23 22:45 Drug: niCARdipine IV 5 mg/hr Route: IV; Rate: calculated rate; Site: right antecubital; 04/24 02:56 Follow up: Response: No adverse reaction; IV Status: Completed infusion; IV Intake: [id number] 23:18 Not Given (Other Intervention Used): Clopidogrel PO 300 mg PO once 23:18 Drug: Enoxaparin Sub-Q 1 mg/kg Route: Sub-Q; Site: right lower abdomen; 04/24 02:54 Follow up: Response: No adverse reaction 04/23 23:49 Drug: Diltiazem IV 5 mg/hr Route: IV; Rate: calculated rate; Site: right antecubital; 04/24 02:56 Follow up: Response: No adverse reaction; IV Status: Order to discontinue infusion; IV as6 Intake: 20ml 00:55 Drug: amiodarone IVPB 150 mg Volume: 100 ml; Route: IVPB; Infused Over: 10 mins; Site: as6 right antecubital; 02:56 Follow up: Response: No adverse reaction; IV Status: Completed infusion; IV Intake: as6 100ml 01:06 Drug: amiodarone IVPB 900 mg, D5W IV 500 ml Route: IVPB; Rate: 1 mg/min; Site: right as6 antecubital; 02:57 Follow up: Response: No adverse reaction; IV Status: Infusion continued upon transfer; IV Intake: 40ml 02:19 Drug: NS 0.9% IV 500 ml Route: IV; Rate: bolus; Site: right antecubital; as6 02:57 Follow up: Response: No adverse reaction; IV Status: Completed infusion; IV Intake: as6 500ml Disposition: 02:23 Co-signature as Attending Physician, Mohamud Cartagena MD I agree with the assessment sp4 and plan of care. I reviewed the patient's care provided by Advanced Practice Provider \T\ agree w/ the diagnosis \T\ care plan. I personally saw the pt \T\ performed a substantive portion of the visit, incldng all aspects of the (History/Exam/Medical Decision Making). Disposition Summary: 04/23/23 23:04 Transfer Ordered Transfer Location: [facility] cp Reason: Higher level of care cp Condition: Stable cp Problem: new cp Symptoms: have improved cp Accepting Physician: DR Antony(04/24/23 02:58) as6 Diagnosis - Chest pain, unspecified cp - Unspecified atrial fibrillation cp Forms: - Medication Reconciliation Form cp - SBAR form cp Signatures: Dispatcher [employer] EDMS Watson Lopez PA PA cp Rob Vásquez RN Darnell Miller RN RN as6 Ligia Lopez RN RN vc1 Mohamud Cartagena MD MD sp4 Corrections: (The following items were deleted from the chart) 04/23 23:14 23:04 Doctor cp cp 04/24 02:09 04/23 23:14 Doctor cp 04/24 02:58 02:09 DR Antony cp as6 04/25 02:20 04/22 21:10 Constitutional: The patient appears in no acute distress, alert, awake, cp non-diaphoretic, non-toxic, well developed, well nourished, obese, cp 04/25 02:20 04/22 21:10 Head/Face: Normocephalic, atraumatic. cp cp 04/25 02:04/22 21:10 Eyes: Periorbital structures: appear normal, Conjunctiva: normal, no cp exudate, no injection, Sclera: no appreciated abnormality, Lids and lashes: appear normal, bilaterally, cp 04/25 02:20 04/22 21:10 ENT: External ear(s): are unremarkable, Nose: is normal, Mouth: is normal, cp Posterior pharynx: is normal, airway is patent, no erythema, no exudate, Voice: is normal, cp 04/25 02:04/22 21:10 Neck: ROM/movement: is normal, is supple, without pain, no range of motions cp limitations, cp 04/25 02:04/22 21:10 Chest/axilla: Inspection: normal, cp cp 04/25 02:04/22 21:10 Cardiovascular: Rate: tachycardic, Rhythm: irregular, Edema: is not cp appreciated, JVD: is not appreciated, cp 04/25 02:04/22 21:10 Respiratory: the patient does not display signs of respiratory distress, cp Respirations: normal, no use of accessory muscles, no retractions, labored breathing, is not present, Breath sounds: are clear throughout, no decreased breath sounds, no stridor, no wheezing, cp 04/25 02:04/22 21:10 Abdomen/GI: Inspection: obese Bowel sounds: active, all quadrants, cp Palpation: abdomen is soft and non-tender, in all quadrants, cp 04/25 02:04/22 21:10 Back: pain, is absent, ROM is normal, cp cp 04/25 02:04/22 21:10 Skin: cellulitis, is not appreciated, no rash present. cp cp 04/25 02:04/22 21:10 Neuro: Orientation: to person, place \T\ time. Mentation: is normal, cp Cerebellar function: is grossly normal, Motor: moves all fours, strength is normal, Sensation: is normal, cp
[2023-04-23] MEDS ORDERED: CLOPIDOGREL 75 MG TABLET ONE (23:16)
[2023-04-23] MEDS ORDERED: ENOXAPARIN 100 MG/ML SYR SQ ONE (23:23)
[2023-04-23] MEDS ORDERED: ENOXAPARIN 30 MG/0.3 ML SQ ONE (23:23)
[2023-04-23] MEDS ORDERED: dilTIAZem HCL 25 MG/5 ML VIAL IV ONE ×2 (23:41→23:47)
[2023-04-23] MEDS ORDERED: NA CHLORIDE 0.9% 100 ML ONE (23:41)
[2023-04-24] MEDS ORDERED: D5W 100 ML IV ONE (00:50)
[2023-04-24] MEDS ORDERED: AMIODARONE HCL 150 MG/3 ML INJ IV ONE (00:50)
[2023-04-24] MEDS ORDERED: AMIODARONE IN DEXTROSE,ISO-OSM 360 MG/200 ML BAG IV ONE (00:50)
[2023-04-24] MEDS ORDERED: NA CHLORIDE 0.9% 500 ML ONE (01:58)
[2023-04-24 03:24] VITALS: TEMP 97.8; O2SAT 100
[2023-04-24 03:36] VITALS: BP 100/65
--- NOTE | 2023-04-24 14:17 | EKG ---
Test Date: 2023-04-23 Test Time: 22:23:38 Mortar Mixer: MEASUREMENT RESULTS: Intervals: Rate: 120 ID: [id number] QRSD: 144 QT: 336 QTc: 474 [place]: P: ID: [id number] QRS: -76 T: 38 INTERPRETIVE STATEMENTS: Sinus tachycardia Right bundle branch block Left anterior fascicular block Bifascicular block Abnormal ECG Compared to ECG 12/18/2022 17:34:53 Sinus bradycardia no longer present Bifascicular block still present Electronically Signed On 04-24-23 14:15:26 CDT by Adrián Rowan
--- NOTE | 2023-04-27 17:57 | EKG ---
Test Date: 2023-04-23 Test Time: 21:02:08 Bottom Cementer: BLANCA MEASUREMENT RESULTS: Intervals: Rate: 121 [place]: 174 QRSD: 118 QT: 330 QTc: 468 [place]: P: [place]: 174 QRS: -85 T: 59 INTERPRETIVE STATEMENTS: Sinus tachycardia Left axis deviation Right bundle branch block Inferior infarct, age undetermined Abnormal ECG Compared to ECG 12/18/2022 17:34:53 Left-axis deviation now present Myocardial infarct finding now present Sinus bradycardia no longer present Left anterior fascicular block no longer present Bifascicular block no longer present Electronically Signed On 04-27-23 17:52:42 CDT by Adrián Rowan
== END 2023-04-24 02:58 | disposition short-term general hospital (02) ==
LOC: ER 20:50
DX: I48.91 Unspecified atrial fibrillation (principal); I10 Essential (primary) hypertension; Z88.1 Allergy status to other antibiotic agents; Z88.2 Allergy status to sulfonamides; Z88.5 Allergy status to narcotic agent; Z88.6 Allergy status to analgesic agent
CPT/HCPCS: 96365; 96367; 93005 ×2; 85025; 80048; 36415; 83735; 85610; 85379; 80076; 84443; 84484 ×2; 84481; 84439; 83880; 80307; 71045; 96375; 96372; 99285; 96366; J1650 ×2; J0282 ×2; J7040 ×2

== ENCOUNTER 2024-11-16 09:05 | Emergency (ER) | payer OTHER ==
[2024-11-16 10:07] LABS: Absolute Eosinophils 0.1 K/uL (0-0.5); Absolute Lymphocytes (CBC) 1.6 K/uL (0.7-4.9); Absolute Monocytes 0.5 K/uL (0.1-1.3); Absolute Neutrophil 3.3 K/uL (1.8-8.0); Basophils % 0.9 % (0-1.3); Eosinophils % 2.1 % (0-4.4); Hematocrit 43.1 % (39.6-49.0); Hemoglobin 14.6 g/dL (13.6-17.9); Lymphocytes % 28.9 % (15.3-44.8); MCH 30.5 pg (27.0-35.0); MCHC 33.8 g/dL (32.0-36.0); MCV 90.1 fL (80-100); MPV 6.7 fL (7.6-11.3); Monocytes % 9.4 % (3.3-12.3); Neutrophils % 58.7 % (41.7-73.7); Nucleated Red Blood Cells % 0.1 % (0-0); Platelets 201 thou/uL (152-406); RBC Red Blood Cell Count 4.78 M/uL (4.33-5.43); Red Cell Distribution Width 13.5 % (12.1-15.2)
--- NOTE | 2024-11-16 10:20 | RAD REPORT ---
EXAMINATION: ONE VIEW CHEST XR CLINICAL INDICATION: Male, 48 years old.,PALPITATIONS TECHNIQUE: Frontal chest projection is submitted. Examination is limited by patient positioning and t echnique. COMPARISON: 04/23/2023 FINDINGS: The lungs are well inflated and clear. No pneumothorax or sizable effusion. The heart is normal in s ize. Mediastinal contours are unremarkable. IMPRESSION: No acute intrathoracic abnormalities.
[2024-11-16 10:21] LABS: Albumin 3.5 g/dL (3.4-5.0); Albumin/Globulin Ratio 1.1 (1.1-1.8); Anion Gap 8.6 mEq/L (5.0-15.0); Bilirubin Direct 0.3 mg/dL (0-0.2); Bilirubin Indirect, Calculated 0.7 mg/dL (0.2-0.8); Globulin 3.2 g/dL (2.3-3.5); Magnesium 2.1 mg/dL (1.6-2.4); Potassium 3.6 mEq/L (3.5-5.1); Protein, Total 6.7 g/dL (6.4-8.2); Troponin High Sensitivity 7.8 pg/mL (<58.9)
[2024-11-16 10:30] LABS: Protime INR 1.17
--- NOTE | 2024-11-16 11:05 | ER ---
Nurse's Notes [facility] Name: Serge Rich Age: 48 yrs Sex: Male : 1975 Arrival Date: 11/16/2024 Time: 09:05 Bed 7 Private MD: Diagnosis: Near syncope, possible arrhythmia Presentation: 11/16 09:23 Chief complaint: Patient states: yesterday while driving i started getting tunnel iw vision like I was going to pass out, got real dizzy , lasted about 15 minutes , felt a sensation of spinning throughout the day and then it happened again today but not as bad. Coronavirus screen: At this time, the client does not indicate any symptoms associated with coronavirus-19. Ebola Screen: No symptoms or risks identified at this time. Initial Sepsis Screen: Does the patient meet any 2 criteria? No. Patient's initial sepsis screen is negative. Does the patient have a suspected source of infection? No. Patient's initial sepsis screen is negative. Risk Assessment: Do you want to hurt yourself or someone else? Patient reports no desire to harm self or others. 09:23 Method Of Arrival: Ambulatory iw 09:23 Acuity: MODESTA 3 iw 09:26 Onset of symptoms was November 15, 2024. iw Historical: - Allergies: 09:25 Keflex; iw 09:25 Aspirin; iw 09:25 KETAMINE; iw 09:25 Morphine; iw 09:25 Sulfa (Sulfonamide Antibiotics); iw - PMHx: 09:25 enlarged aorta; Bundle Branch Block; Right; Hypertension; Obesity; Atrial fibrillation; iw hyperglycemia; - PSHx: 09:25 ankle fixation; Cholecystectomy; Gastric Bypass; cardiac ablation; iw - Immunization history:: Adult Immunizations not up to date. - Infectious Disease History:: Denies. - Social history:: Smoking status: Patient denies any tobacco usage or history of. Screenin:30 [facility] ED Fall Risk Assessment (Adult) History of falling in the last 3 months, rs5 including since admission No falls in past 3 months (0 pts) Confusion or Disorientation No (0 pts) Intoxicated or Sedated No (0 pts) Impaired Gait Yes (1 pt) Mobility Assist Device Used Yes (1 pt) Altered Elimination No (0 pt) Score/Fall Risk Level 0 - 2 = Low Risk Oriented to surroundings, Maintained a safe environment. Abuse screen: Denies threats or abuse. Nutritional screening: No deficits noted. Tuberculosis screening: No symptoms or risk factors identified. Assessment: 09:30 General: Appears in no apparent distress. comfortable, Behavior is calm, cooperative. rs5 Pain: Denies pain. Neuro: Level of Consciousness is awake, alert, obeys commands, Oriented to person, place, time, situation, Reports dizziness. Cardiovascular: Patient's skin is warm and dry. Respiratory: Airway is patent Respiratory effort is even, unlabored, Respiratory pattern is regular, symmetrical. GI: Abdomen is round non-distended, Abd is soft and non tender X 4 quads. : No signs and/or symptoms were reported regarding the genitourinary system. EENT: No signs and/or symptoms were reported regarding the EENT system. Derm: Skin is intact, Skin is pink, warm \T\ dry. Musculoskeletal: Range of motion: intact in all extremities. 10:29 Reassessment: Patient and/or family updated on plan of care and expected duration. Pain rs5 level reassessed. Patient is alert, oriented x 3, equal unlabored respirations, skin warm/dry/pink. 11:08 Reassessment: Patient and/or family updated on plan of care and expected duration. Pain rs5 level reassessed. Patient is alert, oriented x 3, equal unlabored respirations, skin warm/dry/pink. Vital Signs: 09:26 BP 135 / 86; Pulse 61; Resp 18; Temp 98.1; Pulse Ox 100% ; Weight 129.27 kg; Height 5 iw ft. 9 in. ; 10:45 BP 119 / 72; Pulse 67; Resp 16; Pulse Ox 100% on R/A; Pain 0/10; em1 11:01 BP 122 / 74; Pulse 71; Resp 17; Pulse Ox 98% on R/A; rs5 09:26 Body Mass Index 42.09 (129.27 kg, 175.26 cm) iw 10:45 Pain Scale: Adult em1 ED Course: 09:09 Patient arrived in ED. ra3 09:10 Roney Ballard MD is Attending Physician. sp3 09:25 Triage completed. iw 09:25 Arm band placed on. iw 09:30 Patient has correct armband on for positive identification. Placed in gown. Bed in low rs5 position. Call light in reach. Side rails up X2. 09:30 No provider procedures requiring assistance completed. rs5 09:32 Gustavo Bailey, RN is Primary Nurse. rs5 10:01 XRAY Chest (1 view) In Process Unspecified. EDMS 10:01 EKG done, by ED staff, reviewed by Roney Ballard MD. em1 10:14 Basic Metabolic Panel Sent. ko1 10:14 LFT's Sent. ko1 10:14 Magnesium Sent. ko1 10:14 NT PRO-BNP Sent. ko1 10:14 PT-INR Sent. ko1 10:14 Troponin HS Sent. ko1 11:18 Provided Education on: discharge instructions . rs5 11:20 IV discontinued, intact, bleeding controlled, No redness/swelling at site. Pressure rs5 dressing applied. Administered Medications: No medications were administered Medication: 10:30 VIS not applicable for this client. rs5 Outcome: 11:05 Discharge ordered by . sp3 11:20 Discharged to home ambulatory, with family, rs5 11:20 Condition: stable rs5 11:20 Discharge instructions given to patient, family, Instructed on discharge instructions, follow up and referral plans. medication usage, Demonstrated understanding of instructions, follow-up care, medications, Prescriptions given X 1, 11:24 Patient left the ED. rs5 Signatures: Dispatcher [employer] EDDaphne Jensen, RN Parth Funk em1 Roney Ballard MD MD sp3 Isatu Stevens RN RN ko1 Gustavo Bailey, RN RN rs5 Angelina Robles ra3 Corrections: (The following items were deleted from the chart) 11:25 11:20 BP 122 / 74; Pulse 71bpm; Resp 17bpm; Pulse Ox 98% RA; rs5 rs5 17:57 12:15 Reassessment: Patient and/or family updated on plan of care and expected rs5 duration. Pain level reassessed. Patient is alert, oriented x 3, equal unlabored respirations, skin warm/dry/pink. rs5
--- NOTE | 2024-11-16 11:06 | EDPHYS ---
Physician Documentation [facility] Name: Serge Rich Age: 48 yrs Sex: Male : 1975 Arrival Date: 11/16/2024 Time: 09:05 Bed 7 Private MD: ED Physician Roney Ballard HPI: 11/16 09:37 This 48 yrs old Male presents to ER via Ambulatory with complaints of Dizziness. sp3 09:37 48-year-old male with history of hypertension, obesity, prior atrial fibrillation now sp3 status post ablation 1 year ago, "enlarged aorta", right bundle branch block, now presents to the ED with chief complaint near syncope episodes that occur while at rest without change in body position or stasis. 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 Patient is currently on flecainide and has had no problems since the ablation regarding arrhythmia. He denies headache, vertigo, neck pain, chest pain, back pain abdominal pain, vomiting, diarrhea, fever, known sick contacts, travel history, prolonged immobilization, or any other signs or symptoms on ROS at this time.. Historical: - Allergies: 09:25 Keflex; iw 09:25 Aspirin; iw 09:25 KETAMINE; iw 09:25 Morphine; iw 09:25 Sulfa (Sulfonamide Antibiotics); iw - PMHx: 09:25 enlarged aorta; Bundle Branch Block; Right; Hypertension; Obesity; Atrial fibrillation; iw hyperglycemia; - PSHx: 09:25 ankle fixation; Cholecystectomy; Gastric Bypass; cardiac ablation; iw - Immunization history:: Adult Immunizations not up to date. - Infectious Disease History:: Denies. - Social history:: Smoking status: Patient denies any tobacco usage or history of. ROS: 09:38 Constitutional: Negative for fever, chills, and weight loss, Eyes: Negative for injury, sp3 pain, redness, and discharge, ENT: Negative for injury, pain, and discharge, Neck: Negative for injury, pain, and swelling, Respiratory: Negative for shortness of breath, cough, wheezing, and pleuritic chest pain, Abdomen/GI: Negative for abdominal pain, nausea, vomiting, diarrhea, and constipation, Back: Negative for injury and pain, MS/Extremity: Negative for injury and deformity, Skin: Negative for injury, rash, and discoloration, Psych: Negative for depression, anxiety, suicide ideation, homicidal ideation, and hallucinations, Allergy/Immunology: Negative for hives, rash, and allergies, Endocrine: Negative for neck swelling, polydipsia, polyuria, polyphagia, and marked weight changes, Hematologic/Lymphatic: Negative for swollen nodes, abnormal bleeding, and unusual bruising, 09:38 All other systems are negative, Exam: 09:38 Constitutional: This is a well developed, well nourished patient who is awake, alert, sp3 and in no acute distress. Head/Face: Normocephalic, atraumatic. Eyes: Pupils equal round and reactive to light, extra-ocular motions intact. Lids and lashes normal. Conjunctiva and sclera are non-icteric and not injected. Cornea within normal limits. Periorbital areas with no swelling, redness, or edema. ENT: Nares patent. No nasal discharge, no septal abnormalities noted. External auditory canals are clear. Oropharynx with no redness, swelling, or masses, exudates, or evidence of obstruction, uvula midline. Mucous membranes moist. Neck: Trachea midline, no thyromegaly or masses palpated, and no cervical lymphadenopathy. Supple, full range of motion without nuchal rigidity, or vertebral point tenderness. No Meningismus. Chest/axilla: Normal chest wall appearance and motion. Nontender with no deformity. No lesions are appreciated. Cardiovascular: Regular rate and rhythm with a normal S1 and S2. No gallops, murmurs, or rubs. Normal PMI, no JVD. No pulse deficits. Respiratory: Lungs have equal breath sounds bilaterally, clear to auscultation and percussion. No rales, rhonchi or wheezes noted. No increased work of breathing, no retractions or nasal flaring. Abdomen/GI: Soft, non-tender, with normal bowel sounds. No distension or tympany. No guarding or rebound. No evidence of tenderness throughout. Back: No spinal tenderness. No costovertebral tenderness. Full range of motion. Skin: Warm, dry with normal turgor. Normal color with no rashes, no lesions, and no evidence of cellulitis. MS/ Extremity: Pulses equal, no cyanosis. Neurovascular intact. Full, normal range of motion. Neuro: Awake and alert, GCS 15, oriented to person, place, time, and situation. Cranial nerves II-XII grossly intact. Motor strength 5/5 in all extremities. Sensory grossly intact. Cerebellar exam normal. Normal gait. Psych: Awake, alert, with orientation to person, place and time. Behavior, mood, and affect are within normal limits. 10:01 ECG was reviewed by the Attending Physician. EKG demonstrates normal sinus rhythm at 60 sp3 bpm with right bundle branch block and nonspecific diffuse ST's ST changes without evidence of acute ischemia. Vital Signs: 09:26 BP 135 / 86; Pulse 61; Resp 18; Temp 98.1; Pulse Ox 100% ; Weight 129.27 kg; Height 5 iw ft. 9 in. ; 10:45 BP 119 / 72; Pulse 67; Resp 16; Pulse Ox 100% on R/A; Pain 0/10; em1 11:01 BP 122 / 74; Pulse 71; Resp 17; Pulse Ox 98% on R/A; rs5 09:26 Body Mass Index 42.09 (129.27 kg, 175.26 cm) iw 10:45 Pain Scale: Adult em1 MDM: 09:27 Medical Screening Exam initiated sp3 09:39 Data reviewed: vital signs, nurses notes, old medical records, lab test result(s), EKG, sp3 radiologic studies. ED course: 48-year-old male with near syncope episodes x 3 over the last 48 hours. Differential diagnosis includes arrhythmia, orthostatic hypotension, electrolyte disturbance, to lesser degree acute coronary syndrome or other intracranial pathology. I am not highly suspicious of intracranial pathology at this time given his cardiac history. He denies chest pain or back pain to indicate aortic issue. Will start with EKG, chest x-ray and general labs as well as orthostatic vital signs. Vital signs are currently normal. Disposition pending workup and patient course.. 11:04 ED course: Full workup negative and patient has had no continued symptoms. I sp3 recommended him to follow-up with cardiology to get placed on a Holter monitor. Orthostatic vital signs are normal. Patient is okay with the plan and will return if anything changes. Currently patient is completely asymptomatic with normal vital signs.. 11/16 09:37 Order name: Basic Metabolic Panel; Complete Time: 10: sp3 11/16 09:37 Order name: CBC with Diff; Complete Time: : sp3 11/16 09:37 Order name: LFT's; Complete Time: 10:22 sp3 11/16 09:37 Order name: Magnesium; Complete Time: 10:22 sp3 11/16 09:37 Order name: NT PRO-BNP; Complete Time: 10:22 sp3 11/16 09:37 Order name: PT-INR; Complete Time: 10:32 sp3 11/16 09:37 Order name: Troponin HS; Complete Time: 10:22 sp3 11/16 09:37 Order name: XRAY Chest (1 view); Complete Time: 10:22 sp3 11/16 09:37 Order name: Cardiac monitoring; Complete Time: 09:43 sp3 11/16 09:37 Order name: EKG - Nurse/Tech; Complete Time: 10:01 sp3 11/16 09:37 Order name: IV Saline Lock; Complete Time: 10:14 sp3 11/16 09:37 Order name: Labs collected and sent; Complete Time: 10:14 sp3 11/16 09:37 Order name: O2 Per Protocol; Complete Time: 09:43 sp3 11/16 09:37 Order name: O2 Sat Monitoring; Complete Time: 09:43 sp3 11/16 09:37 Order name: Orthostatics; Complete Time: 10:38 sp3 11/16 10:03 Order name: Labs - recollect needed: blue top; Complete Time: 10:14 iw Administered Medications: No medications were administered Disposition Summary: 11/16/24 11:05 Discharge Ordered Notes: Location: Home sp3 Condition: Stable sp3 Diagnosis - Near syncope, possible arrhythmia sp3 Followup: sp3 - With: Private Physician - When: Upon discharge from the Emergency Department - Reason: Recheck today's complaints, Continuance of care Discharge Instructions: - Discharge Summary Sheet sp3 - Near-Syncope sp3 Forms: - Work release form iw - Medication Reconciliation Form sp3 - Antibiotic Education sp3 - Prescription Opioid Use sp3 - Patient Portal Instructions sp3 - Leadership Thank You Letter sp3 Signatures: Dispatcher [employer] Daphne Browning RN RN iw Patel, Setul, MD MD sp3 Corrections: (The following items were deleted from the chart) 09:37 09:37 BASIC METABOLIC PANEL+C.LAB.BRZ ordered. EDMS EDMS 09:37 09:37 CBC+H.LAB.BRZ ordered. EDMS EDMS 09:37 09:37 HEPATIC FUNCTION+C.LAB.BRZ ordered. EDMS EDMS 09:37 09:37 MAGNESIUM+C.LAB.BRZ ordered. EDMS EDMS 09:37 09:37 PROBNP+C.LAB.BRZ ordered. EDMS EDMS 09:37 09:37 PROTIME (+INR)+COAG.LAB.BRZ ordered. EDMS EDMS 09:37 09:37 Troponin High Sensitivity+C.LAB.BRZ ordered. EDMS EDMS 09:37 09:37 Chest Single View+RAD.RAD.BRZ ordered. EDMS EDMS
[2024-11-16 11:31] VITALS: TEMP 98.1; O2SAT 100
[2024-11-16 11:33] VITALS: BP 119/72
--- NOTE | 2024-11-21 11:01 | EKG ---
Test Date: 2024-11-16 Test Time: 09:59:51 Maintenance Inspector: CHARLY MEASUREMENT RESULTS: Intervals: Rate: 60 TN: 186 QRSD: 160 QT: 436 QTc: 436 [place]: P: 27 TN: 186 QRS: -71 T: 39 INTERPRETIVE STATEMENTS: Normal sinus rhythm Right bundle branch block Left anterior fascicular block Bifascicular block Possible Lateral infarct, age undetermined Abnormal ECG Compared to ECG 04/23/2023 22:23:38 Myocardial infarct finding now present Sinus tachycardia no longer present Bifascicular block still present Electronically Signed On 11-21-24 10:54:08 [employer] ASSOCIATE by Rl Medrano
== END 2024-11-16 11:24 | disposition home or self-care (01) ==
LOC: ER 09:05
DX: R55 Syncope and collapse (principal); I48.91 Unspecified atrial fibrillation; I10 Essential (primary) hypertension; Z95.1 Presence of aortocoronary bypass graft
CPT/HCPCS: 36415; 71045; 80048; 80076; 83735; 83880; 84484; 85025; 85610; 93005; 99284

== ENCOUNTER 2024-12-07 12:18 | Emergency (ER) | payer OTHER ==
--- NOTE | 2024-12-07 12:41 | EDPHYS ---
Physician Documentation [facility] Name: Serge Rich Age: 48 yrs Sex: Male : 1975 Arrival Date: 12/07/2024 Time: 12:18 Bed DX5 Private MD: ED Physician Alex Tyson HPI: 12/07 13:59 This 48 yrs old Male presents to ER via Ambulatory with complaints of Back Pain. rt 13:59 Patient presents to the ED with right low back pain following an injury about a week rt ago. Patient tripped, states that he tweaked his back when he tried to break his fall grabbing onto a shelf. Did not land on his back. States that the symptoms have persisted. Denies other acute complaints at this time, symptoms are mild in severity, aching nature, nonradiating, no other aggravating elevating factors. Historical: - Allergies: 12:27 Aspirin; ld1 12:27 Keflex; ld1 12:27 KETAMINE; ld1 12:27 Morphine; ld1 12:27 Sulfa (Sulfonamide Antibiotics); ld1 - PMHx: 12:27 Atrial fibrillation; Bundle Branch Block; Right; enlarged aorta; HYPERGLYCEMIA; ld1 Hypertension; Obesity; - PSHx: 12:27 ankle fixation; Cardiac Ablation; Cholecystectomy; Gastric Bypass; ld1 - Immunization history:: Adult Immunizations up to date. - Infectious Disease History:: Denies. - Social history:: Smoking status: Patient denies any tobacco usage or history of. - Family history:: not pertinent. ROS: 13:59 Constitutional: Negative for fever, chills, and weight loss, Cardiovascular: Negative rt for chest pain, palpitations, and edema, Respiratory: Negative for shortness of breath, cough, wheezing, and pleuritic chest pain, Abdomen/GI: Negative for abdominal pain, nausea, vomiting, diarrhea, and constipation, Skin: Negative for injury, rash, and discoloration, Neuro: Negative for headache, weakness, numbness, tingling, and seizure, 13:59 Back: Positive for pain at rest, pain with movement, Exam: 13:59 Constitutional: This is a well developed, well nourished patient who is awake, alert, rt and in no acute distress. Head/Face: Normocephalic, atraumatic. Chest/axilla: Normal chest wall appearance and motion. Nontender with no deformity. No lesions are appreciated. Cardiovascular: Regular rate and rhythm with a normal S1 and S2. No gallops, murmurs, or rubs. Normal PMI, no JVD. No pulse deficits. Respiratory: Lungs have equal breath sounds bilaterally, clear to auscultation and percussion. No rales, rhonchi or wheezes noted. No increased work of breathing, no retractions or nasal flaring. Abdomen/GI: Soft, non-tender, with normal bowel sounds. No distension or tympany. No guarding or rebound. No evidence of tenderness throughout. Skin: Warm, dry with normal turgor. Normal color with no rashes, no lesions, and no evidence of cellulitis. MS/ Extremity: Pulses equal, no cyanosis. Neurovascular intact. Full, normal range of motion. 13:59 Back: Tenderness to the right lower paraspinal region, no midline tenderness, no step-offs, Vital Signs: 12:27 BP 124 / 80; Pulse 64; Resp 18; Temp 97.1(TE); Pulse Ox 100% on R/A; Pain 8/10; ld1 12:29 Weight 127.01 kg; Height 5 ft. 9 in. ; Pain 8/10; ld1 12:29 Body Mass Index 41.35 (127.01 kg, 175.26 cm) ld1 12:27 Pain Scale: Adult ld1 12:29 Pain Scale: Adult ld1 MDM: 12:39 Medical Screening Exam initiated rt 13:59 Differential diagnosis: disc disease, muscular pain. Data reviewed: vital signs, nurses rt notes. Test considered but Not performed: CT: Low mechanism of injury, low suspicion for compression fracture. CT scan is not indicated. No red flag symptoms of cord compression, cauda equina syndrome, spinal epidural abscess, do not believe the MRI is emergently indicated. Care significantly affected by the following chronic conditions: Atrial fibrillation. Counseling: I had a detailed discussion with the patient and/or guardian regarding the historical points, exam findings, and any diagnostic results supporting the discharge/admit diagnosis, the need for outpatient follow up. Administered Medications: 12:48 Drug: Gabapentin PO 300 mg PO once Route: PO; me1 12:54 Follow up: Response: No adverse reaction; Pain is decreased me1 12:49 Drug: Cyclobenzaprine PO 10 mg PO once Route: PO; me1 12:54 Follow up: Response: No adverse reaction; Pain is decreased me1 Disposition Summary: 12/07/24 12:41 Discharge Ordered Notes: Location: Home rt Condition: Stable rt Diagnosis - Low back pain rt Followup: rt - With: Private Physician - When: 5 - 6 days - Reason: Discharge Instructions: - Discharge Summary Sheet rt - Acute Back Pain, Adult rt Forms: - Medication Reconciliation Form rt - Antibiotic Education rt - Prescription Opioid Use rt - Patient Portal Instructions rt - Leadership Thank You Letter rt Prescriptions: - Lidoderm 5 % Topical adhesive patch, medicated - apply 1 patch TOPICAL route once leave on most painful area for up to 12 hrs; rt 10 patch; Refills: 0, Product Selection Permitted - Cyclobenzaprine 10 mg Oral Tablet - take 1 tablet ORAL route every 8 hours As needed; 30 tablet; Refills: 0, rt Product Selection Permitted Signatures: Justa Caballero RN RN ld1 Alex Tyson MD MD rt Malathi Mares RN RN me1
--- NOTE | 2024-12-07 12:41 | ER ---
Nurse's Notes [facility] Name: Serge Rich Age: 48 yrs Sex: Male : 1975 Arrival Date: 12/07/2024 Time: 12:18 Bed DX5 Private MD: Diagnosis: Low back pain Presentation: 12/07 12:27 Chief complaint: Patient states: Back pain X 1 week. Fell at work - pain to lower back, ld1 radiating into right hip. Coronavirus screen: At this time, the client does not indicate any symptoms associated with coronavirus-19. Ebola Screen: No symptoms or risks identified at this time. Initial Sepsis Screen: Does the patient meet any 2 criteria? No. Patient's initial sepsis screen is negative. Does the patient have a suspected source of infection? No. Patient's initial sepsis screen is negative. Risk Assessment: Do you want to hurt yourself or someone else? Patient reports no desire to harm self or others. Onset of symptoms was December 07, 2024. 12:27 Method Of Arrival: Ambulatory ld1 12:27 Acuity: MODESTA 4 ld1 Triage Assessment: 12:27 General: Appears in no apparent distress. uncomfortable, Behavior is calm, cooperative, ld1 appropriate for age. Pain: Complains of pain in back Pain does not radiate. Pain currently is 8 out of 10 on a pain scale. Quality of pain is described as throbbing, Pain began 2-3 days ago. Is continuous. EENT: No signs and/or symptoms were reported regarding the EENT system. Neuro: Level of Consciousness is awake, alert, obeys commands, Oriented to person, place, time, situation. Cardiovascular: Capillary refill < 3 seconds Patient's skin is warm and dry. Respiratory: Airway is patent Respiratory effort is even, unlabored. GI: Abdomen is round obese. : No signs and/or symptoms were reported regarding the genitourinary system. Derm: No signs and/or symptoms reported regarding the dermatologic system. Musculoskeletal: Range of motion: intact in all extremities. Historical: - Allergies: 12:27 Aspirin; ld1 12:27 Keflex; ld1 12:27 KETAMINE; ld1 12:27 Morphine; ld1 12:27 Sulfa (Sulfonamide Antibiotics); ld1 - PMHx: 12:27 Atrial fibrillation; Bundle Branch Block; Right; enlarged aorta; HYPERGLYCEMIA; ld1 Hypertension; Obesity; - PSHx: 12:27 ankle fixation; Cardiac Ablation; Cholecystectomy; Gastric Bypass; ld1 - Immunization history:: Adult Immunizations up to date. - Infectious Disease History:: Denies. - Social history:: Smoking status: Patient denies any tobacco usage or history of. - Family history:: not pertinent. Screenin:49 [facility] ED Fall Risk Assessment (Adult) History of falling in the last 3 months, me1 including since admission Yes- single mechanical fall (1 pt) Confusion or Disorientation No (0 pts) Intoxicated or Sedated No (0 pts) Impaired Gait Yes (1 pt) Mobility Assist Device Used No (0 pt) Altered Elimination No (0 pt) Score/Fall Risk Level 0 - 2 = Low Risk Maintained a safe environment, Provided non-skid footwear, Hourly rounding (assess needs \T\ fall precautionary measures) done. Abuse screen: Denies threats or abuse. Nutritional screening: No deficits noted. Tuberculosis screening: No symptoms or risk factors identified. Assessment: 12:49 General: Appears uncomfortable, obese, well groomed, well developed, Behavior is calm, me1 cooperative, appropriate for age, Reports Back pain X 1 week. Fell at work - pain to lower back, radiating into right hip. Pain: Complains of pain in back Pain radiates to right gluteal fold Pain currently is 8 out of 10 on a pain scale. Quality of pain is described as stabbing, Pain began about a week ago Is continuous. Neuro: Level of Consciousness is awake, alert, obeys commands, Oriented to person, place, time, situation, Appropriate for age. Cardiovascular: Patient's skin is warm and dry. Respiratory: Airway is patent Respiratory effort is even, unlabored, Respiratory pattern is regular, symmetrical. GI: No signs and/or symptoms were reported involving the gastrointestinal system. : No signs and/or symptoms were reported regarding the genitourinary system. EENT: No signs and/or symptoms were reported regarding the EENT system. Derm: Skin is intact, is healthy with good turgor, Skin is pink, warm \T\ dry. Musculoskeletal: Circulation, motion, and sensation intact. Range of motion: Reports pain in back. Injury Description: Back pain X 1 week. Fell at work - pain to lower back, radiating into right hip. Vital Signs: 12:27 BP 124 / 80; Pulse 64; Resp 18; Temp 97.1(TE); Pulse Ox 100% on R/A; Pain 8/10; ld1 12:29 Weight 127.01 kg; Height 5 ft. 9 in. ; Pain 8/10; ld1 12:29 Body Mass Index 41.35 (127.01 kg, 175.26 cm) ld1 12:27 Pain Scale: Adult ld1 12:29 Pain Scale: Adult ld1 ED Course: 12:20 Patient arrived in ED. mr 12:21 Alex Tyson MD is Attending Physician. rt 12:28 Triage completed. ld1 12:43 Malathi Mares, RN is Primary Nurse. me1 12:49 Patient has correct armband on for positive identification. Bed in low position. Call me1 light in reach. Side rails up X2. Provided Education on: POC. Verbalized understanding.. 12:49 No provider procedures requiring assistance completed. Patient did not have IV access me1 during this emergency room visit. 12:58 Arm band placed on Patient placed in an internal wait recliner. me1 Administered Medications: 12:48 Drug: Gabapentin PO 300 mg PO once Route: PO; me1 12:54 Follow up: Response: No adverse reaction; Pain is decreased me1 12:49 Drug: Cyclobenzaprine PO 10 mg PO once Route: PO; me1 12:54 Follow up: Response: No adverse reaction; Pain is decreased me1 Medication: 12:49 VIS not applicable for this client. me1 Outcome: 12:41 Discharge ordered by . rt 13:02 Discharged to home ambulatory, me1 13:02 Condition: stable 13:02 Discharge instructions given to patient, Instructed on discharge instructions, follow up and referral plans. medication usage, Demonstrated understanding of instructions, follow-up care, medications, Prescriptions given X 2, 13:03 Patient left the ED. me1 Signatures: Abigail Smith, Ravi Reg CaballeroJusta RN RN ld1 Alex Tyson MD MD rt Malathi Mares, GARRETT RN me1 Corrections: (The following items were deleted from the chart) 12:29 12:27 Chief complaint: Patient states: Back pain X 1 week ld1 ld1 12:49 12:27 Chief complaint: Patient states: Back pain X 1 week. Fell at work - pain to lower me1 back, radiating into right hip. ld1
[2024-12-07] MEDS ORDERED: CYCLOBENZAPRINE 10 MG TAB ONE (12:46)
[2024-12-07] MEDS ORDERED: GABAPENTIN 300 MG CAP ONE (12:46)
[2024-12-07 19:14] VITALS: BP 124/80; TEMP 97.1; O2SAT 100
== END 2024-12-07 13:03 | disposition home or self-care (01) ==
LOC: ER 12:18
DX: M54.50 Low back pain, unspecified (principal); W18.30XA Fall on same level, unspecified, initial encounter